=== PATIENT | female | born 1960 | race Caucasian/White ===

== ENCOUNTER 2017-12-27 18:55 | Emergency (ER) | payer OTHER ==
[~2017-12-27] VITALS: Ht 162.6 cm; Wt 56.2 kg
[2017-12-27] MEDS ORDERED: ALDACTONE25 MG PO (19:24)
[2017-12-27] MEDS ORDERED: MECLIZINE HCL25 MG PO (21:01)
--- NOTE | 2017-12-28 20:59 | EKG ---
[facility] [address] [facility] [place], [place] [address] Signed Normal sinus rhythm Voltage criteria for left ventricular hypertrophy Prolonged QT Abnormal ECG No previous ECGs available Confirmed by ELIANA JAVIER MD ([id number]) on 12/28/2017 8:59:25 PM Electronically Signed By: ELIANA JAVIER MD 12/28/179 PATIENT NAME: CHRIS DUMONT Electrocardiogram DATE OF : 60 PHYSICIAN: ELIANA JAVIER MD REPORT #: [id number] REPORT IS CONFIDENTIAL AND NOT TO BE RELEASED WITHOUT AUTHORIZATION
== END 2017-12-27 21:11 | disposition home or self-care (01) ==
LOC: ED 18:55
DX: R42 Dizziness and giddiness (principal); F17.200 Nicotine dependence, unspecified, uncomplicated; Z79.899 Other long term (current) drug therapy
CPT/HCPCS: 70450; 93005; 93010; 99284

== ENCOUNTER 2018-01-08 18:45 | Emergency (ER) | payer OTHER ==
[~2018-01-08] VITALS: Ht 162.6 cm; Wt 54.9 kg
[~2018-01-08 18:45] MED LIST: ALDACTONE25 MG PO; MECLIZINE HCL25 MG PO
[2018-01-08] MEDS ORDERED: XANAX0.5 MG PO (19:35)
[2018-01-08] MEDS ORDERED: FERRIC CITRATE210 MG PO (19:36)
[2018-01-08] MEDS ORDERED: CYMBALTA20 MG PO (19:36)
[2018-01-08] MEDS ORDERED: ROXICODONE15 MG PO (19:37)
[2018-01-08] MEDS ORDERED: LASIX40 MG PO (19:37)
[2018-01-08] MEDS ORDERED: POTASSIUM CHLO20 ME1 PO (20:23)
--- NOTE | 2018-01-09 16:01 | EKG ---
[facility] [address] [facility] [place] [address] Signed Normal sinus rhythm Left axis deviation Left ventricular hypertrophy with repolarization abnormality Prolonged QT Abnormal ECG When compared with ECG of 27-DEC-2017 19:29, T wave inversion no longer evident in Inferior leads Confirmed by ROSHAN NGUYEN MD ([id number]) on 01/09/2018 4:01:39 PM Electronically Signed By: ROSHAN NGUYEN MD 01/09/18 1601 PATIENT NAME: CHRIS DUMONT Electrocardiogram DATE OF : 60 PHYSICIAN: ROSHAN NGUYEN MD REPORT #: [id number] REPORT IS CONFIDENTIAL AND NOT TO BE RELEASED WITHOUT AUTHORIZATION
== END 2018-01-08 20:37 | disposition home or self-care (01) ==
LOC: ED 18:45
DX: E87.6 Hypokalemia (principal); F17.200 Nicotine dependence, unspecified, uncomplicated; Z79.899 Other long term (current) drug therapy
CPT/HCPCS: 93005; 93010; 99284

== ENCOUNTER 2018-01-10 18:16 | Emergency (ER) | payer OTHER ==
[~2018-01-10] VITALS: Ht 162.6 cm; Wt 54.9 kg
[~2018-01-10 18:16] MED LIST changes: +CYMBALTA20 MG PO; +FERRIC CITRATE210 MG PO; +LASIX40 MG PO; +POTASSIUM CHLO20 ME1 PO; +ROXICODONE15 MG PO; +XANAX0.5 MG PO
[2018-01-10] MEDS ORDERED: VITAMIN K100 MCG PO (18:36)
== END 2018-01-10 19:56 | disposition home or self-care (01) ==
LOC: ED 18:16
DX: E87.6 Hypokalemia (principal); K76.9 Liver disease, unspecified; F17.200 Nicotine dependence, unspecified, uncomplicated; Z79.899 Other long term (current) drug therapy
CPT/HCPCS: 80053; 82140; 85025; 85610; 85730; 99283

== ENCOUNTER 2018-01-24 04:09 | Emergency (ER) | payer OTHER ==
[~2018-01-24] VITALS: Ht 162.6 cm; Wt 54.9 kg
[~2018-01-24 04:09] MED LIST changes: +VITAMIN K100 MCG PO
[2018-01-24] MEDS ORDERED: OXYCODONE HCL5 MG PO (04:36)
[2018-01-24] MEDS ORDERED: ALPRAZOLAM0.5 MG PO (04:36)
[2018-01-24] MEDS ORDERED: FUROSEMIDE40 MG PO (04:36)
== END 2018-01-24 04:50 | disposition home or self-care (01) ==
LOC: ED 04:09
DX: C22.8 Malignant neoplasm of liver, primary, unspecified as to type (principal); K74.60 Unspecified cirrhosis of liver; F17.200 Nicotine dependence, unspecified, uncomplicated; Z79.899 Other long term (current) drug therapy
CPT/HCPCS: 99283

== ENCOUNTER 2019-01-17 11:11 | Emergency (ER) | payer OTHER ==
[~2019-01-17] VITALS: Ht 162.6 cm; Wt 54.4 kg
--- OUTSIDE RECORDS SUMMARY | ~2019-01-17 | XMS | Clinical Summary ---
Demographics + + + | Address | [address] | | | [place] [address] | + + + | Home Phone | | + + + | Preferred Language | Unknown | + + + | Marital Status | Legally | + + + | Cheondoism Affiliation | Unknown | + + + | Race | Unknown | + + + | Ethnic Group | Unknown | + + + Author + + + | Author | [facility] | | | and [place] | + + + | Organization | [facility] | | | and [place] | + + + | Address | Unknown | + + + | Phone | Unavailable | + + + Support + + +---------+ + | Name | Relationship | Address | Phone | + + +---------+ + | Yusuf Faust | EDMUND | Unknown | | + + +---------+ + | Liliana Faust | ECON | Unknown | | + + +---------+ + Care Team Providers + +------+ + | Care Lap Regulator Name | Role | Phone | + +------+ + | Donal Chaidez MD | PP | Unavailable | + +------+ + Allergies No Known Allergies Medications + + + +---------+------+------+-------+ | Medication | Sig | Dispensed | Refills | Star | End | Statu | | | | | | t | Date | s | | | | | | Date | | | + + + +---------+------+------+-------+ | ferric citrate | Take 1 tablet by | 120 | 1 | 05/2 | | Activ | | (AURYXIA) 1 (210 MG | mouth 2 times daily. | tablet | | 5/20 | | e | | Fe) G tablet | | | | 18 | | | + + + +---------+------+------+-------+ | alendronate | Take 1 tablet by | | 0 | 12/0 | | Activ | | (FOSAMAX) 70 mg | mouth Once a week. | | | 4/20 | | e | | tablet | | | | 18 | | | + + + +---------+------+------+-------+ | Blood Glucose | Use to test blood | 1 each | 0 | 12/1 | | Activ | | Monitoring Suppl | sugar once daily. | | | 20 | | e | | (FREESTYLE FREEDOM | DX E11.9 | | | 18 | | | | LITE) w/Device KIT | | | | | | | + + + +---------+------+------+-------+ | FREESTYLE LANCETS | Use to test blood | 100 | 2 | 12/1 | | Activ | | MISC | sugar once daily. | each | | 4/20 | | e | | | DX E11.9 | | | 18 | | | + + + +---------+------+------+-------+ | glucose blood | Use to test blood | 100 | 2 | 08/02 | | Activ | | test strips | sugar 1 time daily | each | | 12/20 | | e | | (FREESTYLE LITE) | Dx E11.9 | | | 18 | | | | strip | | | | | | | + + + +---------+------+------+-------+ | Insulin Pen Needle | Inject Lantus | 100 | 2 | 08/03 | | Activ | | (DROPLET PEN | insulin nightly | each | | 04/21 | | e | | NEEDLES) 32G X 4 MM | | | | 18 | | | | MISC | | | | | | | + + + +---------+------+------+-------+ | spironolactone | Take 1 tablet by | 30 | 5 | 01/0 | | Activ | | (ALDACTONE) 100 MG | mouth Daily. | tablet | | 05/22 | | e | | tablet | | | | 19 | | | + + + +---------+------+------+-------+ | insulin glargine | Inject 30 Units | 15 mL | 5 | 01/0 | | Activ | | (LANTUS SOLOSTAR) | under the skin | | | 9/20 | | e | | 100 units/mL | nightly. | | | 19 | | | | injection (pen) | | | | | | | + + + +---------+------+------+-------+ | DULoxetine | Take 2 capsules by | 60 | 5 | 01/0 | | Activ | | (CYMBALTA) [address] | mouth Daily. | capsule | | 9/20 | | e | | capsule | | | | 19 | | | + + + +---------+------+------+-------+ | furosemide (LASIX) | 1 tablet by mouth | 90 | 1 | 01/0 | | Activ | | 40 mg tablet | daily | tablet | | 9/20 | | e | | | | | | 19 | | | + + + +---------+------+------+-------+ | lactulose 10 g/15 | Take 45 mLs by mouth | 1892 mL | 3 | 01/0 | | Activ | | mL liquid | 3 times daily. | | | 9/20 | | e | | | | | | 19 | | | + + + +---------+------+------+-------+ | erythromycin | Place into both | 3.5 g | 0 | 01/0 | | Activ | | ophthalmic ointment | eyes 3 times daily. | | | 9/20 | | e | | | | | | 19 | | | + + + +---------+------+------+-------+ | oxyCODONE | Take 0.5 tablets by | 60 | 0 | 05/1 | | Activ | | (ROXICODONE) 5 mg | mouth every 6 hours | tablet | | 6/20 | | e | | tablet | as needed for Pain. | | | 19 | | | + + + +---------+------+------+-------+ | oxyCODONE | Take 0.5 tablets by | 60 | 0 | 03/1 | 05/1 | Disco | | (ROXICODONE) 5 mg | mouth every 6 hours | tablet | | 10/22 | 02/19 | ntinu | | tablet | as needed for Pain. | | | 19 | 19 | ed | + + + +---------+------+------+-------+ Active Problems + + + | Problem | Noted Date | + + + | Type 2 diabetes mellitus without complication, without long-term | 06/19/2018 | | current use of insulin | | + + + | Pain in both lower extremities | 06/19/2018 | + + + | Colonic adenoma | 02/18/2017 | + + + + + | Overview: 07/05/16 done at [facility] | | There is no evidence of high-grade dyplasia | + + + + + | Cardiac murmur | 02/18/2017 | + + + | Portal hypertensive gastropathy | 01/15/2017 | + + + | Gastroparesis | 01/15/2017 | + + + | Alcoholic cirrhosis of liver with ascites | 12/24/2016 | + + + | Anasarca | 12/24/2016 | + + + | Renal insufficiency | 12/24/2016 | + + + | Hypoalbuminemia | 12/24/2016 | + + + | Cirrhosis of liver | 11/27/2016 | + + + | Stage 3 chronic kidney disease | 11/27/2016 | + + + Resolved Problems + + + + | Problem | Noted | Resolved | | | Date | Date | + + + + | Hematemesis, presence of nausea not specified | 12/25/19 | | | | 17 | 9 | + + + + | Hepatic encephalopathy | 12/25/19 | | | | 17 | 9 | + + + + Encounters +--------+ + + + + | Date | Type | Specialty | Care Team | Description | +--------+ + + + + | 01/15/ | Refill | | Donal Chaidez, | Medication Refill | | 2018 | | | MD | | +--------+ + + + + | 01/05/ | Refill | | Gisell Dorantes FNP | Medication Refill | | 2018 | | | | | +--------+ + + + + | 12/23/ | Telephone | | Yasmin Buck | Nephrology | | 2019 | | | M, DO | Appointment | +--------+ + + + + | 12/05/ | Telephone | | Donal Chaidez, | Vaccines; Stye | | 2018 | | | MD | | +--------+ + + + + | 11/11/ | Office | | Donal Chaidez, | Upper respiratory | | 2018 | Visit | | MD | tract infection, | | | | | | unspecified type | | | | | | (Primary Dx); Pain | | | | | | in both lower | | | | | | extremities | +--------+ + + + + | 11/03/ | Orders Only | | Yasmin Buck | Stage 3 chronic | | 2019 | | | M, DO | kidney disease (HCC) | | | | | | (Primary Dx) | +--------+ + + + + from Last 3 Months Family History + + +-------+ + | Medical History | Relation | Name | Comments | + + +-------+ + | Substance abuse | Brother | | | + + +-------+ + | Substance abuse | Brother | | | + + +-------+ + | Substance abuse | Father | | | + + +-------+ + | Vision loss | Father | | | + + +-------+ + | Diabetes | Maternal | | | | | Aunt | | | + + +-------+ + | Arthritis | Maternal | | | | | Grandfath | | | | | er | | | + + +-------+ + | Breast cancer | Maternal | | | | | Grandmoth | | | | | er | | | + + +-------+ + | High blood pressure | Maternal | | | | | Grandmoth | | | | | er | | | + + +-------+ + | Hearing loss | Mother | Lissa | | + + +-------+ + | High blood pressure | Mother | Lissa | | + + +-------+ + | Vision loss | Mother | Lissa | | + + +-------+ + | Arthritis | Paternal | | | | | Grandmoth | | | | | er | | | + + +-------+ + | Stroke | Paternal | | | | | Grandmoth | | | | | er | | | + + +-------+ + | Substance abuse | Sister | | | + + +-------+ + + +-------+ + + | Relation | Name | Status | Comments | + +-------+ + + | Brother | | Alive | | + +-------+ + + | Brother | | | | + +-------+ + + | Father | | | | + +-------+ + + | Maternal Aunt | | | | + +-------+ + + | Maternal Grandfather | | | | + +-------+ + + | Maternal Grandmother | | | | + +-------+ + + | Mother | Lissa | Alive | | + +-------+ + + | Paternal Grandfather | | | | + +-------+ + + | Paternal Grandmother | | | | + +-------+ + + | Sister | | Alive | | + +-------+ + + | Sister | | Alive | | + +-------+ + + Social History + + + +--------+ + | Tobacco Use | Types | Packs/Day | Years | Date | | | | | Used | | + + + +--------+ + | Current Every Day | Cigarettes | 0.5 | 42 | Started: 1975 | | Smoker | | | | | + + + +--------+ + + +---+---+---+ | Smokeless Tobacco: | | | | | Never Used | | | | + +---+---+---+ + + | Tobacco Cessation: Ready to Quit: Yes | + + + + +---------+ + | Alcohol Use | Drinks/We | oz/Week | Comments | | | ek | | | + + +---------+ + | No | 0 | 0.0 | 2015 was pts last drink | | | Standard | | | | | drinks or | | | | | | | | | | equivalen | | | | | t | | | + + +---------+ + + + + | Sex Assigned at | Date Recorded | | | | + + + | Not on file | | + + + + + + + | Job Start Date | Occupation | Industry | + + + + | Not on file | Not on file | Not on file | + + + + + + + + | Travel History | Travel Start | Travel End | + + + + + + | No recent travel history available. | + + Last Filed Vital Signs + + + + | Vital Sign | Reading | Time Taken | + + + + | Blood Pressure | 122/80 | 11/11/20181105 PDT | + + + + | Pulse | 77 | 11/11/20181105 PDT | + + + + | Temperature | 36.3 C (97.4 F) | 11/11/20181105 PDT | + + + + | Respiratory Rate | 16 | 11/11/20181105 PDT | + + + + | Oxygen Saturation | 98% | 11/11/20181105 PDT | + + + + | Inhaled Oxygen | - | - | | Concentration | | | + + + + | Weight | 56 kg (123 lb 7.3 | 11/11/20181105 PDT | | | oz) | | + + + + | Height | 162.6 cm (5' 4.02") | 11/11/20181105 PDT | + + + + | Body Mass Index | 21.18 | 11/11/2018 1106 PDT | + + + + Plan of Treatment + + + + + | Health Maintenance | Due Date | Last Done | Comments | + + + + + | Urine Drug Screening | | | | | | 6 | | | + + + + + | Vaccine: | | | | | Dtap/Tdap/Td (1 - | 9 | | | | Tdap) | | | | + + + + + | Vaccine: | | | | | Pneumococcal 19-64 | 9 | | | | (PPSV23 only) Medium | | | | | Risk (1 of 1 - | | | | | PPSV23) | | | | + + + + + | Hemoglobin A1c | | 08/07/2018, 06/03/2018 | | | Screening | 9 | | | + + + + + | Breast Cancer | | 07/30/2018 | | | Screening | 9 | | | + + + + + | Diabetic Foot Exam | | 08/20/2018 | | | | 9 | | | + + + + + | Microalbumin | | 09/10/2018 | | | Screening | 0 | | | + + + + + | Vaccine: Influenza | | | Postponed from | | (Season Ended) | 0 | | 05/03/2019 (Plan in | | | | | Place) | + + + + + | Vaccine: Zoster (1 | | | Postponed from | | of 2) | 0 | | 2010 (Plan in | | | | | Place) | + + + + + | Diabetic Eye Exam | | 09/22/2018 | | | | 1 | | | + + + + + | Colorectal Cancer | | 07/03/2016 | | | Screening | 6 | | | | (Colonoscopy) | | | | + + + + + | Hepatitis C | Completed | 11/27/2016 | | | Screening | | | | + + + + + Results Not on filefrom Last 3 Months Insurance + +--------+ +--------+ +---------+--------+ | Payer | Benefi | Subscriber | Effect | Phone | Address | Type | | | t Plan | ID | jeff | | | | | | / | | Dates | | | | | | Group | | | | | | + +--------+ +--------+ +---------+--------+ | [employer] | [employer] | [id number] | | [phone] | | Medica | | MEDICAID HMO | HEALTH | | [phone]-Pr | 1 | | id | | | MDCD | | esent | | | | | | HMO [place] | | | | | | + +--------+ +--------+ +---------+--------+ + +--------+ +--------+ + + | Guarantor Name | Accoun | Relation to | Date | Phone | Billing Address | | | t Type | Patient | of | | | | | | | | | | + +--------+ +--------+ + + | Jarrell Donaldson | Person | Self [birth year] | | | al/Fam | | 1960 | [phone] | [place] [address] | | | ashley | | | [address] (Home) | | + +--------+ +--------+ + + Advance Directives Patient has advance care planning documents on file. For more information, please contact:Yes[facility] [place] [address]
--- OUTSIDE RECORDS SUMMARY | ~2019-01-17 | XMS | Encounter Summary ---
Demographics + + + | Address | [address] | | | [place] [address] | + + + | Home Phone | | + + + | Preferred Language | Unknown | + + + | Marital Status | Legally | + + + | Lutheran Affiliation | Unknown | + + + | Race | Unknown | + + + | Ethnic Group | Unknown | + + + Author + + + | Author | [facility] | | | and Tip[place] | + + + | Organization | [facility] | | | and [place] | [...] Team Providers + +------+ + | Care Exterminator Termite Name | Role | Phone | + [...] Description | +--------+--------+ + + + | 01/05/ | Refill | [facility] | JaynaGisell FNP | Medication Refill | | 2019 | | [facility] [place] | [address] | | | | | [address] | [place] | | | | | [place] | [address] | | | | | [address] | | | | | | [phone] | | | +--------+--------+ + + + [...] this encounter Plan of Treatment Not on filedocumented as of this encounter Visit Diagnoses Not on filedocumented in this encounter"
--- OUTSIDE RECORDS SUMMARY | ~2019-01-17 | XMS | Encounter Summary ---
Demographics + + + | Address | [address] | | | [place] [address] | + + + | Home Phone | | + + + | Preferred Language | Unknown | + + + | Marital Status | Legally | + + + | Jehovah'S Witness Affiliation | Unknown | + + + | Race | Unknown | + + + | Ethnic Group | Unknown | + + + Author + + + | Author | [facility] | | | and [place] | + + + | Organization | [facility] | | | and [place] | [...] Team Providers + +------+ + | Care Brick Pointer Name | Role | Phone | + [...] Refill | | 2019 | | [facility] [place] | [address] | | | | | [address] | [place] | | | | | [place] | [address] | | | | | [address] | | | | | | [phone] | | | +--------+--------+ + + + [...]
--- OUTSIDE RECORDS SUMMARY | ~2019-01-17 | XMS | Encounter Summary ---
Demographics + + + | Address | [address] | | | [place] [address] | + + + | Home Phone | | + + + | Preferred Language | Unknown | + + + | Marital Status | Legally | + + + | Holiness Affiliation | Unknown | + + + | Race | Unknown | + + + | Ethnic Group | Unknown | + + + Author + + + | Author | [facility] | | | and [place] | + + + | Organization | [facility] | | | and Tip[place] [...] Team Providers + +------+ + | Care Cash Checker Name | Role | Phone | + [...] Refill | | 2019 | | [facility] [place] | [address] | | | | | [address] | [place] | | | | | [place] | [address] | | | | | [address] | | | | | | [phone] | | | +--------+--------+ + + + [...]
--- OUTSIDE RECORDS SUMMARY | ~2019-01-17 | XMS | Encounter Summary ---
Demographics + + + | Address | [address] | | | [place] [address] | + + + | Home Phone | | + + + | Preferred Language | Unknown | + + + | Marital Status | Legally | + + + | Pentecostal Affiliation | Unknown | + + + | Race | Unknown | + + + | Ethnic Group | Unknown | + + + Author + + + | Author | [facility] | | | and [place] | + + + | Organization | [facility] | | | and [place] | [...] Team Providers + +------+ + | Care Sales Branch Manager Name | Role | Phone | + +------+ + | Donal Chaidez MD | PCP | Unavailable | + +------+ + Reason for Visit + + + | Reason | Comments | + + + | Follow-up | 2 month regarding multiple concerns | + + + | Cough | productive yellow cough,low grade fever 100.4, sore throat, | | | fatigue x 1 week | + + + Encounter Details +--------+---------+ + + + | Date | Type | Department | Care Team | Description | +--------+---------+ + + + | 11/11/ | Office | [facility] | Donal Chaidez, | Upper respiratory | | 2019 | Visit | [facility] | [address] | tract infection, | | | | [address] | [place] | unspecified type | | | | [place], [place] | [address] | (Primary Dx); Pain | | | | [address] | | in both lower | | | | [phone] | | extremities | +--------+---------+ + + + Social History [...] | Body Mass Index | 21.18 | 11/11/20181105 PDT | + + + + documented in this encounter Progress Notes Donal Chaidez MD - 11/11/2018 1100 PDT Subjective: Patient ID: Jarrell Donaldson is a 58 y.o. female. Chief Complaint Patient presents with Follow-up 2 month regarding multiple concerns Cough productive yellow cough,low grade fever 100.4, sore throat, fatigue x 1 week Cough This is a new problem. The current episode started 1 to 4 weeks ago. The problem has been u nchanged. The cough is productive of purulent sputum. Associated symptoms include nasal krista estion. Pertinent negatives include no shortness of breath. Risk factors for lung disease in clude smoking/tobacco exposure. She has tried OTC cough suppressant for the symptoms. The tr eatment provided no relief. Leg pain: controlled with prn oxycodone. Patient Active Problem List Diagnosis Cirrhosis of liver Stage 3 chronic kidney disease Alcoholic cirrhosis of liver with ascites Hematemesis, presence of nausea not specified Anasarca Renal insufficiency Hepatic encephalopathy Hypoalbuminemia Portal hypertensive gastropathy Gastroparesis Colonic adenoma [...] abuse Brother Diabetes Maternal Aunt Social History Social History Marital status: Legally Spouse name: N/A Number of children: N/A Years of education: N/A Social History Main Topics Smoking status: Current Every Day Smoker Packs/day: 0.50 Years: 42.00 Types: Cigarettes Start date: 1974 Smokeless tobacco: Never Used Alcohol use No Comment: 2015 was pts last drink Drug use: No Sexual activity: No Other Topics Concern None Social History Narrative None Review of Systems Constitutional: Negative. HENT: Negative. Eyes: Negative. Respiratory: Positive for cough. Negative for shortness of breath. Cardiovascular: Negative. Gastrointestinal: Negative. Genitourinary: Negative. Musculoskeletal: Negative. Skin: Negative. Neurological: Negative. Endo/Heme/Allergies: Negative. Psychiatric/Behavioral: Negative. . Objective: BP 122/80 | Pulse 77 | Temp 36.3 C (97.4 F) (Temporal) | Resp 16 | Ht 1.626 m (5' 4 .02") | Wt 56 kg (123 lb 7.3 oz) | SpO2 98% | BMI 21.18 kg/m Physical Exam Constitutional: She is well-developed, well-nourished, and in no distress. HENT: Head: Normocephalic and atraumatic. Eyes: Right eye exhibits no discharge. Left eye exhibits no discharge. Neck: No tracheal deviation present. Cardiovascular: Regular rhythm. Pulmonary/Chest: Effort normal. No respiratory distress. She has no wheezes. She has rhonch i in the right lower field. Abdominal: She exhibits no distension. Musculoskeletal: She exhibits no edema. Neurological: She is alert. Skin: Skin is dry. She is not diaphoretic. Psychiatric: Affect normal. Assessment/Plan: 1. Upper respiratory tract infection, unspecified type 2. Pain in both lower extremities Requested Prescriptions Signed Prescriptions Disp Refills levoFLOXacin (LEVAQUIN) 500 mg tablet 10 tablet 0 Sig: Take 1 tablet by mouth Daily for 10 days. oxyCODONE (ROXICODONE) 5 mg tablet 60 tablet 0 Sig: Take 0.5 tablets by mouth every 6 hours as needed for Pain. New Prescriptions LEVOFLOXACIN (LEVAQUIN) 500 MG TABLET Take 1 tablet by mouth Daily for 10 days. documented in this enc ounter Plan of Treatment Not on filedocumented as of this encounter Visit Diagnoses + + | Diagnosis | + + | Upper respiratory tract infection, unspecified type - Primary | + + | Pain in both lower extremities | + + documented in this encounter
--- OUTSIDE RECORDS SUMMARY | ~2019-01-17 | XMS | Encounter Summary ---
Demographics + + + | Address | [address] | | | [place] [address] | + + + | Home Phone | | + + + | Preferred Language | Unknown | + + + | Marital Status | Legally | + + + | Lutheran Affiliation | Unknown | + + + | Race | Unknown | + + + | Ethnic Group | Unknown | + + + Author + + + | Author | [facility] | | | and [place] | + + + | Organization | [facility] | | | and Tipana [...] Team Providers + +------+ + | Care Architectural Inspector Name | Role | Phone | + [...] + + | 11/11/ | Office | [facility] | Donal Chaidez, | Upper respiratory | | 2019 | Visit | [facility] | [address] | tract infection, | | | | [address] | [place] | unspecified type | | | | [place] | [address] | (Primary Dx); Pain | | | | [address] | | in both lower | | | | [phone] | | extremities | +--------+---------+ + + [...]
--- OUTSIDE RECORDS SUMMARY | ~2019-01-17 | XMS | Encounter Summary ---
Demographics + + + | Address | [address] | | | [place] [address] | + + + | Home Phone | | + + + | Preferred Language | Unknown | + + + | Marital Status | Legally | + + + | Zoroastrianism Affiliation | Unknown | + + + | Race | Unknown | + + + | Ethnic Group | Unknown | + + + Author + + + | Author | [facility] | | | and [place] | + + + | Organization | [facility] | | | and [place] [...] Team Providers + +------+ + | Care Prep Person Name | Role | Phone | + [...] | | [address] | [place] | (Primary Dx) | | | | [place], [place] | [place], [place] | | | | | [address] | [address] | | | | | [phone] | | | +--------+ + + + [...] PSTLabs for upcoming nephrology appointment sent to: Suraj documented in this encounter Plan of Treatment + +--------+ + + | Name | Priori | Associated Diagnoses | Order Schedule | | | ty | | | + +--------+ + + | CBC with Differential | Routin | Stage 3 chronic | Expected: | | | e | kidney disease (HCC) | 12/01/2018, Expires: | | | | | 11/04/2019 | + +--------+ + + | Comprehensive Metabolic Panel | Routin | Stage 3 chronic | Expected: | | | e | kidney disease (HCC) | 12/01/2018, Expires: | | | | | 11/04/2019 | + +--------+ + + | Phosphorus | Routin | Stage 3 chronic | Expected: | | | e | kidney disease (HCC) | 12/01/2018, Expires: | | | | | 11/04/2019 | + +--------+ + + | Parathyroid Hormone, Intact | Routin | Stage 3 chronic | Expected: | | | e | kidney disease (HCC) | 12/01/2018, Expires: | | | | | 11/04/2019 | + +--------+ + + | Lipid Panel | Routin | Stage 3 chronic | Expected: | | | e | kidney disease (HCC) | 12/01/2018, Expires: | | | | | 11/04/2019 | + +--------+ + + | Creatinine [...]
--- OUTSIDE RECORDS SUMMARY | ~2019-01-17 | XMS | Encounter Summary ---
Demographics + + + | Address | [address] | | | [place] [address] | + + + | Home Phone | | + + + | Preferred Language | Unknown | + + + | Marital Status | Legally | + + + | Latter-Day Affiliation | Unknown | + + + | Race | Unknown | + + + | Ethnic Group | Unknown | + + + Author + + + | Author | [facility] | | | and Tipana | + + + | Organization | [facility] | | | and Tipana [...] Team Providers + +------+ + | Care Furniture Mechanic Name | Role | Phone | + +------+ + | Donal Chaidez MD | PCP | Unavailable | + +------+ + Reason for Visit + + + | Reason | Comments | + + + | Vaccines | | + + + | Stye | | + + + Encounter Details +--------+ + + + + | Date | Type | Department | Care Team | Description | +--------+ + + + + | 12/05/ | Telephone | [facility] | Donal Chaidez, | Vaccines; Stye | | 2019 | | [facility] | [address] | | | | | [address] | [place] | | | | | [place], [place] | [address] | | | | | [address] | | | | | | [phone] | | | +--------+ + + + [...]
--- OUTSIDE RECORDS SUMMARY | ~2019-01-17 | XMS | Encounter Summary ---
Demographics + + + | Address | [address] | | | [place] [address] | + + + | Home Phone | | + + + | Preferred Language | Unknown | + + + | Marital Status | Legally | + + + | Sikh Affiliation | Unknown | + + + | Race | Unknown | + + + | Ethnic Group | Unknown | + + + Author + + + | Author | [facility] | | | and Tipana | + + + | Organization | [facility] | | | and Tipana [...] Team Providers + +------+ + | Care School Lunch Monitor Name | Role | Phone | + [...] Stye | | 2019 | | MEDICINE [facility] | [address] | | | | | [address] | [place] | | | | | [place], [place] | [address] | | | | | [address] | | | | | | [phone] | | | +--------+ + + + [...]
--- OUTSIDE RECORDS SUMMARY | ~2019-01-17 | XMS | Encounter Summary ---
Demographics + + + | Address | [address] | | | [place] [address] | + + + | Home Phone | | + + + | Preferred Language | Unknown | + + + | Marital Status | Legally | + + + | Lutheran Affiliation | Unknown | + + + | Race | Unknown | + + + | Ethnic Group | Unknown | + + + Author + + + | Author | [facility] | | | and Tipana | + + + | Organization | [facility] | [...] Team Providers + +------+ + | Care Bottom Crane Operator Name | Role | Phone | [...] Refill | | 2019 | | MEDICINE [facility] | [address] | | | | | [address] | [place] | | | | | [place] | [address] | | | | | [address] | | | | | | [phone] | | | +--------+--------+ + + + [...]
--- OUTSIDE RECORDS SUMMARY | ~2019-01-17 | XMS | Encounter Summary ---
Demographics + + + | Address | [address] | | | [place] [address] | + + + | Home Phone | | + + + | Preferred Language | Unknown | + + + | Marital Status | Legally | + + + | Mandaen Affiliation | Unknown | + + + | Race | Unknown | + + + | Ethnic Group | Unknown | + + + Author + + + | Author | [facility] | | | and Tipana | + + + | Organization | [facility] | | | and [...] Team Providers + +------+ + | Care Break Off Worker Name | Role | Phone | [...] | | [address] | [place] | | | | | [place], [place] | [place], [place] | | | | | [address] | [address] | | | | | [phone] | | | +--------+ + + + [...]
--- OUTSIDE RECORDS SUMMARY | ~2019-01-17 | XMS | Encounter Summary ---
Demographics + + + | Address | [address] | | | [place] [address] | + + + | Home Phone | | + + + | Preferred Language | Unknown | + + + | Marital Status | Legally | + + + | Yarsani Affiliation | Unknown | + + + | Race | Unknown | + + + | Ethnic Group | Unknown | + + + Author + + + | Author | [facility] | | | and Tipana | + + + | Organization | [facility] | | | and Tipana [...] Team Providers + +------+ + | Care Management Trainee Name | Role | Phone | + [...] | | [address] | [place] | | | | | [place], [place] | [place], [place] | | | | | [address] | [address] | | | | | [phone] | | | +--------+ + + + [...]
--- OUTSIDE RECORDS SUMMARY | ~2019-01-17 | XMS | Clinical Summary ---
Demographics + + + | Address | [address] | | | [place] [address] | + + + | Home Phone | | + + + | Preferred Language | Unknown | + + + | Marital Status | Legally | + + + | Islam Affiliation | Unknown | + + + | Race | Unknown | + + + | Ethnic Group | Unknown | + + + Author + + + | Author | [facility] | | | and Tipana | + + + | Organization | [facility] | | | and [...] Team Providers + +------+ + | Care Automatic Cigar Wrapper Tender Name | Role | Phone | + [...] + + | Overview: 07/05/16 done at [facility] | | There is no evidence [...] | [employer] | [facility] | [id number] | | [phone] | | [employer] | [...] | | al/Fam | | 1960 | [phone] | [place] [address] | | | ashley | | | 8 (Home) | | + +--------+ +--------+ + + Advance Directives Patient has advance care planning documents on file. For more information, please contact:[facility] [place] [address]
--- OUTSIDE RECORDS SUMMARY | ~2019-01-17 | XMS | Encounter Summary ---
Demographics + + + | Address | [address] | | | [place] [address] | + + + | Home Phone | | + + + | Preferred Language | Unknown | + + + | Marital Status | Legally | + + + | Gnosticism Affiliation | Unknown | + + + | Race | Unknown | + + + | Ethnic Group | Unknown | + + + Author + + + | Author | [facility] | | | and Tipana | + + + | Organization | [facility] | | | and [...] Team Providers + +------+ + | Care Dental Aide Name | Role | Phone | + [...] | | [address] | [place] | (Primary Dx) | | | | [place], [place] | [place], [place] | | | | | [address] | [address] | | | | | [phone] | | | +--------+ + + + [...]
[~2019-01-17 11:11] MED LIST changes: +ALPRAZOLAM0.5 MG PO; +FUROSEMIDE40 MG PO; +OXYCODONE HCL5 MG PO
--- OUTSIDE RECORDS SUMMARY | 2019-01-17 11:14 | XMS ---
PreManage Notification: CHRIS DUMONT Security Easter Bunny Events No recent Security Events currently on file CRITERIA MET - PDMP CARE PROVIDERS DESIREE PATRICIO [facility] Current PHONE: Unknown Dalia has no Care Guidelines for this patient. EIrena VISIT COUNT (12 MO.) 2 NADJA Oscar TOTAL 2 NOTE: Visits indicate total known visits. ED/UCC VISIT TRACKING (12 MO.) 01/17/2019 11:11 NADJA [facility] [place] TYPE: Emergency COMPLAINT: - VOMITING BLOOD 01/24/2018 04:09 NADJA [facility] [place] TYPE: Emergency COMPLAINT: - ABD PAIN/BACK PAIN DIAGNOSES: - Unspecified abdominal pain - Other ornamenter (current) drug therapy - Unspecified cirrhosis of liver - Nicotine dependence, unspecified, uncomplicated - Malignant neoplasm of liver, primary, unspecified as to type INPATIENT VISIT TRACKING (12 MO.) No inpatient visits to display in this time frame [id number]
[2019-01-17] MEDS ORDERED: LANTUS100 UNITS/ SUB-Q (12:29)
[2019-01-17] MEDS ORDERED: ALENDRONATE SOD70 MG PO (12:29)
== END 2019-01-17 13:17 | disposition short-term general hospital (02) ==
LOC: ED 11:11
DX: K92.2 Gastrointestinal hemorrhage, unspecified (principal); D64.9 Anemia, unspecified; K76.9 Liver disease, unspecified; F17.200 Nicotine dependence, unspecified, uncomplicated; Z90.49 Acquired absence of other specified parts of digestive tract; Z90.710 Acquired absence of both cervix and uterus; Z79.899 Other long term (current) drug therapy
CPT/HCPCS: 80053; 85025; 85610; 85730; 86850; 86900; 86901; 96365; 96375; 99285-25; C9113; J0696; J2354; J2405; J7030; J7060

== ENCOUNTER 2019-01-24 19:20 | Emergency (ER) | payer OTHER ==
[~2019-01-24] VITALS: Ht 162.6 cm; Wt 54.4 kg
--- OUTSIDE RECORDS SUMMARY | ~2019-01-24 | XMS | Encounter Summary ---
Demographics + + + | Address | [address] | | | [place] [address] | + + + | Home Phone | | + + + | Preferred Language | Unknown | + + + | Marital Status | Legally | + + + | Anglican Affiliation | Unknown | + + + | Race | Unknown | + + + | Ethnic Group | Unknown | + + + Author + + + | Author | [facility] | + + + | Organization | [facility] [employer] [facility] | + + + | Address | Unknown | + + + | Phone | Unavailable | + + + Support + + +---------+ + | Name | Relationship | Address | Phone | + + +---------+ + | Kofi Donaldson | ECON | Unknown | | + + +---------+ + | Yusuf aFust | ECON | Unknown | | + + +---------+ + | Lissa Faust | ECON | Unknown | | + + +---------+ + Care Team Providers + +------+ + | Care Director Biostatistics Name | Role | Phone | + +------+ + | Donal Chaidez MD | PCP | | + +------+ + Encounter Details +--------+ + + + + | Date | Type | Department | Care Team | Description | +--------+ + + + + | 01/17/ | Procedure | [facility] | | | | 2019 | [facility] | | | | | | Endoscopy [address] | | | | | | [place] | | | | | | [address] | | | +--------+ + + + + Social History + +-------+ +--------+------+ | Tobacco Use | Types | Packs/Day | Years | Date | | | | | Used | | + +-------+ +--------+------+ | Current Every Day | | 0.25 | | | | Smoker | | | | | + +-------+ +--------+------+ + +---+---+---+ | Smokeless Tobacco: | | | | | Never Used | | | | + +---+---+---+ + + +---------+ + | Alcohol Use | Drinks/We | oz/Week | Comments | | | ek | | | + + +---------+ + | No | | | | + + +---------+ + + + + | Sex Assigned at | Date Recorded | | | | + + + | Not on file | | + + + as of this encounter Plan of Treatment Not on fileas of this encounter Visit Diagnoses Not on filein this encounter"
--- OUTSIDE RECORDS SUMMARY | ~2019-01-24 | XMS | Encounter Summary ---
Demographics + + + | Address | [address] | | | [place] [address] | + + + | Home Phone | | + + + | Preferred Language | Unknown | + + + | Marital Status | Legally | + + + | Mormonism Affiliation | Unknown | + + + | Race | Unknown | + + + | Ethnic Group | Unknown | + + + Author + + + | Author | [facility] [employer] | + + + | Organization | [facility] [employer] [facility] | + + + | Address | Unknown | + + + | Phone | Unavailable | + + + Support + + +---------+ + | Name | Relationship | Address | Phone | + + +---------+ + | Kofi Donaldson | ECON | Unknown | | + + +---------+ + | Yusuf Faust | ECON | Unknown | | + + +---------+ + | Lissa Faust | ECON | Unknown | | + + +---------+ + Care Team Providers + +------+ + | Care Power Ballast Machine Operator Name | Role | Phone | + +------+ + | Donal Chaidez MD | PCP | | + +------+ + Encounter Details +--------+ + + + + | Date | Type | Department | Care Team | Description | +--------+ + + + + | 01/19/ | Procedure | [facility] | | | | 2019 | [facility] | | | | | | Endoscopy [address] | | | | | | [place] | | | | | | [address] | | | +--------+ + + + + Social History + +-------+ +--------+------+ | Tobacco Use | Types | Packs/Day | Years | Date | | | | | Used | | + +-------+ +--------+------+ | Current Every Day | | 0.5 | | | | Smoker | | [...]
--- OUTSIDE RECORDS SUMMARY | ~2019-01-24 | XMS | Encounter Summary ---
Demographics + + + | Address | [address] | | | [place] [address] | + + + | Home Phone | | + + + | Preferred Language | Unknown | + + + | Marital Status | Legally | + + + | Taoism Affiliation | Unknown | + + + | Race | Unknown | + + + | Ethnic Group | Unknown | + + + Author + + + | Author | [facility] [employer] | + + + | Organization | [facility] [employer] [facility] | + + + | Address [...] Team Providers + +------+ + | Care Tie Man Name | Role | Phone | + +------+ + | Donal Chaidez MD | PCP | | + +------+ + Reason for Visit Auth/Cert +--------+--------+ + + + + | Status | Reason | Specialty | Diagnoses / | Referred By | Referred To | | | | | Procedures | Contact | Contact | +--------+--------+ + + + + | | | Internal | Diagnoses | | [facility] | | | | Medicine | | | [place] | | | | | Hyperkalemia | | [address] | | | | | Acute | | [address] | | | | | post-hemorrh | | [place] | | | | | agic anemia | | [address] Phone: | | | | | Upper GI | | [phone] | | | | | bleeding | | | | | | | History of | | | | | | | cirrhosis of | | | | | | | liver | | | | | | | Alcoholic | | | | | | | cirrhosis of | | | | | | | liver with | | | | | | | ascites | | | | | | | (HCC) Acute | | | | | | | renal | | | | | | | injury (HCC) | | | | | | | | | | | | | | Gastrointest | | | | | | | inal | | | | | | | hemorrhage | | | | | | | with | | | | | | | hematemesis | | | | | | | Hematemesis | | | | | | | with nausea | | | | | | | Anemia, | | | | | | | unspecified | | | | | | | type | | | | | | | Leukocytosis | | | | | | | , | | | | | | | unspecified | | | | | | | type | | | | | | | | | | +--------+--------+ + + + + Encounter Details +--------+ + + + + | Date | Type | Department | Care Team | Description | +--------+ + + + + | 01/19/ | Anesthesia | [facility] | Kurt Santos MD | | | 2019 | [facility] | [facility] | | | | | Endoscopy [address] | | [address] [place], [place] | [facility] | | | | | [address] | [place] [address] | | | | | | [phone] | | +--------+ + + + + Anesthesia Record + + + + + | Procedure Name | Responsible | Anesthesia Start | Anesthesia Stop Time | | | Anesthesiologist | Time | | + + + + + | ESOPHAGOGASTRODUODEN | Kurt Santos MD | 01/19/19 1439 | 01/19/19 1454 | | OSCOPY (N/A Upper | | | | | GI) | | | | + + + + + +----+---+ + + | Da | T | Event | Comment | | te | i | | | | | m | | | | | e | | | +----+---+ + + | 05 | 1 | An Start | Pre-anesthetic vital signs reassessed. | | /2 | 4 | | | | 0/ | 3 | | | | 20 | 9 | | | | 19 | | | | +----+---+ + + | | 1 | an stop | | | | 4 | data | | | | 5 | | | | | 2 | | | +----+---+ + + | | 1 | An Stop | | | | 4 | | | | | 5 | | | | | 4 | | | +----+---+ + + +------+ | Meds | +------+ + + + | Name | Total | + + + | lidocaine 2% | 50 mg | + + + | propofol bolus | 90 mg | + + + | propofol infusion | 49.95 mg | + + + | sodium chloride 0.9 % infusion | 0 mL | + + + + + | Name | + + | Aux O2 (L/min) | + + | N2O | + + + + | No blood administrations on file. | + + +--------+ + + + | Type | Details | Placement | Removal | +--------+ + + + | Periph | Placement Date: 01/17/19; | 01/17/19 1413 by | 01/21/19 0800 by | | eral | Placement Time: 141; Removal | Avel Kaiser, | Randa Loza, | | IV | Date: 01/21/19; Removal Time: | RN | SN | | | 0800; Size (Gauge): 22 G; | | | | | Orientation: Left; Location: | | | | | Antecubital | | | +--------+ + + + | Periph | Placement Date: 01/17/19; | 01/17/19 1414 by | 01/21/19 1021 by | | eral | Placement Time: 1414; Removal | Avel Kaiser, | Randa Loza, | | IV | Date: 01/21/19; Removal Time: | RN | SN | | | 1021; Size (Gauge): 20 G; | | | | | Orientation: Left; Location: | | | | | Forearm | | | +--------+ + + + in this encounter Social History + +-------+ +--------+------+ | Tobacco [...] encounter Visit Diagnoses Not on filein this encounter Administered Medications + +--------+ +-------+------+------+ | Medication Order | MAR | Action | Dose | Rate | Site | | | Action | Date | | | | + +--------+ +-------+------+------+ | lidocaine 2 % (MDV) 2 % | Given | | 50 mg | | | | injection Intravenous, PRN, | | 9 14:41 | | | | | Starting 01/19/19 at 1441, | | PDT | | | | | Anesthesia Intra-op | | | | | | + +--------+ +-------+------+------+ +---+---+ | | | +---+---+ + +-------+ +-------+---+---+ | propofol (DIPRIVAN) injection | Given | | 50 mg | | | | Intravenous, PRN, Starting Mon | | 9 14:42 | | | | | 01/19/19 at 1442, Anesthesia | | PDT | | | | | Intra-op | | | | | | + +-------+ +-------+---+---+ +-------+ +-------+---+---+ | Given | | 20 mg | | | | | 9 14:43 | | | | | | PDT | | | | +-------+ +-------+---+---+ | Given | | 20 mg | | | | | 9 14:44 | | | | | | PDT | | | | +-------+ +-------+---+---+ +---+---+ | | | +---+---+ + +---------+ + +-------+---+ | propofol infusion Intravenous, | New Bag | | 100 | 33.3 | | | Continuous PRN, Starting Mon | | 9 14:42 | mcg/kg/m | mL/hr | | | 01/19/19 at 1442, Anesthesia | | PDT | in | | | | Intra-op | | | | | | + +---------+ + +-------+---+ +---+---+ | | | +---+---+ + + + +---+ +---+ | sodium chloride 0.9 % infusion | Rate/Dos | | | 75 mL/hr | | | at 75 mL/hr, Intravenous, | e Change | 9 14:39 | | | | | Continuous, Starting 01/17/19 | | PDT | | | | | at 1830 | | | | | | + + + +---+ +---+ + + +---+ +---+ | Rate/Dose Change | | | 100 | | | | 9 14:42 | | mL/hr | | | | PDT | | | | + + +---+ +---+ | New Bag | | | 75 mL/hr | | | | 9 01:55 | | | | | | PDT | | | | + + +---+ +---+ +---+---+ | | | +---+---+ in this encounter"
--- OUTSIDE RECORDS SUMMARY | ~2019-01-24 | XMS | Encounter Summary ---
Demographics + + + | Address | [address] | | | [place] [address] | + + + | Home Phone | | + + + | Preferred Language | Unknown | + + + | Marital Status | Legally | + + + | Judaism Affiliation | Unknown | + + + | Race | Unknown | + + + | Ethnic Group | Unknown | + + + Author + + + | Author | [facility] | | | and [facility] | + + + | Organization | [facility] | | | and [facility] | [...] Team Providers + +------+ + | Care Safety Teacher Name | Role | Phone | + +------+ + | Donal Chaidez MD | PCP | Unavailable | + +------+ + Reason for Visit + + + | Reason | Comments | + + + | Medication Refill | | + + + Encounter Details +--------+--------+ + + + | Date | Type | Department | Care Team | Description | +--------+--------+ + + + | 01/15/ | Refill | [facility] | Donal Chaidez, | Medication Refill | | 2019 | | MEDICINE [place] | [address] | | | | | [address] | [place] | | | | | [place] | [address] | | | | | [address] | | | | | | [phone] | | | +--------+--------+ + + + Social History + + + [...] recent travel history available. | + + documented as of this encounter Plan of Treatment +--------+---------+ + + + | Date | Type | Specialty | Care Team | Description | +--------+---------+ + + + | 02/13/ | Office | Family Medicine | Donal Chaidez, | | | 2019 | Visit | | [address] | | | | | | [place] | | | | | | [address] | | | | | | | | +--------+---------+ + + + documented as of this encounter Visit Diagnoses Not on filedocumented in this encounter"
--- OUTSIDE RECORDS SUMMARY | ~2019-01-24 | XMS | Encounter Summary ---
Demographics + + + | Address | [address] | | | [place] [address] | + + + | Home Phone | | + + + | Preferred Language | Unknown | + + + | Marital Status | Legally | + + + | Mosque Affiliation | Unknown | + + + | Race | Unknown | + + + | Ethnic Group | Unknown | + + + Author + + + | Author | [facility] [employer] | + + + | Organization | [facility] | + + + | Address [...] Team Providers + +------+ + | Care Electrician Constructor Supervisor Name | Role | Phone | + [...] | | Internal | Diagnoses | | [facility] | | | | Medicine | | | [place] | | | | | Hyperkalemia | | [address] | | | | | Acute | | [address] | | | | | post-hemorrh | | [place] | | | | | agic anemia | | [phone] Phone: | | | | | Upper GI | | [phone] | | | | | bleeding | [...] + + + + | 01/17/ | Anesthesia | [facility] | Kristian Larsen, | | | 2019 | Event | [facility] | [address] | | | | | Endoscopy [address] | [place] [address] | | | | | Blvd [place], [place] | | | | | | [address] | | | +--------+ + + + + Anesthesia Record + + + + + | Procedure Name | Responsible | Anesthesia Start | Anesthesia Stop Time | | | Anesthesiologist | Time | | + + + + + | ESOPHAGOGASTRODUODEN | Yolanda Winters MD | 01/17/191845 | 01/17/191935 | | OSCOPY (N/A Upper | | [...] | Pre-anesthetic vital signs reassessed. | | /1 | 8 | | | | 8/ | 4 | | | | 20 | 6 | | | | 19 | | | | +----+---+ + + | | 1 | An | | | | 8 | Induction | | | | 5 | | | | | 1 | | | +----+---+ + + | | 1 | An | | | | 8 | Intubation | | | | 5 | | | | | 2 | | | +----+---+ + + | | 1 | An | | | | 9 | Emergence | | | | 1 | | | | | 4 | | | +----+---+ + + | | 1 | Extubation | | | | 9 | | | | | 1 | | | | | 8 | | | +----+---+ + + | | 1 | an stop | | | | 9 | data | | | | 2 | | | | | 7 | | | +----+---+ + + | | 1 | An Stop | | | | 9 | | | | | 3 | | | | | 6 | | | +----+---+ + + +------+ | Meds | +------+ + + + | Name | Total | + + + | lidocaine 2% | 60 mg | + + + | propofol bolus | 200 mg | + + + | octreotide (sandoSTATIN) 1,000 | 41.67 mcg | | mcg in sodium chloride (IV) 0.9 % | | | 250 mL infusion | | + + + | pantoprazole (PROTONIX) 80 mg/250 | 6.67 mg | | mL infusion | | + + + | succinylcholine 10 mg/mL | 100 mg | + + + | NS | 300 mL | + + + + + | Name | + + | O2 | + + | Sevoflurane-EX | + + | N2O | + + + + | No blood administrations on file. | + + +--------+ + + + | Type | Details | Placement | Removal | +--------+ + + + | Periph | Placement Date: 01/17/19; | 01/17/19 1413 by | 01/21/19 0800 by | | eral | Placement Time: 1413; Removal | Avel Kaiser, | Randa Loza, [...] | | +--------+ + + + | ETT | Placement Date: 01/17/19; | 01/17/191851 by | 01/17/191917 by | | | Placement Time: 1851; Removal | Kristian Larsen MD | Yolanda Winters MD | | | Date: 01/17/19; Removal Time: | | | | | 1917; Mask Airway: Easy; Blade | | | | | Type: MAC; Blade Size: 3; ETT | | | | | Type: Standard ETT; ETT Size | | | | | (Fr): 7.0; Technique: Direct | | | | | Laryngoscope; Grade: I; Insertion | | | | | attempts: 1; Confirmation: | | | | | EtCO2, Direct visualization; | | | | | Intubation Details: Easy, | | | | | Atraumatic; Taped at (cm): 20; | | | | | Secured at: Gums | | | +--------+ + + + [...] (MDV) 2 % | Given | | 60 mg | | | | injection PRN, Starting Sat | | 9 18:51 | | | | | 01/17/19 at 1851, Anesthesia | | PDT | | | | | Intra-op | | | | | | + +--------+ +-------+------+------+ +---+---+ | | | +---+---+ + + + +--------+-------+---+ | octreotide (sandoSTATIN) 1,000 | Rate/Dos | | 50 | 12.5 | | | mcg in sodium chloride (IV) 0.9 % | e Verify | 9 14:54 | mcg/hr | mL/hr | | | 250 mL infusion 50 mcg/hr (12.5 | | PDT | | | | | mL/hr), Intravenous, at 12.5 | | | | | | | mL/hr, Continuous, Starting Sat | | | | | | | 01/17/19 at 1430 | | | | | | + + + +--------+-------+---+ +---------+ +--------+-------+---+ | New Bag | | 50 | 12.5 | | | | 9 03:56 | mcg/hr | mL/hr | | | | PDT | | | | +---------+ +--------+-------+---+ | New Bag | | 50 | 12.5 | | | | 9 01:56 | mcg/hr | mL/hr | | | | PDT | | | | +---------+ +--------+-------+---+ +---+---+ | | | +---+---+ + +---------+ +---------+ +---+ | pantoprazole (PROTONIX) 80 | New Bag | | 8 mg/hr | 25 mL/hr | | | mg/250 mL infusion 8 mg/hr (25 | | 9 22:46 | | | | | mL/hr), Intravenous, at 25 mL/hr, | | PDT | | | | | Continuous, Starting 01/17/19 | | | | | | | at 1430 | | | | | | + +---------+ +---------+ +---+ +---------+ +---------+ +---+ | New Bag | | 8 mg/hr | 25 mL/hr | | | | 9 09:17 | | | | | | PDT | | | | +---------+ +---------+ +---+ | New Bag | | 8 mg/hr | 25 mL/hr | | | | 9 20:22 | | | | | | PDT | | | | +---------+ +---------+ +---+ +---+---+ | | | +---+---+ + +-------+ +--------+---+---+ | propofol (DIPRIVAN) injection | Given | | 150 mg | | | | Intravenous, PRN, Starting Sat | | 9 18:51 | | | | | 01/17/19 at 1851, Anesthesia | | PDT | | | | | Intra-op | | | | | | + +-------+ +--------+---+---+ +-------+ +-------+---+---+ | Given | | 50 mg | | | | | 9 19:03 | | | | | | PDT | | | | +-------+ +-------+---+---+ +---+---+ | | | +---+---+ + +---------+ +---+---+---+ | sodium chloride 0.9 % infusion | New Bag | | | | | | Continuous PRN, Starting Sat | | 9 18:46 | | | | | 01/17/19 at 1846, Anesthesia | | PDT | | | | | Intra-op | | | | | | + +---------+ +---+---+---+ +---+---+ | | | +---+---+ + +-------+ +--------+---+---+ | succinylcholine injection PRN, | Given | | 100 mg | | | | Starting 01/17/19 at 1851, | | 9 18:51 | | | | | Anesthesia Intra-op | | PDT | | | | + +-------+ +--------+---+---+ +---+---+ | | | +---+---+ in this encounter"
--- OUTSIDE RECORDS SUMMARY | ~2019-01-24 | XMS | Clinical Summary ---
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 | Disp. | Refills | Star | End | Statu | | | | | | t | Date | s | | | | | | Date | | | + + +--------+---------+------+------+-------+ | spironolactone | Take 100 mg by mouth | | | | | Activ | | (ALDACTONE) 100 MG | daily. | | | | | e | | tablet | | | | | | | + + +--------+---------+------+------+-------+ | ALPRAZolam (XANAX) | Take 0.5 mg by mouth | | | | | Activ | | 0.5 MG tablet | 2 (two) times daily | | | | | e | | | as needed for | | | | | | | | Sleep. | | | | | | + + +--------+---------+------+------+-------+ | DULoxetine | Take 40 mg by mouth | | | | | Activ | | (CYMBALTA) [address] | daily. | | | | | e | | capsule | | | | | | | + + +--------+---------+------+------+-------+ | oxyCODONE | Take 5 mg by mouth | | | | | Activ | | (ROXICODONE) 5 MG | every 4 (four) hours | | | | | e | | immediate release | as needed for Pain. | | | | | | | tablet | | | | | | | + + +--------+---------+------+------+-------+ | insulin glargine | Inject 30 Units into | | | | | Activ | | (LANTUS) 100 UNIT/ML | the skin nightly. | | | | | e | | injection | | | | | | | + + +--------+---------+------+------+-------+ | alendronate | Take 70 mg by mouth | | | | | Activ | | (FOSAMAX) 70 MG | every 7 days. Take | | | | | e | | tablet | in the morning with | | | | | | | | a full glass of | | | | | | | | water, on an empty | | | | | | | | stomach, and do not | | | | | | | | take anything else | | | | | | | | by mouth or lie down | | | | | | | | for the next 30 | | | | | | | | min. | | | | | | + + +--------+---------+------+------+-------+ | nadolol (CORGARD) | Take 1 tablet by | 30 | 11 | 05/2 | 05/2 | Activ | | 20 MG tablet | mouth daily. | tablet | | 10/22 | 09/21 | e | | | | | | 19 | 20 | | + + +--------+---------+------+------+-------+ | pantoprazole | Take 1 tablet by | 30 | 1 | 05/2 | 07/2 | Activ | | (PROTONIX) 40 MG | mouth 2 (two) times | tablet | | 2/20 | 1/20 | e | | tablet | daily before meals | | | 19 | 19 | | | | for 60 days. | | | | | | + + +--------+---------+------+------+-------+ | ferrous sulfate, | Take 1 tablet by | 60 | 1 | 05/2 | 05/2 | Activ | | 65 FE, 324 (65 Fe) | mouth 2 (two) times | tablet | | 2/20 | 1/20 | e | | MG EC tablet | daily with meals. | | | 19 | 20 | | + + +--------+---------+------+------+-------+ | ciprofloxacin | Take 1 tablet by | 6 | 0 | 05/2 | 05/2 | Activ | | (CIPRO) 250 MG | mouth 2 (two) times | tablet | | 2/20 | 5/20 | e | | tablet | daily for 3 days. | | | 19 | 19 | | + + +--------+---------+------+------+-------+ | furosemide (LASIX) | Take 1 tablet by | 30 | 11 | 05/2 | 05/2 | Activ | | 20 MG tablet | mouth daily. | tablet | | 2/20 | 1/20 | e | | | | | | 19 | 20 | | + + +--------+---------+------+------+-------+ | Ferric Citrate 1 | Take 1 tablet by | | | | 05/1 | Disco | | GM 210 MG(Fe) TABS | mouth 2 (two) times | | | | 8/20 | ntinu | | | daily. | | | | 19 | ed | + + +--------+---------+------+------+-------+ | furosemide (LASIX) | Take 40 mg by mouth | | | | 05/2 | Disco | | 40 MG tablet | daily. | | | | 2/20 | ntinu | | | | | | | 19 | ed | + + +--------+---------+------+------+-------+ | Phytonadione 100 | Take 100 mcg by | | | | 05/1 | Disco | | MCG TABS | mouth daily. | | | | 04/21 | ntinu | | | | | | | 19 | ed | + + +--------+---------+------+------+-------+ | furosemide (LASIX) | Take 0.5 tablets by | 15 | 11 | 01/01 | 01/01 | Disco | | 40 MG tablet | mouth daily. | tablet | | 10/22 | 10/22 | ntinu | | | | | | 19 | 19 | ed | + + +--------+---------+------+------+-------+ Active Problems + + + | Problem | Noted Date | + + + | Stage 2 chronic kidney disease | 01/21/2019 | + + + | Hematemesis | 01/17/2019 | + + + | Alcoholic cirrhosis of liver with ascites (HCC) | 01/17/2019 | + + + | Type 2 diabetes mellitus (HCC) | 01/17/2019 | + + + | Bandemia | 01/17/2019 | + + + | Fever, unspecified | 01/17/2019 | + + + | Acute renal injury (HCC) | 01/17/2019 | + + + | Anemia | 01/17/2019 | + + + | Smoker | 01/17/2019 | + + + Encounters +--------+ + + + + | Date | Type | Specialty | Care Team | Description | +--------+ + + + + | 01/19/ | Anesthesia | | Kurt Santos MD | | | 2018 | Event | | | | +--------+ + + + + | 01/19/ | Procedure | | | | | 2019 | Pass | | | | +--------+ + + + + | 01/19/ | Surgery | | Joo Wallace IV, | ESOPHAGOGASTRODUODEN | | 2018 | | | MD | OSCOPY | +--------+ + + + + | 01/17/ | Hospital | | Karthik Wilder | Upper GI bleeding | | 2018 - | Encounter | | DO Donn Astorga, | (Primary Dx); | | | | | Maritza Humphrey MD | History of cirrhosis | | | | | Ej Mcnulty MD | of liver; | | 2018 | | | Diogenes Dean, | Leukocytosis, | | | | | MD | unspecified type; | | | | | | Acute renal injury | | | | | | (HCC); Anemia, | | | | | | unspecified type; | | | | | | Hyperkalemia; | | | | | | Gastrointestinal | | | | | | hemorrhage with | | | | | | hematemesis; | | | | | | Hematemesis with | | | | | | nausea; Acute | | | | | | post-hemorrhagic | | | | | | anemia; Alcoholic | | | | | | cirrhosis of liver | | | | | | with ascites (HCC); | | | | | | Alcoholic cirrhosis | | | | | | of liver without | | | | | | ascites (HCC); | | | | | | Portal hypertension | | | | | | (HCC) | +--------+ + + + + +---+ + | | Discharge | | | Summaries | | | - Dianne, | | | Diogenes, | | | MD - | | | 01/21/2019 | | | 8:06 AM | | | PDT | | | Formatting | | | of this | | | note may be | | | different | | | from the | | | original.[facility] | | | Service: | | | Hospitalist | | | Discharge | | | SummaryDate | | | of | | | Admission: | | | | | | 01/17/2019Da | | | te of | | | Discharge: | | | 01/21/19 | | | Discharge | | | Provider: | | | Diogenes | | | Dianne, | | | MDAttending | | | Provider: | | | Diogenes | | | Dianne, | | | MDTreatment | | | Team: | | | Consulting | | | Physician: | | | Joo Astorga | | | Wallace IV, | | | MDAdmitting | | | Provider: | | | Maritza J | | | Hephinger, | | | MDDischarge | | | Diagnoses: | | | Principal | | | Problem: | | | Hematemesis | | | Active | | | Problems: | | | Alcoholic | | | cirrhosis | | | of liver | | | with | | | ascites | | | (HCC) Type | | | 2 diabetes | | | mellitus | | | (HCC) | | | Bandemia | | | Fever, | | | unspecified | | | Acute | | | renal | | | injury | | | (HCC) | | | Anemia | | | Smoker | | | Stage 2 | | | chronic | | | kidney | | | diseaseReso | | | lved | | | Problems: | | | * No | | | resolved | | | hospital | | | problems. | | | *Final | | | Diagnoses: | | | Hepatic | | | cirrhosis | | | Procedures: | | | | | | Procedure(s | | | ):ESOPHAGOG | | | ASTRODUODEN | | | OSCOPYSigni | | | ficant | | | Diagnostic | | | Studies: | | | Us Abdomen | | | LimitedResu | | | lt Date: | | | 01/18/2019Ci | | | rrhotic | | | configurati | | | on of the | | | liver. | | | Debris and | | | small | | | gallstones | | | noted | | | within the | | | gallbladder | | | . Signed | | | by: Dwaine, | | | D.O., Meek | | | Sign | | | Date/Time: | | | 01/18/2019 | | | 4:35 PMUs | | | Kidneys And | | | | | | BladderResu | | | lt Date: | | | 01/19/20191. | | | No | | | evidence of | | | renal | | | stone, | | | mass, | | | hydronephro | | | sis. 2. | | | Postvoid | | | bladder | | | volume = 24 | | | cc Signed | | | by: | | | Jeremy, | | | M.D., Jb | | | Sign | | | Date/Time: | | | 01/19/2019 | | | 6:01 | | | PMBRIEF | | | HISTORY OF | | | PRESENTATIO | | | N: | | | Tanamae | | | Donaldson is a | | | 58 y.o. | | | female who | | | HOSPITAL | | | COURSE: | | | A | | | 58-year-old | | | female, | | | history of | | | alcoholic | | | liver | | | cirrhosis, | | | stopped | | | drinking in | | | 2015; type | | | 2 | | | diabetes; | | | [facility] | | | on | | | 01/17/2019. | | | She reports | | | prior | | | history of | | | ascites, | | | has had | | | paracentesi | | | s in the | | | remote | | | past. She | | | presented | | | initially | | | to | | | [place] | | | with | | | epigastric | | | discomfort | | | and | | | hematemesis | | | . She was | | | started on | | | octreotide | | | drip, IV | | | PPI, | | | transferred | | | to our | | | facility. | | | On | | | presentatio | | | n, | | | hemoglobin | | | was 9.7, | | | creatinine | | | was 1.24, | | | CO2 of | | | 19.GI | | | consultatio | | | n was | | | obtained. | | | She | | | underwent | | | upper EGD | | | on | | | 01/19/2019. | | | She was | | | found to | | | have portal | | | | | | hypertensiv | | | e | | | gastropathy | | | , gastric | | | cardiac | | | area had a | | | healing and | | | erosive | | | ulcer. No | | | definite | | | varices on | | | exam. | | | Concerned | | | for | | | possible | | | prior | | | stigmata of | | | varices | | | bleed. As | | | a result, | | | she was | | | continued | | | on | | | octreotide | | | drip, | | | nadolol was | | | added to | | | her | | | regimen, | | | which was | | | well | | | tolerated.S | | | he was | | | monitored. | | | Hemoglobin | | | was stable | | | at 7.7. | | | She | | | received IV | | | iron and | | | being | | | discharged | | | on oral | | | iron.She | | | did well | | | throughout | | | the rest of | | | her | | | hospitaliza | | | tion. No | | | recurrence | | | of | | | bleeding. | | | On the day | | | of | | | discharge, | | | she was | | | awake, | | | alert, | | | feeling | | | well, eager | | | to be | | | discharged. | | | Lasix was | | | decreased | | | to 20 mg. | | | She is to | | | continue | | | spironolact | | | one at 100 | | | mg for | | | ascites. | | | She | | | completed a | | | 5-day | | | course of | | | IV | | | antibiotics | | | for SBP | | | prophylaxis | | | and will | | | be | | | discharged | | | on | | | additional | | | 3 days oral | | | | | | ciprofloxac | | | in.She is | | | instructed | | | to follow | | | up with Dr. | | | Mahr in | | | approximate | | | ly 3-4 | | | weeks for | | | repeat | | | EGD.She | | | does have | | | underlying | | | chronic | | | kidney | | | disease | | | stage 2 | | | with some | | | mild | | | metabolic | | | acidosis. | | | She reports | | | a followup | | | | | | appointment | | | with | | | [place]rologis | | | [place] | | | the | | | upcoming | | | week. | | | Lasix was | | | decreased | | | to 20 mg | | | and she is | | | to continue | | | on | | | spironolact | | | one at 100 | | | mg.She does | | | have | | | chronic | | | leukocytosi | | | s noted. | | | No clear | | | source of | | | infection | | | was noted. | | | This can | | | be follow | | | up on an | | | outpatient | | | basis.DISCH | | | ARGE | | | DIAGNOSES:1 | | | . Acute | | | blood loss | | | anemia | | | secondary | | | to | | | hematemesis | | | .2. | | | Alcoholic | | | cirrhosis | | | (prior | | | history of | | | grade 1 | | | esophageal | | | varices), | | | gastric | | | ulcer.3. | | | Chronic | | | kidney | | | disease | | | stage 3.4. | | | | | | Leukocytosi | | | s/chronic.5 | | | . Type 2 | | | diabetes.Pa | | | [facility] | | | History | | | Diagnosis | | | Date | | | Ectopic | | | | | | | | | Fracture | | | of pelvis | | | (HCC) | | | | | | Hemorrhage | | | of | | | gastrointes | | | tinal tract | | | | | | Liver | | | cirrhosis | | | (HCC) | | | Type 2 | | | diabetes | | | mellitus | | | (HCC) Past | | | Surgical | | | History | | | Procedure | | | Laterality | | | Date | | | | | | APPENDECTOM | | | Y | | | | | | COLONOSCOPY | | | | | | | | | ESOPHAGOGAS | | | TRODUODENOS | | | COPY N/A | | | 01/17/2019 | | | Procedure: | | | ESOPHAGOGAS | | | TRODUODENOS | | | COPY; | | | Surgeon: | | | Joo Astorga | | | Wallace IV, | | | MD; | | | Location: | | | [facility] | | | ENDOSCOPY; | | | Service: | | | Gastroenter | | | ology; | | | Laterality: | | | N/A; | | | | | | ESOPHAGOGAS | | | TRODUODENOS | | | COPY N/A | | | 01/19/2019 | | | Procedure: | | | ESOPHAGOGAS | | | TRODUODENOS | | | COPY; | | | Surgeon: | | | Joo Astorga | | | Wallace IV, | | | MD; | | | Location: | | | [facility] | | | ENDOSCOPY; | | | Service: | | | Gastroenter | | | ology; | | | Laterality: | | | N/A; | | | | | | HYSTERECTOM | | | Y | | | PELVIC | | | FRACTURE | | | SURGERY | | | | | | | | | SPLENECTOMY | | | , PARTIAL | | | No Known | | | AllergiesPr | | | escriptions | | | Prior to | | | Admission | | | Medication | | | Sig | | | Dispense | | | Refill Last | | | Dose | | | | | | alendronate | | | (FOSAMAX) | | | 70 MG | | | tablet Take | | | 70 mg by | | | mouth every | | | 7 days. | | | Take in the | | | morning | | | with a full | | | glass of | | | water, on | | | an empty | | | stomach, | | | and do not | | | take | | | anything | | | else by | | | mouth or | | | lie down | | | for the | | | next 30 | | | min. | | | 01/16/2019 | | | | | | | | | ALPRAZolam | | | (XANAX) 0.5 | | | MG tablet | | | Take 0.5 mg | | | by mouth 2 | | | (two) | | | times daily | | | as needed | | | for Sleep. | | | 01/16/2019 | | | | | | | | | DULoxetine | | | (CYMBALTA) | | | [address] | | | capsule | | | Take 40 mg | | | by mouth | | | daily. | | | 01/16/2019 | | | | | | insulin | | | glargine | | | (LANTUS) | | | 100 UNIT/ML | | | injection | | | Inject 30 | | | Units into | | | the skin | | | nightly. | | | 01/15/2019 | | | | | | oxyCODONE | | | | | | (ROXICODONE | | | ) 5 MG | | | immediate | | | release | | | tablet Take | | | 5 mg by | | | mouth every | | | 4 (four) | | | hours as | | | needed for | | | Pain. | | | 01/16/2019 | | | | | | | | | spironolact | | | one | | | (ALDACTONE) | | | 100 MG | | | tablet Take | | | 100 mg by | | | mouth | | | daily. | | | 01/16/2019 | | | DISCHARGE | | | EXAMVital | | | Signs:BP | | | 122/68 (BP | | | Location: | | | Right upper | | | arm) | | | | Pulse 74 | | | | Temp 97.7 | | | F (36.5 | | | C) (Oral) | | | | Resp 18 | | | | Ht | | | 1.626 m (5' | | | 4") | Wt | | | 58.5 kg | | | (128 lb | | | 14.4 oz) | | | | SpO2 98% | | | | BMI 22.13 | | | kg/m | | | Temp: | | | [97.7 F | | | (36.5 | | | C)-100 | | | F (37.8 | | | C)] 97.7 | | | F (36.5 | | | C) (01/21 | | | 318)BP: | | | (97-141)/(5 | | | 5-68) | | | 122/68 | | | (01/21 | | | 031)Heart | | | Rate: | | | [69-79] 74 | | | (01/21 | | | 318)Resp: | | | [18-22] 18 | | | (01/21 | | | 318)SpO2: | | | [96 %-100 | | | %] 98 % | | | (01/21 | | | 318)Weight | | | : [58.5 kg | | | (128 lb | | | 14.4 oz)] | | | 58.5 kg | | | (128 lb | | | 14.4 oz) | | | (01/20 | | | 2051)Physic | | | al | | | ExamDATACBC | | | : Lab | | | Results | | | Component | | | Value Date | | | WBC 14.95 | | | (H) | | | 01/21/2019 | | | RBC 2.16 | | | (L) | | | 01/21/2019 | | | HGB 7.3 | | | (L) | | | 01/21/2019 | | | HCT 22.5 | | | (L) | | | 01/21/2019 | | | MCV 103.9 | | | (H) | | | 01/21/2019 | | | MCH 33.9 | | | 01/21/2019 | | | MCHC 32.6 | | | 01/21/2019 | | | RDW 51.6 | | | 01/21/2019 | | | PLT 190 | | | 01/21/2019 | | | MPV 10.3 | | | 01/21/2019 | | | DIFFTYPE | | | AUTOMATED | | | 01/19/2019 | | | BMP: Lab | | | Results | | | Component | | | Value Date | | | NA 148 (H) | | | 01/21/2019 | | | K 3.6 | | | 01/21/2019 | | | CL 118 (H) | | | 01/21/2019 | | | CO2 18 | | | (L) | | | 01/21/2019 | | | ANIONGAP | | | 16 | | | 01/21/2019 | | | GLUF 160 | | | (H) | | | 01/21/2019 | | | BUN 13 | | | 01/21/2019 | | | CREATININE | | | 1.2 (H) | | | 01/21/2019 | | | BCR 11 | | | 01/21/2019 | | | CA 8.0 (L) | | | 01/21/2019 | | | EGFR 46 | | | (L) | | | 01/21/2019 | | | Hepatic | | | Function | | | Panel: Lab | | | Results | | | Component | | | Value Date | | | PROT 5.4 | | | (L) | | | 01/21/2019 | | | ALB 2.6 | | | (L) | | | 01/21/2019 | | | BILITOT | | | 0.4 | | | 01/21/2019 | | | ALP 53 | | | 01/21/2019 | | | AST 22 | | | 01/21/2019 | | | ALT 22 | | | 01/21/2019 | | | Disposition | | | : | | | HomeConditi | | | on: | | | StableCode | | | Status: | | | Full | | | CodeDischar | | | ge | | | Instruction | | | sCBC w/auto | | | diff | | | (reflex to | | | manual) | | | Standing | | | Status: | | | Future | | | Standing | | | Exp. Date: | | | 01/22/20 | | | Comprehensi | | | ve | | | metabolic | | | panel | | | Standing | | | Status: | | | Future | | | Standing | | | Exp. Date: | | | 01/22/20 | | | Follow | | | up:Peter D | | | Wallace IV, | | | [id number] | | | [address] | | | [place] | | | [address] | | | [place] | | | [phone] | | | [phone] | | | weeksDougla | | | s D Dm, | | | [id number] | | [address] | | | [place] | | | [place] | | | [phone] | | | [phone] | | | weeks | | | Medication | | | List START | | | taking | | | these | | | medications | | | | | | ciprofloxac | | | in 250 MG | | | tabletQTY: | | | 6 | | | tabletRefil | | | ls: | | | 0Commonly | | | known as: | | | CIPROTake 1 | | | tablet by | | | mouth 2 | | | (two) times | | | daily for | | | 3 days. | | | ferrous | | | sulfate (65 | | | FE) 324 | | | (65 Fe) MG | | | EC | | | tabletQTY: | | | 60 | | | tabletRefil | | | ls: 1Take | | | 1 tablet by | | | mouth 2 | | | (two) times | | | daily with | | | meals. | | | nadolol 20 | | | MG | | | tabletQTY: | | | 30 | | | tabletRefil | | | ls: | | | 11Commonly | | | known as: | | | CORGARDTake | | | 1 tablet | | | by mouth | | | daily. | | | pantoprazol | | | e 40 MG | | | tabletQTY: | | | 30 | | | tabletRefil | | | ls: | | | 1Commonly | | | known as: | | | PROTONIXTak | | | e 1 tablet | | | by mouth 2 | | | (two) times | | | daily | | | before | | | meals for | | | 60 days. | | | CHANGE how | | | you take | | | these | | | medications | | | | | | furosemide | | | 20 MG | | | tabletQTY: | | | 30 | | | tabletRefil | | | ls: | | | 11Commonly | | | known as: | | | LASIXTake 1 | | | tablet by | | | mouth | | | daily.What | | | changed: | | | medication | | | strength | | | how much to | | | take | | | CONTINUE | | | taking | | | these | | | medications | | | | | | alendronate | | | 70 MG | | | tabletRefil | | | ls: | | | 0Commonly | | | known as: | | | FOSAMAX | | | ALPRAZolam | | | 0.5 MG | | | tabletRefil | | | ls: | | | 0Commonly | | | known as: | | | XANAX | | | DULoxetine | | | [address] | | | capsuleRefi | | | lls: | | | 0Commonly | | | known as: | | | CYMBALTA | | | insulin | | | glargine | | | 100 UNIT/ML | | | | | | injectionRe | | | fills: | | | 0Commonly | | | known as: | | | LANTUS | | | oxyCODONE 5 | | | MG | | | immediate | | | release | | | tabletRefil | | | ls: | | | 0Commonly | | | known as: | | | ROXICODONE | | | spironolact | | | one 100 MG | | | tabletRefil | | | ls: | | | 0Commonly | | | known as: | | | ALDACTONE | | | You might | | | also be | | | taking | | | other | | | medications | | | not listed | | | above. If | | | you have | | | questions | | | about any | | | of your | | | other | | | medications | | | , talk to | | | the person | | | who | | | prescribed | | | them or | | | your | | | Primary | | | Care | | | Provider. | | | Where to | | | Get Your | | | Medications | | | You can | | | get these | | | medications | | | from any | | | pharmacy | | | Bring a | | | paper | | | prescriptio | | | n for each | | | of these | | | medications | | | | | | ciprofloxac | | | in 250 MG | | | tablet | | | ferrous | | | sulfate (65 | | | FE) 324 | | | (65 Fe) MG | | | EC tablet | | | furosemide | | | 20 MG | | | tablet | | | nadolol 20 | | | MG tablet | | | | | | pantoprazol | | | e 40 MG | | | tablet | | | Discharge | | | took 35 | | | minutes, to | | | include | | | final | | | examination | | | , | | | discussion | | | of | | | admission, | | | and | | | preparation | | | of | | | prescriptio | | | ns, | | | instruction | | | s for | | | on-going | | | care, | | | follow-up | | | and | | | documentati | | | on of | | | discharge | | | summary.Fra | | | ncesco | | | Dianne, | | | MD01/21/2019 | +---+ + +--------+ +---+ + + | 01/17/ | Anesthesia | | Kristian Larsen, | | | 2018 | Event | | MD | | +--------+ +---+ + + | 01/17/ | Procedure | | | | | 2019 | Pass | | | | +--------+ +---+ + + | 01/17/ | Surgery | | Joo Wallace IV, | ESOPHAGOGASTRODUODEN | | 2018 | | | MD | OSCOPY | +--------+ +---+ + + from Last 3 Months Social History + +-------+ +--------+------+ | Tobacco [...] + +---+---+---+ + + | Tobacco Cessation: Counseling Given: Yes | + + + + +---------+ [...] on file | | + + + Last Filed Vital Signs + + + + | Vital Sign | Reading | Time Taken | + + + + | Blood Pressure | 122/68 | 01/21/2019 3:19 AM PDT | + + + + | Pulse | 74 | 01/21/2019 3:19 AM PDT | + + + + | Temperature | 36.5 C (97.7 F) | 01/21/2019 3:19 AM PDT | + + + + | Respiratory Rate | 18 | 01/21/2019 3:19 AM PDT | + + + + | Oxygen Saturation | 98% | 01/21/2019 3:19 AM PDT | + + + + | Inhaled Oxygen | - | - | | Concentration | | | + + + + | Weight | 58.5 kg (128 lb 14.4 | 01/20/2019 8:52 PM PDT | | | oz) | | + + + + | Height | 162.6 cm (5' 4") | 01/17/2019 5:55 PM PDT | + + + + | Body Mass Index | 22.13 | 01/20/2019 8:52 PM PDT | + + + + Plan of Treatment Not on file Procedures + +--------+ + + + | Procedure Name | Priori | Date/Time | Associated Diagnosis | Comments | | | ty | | | | + +--------+ + + + | POCT GLUCOSE | Routin | 01/21/2019 | | Results for this | | | e | 5:44 AM | | procedure are in the | | | | PDT | | results section. | + +--------+ + + + | COMPREHENSIVE | Routin | 01/21/2019 | | Results for this | | METABOLIC PANEL | e - AM | 4:47 AM | | procedure are in the | | | | PDT | | results section. | + +--------+ + + + | CBC W/NO DIFF | ALLEY | 01/21/2019 | | Results for this | | | | 4:47 AM | | procedure are in the | | | | PDT | | results section. | + +--------+ + + + | POCT GLUCOSE | Routin | 01/20/2019 | | Results for this | | | e | 9:38 PM | | procedure are in the | | | | PDT | | results section. | + +--------+ + + + | POCT GLUCOSE | Routin | 01/20/2019 | | Results for this | | | e | 4:22 PM | | procedure are in the | | | | PDT | | results section. | + +--------+ + + + | POCT GLUCOSE | Routin | 01/20/2019 | | Results for this | | | e | 11:23 AM | | procedure are in the | | | | PDT | | results section. | + +--------+ + + + | POCT GLUCOSE | Routin | 01/20/2019 | | Results for this | | | e | 5:59 AM | | procedure are in the | | | | PDT | | results section. | + +--------+ + + + | COMPREHENSIVE | Routin | 01/20/2019 | | Results for this | | METABOLIC PANEL | e | 4:23 AM | | procedure are in the | | | | PDT | | results section. | + +--------+ + + + | HGB AND HCT | ALLEY | 01/20/2019 | | Results for this | | | | 4:23 AM | | procedure are in the | | | | PDT | | results section. | + +--------+ + + + | POCT GLUCOSE | Routin | 01/19/2019 | | Results for this | | | e | 9:54 PM | | procedure are in the | | | | PDT | | results section. | + +--------+ + + + | HGB AND HCT | ALLEY | 01/19/2019 | | Results for this | | | | 9:34 PM | | procedure are in the | | | | PDT | | results section. | + +--------+ + + + | US KIDNEYS AND | Routin | 01/19/2019 | | Results for this | | BLADDER | e | 6:01 PM | | procedure are in the | | | | PDT | | results section. | + +--------+ + + + | UR UREA NITRO,RANDOM | Routin | 01/19/2019 | | Results for this | | | e | 4:30 PM | | procedure are in the | | | | PDT | | results section. | + +--------+ + + + | OSMOLALITY, URINE | Timed | 01/19/2019 | | Results for this | | | | 4:30 PM | | procedure are in the | | | | PDT | | results section. | + +--------+ + + + | CREATININE, URINE, | Timed | 01/19/2019 | | Results for this | | RANDOM | | 4:30 PM | | procedure are in the | | | | PDT | | results section. | + +--------+ + + + | URINE EOSINOPHILS | Timed | 01/19/2019 | | Results for this | | | | 4:30 PM | | procedure are in the | | | | PDT | | results section. | + +--------+ + + + | HGB AND HCT | ALLEY | 01/19/2019 | | Results for this | | | | 3:59 PM | | procedure are in the | | | | PDT | | results section. | + +--------+ + + + | PROCALCITONIN | Add-On | 01/19/2019 | | Results for this | | | | 3:59 PM | | procedure are in the | | | | PDT | | results section. | + +--------+ + + + | POCT GLUCOSE | Routin | 01/19/2019 | | Results for this | | | e | 3:36 PM | | procedure are in the | | | | PDT | | results section. | + +--------+ + + + | ESOPHAGOGASTRODUODEN | | 01/19/2019 | GI bleed, Portal | | | OSCOPY | | 2:55 PM | Hypertension | | | | | PDT | | | + +--------+ + + + | EGD | Routin | 01/19/2019 | | Results for this | | | e | 2:41 PM | | procedure are in the | | | | PDT | | results section. | + +--------+ + + + | POCT GLUCOSE | Routin | 01/19/2019 | | Results for this | | | e | 11:17 AM | | procedure are in the | | | | PDT | | results section. | + +--------+ + + + | HGB AND HCT | STAT | 01/19/2019 | | Results for this | | | | 10:34 AM | | procedure are in the | | | | PDT | | results section. | + +--------+ + + + | BLOOD CULTURE, SET 2 | Timed | 01/19/2019 | | | | | | 10:33 AM | | | | | | PDT | | | + +--------+ + + + | BLOOD CULTURE, SET 1 | Timed | 01/19/2019 | | | | | | 10:33 AM | | | | | | PDT | | | + +--------+ + + + | PATHOLOGY CONSULT | Routin | 01/19/2019 | | Results for this | | | e | 6:28 AM | | procedure are in the | | | | PDT | | results section. | + +--------+ + + + | CBC W/AUTO DIFF | ALLEY | 01/19/2019 | | Results for this | | (REFLEX TO MANUAL) | | 6:28 AM | | procedure are in the | | | | PDT | | results section. | + +--------+ + + + | POCT GLUCOSE | Routin | 01/19/2019 | | Results for this | | | e | 5:32 AM | | procedure are in the | | | | PDT | | results section. | + +--------+ + + + | COMPREHENSIVE | Routin | 01/19/2019 | | Results for this | | METABOLIC PANEL | e | 4:50 AM | | procedure are in the | | | | PDT | | results section. | + +--------+ + + + | HGB AND HCT | ALLEY | 01/18/2019 | | Results for this | | | | 10:22 PM | | procedure are in the | | | | PDT | | results section. | + +--------+ + + + | POCT GLUCOSE | Routin | 01/18/2019 | | Results for this | | | e | 9:31 PM | | procedure are in the | | | | PDT | | results section. | + +--------+ + + + | HGB AND HCT | ALLEY | 01/18/2019 | | Results for this | | | | 4:17 PM | | procedure are in the | | | | PDT | | results section. | + +--------+ + + + | POCT GLUCOSE | Routin | 01/18/2019 | | Results for this | | | e | 4:13 PM | | procedure are in the | | | | PDT | | results section. | + +--------+ + + + | US ABDOMEN LIMITED | Routin | 01/18/2019 | | Results for this | | | e | 4:04 PM | | procedure are in the | | | | PDT | | results section. | + +--------+ + + + | CASE REQUEST | Routin | 01/18/2019 | | | | OPERATING ROOM | e | 3:00 PM | | | | | | PDT | | | + +--------+ + + + | POCT GLUCOSE | Routin | 01/18/2019 | | Results for this | | | e | 11:05 AM | | procedure are in the | | | | PDT | | results section. | + +--------+ + + + | HGB AND HCT | ALLEY | 01/18/2019 | | Results for this | | | | 10:46 AM | | procedure are in the | | | | PDT | | results section. | + +--------+ + + + | FERRITIN | Add-On | 01/18/2019 | | Results for this | | | | 10:46 AM | | procedure are in the | | | | PDT | | results section. | + +--------+ + + + | IRON AND TIBC | Add-On | 01/18/2019 | | Results for this | | | | 10:46 AM | | procedure are in the | | | | PDT | | results section. | + +--------+ + + + | RETICULOCYTES | Add-On | 01/18/2019 | | Results for this | | | | 10:46 AM | | procedure are in the | | | | PDT | | results section. | + +--------+ + + + | HGB AND HCT | Timed | 01/18/2019 | | Results for this | | | | 8:12 AM | | procedure are in the | | | | PDT | | results section. | + +--------+ + + + | POCT GLUCOSE | Routin | 01/18/2019 | | Results for this | | | e | 5:41 AM | | procedure are in the | | | | PDT | | results section. | + +--------+ + + + | HEMOGLOBIN A1C | Routin | 01/18/2019 | | Results for this | | | e - AM | 5:06 AM | | procedure are in the | | | | PDT | | results section. | + +--------+ + + + | PHOSPHOROUS | Routin | 01/18/2019 | | Results for this | | | e - AM | 5:06 AM | | procedure are in the | | | | PDT | | results section. | + +--------+ + + + | MAGNESIUM | Routin | 01/18/2019 | | Results for this | | | e - AM | 5:06 AM | | procedure are in the | | | | PDT | | results section. | + +--------+ + + + | COMPREHENSIVE | Routin | 01/18/2019 | | Results for this | | METABOLIC PANEL | e | 5:06 AM | | procedure are in the | | | | PDT | | results section. | + +--------+ + + + | CBC W/AUTO DIFF | ALLEY | 01/18/2019 | | Results for this | | (REFLEX TO MANUAL) | | 5:06 AM | | procedure are in the | | | | PDT | | results section. | + +--------+ + + + | PROTIME-INR | Routin | 01/18/2019 | | Results for this | | | e - AM | 5:06 AM | | procedure are in the | | | | PDT | | results section. | + +--------+ + + + | APTT | Routin | 01/18/2019 | | Results for this | | | e - AM | 5:06 AM | | procedure are in the | | | | PDT | | results section. | + +--------+ + + + | HGB AND HCT | Timed | 01/17/2019 | | Results for this | | | | 11:52 PM | | procedure are in the | | | | PDT | | results section. | + +--------+ + + + | POCT GLUCOSE | Routin | 01/17/2019 | | Results for this | | | e | 10:15 PM | | procedure are in the | | | | PDT | | results section. | + +--------+ + + + | POCT GLUCOSE | Routin | 01/17/2019 | | Results for this | | | e | 7:47 PM | | procedure are in the | | | | PDT | | results section. | + +--------+ + + + | EGD | Routin | 01/17/2019 | | Results for this | | | e | 6:29 PM | | procedure are in the | | | | PDT | | results section. | + +--------+ + + + | HGB AND HCT | Timed | 01/17/2019 | | Results for this | | | | 6:08 PM | | procedure are in the | | | | PDT | | results section. | + +--------+ + + + | ESOPHAGOGASTRODUODEN | | 01/17/2019 | GI bleed, | | | OSCOPY | | 6:05 PM | hematemesis, | | | | | PDT | hematochezia | | + +--------+ + + + | POTASSIUM | STAT | 01/17/2019 | | Results for this | | | | 5:33 PM | | procedure are in the | | | | PDT | | results section. | + +--------+ + + + | EKG 12 LEAD UNIT | Routin | 01/17/2019 | | Results for this | | PERFORMED | e | 5:18 PM | | procedure are in the | | | | PDT | | results section. | + +--------+ + + + | POCT GLUCOSE | Routin | 01/17/2019 | | Results for this | | | e | 5:11 PM | | procedure are in the | | | | PDT | | results section. | + +--------+ + + + | CASE REQUEST | Routin | 01/17/2019 | | | | OPERATING ROOM | e | 5:06 PM | | | | | | PDT | | | + +--------+ + + + | ED INFORMATION | Routin | 01/17/2019 | | Results for this | | EXCHANGE | e | 3:32 PM | | procedure are in the | | | | PDT | | results section. | + +--------+ + + + | TYPE AND SCREEN | STAT | 01/17/2019 | | Results for this | | | | 2:05 PM | | procedure are in the | | | | PDT | | results section. | + +--------+ + + + | [facility] CARD PANEL W/O | STAT | 01/17/2019 | | Results for this | | TRP (ED ONLY) | | 2:05 PM | | procedure are in the | | | | PDT | | results section. | + +--------+ + + + from Last 3 Months Results POCT glucose (01/21/2019 5:44 AM)Only the most recent of 16 results within the time period is included. + + + + + | Component | Value | Ref Range | Performed At | + + + + + | GLUCOSE,POC SCREEN | 171 (H)Comment: Testing | 65 - 99 mg/dL | [facility] | | | performed at [facility];[address] | | | | [address];[place], [place] | | | | | [address] | | | + + + + + + + + + + | Performing | Address | City/State/Zipcode | Phone Number | | Organization | | | | + + + + + | [facility] | [address] | [place] [address] | | + + + + + CBC w/no Diff (01/21/2019 4:47 AM) + + + + + | Component | Value | Ref Range | Performed At | + + + + + | WBC | 14.95 (H) | 3.80 - 11.00 K/uL | [facility] | + + + + + | RBC | 2.16 (L) | 3.70 - 5.10 M/uL | [facility] | + + + + + | HGB | 7.3 (L) | 11.3 - 15.5 g/dL | [facility] | + + + + + | HCT | 22.5 (L) | 34.0 - 46.0 % | [facility] | + + + + + | MCV | 103.9 (H) | 80.0 - 100.0 fl | [facility] | + + + + + | MCH | 33.9 | 27.0 - 34.0 pg | [facility] | + + + + + | MCHC | 32.6 | 32.0 - 35.5 g/dL | [facility] | + + + + + | RDW SD | 51.6 | 37 - 53 fl | [facility] | + + + + + | PLT | 190 | 150 - 400 K/uL | [facility] | + + + + + | MPV | 10.3Comment: Testing | fl | [facility] | | | performed at [facility];[address] | | | | | [address];[place] | | | | | [address] | | | + + + + + + + + + + | Performing | Address | City/State/Zipcode | Phone Number | | Organization | | | | + + + + + | [facility] | [address] | [place] [address] | | + + + + + Comprehensive metabolic panel (01/21/2019 4:47 AM)Only the most recent of 4 results within the time period is included. + + + + + | Component | Value | Ref Range | Performed At | + + + + + | SODIUM | 148 (H) | 135 - 145 mmol/L | [facility] | | | | | LABOR[facility] | + + + + + | POTASSIUM | 3.6 | 3.5 - 4.9 mmol/L | [facility] | | | | | LAB[facility] | + + + + + | CHLORIDE | 118 (H) | 99 - 109 mmol/L | [facility] | | | | | LAB[facility] | + + + + + | CO2 | 18 (L) | 23 - 32 mmol/L | [facility] | | | | | LAB[facility] | + + + + + | ANION GAP AGAP | 16 | 5 - 20 mmol/L | [facility] | | | | | LAB[facility] | + + + + + | GLUCOSE | 160 (H) | 65 - 99 mg/dL | [facility] | | | | | [facility] | + + + + + | BUN | 13 | 8 - 25 mg/dL | [facility] | | | | | LAB[facility] | + + + + + | CREATININE | 1.2 (H) | 0.50 - 1.00 mg/dL | [facility] | | | | | LAB[facility] | + + + + + | BUN/CREAT | 11 | | [facility] | | | | | LAB[facility] | + + + + + | CALCIUM | 8.0 (L) | 8.5 - 10.5 mg/dL | [facility] | | | | | [facility] | + + + + + | TOTAL PROTEIN | 5.4 (L) | 6.3 - 8.2 g/dL | [facility] | | | | | LAB[facility] | + + + + + | Albumin | 2.6 (L) | 3.6 - 5.0 g/dL | [facility] | | | | | [facility] | + + + + + | GLOBULIN | 2.8 | 1.3 - 4.9 g/dL | [facility] | | | | | LAB[facility] | + + + + + | A/G | 0.9 (L) | 1.0 - 2.4 | [facility] | | | | | LAB[facility] | + + + + + | TBIL | 0.4 | 0.1 - 1.5 mg/dL | [facility] | | | | | LAB[facility] | + + + + + | ALK PHOS | 53 | 35 - 115 U/L | [facility] | | | | | [facility] | + + + + + | AST | 22 | 10 - 45 U/L | [facility] | | | | | [facility] | + + + + + | ALT | 22 | 10 - 65 U/L | [facility] | | | | | [facility] | + + + + + | EGFR | 46 (L)Comment: GFR <60: | >60 mL/min/1.73m2 | [facility] | | | CHRONIC KIDNEY DISEASE, | | LABORATORY | | | IF FOUND OVER A 3 MONTH | | | | | PERIOD.GFR <15: KIDNEY | | | | | FAILURE.FOR | | | | | AMERICANS, MULTIPLY THE | | | | | CALCULATED GFR BY | | | | | 1.210.This eGFR is | | | | | calculated using the | | | | | MDRD IDMS traceable | | | | | equation.Testing | | | | | performed at [facility], [address] | | | | [facility], | | | | | [place] [address] | | | + + + + + + + | Specimen | + + | Blood | + + + + + + + | Performing | Address | City/State/Zipcode | Phone Number | | Organization | | | | + + + + + | [facility] | [address] | [place] [address] | [phone] | | LABORATORY | [address] | | | + + + + + HGB and HCT (01/20/2019 4:23 AM)Only the most recent of 10 results within the time period is included. + + + + + | Component | Value | Ref Range | Performed At | + + + + + | HGB | 7.3 (L) | 11.3 - 15.5 g/dL | [facility] | + + + + + | HCT | 22.2 (L)Comment: Testing | 34.0 - 46.0 % | [facility] | | | performed at [facility];[address];[place] | | | | | [address] | | | + + + + + + + + + + | Performing | Address | City/State/Zipcode | Phone Number | | Organization | | | | + + + + + | [facility] | [address] | [place] [address] | | + + + + + US kidneys and bladder (01/19/2019 6:01 PM) + + + | Impressions | Performed At | + + + | 1. No evidence of renal stone, mass, hydronephrosis. 2. Postvoid | [facility] | | bladder volume = 24 cc Signed by: Mart Luna, Jb Sign | RADIOLOGY | | Date/Time: 01/19/2019 6:01 PM | | + + + + + + | Narrative | Performed At | + + + | ULTRASOUND KIDNEYS AND BLADDER CLINICAL INFORMATION: Acute renal | [facility] | | failure versus chronic renal failure. No prior labs to compare. | RADIOLOGY | | COMPARISON: None PROCEDURE: Evaluation of the kidneys and urinary | | | bladder. FINDINGS: Right kidney: 10.6 x 4.6 x 4.7 cm. No solid | | | renal mass, hydronephrosis or definitive calculi. Left kidney: 11.3 | | | x 4.3 x 4.0 cm.. No solid renal mass, hydronephrosis or definitive | | | calculi. Bladder: No evidence of renal stone, mass, | | | diverticuli. Postvoid bladder volume = 24 cc. | | + + + + + | Procedure Note | + + | Kei Irizarry Results In 01/19/2019 6:04 PM PDT ULTRASOUND KIDNEYS AND BLADDER | | CLINICAL INFORMATION: | | Acute renal failure versus chronic renal failure. No prior labs to | | compare. | | COMPARISON: | | None | | PROCEDURE: | | Evaluation of the kidneys and urinary bladder. | | FINDINGS: | | Right kidney: 10.6 x 4.6 x 4.7 cm. No solid renal mass, hydronephrosis | | or definitive calculi. | | Left kidney: 11.3 x 4.3 x 4.0 cm.. No solid renal mass, hydronephrosis | | or definitive calculi. | | Bladder: No evidence of renal stone, mass, diverticuli. Postvoid | | bladder volume = 24 cc. | | IMPRESSION: | | 1. No evidence of renal stone, mass, hydronephrosis. | | 2. Postvoid bladder volume = 24 cc | | Signed by: Mart Luna, Jb | | Sign Date/Time: 01/19/2019 6:01 PM | + + + + + + + | Performing | Address | City/State/Zipcode | Phone Number | | Organization | | | | + + + + + | [facility] | [address] | [place] [address] | | + + + + + UR urea nitro, random (01/19/2019 4:30 PM) + + + + + | Component | Value | Ref Range | Performed At | + + + + + | UR UREA NITRO,RANDOM | 369.0Comment: NO NORMAL | mg/dL | [facility] | | | [facility] ESTABLISHEDTesting | | LABORATORY | | | performed at [facility], [address], | | | | | [place] [address] | | | + + + + + + + + + + | Performing | Address | City/State/Zipcode | Phone Number | | Organization | | | | + + + + + | [facility] | [address] [place] [address] | [place] [address] | [phone] | | LABORATORY | [address] | | | + + + + + Urine eosinophils (01/19/2019 4:30 PM) + + + + + | Component | Value | Ref Range | Performed At | + + + + + | URINE EOSINOPHILS | NO EOSINOPHILS | <1 % | [facility] | | | SEENComment: Testing | | LABORATORY | | | performed at [facility], [address] [facility], | | | | | [place] [address] | | | + + + + + + + | Specimen | + + | Urine, Clean Catch | + + + + + + + | Performing | Address | City/State/Zipcode | Phone Number | | Organization | | | | + + + + + | [facility] | [address] | [place] [address] | [phone] | | LABORATORY | [address] | | | + + + + + Osmolality, urine (01/19/2019 4:30 PM) + + + + + | Component | Value | Ref Range | Performed At | + + + + + | OSMOLALITY,URINE | 452Comment: Testing | 50 - 1,200 mOsm/kg | [facility] | | RANDOM | performed at [facility], [address] | | LABORATORY | | | [address], | | | | | [place] [address] | | | + + + + + + + | Specimen | + + | Urine - Urine, Clean | | Catch | + + + + + + + | Performing | Address | City/State/Zipcode | Phone Number | | Organization | | | | + + + + + | [facility] | [address] | [place] [address] | [phone] | | LABORATORY | [address] | | | + + + + + Creatinine, urine, random (01/19/2019 4:30 PM) + + + + + | Component | Value | Ref Range | Performed At | + + + + + | UR CREAT,RANDOM | 43.0Comment: NO NORMAL | mg/dL | [facility] | | | RANGE ESTABLISHEDTesting | | LABORATORY | | | performed at [facility], [address], | | | | | [place] [address] | | | + + + + + + + | Specimen | + + | Urine - Urine, Clean | | Catch | + + + + + + + | Performing | Address | City/State/Zipcode | Phone Number | | Organization | | | | + + + + + | [facility] | [address] | [place] [address] | [phone] | | LABORATORY | [address] | | | + + + + + PROCALCITONIN (01/19/2019 3:59 PM) + + + + + | Component | Value | Ref Range | Performed At | + + + + + | PROCALCITONIN | 0.08Comment: | <0.5 ng/mL | [facility] | | | INTERPRETIVE | | | | | INFORMATION: PROCALCI | | | | | TONIN PCT <= 0.5 | | | | | ng/mL: Low risk | | | | | for progression to | | | | | severe | | | | | systemic bacteria | | | | | l infection (severe | | | | | sepsis/septic | | | | | shock). Does not | | | | | exclude an infection, | | | | | because | | | | | localized infecti | | | | | ons may be associated | | | | | with such low | | | | | levels. If PCT is | | | | | measured very early | | | | | after | | | | | bacterial challen | | | | | ge (usually <6 hours), | | | | | results may still | | | | | be low and should | | | | | re-assess PCT 6-24 | | | | | hours later. PCT >0.5 | | | | | and <= 2 | | | | | ng/mL: Moderate | | | | | risk for progression to | | | | | severe | | | | | systemic infectio | | | | | n (severe sepsis/septic | | | | | shock). Other | | | | | conditions are known to | | | | | elevate PCT, patient | | | | | should be | | | | | closely monitored both | | | | | clinically and | | | | | by re-assessing | | | | | PCT within 6-24 hours. | | | | | PCT > 2 | | | | | ng/mL: High | | | | | likelihood for | | | | | progression to severe | | | | | systemic bacteria | | | | | l infection (severe | | | | | sepsis/septic shock). | | | | | PCT >= 10 | | | | | ng/mL: High | | | | | likelihood of severe | | | | | sepsis or septic | | | | | shock.Testing performed | | | | | at [facility];[address] [place] [address] | | | | | Blvd;[place] [address] | | | + + + + + + + + + + | Performing | Address | City/State/Zipcode | Phone Number | | Organization | | | | + + + + + | [facility] | [address] | [place] [address] | | + + + + + JOSSED (01/19/2019 2:41 PM) + + + | Narrative | Performed At | + + + | [facility] | [facility] | | | [facility] | | Patient Name: Donaldson Travissouleymane Procedure | | | Date: 01/19/2019 2:41 PM MRN: | | | [id number] Account | | | Number: [id number] Date of : | | | 1960 Note Status: Finalized Attending | | | MD: Joo Wallace IV , Instrument Name: [id number] Gastroscope | | | | | | Procedure Type: Upper GI endoscopy | | | Indications: Recent gastrointestinal bleeding, | | | Patient with known | | | cirrhosis admitted with | | | severe hemorrhage with | | | hematemesis and | | | hematochezia but non-defined precise | | | etiology for the bleed. | | | Portal hypertensive gastropathy | | | and concern of possible | | | junctional varix versus | | | Saira-Bowens tear. | | | Reevaluation warranted. No further | | | active bleeding. | | | Medicines: Monitored Anesthesia Care, See the | | | Anesthesia note for | | | documentation of the | | | administered medications Complications: No immediate | | | complications. | | | | | | Procedure: Pre-Anesthesia Assessment: - | | | Prior to the procedure, a History and Physical was performed, and | | | patient medications and allergies were reviewed. The | | | patient's tolerance of previous anesthesia was also | | | reviewed. The risks and benefits of the procedure and the | | | sedation options and risks were discussed with the patient. | | | All questions were answered, and informed consent was obtained. | | | Prior Anticoagulants: The patient has taken no previous | | | anticoagulant or antiplatelet agents. ASA Grade Assessment: | | | III - A patient with severe systemic disease. After | | | reviewing the risks and benefits, the patient was deemed in | | | satisfactory condition to undergo the procedure. After | | | obtaining informed consent, the endoscope was passed under direct | | | vision. Throughout the procedure, the patient's blood | | | pressure, pulse, and oxygen saturations were monitored | | | continuously. The Endoscope was introduced through the | | | mouth, and advanced to the second part of duodenum. The | | | upper GI endoscopy was accomplished without difficulty. The | | | patient tolerated the procedure well. | | | | | | | | | Estimated Blood Loss: Estimated blood loss: none. | | | Findings: The Z-line was regular and was found 35 cm from | | | the incisors. The examined esophagus was normal. | | | At this time the did not appear to be significant size esophageal | | | varices present. No erosive esophagitis or other abnormality | | | see. The small erosion at the squamocolumnar transition | | | less impressive. Mild portal hypertensive gastropathy was | | | found in the stomach. Gastric cardia slight prominence in | | | the area of what looked like a healing erosion. Still was | | | not definitive for gastric varices on exam. No other | | | lesions in the stomach and clearly no evidence of recent | | | bleeding. The exam of the stomach was otherwise normal. | | | The examined duodenum was normal. No blood in the | | | upper GI tract to suggest recent recurrent bleeding. | | | Unfortunately still unclear precise etiology of her earlier major | | | bleed. A medium diverticulum was found in the third portion | | | of the duodenum. | | | | | | | | | Impression: - Z-line regular, 35 cm from | | | the incisors. - Normal esophagus. - Portal | | | hypertensive gastropathy. - Gastric cardia slight prominence | | | in the area of what looked like a healing erosion. Still | | | was not definitive for gastric varices on exam. No other | | | lesions in the stomach and clearly no evidence of recent | | | bleeding. - Normal examined duodenum. - No blood | | | in the upper GI tract to suggest recent recurrent bleeding. | | | Unfortunately still unclear precise etiology of her earlier major | | | bleed. - Duodenal diverticulum. - No specimens | | | collected. | | | | | | | | | Recommendation: - Return patient to | | | hospital [facility] for [facility]. - Resume previous diet. | | | - Continue present medications. - Would continue on | | | octreotide another 24 hours. - Would consider starting on | | | nadolol or propranolol as nonselective beta silva. Will | | | need closer monitoring due to history of diabetes. - I will | | | advance her diet at this point since no evidence of recurrent | | | bleeding. - If no further bleeding and tolerating | | | nadolol she would likely be able to be discharged the next | | | day or 2. - She should undergo follow-up EGD as outpatient | | | ideally in the next 3-4 weeks. If unclear and the concern | | | for gastric varices remains endoscopic ultrasound might be | | | another consideration. | | | | | | | | | Joo Wallace IV, | | | 01/19/2019 3:18:00 PM This report has been signed electronically. | | | Note Initiated On: 01/19/2019 2:41 PM Number of Addenda: 0 | | | [facility] | | + + + + +---------+ + + | Performing | Address | City/State/Zipcode | Phone Number | | Organization | | | | + +---------+ + + | [facility] | | | | + +---------+ + + Pathologist consult (01/19/2019 6:28 AM) + + + + + | Component | Value | Ref Range | Performed At | + + + + + | Pathologist Consult | Comment: Review of CBC | | [facility] | | | collected 01/19/2019. I | | | | | agree with the cell | | | | | counts. There are no | | | | | schistocytes or other | | | | | evidence of peripheral | | | | | destruction. The | | | | | leukocytes display no | | | | | significant morphologic | | | | | changes. The history of | | | | | alcoholic cirrhosis and | | | | | GI bleed is noted. | | | | | Please correlate | | | | | clinically. Dr. Kwok | | | | | Walter 01/19/2019 | | | | | BES/emb Testing | | | | | performed at [facility];[address] | | | | | [address] [facility];[place], [place] | | | | | [address] | | | + + + + + + + + + + | Performing | Address | City/State/Zipcode | Phone Number | | Organization | | | | + + + + + | [facility] | [address] | [place] [address] | | + + + + + CBC w/auto diff (reflex to manual) (01/19/2019 6:28 AM)Only the most recent of 2 results w ithin the time period is included. + + + + + | Component | Value | Ref Range | Performed At | + + + + + | WBC | 15.44 (H) | 3.80 - 11.00 K/uL | [facility] | + + + + + | RBC | 2.22 (L) | 3.70 - 5.10 M/uL | [facility] | + + + + + | HGB | 7.6 (L) | 11.3 - 15.5 g/dL | [facility] | + + + + + | HCT | 23.0 (L) | 34.0 - 46.0 % | [facility] | + + + + + | MCV | 103.3 (H) | 80.0 - 100.0 fl | [facility] | + + + + + | MCH | 34.0 | 27.0 - 34.0 pg | [facility] | + + + + + | MCHC | 33.0 | 32.0 - 35.5 g/dL | [facility] | + + + + + | RDW SD | 50.8 | 37 - 53 fl | [facility] | + + + + + | PLT | 187 | 150 - 400 K/uL | [facility] | + + + + + | MPV | 9.3 | fl | [facility] | + + + + + | DIFF TYPE | AUTOMATED | | [facility] | + + + + + | NEUTROPHILS | 48.42 | % | [facility] | + + + + + | LYMPHOCYTES | 32.17 | % | [facility] | + + + + + | MONOCYTES | 16.58 | % | [facility] | + + + + + | EOSINOPHILS | 1.66 | % | [facility] | + + + + + | BASOPHILS | 1.17 | % | [facility] | + + + + + | NEUTROPHILS ABS | 7.48 (H) | 1.90 - 7.40 K/uL | [facility] | + + + + + | LYMPHOCYTES ABS | 4.97 (H) | 1.00 - 3.90 K/uL | [facility] | + + + + + | MONOCYTES ABS | 2.56 (H) | 0.00 - 0.80 K/uL | [facility] | + + + + + | EOSINOPHILS ABS | 0.26 | 0.00 - 0.50 K/uL | [facility] | + + + + + | BASOPHILS ABS | 0.18 (H)Comment: Testing | 0.00 - 0.10 K/uL | [facility] | | | performed at [facility] | | | | | [address];[place] | | | | | [address] | | | + + + + + + + | Specimen | + + | Blood | + + + + + + + | Performing | Address | City/State/Zipcode | Phone Number | | Organization | | | | + + + + + | [facility] | [address] | [place] [address] | | + + + + + US abdomen limited (01/18/2019 4:04 PM) + + + | Impressions | Performed At | + + + | Cirrhotic configuration of the liver. Debris and small gallstones | [facility] | | noted within the gallbladder. Signed by: Ezekiel Isidro Chet Sign | RADIOLOGY | | Date/Time: 01/18/2019 4:35 PM | | + + + + + + | Narrative | Performed At | + + + | ULTRASOUND ABDOMEN, LIMITED CLINICAL INFORMATION: Cirrhosis, | [facility] | | portal hypertension, gastrointestinal bleed. Assess for liver | RADIOLOGY | | lesions. COMPARISON: US ABDOMEN LIMITED (02/05/2017); US GUIDED | | | PARACENTESIS (11/20/2016); PROCEDURE: Evaluation of the gallbladder, | | | if present, common bile duct, liver, and right kidney. FINDINGS: | | | Liver: Cirrhotic configuration of the liver. Normal directional | | | flow the patent portal vein. No focal mass or cyst visualized. | | | Gallbladder/Bile Duct: Layering debris in gallstones noted within the | | | gallbladder. No gallbladder wall thickening. Gallbladder wall | | | measures 2.7 mm. Common bile duct 9.2 mm. Right kidney: No | | | solid renal mass, hydronephrosis or definitive calculi. IVC normal. | | | No ascites. | | + + + + + | Procedure Note | + + | Juan C, Rad Results In - 01/18/2019 4:38 PM PDT ULTRASOUND ABDOMEN, LIMITED | | CLINICAL INFORMATION: | | Cirrhosis, portal hypertension, gastrointestinal bleed. Assess for | | liver lesions. | | COMPARISON: | | US ABDOMEN LIMITED (02/05/2017); US GUIDED PARACENTESIS (11/20/2016); | | PROCEDURE: | | Evaluation of the gallbladder, if present, common bile duct, liver, and | | right kidney. | | FINDINGS: | | Liver: Cirrhotic configuration of the liver. Normal directional flow | | the patent portal vein. No focal mass or cyst visualized. | | Gallbladder/Bile Duct: Layering debris in gallstones noted within the | | gallbladder. No gallbladder wall thickening. Gallbladder wall | | measures 2.7 mm. Common bile duct 9.2 mm. | | Right kidney: No solid renal mass, hydronephrosis or definitive | | calculi. | | IVC normal. No ascites. | | IMPRESSION: | | Cirrhotic configuration of the liver. | | Debris and small gallstones noted within the gallbladder. | | Signed by: Ezekiel Isidro Chet | | Sign Date/Time: 01/18/2019 4:35 PM | + + + + + + + | Performing | Address | City/State/Zipcode | Phone Number | | Organization | | | | + + + + + | [facility] | [address] | [place] [address] | | + + + + + Iron panel (01/18/2019 10:46 AM) + + + + + | Component | Value | Ref Range | Performed At | + + + + + | IRON | 200 (H) | 30 - 180 ug/dL | [facility] | | | | | LABORATORY | + + + + + | TIBC | 202 (L) | 260 - 490 ug/dL | [facility] | | | | | LABORATORY | + + + + + | IRON % SAT | 99 (H)Comment: Testing | 15 - 50 % | [facility] | | | performed at [facility], [address] | | LABORATORY | | | [address], | | | | | [place] [address] | | | + + + + + + + | Specimen | + + | Blood | + + + + + + + | Performing | Address | City/State/Zipcode | Phone Number | | Organization | | | | + + + + + | [facility] | [address] | [place] [address] | [phone] | | LABORATORY | [place]. | | | + + + + + Reticulocyte count (01/18/2019 10:46 AM) + + + + + | Component | Value | Ref Range | Performed At | + + + + + | RETICULOCYTES | 2.9 (H)Comment: Testing | 0.4 - 2.7 % | [facility] | | | performed at [facility];[address] | | | | | [address];[place] | | | | | [address] | | | + + + + + + + | Specimen | + + | Blood | + + + + + + + | Performing | Address | City/State/Zipcode | Phone Number | | Organization | | | | + + + + + | [facility] | [address] | [place] [address] | | + + + + + Ferritin (01/18/2019 10:46 AM) + + + + + | Component | Value | Ref Range | Performed At | + + + + + | FERRITIN | 87Comment: Testing | 6 - 170 ng/mL | [facility] | | | performed at [facility], [address] | | LABORATORY | | | [address], | | | | | [place] [address] | | | + + + + + + + | Specimen | + + | Blood | + + + + + + + | Performing | Address | City/State/Zipcode | Phone Number | | Organization | | | | + + + + + | [facility] | [address] | [place] [address] | [phone] | | LABORATORY | [address] | | | + + + + + aPTT (01/18/2019 5:06 AM) + + + + + | Component | Value | Ref Range | Performed At | + + + + + | APTT | 25Comment: Testing | 23 - 32 seconds | [facility] | | | performed at [facility];[address] | | | | | [address];[place] | | | | | [address] | | | + + + + + + + | Specimen | + + | Blood | + + + + + + + | Performing | Address | City/State/Zipcode | Phone Number | | Organization | | | | + + + + + | [facility] | [address] | [place] [address] | | + + + + + Protime-INR (01/18/2019 5:06 AM) + + + + + | Component | Value | Ref Range | Performed At | + + + + + | INR | 1.1Comment: REFERENCE | | [facility] | | | RANGE:0.9 - | | | | | 1.2 NON-ANTICOAGULATE | | | | | D2.0 - 3.0 ALL OTHER | | | | | THERAPEUTIC | | | | | INDICATIONS2.5 - 3.5 | | | | | MECHANICAL HEART VALVES, | | | | | RECURRENT OR SYSTEMIC | | | | | EMBOLISMTesting | | | | | performed at [facility] | | | | | [address] [facility];[place], [place] | | | | | [address] | | | + + + + + + + | Specimen | + + | Blood | + + + + + + + | Performing | Address | City/State/Zipcode | Phone Number | | Organization | | | | + + + + + | [facility] | [address] | [place] [address] | | + + + + + Phosphorus (01/18/2019 5:06 AM) + + + + + | Component | Value | Ref Range | Performed At | + + + + + | PHOSPHORUS | 3.8Comment: Testing | 2.3 - 4.8 mg/dL | [facility] | | | performed at [facility], [address] | | LABORATORY | | | [address], | | | | | [place] [address] | | | + + + + + + + | Specimen | + + | Blood | + + + + + + + | Performing | Address | City/State/Zipcode | Phone Number | | Organization | | | | + + + + + | [facility] | [address] | [place] [address] | [phone] | | LABORATORY | [address] | | | + + + + + Magnesium (01/18/2019 5:06 AM) + + + + + | Component | Value | Ref Range | Performed At | + + + + + | MAGNESIUM | 1.9Comment: Testing | 1.7 - 2.4 mg/dL | [facility] | | | performed at [facility], [address] | | LABORATORY | | | [facility] [address], | | | | | [place] [address] | | | + + + + + + + | Specimen | + + | Blood | + + + + + + + | Performing | Address | City/State/Zipcode | Phone Number | | Organization | | | | + + + + + | [facility] | [address] | [place] [address] | [phone] | | LABORATORY | [address] | | | + + + + + Hemoglobin A1c (01/18/2019 5:06 AM) + + + + + | Component | Value | Ref Range | Performed At | + + + + + | HEMOGLOBIN A1C | 6.0Comment: HbA1c method | 4.0 - 6.0 % | [facility] | | | is certified by [facility] | | LABORATORY | | | and traceable to the | | | | | DCCT reference | | | | | method.ADA guidelines | | | | | indicate: | | | | | Prediabetes: 5.7 - | | | | | 6.4 Diabetes: | | | | | >6.4 Glycemic | | | | | control for adults with | | | | | diabetes: <7.0Effective | | | | | 09/17/2018: Note New | | | | | Method | | | + + + + + | ESTIMATED AVG | 126Comment: Estimated | <154 mg/dL | [facility] | | GLUCOSE | Average Glucose | | LABORATORY | | | calculated from | | | | | hemoglobin A1c by use of | | | | | the ADA recommended | | | | | formula.Testing | | | | | performed at [facility], [address] | | | | | [facility], | | | | | [place] [address] | | | + + + + + + + | Specimen | + + | Blood | + + + + + + + | Performing | Address | City/State/Zipcode | Phone Number | | Organization | | | | + + + + + | [facility] | [address] | [place] [address] | [phone] | | LABORATORY | [address]. | | | + + + + + IMELDA (01/17/2019 6:29 PM) + + + | Narrative | Performed At | + + + | [facility] | [facility] | | | [facility] | | Patient Name: Chris Donaldson Procedure | | | Date: 01/17/2019 6:29 PM MRN: | | | [id number] Account | | | Number: [id number] Date of : | | | 1960 Note Status: Finalized Attending | | | MD: Joo Wallace IV , Instrument Name: [id number] Gastroscope | | | | | | Procedure Type: Upper GI endoscopy | | | Indications: Hematemesis, Hematochezia, Recent | | | gastrointestinal | | | bleeding, Known history of | | | cirrhosis but no previous | | | EGD exams | | | Medicines: Monitored Anesthesia Care | | | Complications: No immediate complications. | | | | | | Procedure: Pre-Anesthesia Assessment: - | | | Prior to the procedure, a History and Physical was performed, and | | | patient medications and allergies were reviewed. The | | | patient's tolerance of previous anesthesia was also | | | reviewed. The risks and benefits of the procedure and the | | | sedation options and risks were discussed with the patient. | | | All questions were answered, and informed consent was obtained. | | | Prior Anticoagulants: The patient has taken no previous | | | anticoagulant or antiplatelet agents. ASA Grade Assessment: | | | III - A patient with severe systemic disease. After | | | reviewing the risks and benefits, the patient was deemed in | | | satisfactory condition to undergo the procedure. After | | | obtaining informed consent, the endoscope was passed under direct | | | vision. Throughout the procedure, the patient's blood | | | pressure, pulse, and oxygen saturations were monitored | | | continuously. The Endoscope was introduced through the | | | mouth, and advanced to the third part of duodenum. The | | | upper GI endoscopy was accomplished without difficulty. The | | | patient tolerated the procedure well. | | | | | | | | | Estimated Blood Loss: Estimated blood loss: none. | | | Findings: The Z-line was regular and was found 40 cm from | | | the incisors. One superficial esophageal ulcer with no | | | bleeding and no stigmata of recent bleeding was found 40 cm | | | from the incisors. The lesion was 2 mm in largest | | | dimension. Grade I varices were found in the distal | | | esophagus. At the immediate squamocolumnar transition there | | | was a very small discrete superficial ulceration that I | | | just could not define whether this was a Saira-Bowens tear | | | or may been a small junctional varix. There was no clot or | | | other definite stigmata present. In line with this and | | | proximal to this was an esophageal varix which was not pronounced | | | but did have a single vizcarra-red area on and it almost looks | | | like a small AVM. With vigorous irrigation and even gentle | | | rubbing could not induce any bleeding. Hesitant to band | | | ligate this region since it did not have distinct stigmata | | | of bleed and it would clearly increase pressure on the | | | junctional lesion which could be problematic if it was a | | | varix. Careful retroflex view in the stomach did not show definite | | | gastric varices which conceivably could have been | | | decompressed from the bleed. Mild portal | | | hypertensive gastropathy was found in the gastric fundus and | | | in the gastric body. The exam of the stomach was | | | otherwise normal. A medium non-bleeding diverticulum was | | | found in the third portion of the duodenum. The | | | exam of the duodenum was otherwise normal. In spite of | | | presenting with major hemorrhage earlier there was no blood | | | in the stomach or duodenum. Clear yellow bile seen in the duodenum. | | | Left concern of precise etiology of bleeding. | | | | | | | | | Impression: - Z-line regular, 40 cm from | | | the incisors. - Non-bleeding esophageal ulcer. - | | | Grade I esophageal varices. - At the immediate | | | squamocolumnar transition there was a very small discrete | | | superficial ulceration that I just could not define whether | | | this was a Saira-Bowens tear or may been a small junctional varix. | | | There was no clot or other definite stigmata present. In | | | line with this and proximal to this was an esophageal varix | | | which was not pronounced but did have a single vizcarra-red | | | area on and it almost looks like a small AVM. With vigorous | | | irrigation and even gentle rubbing could not induce any | | | bleeding. Hesitant to band ligate this region since it did | | | not have distinct stigmata of bleed and it would clearly increase | | | pressure on the junctional lesion which could be problematic | | | if it was a varix. Careful retroflex view in the stomach | | | did not show definite gastric varices which conceivably | | | could have been decompressed from the bleed. - | | | Portal hypertensive gastropathy. - Non-bleeding duodenal | | | diverticulum. - In spite of presenting with major hemorrhage | | | earlier there was no blood in the stomach or duodenum. | | | Clear yellow bile seen in the duodenum. Left concern of | | | precise etiology of bleeding. - No specimens collected. | | | | | | | | | Recommendation: - Return patient to | | | [facility] for [facility]. - Continue present | | | medications. - Will keep npo tonight and reevaluate in a.m. | | | whether any suggestion of recurrent bleeding. - | | | Since a definite treatable lesion was not clearly able to be treated | | | and had very major hemorrhage will anticipate repeat EGD in | | | the next day or 2 prior to discharge. - NPO | | | today. - Continue octreotide infusion and if suspicion of | | | rebleed would bolus another 50 | | | g and continue the infusion. | | | | | | | | | Joo Wallace IV, | | | 01/17/2019 7:43:31 PM This report has been signed electronically. | | | Note Initiated On: 01/17/2019 6:29 PM Number of Addenda: 0 | | | [facility] | | + + + + +---------+ + + | Performing | Address | City/State/Zipcode | Phone Number | | Organization | | | | + +---------+ + + | [facility] | | | | + +---------+ + + Potassium (01/17/2019 5:33 PM) + + + + + | Component | Value | Ref Range | Performed At | + + + + + | POTASSIUM | 4.3Comment: Testing | 3.5 - 4.9 mmol/L | [facility] | | | performed at [facility];[address] | | | | | [address] [facility];[place], [place] | | | | | [address] | | | + + + + + + + | Specimen | + + | Blood | + + + + + + + | Performing | Address | City/State/Zipcode | Phone Number | | Organization | | | | + + + + + | [facility] | [address] | [place] [address] | | + + + + + EKG 12 LEAD UNIT PERFORMED (01/17/2019 5:18 PM) + + + + + | Component | Value | Ref Range | Performed At | + + + + + | Ventricular Rate | 88 | BPM | [facility] | + + + + + | Atrial Rate | 88 | BPM | [facility] | + + + + + | P-R Interval | 138 | ms | [facility] | + + + + + | QRS Duration | 88 | ms | [facility] | + + + + + | Q-T Interval | 438 | ms | [facility] | + + + + + | QTC Calculation | 529 | ms | [facility] | | (Bezet) | | | | + + + + + | Calculated P [place] | 56 | degrees | [facility] | + + + + + | Calculated R [place] | -35 | degrees | [facility] | + + + + + | Calculated T [place] | 46 | degrees | [facility] | + + + + + | Diagnosis | Normal sinus rhythmLeft | | [facility] | | | axis deviationCannot | | | | | rule out Anterior | | | | | infarct , age | | | | | undeterminedProlonged | | | | | QTAbnormal ECGNo | | | | | previous ECGs | | | | | availableThis ECG | | | | | contains Unconfirmed | | | | | Interpretation | | | | | Statements. See ED | | | | | Record for Physician | | | | | Interpretation. | | | | | Confirmed by MUSE READ | | | | | ONLY, -COMPUTER ([id number]), | | | | | video editor Guillermo Eldridge | | | | | ([id number]) on 01/18/2019 | | | | | 4:28:07 PM | | | + + + + + + + + + + | Performing | Address | City/State/Zipcode | Phone Number | | Organization | | | | + + + + + | [facility] | [address] | [place] [address] | | + + + + + ED INFORMATION EXCHANGE (01/17/2019 3:32 PM) + + + | Narrative | Performed At | + + + | [id number] Criteria Met 2 in 2 | ED | | Security and Safety No recent Security Events currently on file | INFORMATION | | ED Care Guidelines There are currently no ED Care Guidelines for this | EXCHANGE | | patient. Please check your facility's medical records system. | | | Prescription Drug Report (12 Mo.) PDMP query found no report. | | | E.D. Visit Count (12 mo.) Facility Visits Low Acuity [facility] | | | [facility] 1 0 [facility] 2 0 Total 3 0 | | | Note: Visits indicate total known visits. Medicaid Low Acuity Dx | | | are the number of primary diagnoses on the Medicaid's Low Acuity dx | | | list. Recent Emergency Department Visit Summary Date Facility | | | [facility] State Type Diagnoses or Chief Complaint January 17, 2019 [facility] | | | [facility] Emergency GI Bleeding Referral | | | Gastrointestinal hemorrhage, unspecified Personal | | | history of other diseases of the digestive system January 17, 2019 | | | [facility] [place] Emergency Chief Complaint: VOMITING | | | BLOOD January 24, 2018 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 Care Providers | | | Provider PRC Type Phone Fax Service Dates DESIREE PATRICIO MD | | | Family Medicine Current Collective Portal This patient | | | has registered at the [facility] Emergency | | | Department For more information visit: | | | [email or web address] | | | [phone] PLEASE NOTE: 1. Any care recommendations and other | | | clinical information are provided as guidelines or for historical | | | purposes only, and providers should exercise their own clinical | | | judgment when providing care. 2. You may only use this | | | information for purposes of treatment, payment or health care | | | operations activities, and subject to the limitations of applicable | | | Collective Policies. 3. You should consult directly with the | | | organization that provided a care guideline or other clinical history | | | with any questions about additional information or accuracy or | | | completeness of information provided. 2019 [place] | | | [employer] | | + + + + + | Procedure Note | + + | Shira, Lab - 01/17/2019 3:34 PM PDT Formatting of this note may be different | | from the original.[id number] Met 2 in 2Security and | | SafetyNo recent Security Events currently on fileED Care GuidelinesThere are currently | | no ED Care Guidelines for this patient. Please check your facility's medical records | | system.Prescription Drug Report (12 Mo.)PDMP query found no report.E.D. Visit Count (12 | | mo.)Facility Visits Low Acuity [facility] 1 0 [facility] | | Hospital 2 0 Total 3 0 Note: Visits indicate total known visits. Medicaid Low Acuity Dx | | are the number of primary diagnoses on the Medicaid's Low Acuity dx list. Recent | | Emergency Department Visit SummaryDate Facility [facility] State Type Diagnoses or Chief | | Complaint January 17, 2019 [facility] [place] Emergency GI Bleeding | | Referral Gastrointestinal hemorrhage, unspecified Personal history of other | | diseases of the digestive system January [facility], [facility] [place] [place] [facility] | | Chief Complaint: VOMITING BLOOD January 24, 2018 [facility] 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 Care ProvidersProvider [facility] Type Phone Fax Service Dates | | DESIREE PATRICIO MD Family Medicine Current Collective PortalThis patient has | | registered at the [facility] Emergency Department For more | | information visit: | | [email or web address] PLEASE | | NOTE: 1. Any care recommendations and other clinical information are provided as | | guidelines or for historical purposes only, and providers should exercise their own | | clinical judgment when providing care. 2. You may only use this information for | | purposes of treatment, payment or health care operations activities, and subject to the | | limitations of applicable Collective Policies. 3. You should consult directly with | | the organization that provided a care guideline or other clinical history with any | | questions about additional information or accuracy or completeness of information | | provided.2019 [employer] - [email or web address] | | Referral | | Gastrointestinal hemorrhage, unspecified | | Personal history of other diseases of the digestive system | | | |January 17, 2019 [facility] [place] Emergency Chief Complaint: VOMITING BLOOD | |January 24, 2018 [facility] [place] 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 | | | |Care Providers | |Provider PRC Type Phone Fax Service Dates | |DESIREE PATRICIO MD Family Medicine Current | | | |[employer] Portal | |This patient has registered at the [facility] Emergency Department | |For more information visit: [id number] | |PLEASE NOTE: | | 1. Any care recommendations and other clinical information are provided as guidelines or for historical purposes only, and providers should exercise their own clinical judgment whe n providing care. | | 2. You may only use this information for purposes of treatment, payment or health care o perations activities, and subject to the limitations of applicable Collective Policies. | | 3. You should consult directly with the organization that provided a care guideline or o ther clinical history with any questions about additional information or accuracy or complet eness of information provided. | | | |2019 [employer] - [email or web address] | + + + +---------+ + + | Performing | Address | City/State/Zipcode | Phone Number | | Organization | | | | + +---------+ + + | ED INFORMATION | | | | | EXCHANGE | | | | + +---------+ + + Cardiac Panel (01/17/2019 2:05 PM) + + + + + | Component | Value | Ref Range | Performed At | + + + + + | WBC | 18.40 (H) | 3.80 - 11.00 K/uL | [facility] | + + + + + | RBC | 2.89 (L) | 3.70 - 5.10 M/uL | [facility] | + + + + + | HGB | 9.7 (L) | 11.3 - 15.5 g/dL | [facility] | + + + + + | HCT | 29.0 (L) | 34.0 - 46.0 % | [facility] | + + + + + | MCV | 100.5 (H) | 80.0 - 100.0 fl | [facility] | + + + + + | MCH | 33.7 | 27.0 - 34.0 pg | [facility] | + + + + + | MCHC | 33.5 | 32.0 - 35.5 g/dL | [facility] | + + + + + | RDW SD | 47.7 | 37 - 53 fl | [facility] | + + + + + | PLT | 219 | 150 - 400 K/uL | [facility] | + + + + + | MPV | 9.3 | fl | [facility] | + + + + + | DIFF TYPE | AUTOMATED | | [facility] | + + + + + | NEUTROPHILS | 77.78 | % | [facility] | + + + + + | LYMPHOCYTES | 14.10 | % | [facility] | + + + + + | MONOCYTES | 7.83 | % | [facility] | + + + + + | EOSINOPHILS | 0.13 | % | [facility] | + + + + + | BASOPHILS | 0.16 | % | [facility] | + + + + + | NEUTROPHILS ABS | 14.31 (H) | 1.90 - 7.40 K/uL | [facility] | + + + + + | LYMPHOCYTES ABS | 2.59 | 1.00 - 3.90 K/uL | [facility] | + + + + + | MONOCYTES ABS | 1.44 (H) | 0.00 - 0.80 K/uL | [facility] | + + + + + | EOSINOPHILS ABS | 0.02 | 0.00 - 0.50 K/uL | [facility] | + + + + + | BASOPHILS ABS | 0.03 | 0.00 - 0.10 K/uL | [facility] | + + + + + | SODIUM | 139 | 135 - 145 mmol/L | [facility] | + + + + + | POTASSIUM | 6.1 (H) | 3.5 - 4.9 mmol/L | [facility] | + + + + + | CHLORIDE | 108 | 99 - 109 mmol/L | [facility] | + + + + + | CO2 | 22 (L) | 23 - 32 mmol/L | [facility] | + + + + + | ANION GAP AGAP | 15 | 5 - 20 mmol/L | [facility] | + + + + + | GLUCOSE | 191 (H) | 65 - 99 mg/dL | [facility] | + + + + + | BUN | 41 (H) | 8 - 25 mg/dL | [facility] | + + + + + | CREATININE | 1.24 (H) | 0.50 - 1.00 mg/dL | [facility] | + + + + + | BUN/CREAT | 33 | | [facility] | + + + + + | CALCIUM | 7.7 (L) | 8.5 - 10.5 mg/dL | [facility] | + + + + + | TOTAL PROTEIN | 5.8 (L) | 6.3 - 8.2 g/dL | [facility] | + + + + + | Albumin | 3.6 | 3.6 - 5.0 g/dL | [facility] | + + + + + | GLOBULIN | 2.2 | 1.3 - 4.9 g/dL | [facility] | + + + + + | A/G | 1.6 | 1.0 - 2.4 | [facility] | + + + + + | TBIL | 1.0 | 0.1 - 1.5 mg/dL | [facility] | + + + + + | ALK PHOS | 63 | 35 - 115 U/L | [facility] | + + + + + | AST | 41 | 10 - 45 U/L | [facility] | + + + + + | ALT | 28 | 10 - 65 U/L | [facility] | + + + + + | EGFR | 44 (L)Comment: GFR <60: | >60 mL/min/1.73m2 | [facility] | | | CHRONIC KIDNEY DISEASE, | | | | | IF FOUND OVER A 3 MONTH | | | | | PERIOD.GFR <15: KIDNEY | | | | | FAILURE.FOR | | | | | AMERICANS, MULTIPLY THE | | | | | CALCULATED GFR BY | | | | | 1.210.This eGFR is | | | | | calculated using the | | | | | [facility] traceable | | | | | equation. | | | + + + + + | CPK | 76 | 30 - 240 U/L | [facility] | + + + + + | INR | 1.1Comment: REFERENCE | | [facility] | | | RANGE:0.9 - | | | | | 1.2 NON-ANTICOAGULATE | | | | | D2.0 - 3.0 ALL OTHER | | | | | THERAPEUTIC | | | | | INDICATIONS2.5 - 3.5 | | | | | MECHANICAL HEART VALVES, | | | | | RECURRENT OR SYSTEMIC | | | | | EMBOLISM | | | + + + + + | APTT | 24 | 23 - 32 seconds | [facility] | + + + + + | MMB | 2.2 | 0.5 - 3.6 ng/mL | [facility] | + + + + + | CK-MB Index | 2.9Comment: CK INDEX | | [facility] | | | INTERPRETATION: | | | | | MMB | | | | | ng/mL & Relative | | | | | IndexNon-AMI | | | | | < or = | | | | | 5.0 N | | | | | AGray Zone | | | | | >5.0 < | | | | | or = | | | | | 4.0AMI | | | | | | | | | | >5.0 | | | | | >4.0Testing | | | | | performed at [facility];[address] | | | | | [address];[place] | | | | | [address] | | | + + + + + + + + + + | Performing | Address | City/State/Zipcode | Phone Number | | Organization | | | | + + + + + | [facility] | [address] | [place] [address] | | + + + + + Type and Screen (01/17/2019 2:05 PM) + + + + + | Component | Value | Ref Range | Performed At | + + + + + | ABO/RH(D) | O POSITIVE | | [facility] | + + + + + | ANTIBODY SCREEN | NEGATIVE | | [facility] | + + + + + | ARM BAND NUMBER | [id number] | | [facility] | + + + + + | UNIT NUMBER | [id number] | | [facility] | + + + + + | BLOOD COMPONENT TYPE | LEUKODEPLETED PC | | [facility] | + + + + + | UNIT DIVISION | 00 | | [facility] | + + + + + | STATUS OF UNIT | REL FROM ALLOC | | [facility] | + + + + + | TRANSFUSION STATUS | OK TO TRANSFUSE | | [facility] | + + + + + | CROSSMATCH RESULT | COMPATIBLE | | [facility] | + + + + + | UNIT NUMBER | [id number] | | [facility] | + + + + + | BLOOD COMPONENT TYPE | LEUKODEPLETED PC | | [facility] | + + + + + | UNIT DIVISION | 00 | | [facility] | + + + + + | STATUS OF UNIT | REL FROM ALLOC | | [facility] | + + + + + | TRANSFUSION STATUS | OK TO TRANSFUSE | | [facility] | + + + + + | CROSSMATCH RESULT | COMPATIBLE | | [facility] | + + + + + | UNIT NUMBER | [id number] | | [facility] | + + + + + | BLOOD COMPONENT TYPE | LEUKODEPLETED PC | | [facility] | + + + + + | UNIT DIVISION | 00 | | [facility] | + + + + + | STATUS OF UNIT | REL FROM ALLOC | | [facility] | + + + + + | TRANSFUSION STATUS | OK TO TRANSFUSE | | [facility] | + + + + + | CROSSMATCH RESULT | COMPATIBLETesting | | [facility] | | | performed at [facility];[address] | | | | | [address];[place], [place] | | | | | [address] | | | + + + + + | UNIT NUMBER | [id number] | | [facility] | + + + + + | BLOOD COMPONENT TYPE | LEUKODEPLETED PC | | [facility] | + + + + + | UNIT DIVISION | 00 | | [facility] | + + + + + | STATUS OF UNIT | REL FROM ALLOC | | [facility] | + + + + + | TRANSFUSION STATUS | OK TO TRANSFUSE | | [facility] | + + + + + | CROSSMATCH RESULT | COMPATIBLE | | [facility] | + + + + + | UNIT NUMBER | [id number] | | [facility] | + + + + + | BLOOD COMPONENT TYPE | LEUKODEPLETED PC,B | | [facility] | + + + + + | UNIT DIVISION | 00 | | [facility] | + + + + + | STATUS OF UNIT | REL FROM ALLOC | | [facility] | + + + + + | TRANSFUSION STATUS | OK TO TRANSFUSE | | [facility] | + + + + + | CROSSMATCH RESULT | COMPATIBLE | | [facility] | + + + + + + + | Specimen | + + | Blood | + + + + + + + | Performing | Address | City/State/Zipcode | Phone Number | | Organization | | | | + + + + + | [facility] | [address] | [place] [address] | | + + + + + from Last 3 Months Insurance + +--------+ +------+-------+ + | Payer | Benefi | Subscriber | Type | Phone | Address | | | t Plan | ID | | | | | | / | | | | | | | Group | | | | | + +--------+ +------+-------+ + | MEDICARE | MEDICA | [id number] | | | [address] | | | RE | | | | [place] [address] | | | IP-OP | | | | | + +--------+ +------+-------+ + | MEDICAID | [facility] | [id number] | | | [address] | | | N | | | | [place], [place] | | | [place] | | | | [address] | | | [facility] | | | | | + +--------+ +------+-------+ + + +--------+ +--------+ + + | Guarantor Name | Accoun | Relation to | Date | Phone | Billing Address | | | t Type | Patient | of | | | | | | | | | | + +--------+ +--------+ + + | CHRIS DONALDSON | Person | Self | [birth year] Home: | 2 | | | al/Fam | | 1960 | [phone] [place] [address] | | | ashley | | | [phone] | | + +--------+ +--------+ + +
--- OUTSIDE RECORDS SUMMARY | ~2019-01-24 | XMS | Encounter Summary ---
Demographics + + + | Address | [address] | | | [place] [address] | + + + | Home Phone | | + + + | Preferred Language | Unknown | + + + | Marital Status | Legally | + + + | Buddhism Affiliation | Unknown | + + + | Race | Unknown | + + + | Ethnic Group | Unknown | + + + Author + + + | Author | [facility] | | | and Tipana | + + + | Organization | [facility] | | | and Tipana | [...] Team Providers + +------+ + | Care Button Riveter Name | Role | Phone | + +------+ + | Donal Chaidez MD | PCP | Unavailable | + +------+ + Encounter Details +--------+ + + + + | Date | Type | Department | Care Team | Description | +--------+ + + + + | 11/03/ | Orders Only | [facility] | Yasmin Buck | Stage 3 chronic | | 2019 | | NEPHROLOGY [address] | M, DO [address] | kidney disease (HCC) | | | | [address] | [place] | (Primary Dx) | | | | [place], [place] | [place], [place] | | | | | [address] | [address] | | | | | [phone] | | | +--------+ + + + + Social History + + [...] + + documented as of this encounter Progress Christy Cobb RN - 11/03/2018 1345 PSTLabs for upcoming nephrology [facility] documented in this encounter Plan of Treatment +--------+---------+ + + + | Date | Type | Specialty | Care Team | Description | +--------+---------+ + + + | 02/13/ | Office | Family Medicine | Donal Chaidez, | | | 2019 | Visit | | MD [address] | | | | | | [place] | | | | | | [address] | | | | | | | | +--------+---------+ + + + + +--------+ + + | Name | Priori | Associated Diagnoses | Order Schedule | | | ty | | | + +--------+ + + | Creatinine Clearance, Result | Routin | Stage 3 chronic | Expected: | | | e | kidney disease (HCC) | 12/01/2018, Expires: | | | | | 11/04/2019 | + +--------+ + + | Protein, Urine, 24Hr | Routin | Stage 3 chronic | Expected: | | | e | kidney disease (HCC) | 12/01/2018, Expires: | | | | | 11/04/2019 | + +--------+ + + documented as of this encounter Results Lipid Panel (01/23/2019 10:40 PDT) + + + + + + | Component | Value | Ref Range | Performed | Pathologist | | | | | At | Signature | + + + + + + | Triglycerid | 96 | 30 - 150 mg/dL | [facility] | | | es | | | [facility] | | | | [facility] | | | | | [facility] | | | | | | [facility] | | + + + + + + | Cholesterol | 148 (L)Comment: | 150 - 200 mg/dL | [facility] | | | | CHOLESTEROL may be | | [facility] | | | | adversely affected by 1+ | | [facility]ICAL | | | | bilirubin. | | [facility] | | | | | | [facility] | | + + + + + + | HDL | 30 (L) | 40 - 60 mg/dL | [facility] | | | | | | [facility] | | | | | [facility] | | | | | | [facility] | | | | | | [facility] | | + + + + + + | Chol/HDL | 4.9 | | [facility] | | | Ratio | | | [facility] | | | | | | [facility] | | | | | | [facility] | | | | | | [facility] | | + + + + + + | LDL, | 99 | <130 mg/dL | [facility] | | | Calculated | | | [facility] | | | | | | [facility] | | | | | | [facility] | | | | | | [facility] | | + + + + + + + + | Specimen | + + | Blood | + + + + + + + | Performing | Address | City/State/Zipcode | Phone Number | | Organization | | | | + + + + + | [facility] | [address] | [place] | [phone] | | [facility] | | [address] | | | [facility] | | | | + + + + + Parathyroid Hormone, Intact (01/23/2019 10:40 PDT) + +---------+ + + + | Component | Value | Ref Range | Performed | Pathologist | | | | | At | Signature | + +---------+ + + + | PTH Intact | 178 (H) | 19 - 88 pg/mL | [facility] | | | | | | [facility] | | | | | | MEDICAL | | | | | | CENTER - | | | | | | LABORATORY | | + +---------+ + + + + + | Specimen | + + | Blood | + + + + + + + | Performing | Address | City/State/Zipcode | Phone Number | | Organization | | | | + + + + + | [facility] | [address] | [place] | [phone] | | [facility] | | [address] | | | - LABORATORY | | | | + + + + + Phosphorus (01/23/2019 10:40 PDT) + +-------+ + + + | Component | Value | Ref Range | Performed | Pathologist | | | | | At | Signature | + +-------+ + + + | Phosphorus | 3.0 | 2.6 - 4.7 mg/dL | [facility] | | | | | | [facility] | | | | | [facility] | | | | | [facility] | | | | | | [facility] | | + +-------+ + + + + + | Specimen | + + | Blood | + + + + + + + | Performing | Address | City/State/Zipcode | Phone Number | | Organization | | | | + + + + + | [facility] | [address] | [place] | [phone] | | [facility] | | [address] | | | [facility] | | | | + + + + + Comprehensive Metabolic Panel (01/23/2019 10:40 PDT) + + + + + + | Component | Value | Ref Range | Performed | Pathologist | | | | | At | Signature | + + + + + + | Na | 143 | 136 - 145 | [facility] | | | | | mmol/L | [facility] | | | | | [facility] | | | | | | [facility] | | | | | | [facility] | | + + + + + + | K | 3.1 (L) | 3.5 - 5.1 | [facility] | | | | | mmol/L | [facility] | | | | | | [facility] | | | | | | [facility] | | | | | | [facility] | | + + + + + + | Cl | 110 (H) | 98 - 107 mmol/L | [facility] | | | | | | [facility] | | | | | | [facility] | | | | | | [facility] | | | | | | [facility] | | + + + + + + | CO2 | 20 (L) | 21 - 32 mmol/L | [facility] | | | | | | [facility] | | | | | [facility] | | | | | | [facility] | | | | | | [facility] | | + + + + + + | Anion Gap | 13 | 2 - 16 mmol/L | [facility] | | | | | | [facility] | | | | | [facility] | | | | | | [facility] | | | | | | [facility] | | + + + + + + | Glucose | 97 | 74 - 106 mg/dL | [facility] | | | | | | [facility] | | | | | | [facility] | | | | | | [facility] | | | | | | [facility] | | + + + + + + | BUN | 16 | 7 - 18 mg/dL | [facility] | | | | | | [facility] | | | | | | [facility] | | | | | | [facility] | | | | | | [facility] | | + + + + + + | Creatinine | 1.10 (H) | 0.55 - 1.02 | [facility] | | | | | mg/dL | [facility] | | | | | [facility] | | | | | | [facility] | | | | | | [facility] | | + + + + + + | eGFR if not | 51 (L)Comment: | >=60 | [facility] | | | | GLOMERULAR FILTRATION | mL/min/1.73m2 | [facility] | | | INDONESIAN | RATE,ESTIMATED mL/min | | MEDICAL | | | | /1.38d7Ezri than 60 | | PARK | | | | Chronic kidney | | LABORATORY | | | | disease,if found over a | | | | | | 3-month period.Less than | | | | | | 15 Kidney | | | | | | failureFor | | | | | | Americans,multiply the | | | | | | calculated GFR by 1.21. | | | | | | | | | | + + + + + + | Ca | 8.4 (L) | 8.5 - 10.1 | [facility] | | | | | mg/dL | [facility] | | | | | [facility] | | | | | | [facility] | | | | | | [facility] | | + + + + + + | Albumin | 3.3 (L) | 3.4 - 5.0 g/dL | [facility] | | | | | | [facility] | | | | | | [facility] | | | | | | [facility] | | | | | | [facility] | | + + + + + + | Bilirubin | 0.4 | 0.2 - 1.0 mg/dL | [facility] | | | Total | | | [facility] | | | | | | [facility] | | | | | | [facility] | | | | | | [facility] | | + + + + + + | Total | 6.8 | 6.4 - 8.2 g/dL | [facility] | | | Protein | | | [facility] | | | | | | [facility] | | | | | | [facility] | | | | | | [facility] | | + + + + + + | AST | 30 | 15 - 37 U/L | [facility] | | | | | | [facility] | | | | | [facility] | | | | | | [facility] | | | | | | [facility] | | + + + + + + | ALT | 22 | 14 - 59 U/L | [facility] | | | | | | [facility] | | | | | [facility] | | | | | | [facility] | | | | | | [facility] | | + + + + + + | Alkaline | 75 | 46 - 116 U/L | [facility] | | | Phosphatase | | | [facility] | | | | | | [facility] | | | | | | [facility] | | | | | | [facility] | | + + + + + + | Globulin | 3.5 | 2.1 - 3.8 g/dL | [facility] | | | | | | [facility] | | | | | | [facility] | | | | | | [facility] | | | | | | [facility] | | + + + + + + | Albumin/Maryan | 0.9 | 0.8 - 2.0 | [facility] | | | bulin Ratio | | | [facility] | | | | | | [facility] | | | | | | [facility] | | | | | | [facility] | | + + + + + + | BUN/Creatin | 14.5 | | [facility] | | | ine Ratio | | | [facility] | | | | | | [facility] | | | | | | [facility] | | | | | | [facility] | | + + + + + + + + | Specimen | + + | Blood | + + + + + + + | Performing | Address | City/State/Zipcode | Phone Number | | Organization | | | | + + + + + | [facility] | [address] | [place], [place] | [phone] | | [facility] | | [address] | | | [facility] | | | | + + + + + CBC with Differential (01/23/2019 10:39 PDT) + + + + + + | Component | Value | Ref Range | Performed | Pathologist | | | | | At | Signature | + + + + + + | WBC | 19.5 (H) | 4.0 - 11.0 K/uL | [facility] | | | | | | [facility] | | | | | [facility] | | | | | [facility] | | | | | | [facility] | | + + + + + + | RBC | 2.43 (L) | 3.70 - 5.20 | [facility] | | | | | M/uL | [facility] | | | | | | [facility] | | | | | | [facility] | | | | | | [facility] | | + + + + + + | Hemoglobin | 8.4 (L) | 11.5 - 16.0 | [facility] | | | | | g/dL | [facility] | | | | | | [facility] | | | | | | [facility] | | | | | | [facility] | | + + + + + + | Hematocrit | 25.1 (L) | 34.0 - 47.0 % | [facility] | | | | | | [facility] | | | | | | [facility] | | | | | | [facility] | | | | | | [facility] | | + + + + + + | MCV | 103.3 (H) | 83.0 - 101.0 fL | [facility] | | | | | | [facility] | | | | | | [facility] | | | | | | [facility] | | | | | | [facility] | | + + + + + + | MCH | 34.6 | 28.0 - 35.0 pg | [facility] | | | | | | [facility] | | | | | | [facility] | | | | | | [facility] | | | | | | [facility] | | + + + + + + | MCHC | 33.5 | 32.0 - 36.0 | [facility] | | | | | g/dL | [facility] | | | | | | [facility] | | | | | | [facility] | | | | | | [facility] | | + + + + + + | RDW-CV | 16.3 (H) | <15.0 % | [facility] | | | | | | [facility] | | | | | | [facility] | | | | | | [facility] | | | | | | [facility] | | + + + + + + | RDW-SD | 54.7 (H) | 35.1 - 46.3 fL | [facility] | | | | | | [facility] | | | | | | [facility] | | | | | | [facility] | | | | | | [facility] | | + + + + + + | Platelet | 321 | 140 - 440 K/uL | [facility] | | | Count | | | [facility] | | | | | | [facility] | | | | | | [facility] | | | | | | [facility] | | + + + + + + | MPV | 12.1 | 6.5 - 12.4 fL | [facility] | | | | | | [facility] | | | | | | [facility] | | | | | | [facility] | | | | | | [facility] | | + + + + + + | % | 49.0 | 45.0 - 82.0 % | [facility] | | | Neutrophils | | | [facility] | | | | | | [facility] | | | | | | [facility] | | | | | | [facility] | | + + + + + + | % | 32.5 | 20.0 - 45.0 % | [facility] | | | Lymphocytes | | | [facility] | | | | | | [facility] | | | | | | [facility] | | | | | | [facility] | | + + + + + + | % Monocytes | 15.0 (H) | 4.0 - 12.0 % | [facility] | | | | | | [facility] | | | | | [facility] | | | | | | [facility] | | | | | | [facility] | | + + + + + + | % | 2.4 | 0.0 - 5.0 % | [facility] | | | Eosinophils | | | [facility] | | | | | | [facility] | | | | | | [facility] | | | | | | [facility] | | + + + + + + | % Basophils | 0.5 | 0.0 - 1.0 % | [facility] | | | | | | [facility] | | | | | | [facility] | | | | | | [facility] | | | | | | [facility] | | + + + + + + | % Immature | 0.6 (H)Comment: | 0.0 - 0.4 % | [facility] | | | Granulocyte | Preliminary studies have | | [facility] | | | s | indicated the IG% | | [facility] | | | | and/or IG# show promise | | [facility] | | | | as an early indicator | | LAB[facility] | | | | for infection. | | | | + + + + + + | Absolute | 9.55 (H) | 1.80 - 8.50 | [facility] | | | Neutrophils | | K/uL | [facility] | | | | | | [facility] | | | | | | [facility] | | | | | | [facility] | | + + + + + + | Absolute | 6.34 (H) | 0.60 - 3.20 | [facility] | | | Lymphocytes | | K/uL | [facility] | | | | | | [facility] | | | | | | [facility] | | | | | | [facility] | | + + + + + + | Absolute | 2.93 (H) | 0.00 - 1.00 | [facility] | | | Monocytes | | K/uL | [facility] | | | [facility] | [facility] | | | | | | [facility] | | | | | | [facility]ORY | | + + + + + + | Absolute | 0.46 (H) | 0.00 - 0.40 | [facility] | | | Eosinophils | | K/uL | [facility] | | | | | [facility] | | | | | | [facility] | | | | | | [facility] | | + + + + + + | Absolute | 0.09 | 0.00 - 0.10 | [facility] | | | Basophils | | K/uL | [facility] | | | | | [facility] | | | | | | [facility] | | | | | | [facility] | | + + + + + + | Absolute | 0.11 (H) | 0.00 - 0.03 | [facility] | | | Immature | | [facility]Burt | [facility] | | | Granulocyte | | | [facility] | | | s | | | PARK | | | | | | LABORATORY | | + + + + + + + + | Specimen | + + | Blood | + + + + + + + | Performing | Address | City/State/Zipcode | Phone Number | | Organization | | | | + + + + + | [facility] | [address] [place] | [place] | [phone] | | [facility] | | [id number] | | | [facility] | | | | + + + + + documented in this encounter Visit Diagnoses + + | Diagnosis | + + | Stage 3 chronic kidney disease (HCC) - Primary | + + documented in this encounter"
--- OUTSIDE RECORDS SUMMARY | ~2019-01-24 | XMS | Clinical Summary ---
Demographics + + + | Address | [address] | | | [place] [address] | + + + | Home Phone | | + + + | Preferred Language | Unknown | + + + | Marital Status | Legally | + + + | Quaker Affiliation | Unknown | + + + | Race | Unknown | + + + | Ethnic Group | Unknown | + + + Author + + + | Author | [facility] | + + + | Organization | [facility] [employer] | + + + | Address [...] Team Providers + +------+ + | Care Crab Butcher Name | Role | Phone | + [...] | | | to | | | [place] | | | with | | | [...] | | | [place] | | | [phone] | | | [phone] | | | weeksDougla | | | s D Dm, | | | [id number] | [address] | | | [address] | | | [place] | | | [phone] | | | [phone] | | [...] | + +--------+ + + + | [facility] CARD PANEL W/O | STAT | 01/17/2019 [...] Testing | 65 - 99 mg/dL | [facility] | | | performed at [facility];[address] | | | | | [address];[place], [place] | | | | | [address] | | | + + + + + + + + + + | Performing | Address | City/State/Zipcode | Phone Number | | Organization | | | | + + + + + | [facility] | [address] | [place] [address] | | + + + + + CBC w/no Diff (01/21/2019 4:47 AM) + + + + + | Component | Value | Ref Range | Performed At | + + + + + | WBC | 14.95 (H) | 3.80 - 11.00 K/uL | [facility] | + + + + + | RBC | 2.16 (L) | 3.70 - 5.10 M/uL | [facility] | + + + + + [...] 51.6 | 37 - 53 fl | [facility] | + + + + + | PLT | 190 | 150 - 400 K/uL | [facility] | + + + + + | MPV | 10.3Comment: Testing | fl | [facility] | | | performed at [facility];[address] | | | | | [address];[place] | | | | | [address] | | | + + + + + + + + + + | Performing | Address | City/State/Zipcode | Phone Number | | Organization | | | | + + + + + | [facility] | [address] | [place] [address] | | + + + + + [...] | | | | | performed at [facility], [address] | | | | | [facility], | | | | | [place] [address] | | | + + + + + + + | Specimen | + + | Blood | + + + + + + + | Performing | Address | City/State/Zipcode | Phone Number | | Organization | | | | + + + + + | [facility] | [address] | [place] [address] | [phone] | | LABORATORY | Blvd. | | [...] Testing | 34.0 - 46.0 % | [facility] | | | performed at [facility];[address] | | | | [address];[place] | | | | | [address] | | | + + + + + + + + + + | Performing | Address | City/State/Zipcode | Phone Number | | Organization | | | | + + + + + | [facility] | [address] | [place] [address] | | + + + + + [...] | + + + + + | [facility] | [address] | [place] [address] | | + + + + + UR urea nitro, random (01/19/2019 4:30 PM) + + + + + | Component | Value | Ref Range | Performed At | + + + + + | UR UREA NITRO,RANDOM | 369.0Comment: NO NORMAL | mg/dL | [facility] | | | RANGE ESTABLISHEDTesting | | LABORATORY | | | performed at [facility], [address] | | | | [address], | | | | | [place] [address] | | | + + + + + + + + + + | Performing | Address | City/State/Zipcode | Phone Number | | Organization | | | | + + + + + | [facility] | [address] [place] [address] | [place] [address] | [phone] | | LABORATORY | Blvd. | | | + + + + + Urine eosinophils (01/19/2019 4:30 PM) + + + + + | Component | Value | Ref Range | Performed At | + + + + + | URINE EOSINOPHILS | NO EOSINOPHILS | <1 % | [facility] | | | SEENComment: Testing | | LABORATORY | | | performed at [facility], [address] | | | | | [facility], | | | | | [place] [address] | | | + + + + + + + | Specimen | + + | Urine, Clean Catch | + + + + + + + | Performing | Address | City/State/Zipcode | Phone Number | | Organization | | | | + + + + + | [facility] | [address] | [place] [address] | [phone] | | LABORATORY | Blvd. | | | + + + + + Osmolality, urine (01/19/2019 4:30 PM) + + + + + | Component | Value | Ref Range | Performed At | + + + + + | OSMOLALITY,URINE | 452Comment: Testing | 50 - 1,200 mOsm/kg | [facility] | | RANDOM | performed at [facility], [address] | | LABORATORY | | | [address], | | | | | [place] [address] | | | + + + + + + + | Specimen | + + | Urine - Urine, Clean | | Catch | + + + + + + + | Performing | Address | City/State/Zipcode | Phone Number | | Organization | | | | + + + + + | [facility] | [address] | [place] [address] | [phone] | | LABORATORY | Blvd. | | [...] | LABORATORY | | | performed at [facility], [address] | | | | | [address] [facility], | | | | | [place] [address] | | | + + + + + + + | Specimen | + + | Urine - Urine, Clean | | Catch | + + + + + + + | Performing | Address | City/State/Zipcode | Phone Number | | Organization | | | | + + + + + | [facility] | [address] | [place] [address] | [phone] | | LABORATORY | Blvd. | | | + + + + + PROCALCITONIN (01/19/2019 3:59 PM) + + + + + | Component | Value | Ref Range | Performed At | + + + + + | PROCALCITONIN | 0.08Comment: | <0.5 ng/mL | [facility] | | | INTERPRETIVE | [...] performed | | | | | at [facility];[address] [place] [address] | | | | | Blvd;[place] [address] | | | + + + + + + + + + + | Performing | Address | City/State/Zipcode | Phone Number | | Organization | | | | + + + + + | [facility] | [address] | [place] [address] | | + + + + + JOSSED (01/19/2019 2:41 PM) + + + | Narrative | Performed At | + + + | [facility] | [facility] | | | PROVATION | | Patient Name: Donaldson Travissouleymane Procedure | | | Date: 01/19/2019 2:41 PM MRN: | | | [id number] Account | | | Number: [id number] Date of : | | | 1960 [...] Number of Addenda: 0 | | | [facility] | | + + [...] | Comment: Review of CBC | | [facility] | | | collected 01/19/2019. [...] | | | | | performed at [facility];[address] | | | | | [facility];[place], [place] | | | | | [address] | | | + + + + + + + + + + | Performing | Address | City/State/Zipcode | Phone Number | | Organization | | | | + + + + + | [facility] | [address] | [place] [address] | | + + + + + CBC w/auto diff (reflex to manual) (01/19/2019 6:28 AM)Only the most recent of 2 results w ithin the time period is included. + + + + + | Component | Value | Ref Range | Performed At | + + + + + | WBC | 15.44 (H) | 3.80 - 11.00 K/uL | [facility] | + + + + + | RBC | 2.22 (L) | 3.70 - 5.10 M/uL | [facility] | + + + + + | HGB | 7.6 (L) | 11.3 - 15.5 g/dL | [facility] | + + + + + | HCT | 23.0 (L) | 34.0 - 46.0 % | [facility] | + + + + + | MCV | 103.3 (H) | 80.0 - 100.0 fl | [facility] | + + + + + | MCH | 34.0 | 27.0 - 34.0 pg | [facility] | + + + + + | MCHC | 33.0 | 32.0 - 35.5 g/dL | [facility] | + + + + + | RDW SD | 50.8 | 37 - 53 fl | [facility] | + + + + + | PLT | 187 | 150 - 400 K/uL | [facility] | + + + + + | MPV | 9.3 | fl | [facility] | + + + + + [...] 0.26 | 0.00 - 0.50 K/uL | [facility] | + + + + + | BASOPHILS ABS | 0.18 (H)Comment: Testing | 0.00 - 0.10 K/uL | [facility] | | | performed at [facility] | | | | | [address];[place] | | | | | [address] | | | + + + + + + + | Specimen | + + | Blood | + + + + + + + | Performing | Address | City/State/Zipcode | Phone Number | | Organization | | | | + + + + + | [facility] | [address] | [place] [address] | | + + + + + [...] [facility] | [address] | [place] [address] | | + + + + + [...] | [facility] | | | performed at [facility], [address] | | LABORATORY | | | [address], | | | | | [place] [address] | | | + + + + + + + | Specimen | + + | Blood | + + + + + + + | Performing | Address | City/State/Zipcode | Phone Number | | Organization | | | | + + + + + | [facility] | [address] | [place] [address] | [phone] | | LABORATORY | [address]. | | | + + + + + Reticulocyte count (01/18/2019 10:46 AM) + + + + + | Component | Value | Ref Range | Performed At | + + + + + | RETICULOCYTES | 2.9 (H)Comment: Testing | 0.4 - 2.7 % | [facility] | | | performed at [facility];[address] | | | | | [address];[place] | | | | | [address] | | | + + + + + + + | Specimen | + + | Blood | + + + + + + + | Performing | Address | City/State/Zipcode | Phone Number | | Organization | | | | + + + + + | [facility] | [address] | [place] [address] | | + + + + + Ferritin (01/18/2019 10:46 AM) + + + + + | Component | Value | Ref Range | Performed At | + + + + + | FERRITIN | 87Comment: Testing | 6 - 170 ng/mL | [facility] | | | performed at [facility], [address] | | LABORATORY | | | [address], | | | | | [place] [address] | | | + + + + + + + | Specimen | + + | Blood | + + + + + + + | Performing | Address | City/State/Zipcode | Phone Number | | Organization | | | | + + + + + | [facility] | [address] | [place] [address] | [phone] | | LABORATORY | [address]vd. | | | + + + + + aPTT (01/18/2019 5:06 AM) + + + + + | Component | Value | Ref Range | Performed At | + + + + + | APTT | 25Comment: Testing | 23 - 32 seconds | [facility] | | | performed at [facility];[address] | | | | | [address];[place] | | | | | [address] | | | + + + + + + + | Specimen | + + | Blood | + + + + + + + | Performing | Address | City/State/Zipcode | Phone Number | | Organization | | | | + + + + + | [facility] | [address] | [place] [address] | | + + + + + Protime-INR (01/18/2019 5:06 AM) + + + + + | Component | Value | Ref Range | Performed At | + + + + + | INR | 1.1Comment: REFERENCE | | [facility] | | | RANGE:0.9 - [...] | | | | | performed at [facility] | | | | | [address] [facility];[place], [place] | | | | | [address] | | | + + + + + + + | Specimen | + + | Blood | + + + + + + + | Performing | Address | City/State/Zipcode | Phone Number | | Organization | | | | + + + + + | [facility] | [address] | [place] [address] | | + + + + + Phosphorus (01/18/2019 5:06 AM) + + + + + | Component | Value | Ref Range | Performed At | + + + + + | PHOSPHORUS | 3.8Comment: Testing | 2.3 - 4.8 mg/dL | [facility] | | | performed at [facility], [address] | | LABORATORY | | | [address], | | | | | [place] [address] | | | + + + + + + + | Specimen | + + | Blood | + + + + + + + | Performing | Address | City/State/Zipcode | Phone Number | | Organization | | | | + + + + + | [facility] | [address] | [place] [address] | [phone] | | LABORATORY | [address]vd[address] | | | + + + + + Magnesium (01/18/2019 5:06 AM) + + + + + | Component | Value | Ref Range | Performed At | + + + + + | MAGNESIUM | 1.9Comment: Testing | 1.7 - 2.4 mg/dL | [facility] | | | performed at [facility], [address] | | LABORATORY | | | [facility] [address], | | | | | [place] [address] | | | + + + + + + + | Specimen | + + | Blood | + + + + + + + | Performing | Address | City/State/Zipcode | Phone Number | | Organization | | | | + + + + + | [facility] | [address] | [place] [address] | [phone] | | LABORATORY | [address]vd. | | | + + + + + Hemoglobin A1c (01/18/2019 5:06 AM) + + + + + | Component | Value | Ref Range | Performed At | + + + + + | HEMOGLOBIN A1C | 6.0Comment: HbA1c method | 4.0 - 6.0 % | [facility] | | | is certified by [facility] | | LABORATORY | | | and [...] | | | | | performed at [facility], [address] | | | | | [facility], | | | | | [place] [address] | | | + + + + + + + | Specimen | + + | Blood | + + + + + + + | Performing | Address | City/State/Zipcode | Phone Number | | Organization | | | | + + + + + | [facility] | [address] | [place] [address] | [phone] | | LABORATORY | [address] | | | + + + + + IMELDA (01/17/2019 6:29 PM) + + + | Narrative | Performed At | + + + | [facility] | [facility] | | | PROVATION | | Patient Name: Chris Donaldson Procedure | | | Date: 01/17/2019 6:29 PM MRN: | | | [id number] Account | | | Number: [id number] Date of : | | | 1960 [...] Number of Addenda: 0 | | | [facility] | | + + + + +---------+ + + | Performing | Address | City/State/Zipcode | Phone Number | | Organization | | | | + +---------+ + + | [facility] | | | | + +---------+ + + Potassium (01/17/2019 5:33 PM) + + + + + | Component | Value | Ref Range | Performed At | + + + + + | POTASSIUM | 4.3Comment: Testing | 3.5 - 4.9 mmol/L | [facility] | | | performed at [facility];[address] | | | | | [address] [facility];[place], [place] | | | | | [address] | | | + + + + + + + | Specimen | + + | Blood | + + + + + + + | Performing | Address | City/State/Zipcode | Phone Number | | Organization | | | | + + + + + | [facility] | [address] | [place] [address] | | + + + + + [...] + + + + | Calculated P Humphrey | 56 | degrees | [facility] | + + + + + | Calculated R Humphrey | -35 | degrees | [facility] | + + + + + | Calculated T Humphrey | 46 | degrees | [facility] | + + + + + | Diagnosis | Normal sinus rhythmLeft | | [facility] | | | axis deviationCannot [...] | | | | | ONLY, -COMPUTER (418), | | | | | editorial specialist Guillermo Eldridge | | | | | (132) on 01/18/2019 | | | | | 4:28:07 PM | | | + + + + + + + + + + | Performing | Address | City/State/Zipcode | Phone Number | | Organization | | | | + + + + + | [facility] | [address] | [place] [address] | | + + + + + ED INFORMATION EXCHANGE (01/17/2019 3:32 PM) + + + | Narrative | Performed At | + + + | [id number] Criteria Met 2 in 2 | ED [...] Count (12 mo.) Facility Visits Low Acuity [facility] | | | [facility] 1 0 [facility] 2 0 Total 3 0 | | | Note: Visits indicate total known visits. Medicaid Low Acuity Dx | | | are the number of primary diagnoses on the Medicaid's Low Acuity dx | | | list. Recent Emergency Department Visit Summary Date Facility | | | [facility] State Type Diagnoses or Chief Complaint January 17, 2019 [facility] | | | [facility] Emergency GI Bleeding Referral | | | Gastrointestinal hemorrhage, unspecified Personal | | | history of other diseases of the digestive system January 17, 2019 | | | [facility] [place] Emergency Chief Complaint: VOMITING | | | BLOOD January 24, 2018 [facility] [place] 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 Any care recommendations and [...] | | completeness of information provided. 2019 [employer] | | | [employer]. - [employer] | | + + + + + | Procedure Note | + + | Shira, Lab - 01/17/2019 3:34 PM PDT Formatting of this note may be different | | from the original.[id number] Met 2 in 2Security and | | SafetyNo recent Security Events currently on fileED Care GuidelinesThere are currently | | no ED Care Guidelines for this patient. Please check your facility's medical records | | system.Prescription Drug Report (12 Mo.)PDMP query found no report.E.D. Visit Count (12 | | mo.)Facility Visits Low Acuity [facility] 1 0 [facility] | | Hospital 2 0 Total 3 0 Note: Visits indicate total known visits. Medicaid Low Acuity Dx | | are the number of primary diagnoses on the Medicaid's Low Acuity dx list. Recent | | Emergency Department Visit SummaryDate Facility [facility] State Type Diagnoses or Chief | | Complaint January 17, 2019 [facility] [place] Emergency GI Bleeding | | Referral Gastrointestinal hemorrhage, unspecified Personal history of other | | diseases of the digestive system [facility] [place] [facility] | | Chief Complaint: VOMITING BLOOD [facility] 24, [facility] [place] [place] [facility] | | Unspecified abdominal pain Other assisted (current) drug therapy Unspecified | | cirrhosis of liver Nicotine dependence, unspecified, uncomplicated Malignant | | neoplasm of liver, primary, unspecified as to type Recent Inpatient Visit SummaryNo | | recorded inpatient visits. Care ProvidersProvider [facility] Type Phone Fax Service Dates | | DESIREE PATRICIO MD Family Medicine Current Collective PortalThis patient has | | registered at the [facility] Emergency Department For more | | information visit: | | [email or web address] PLEASE | | NOTE: 1. Any care [...] or completeness of information | | provided.2019 [employer] - [email or web address] | | Referral | | Gastrointestinal hemorrhage, unspecified | | Personal history of other diseases of the digestive system | | | |January 17, 2019 [facility] [place] Emergency Chief Complaint: VOMITING BLOOD | |January 24, 2018 [facility] 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 Any [...] of information provided. | | | |2019 [employer] - [email or web address] | + + + +---------+ + + [...] 219 | 150 - 400 K/uL | [facility] | + + + + + | MPV | 9.3 | fl | [facility] | + + + + + [...] (H) | 3.5 - 4.9 mmol/L | [facility] | + + + + [...] 1.0 | 0.1 - 1.5 mg/dL | [facility] | + + + + + | ALK PHOS | 63 | 35 - 115 U/L | [facility] | + + + + + | AST | 41 | 10 - 45 U/L | [facility] | + + + + + | ALT | 28 | 10 - 65 U/L | [facility] | + + + + + | EGFR | 44 (L)Comment: GFR <60: | >60 mL/min/1.73m2 | [facility] | | | CHRONIC KIDNEY [...] the | | | | | MDRD [facility] traceable | | | | | equation. | | | + + + + + | CPK | 76 | 30 - 240 U/L | [facility] | + + + + + | INR | 1.1Comment: REFERENCE | | [facility] | | | RANGE:0.9 - [...] 24 | 23 - 32 seconds | [facility] | + + + + + | MMB | 2.2 | 0.5 - 3.6 ng/mL | [facility] | + + + + + | CK-MB Index | 2.9Comment: CK INDEX | | [facility] | | | INTERPRETATION: | [...] | | | | | performed at [facility];[address] | | | | | [address];[place] | | | | | [address] | | | + + + + + + + + + + | Performing | Address | City/State/Zipcode | Phone Number | | Organization | | | | + + + + + | [facility] | [address] | [place] [address] | | + + + + + Type and Screen (01/17/2019 2:05 PM) + + + + + | Component | Value | Ref Range | Performed At | + + + + + | ABO/RH(D) | O POSITIVE | | [facility] | + + + + + | ANTIBODY SCREEN | NEGATIVE | | [facility] | + + + + + | ARM BAND NUMBER | [id number] | | [facility] | + + + + + | UNIT NUMBER | [id number] | | [facility] | + + + + + | BLOOD COMPONENT TYPE | LEUKODEPLETED PC | | [facility] | + + + + + | UNIT DIVISION | 00 | | [facility] | + + + + + | STATUS OF UNIT | REL FROM ALLOC | | [facility] | + + + + + | TRANSFUSION STATUS | OK TO TRANSFUSE | | [facility] | + + + + + | CROSSMATCH RESULT | COMPATIBLE | | [facility] | + + + + + | UNIT NUMBER | [id number] | | [facility] | + + + + + | BLOOD COMPONENT TYPE | LEUKODEPLETED PC | | [facility] | + + + + + | UNIT DIVISION | 00 | | [facility] | + + + + + | STATUS OF UNIT | REL FROM ALLOC | | [facility] | + + + + + | TRANSFUSION STATUS | OK TO TRANSFUSE | | [facility] | + + + + + | CROSSMATCH RESULT | COMPATIBLE | | [facility] | + + + + + | UNIT NUMBER | [id number] | | [facility] | + + + + + | BLOOD COMPONENT TYPE | LEUKODEPLETED PC | | [facility] | + + + + + | UNIT DIVISION | 00 | | [facility] | + + + + + | STATUS OF UNIT | REL FROM ALLOC | | [facility] | + + + + + | TRANSFUSION STATUS | OK TO TRANSFUSE | | [facility] | + + + + + | CROSSMATCH RESULT | COMPATIBLETesting | | [facility] | | | performed at [facility];[address] | | | | | [address];[place], [place] | | | | | [address] | | | + + + + + | UNIT NUMBER | [id number] | | [facility] | + + + + + | BLOOD COMPONENT TYPE | LEUKODEPLETED PC | | [facility] | + + + + + | UNIT DIVISION | 00 | | [facility] | + + + + + | STATUS OF UNIT | REL FROM ALLOC | | [facility] | + + + + + | TRANSFUSION STATUS | OK TO TRANSFUSE | | [facility] | + + + + + | CROSSMATCH RESULT | COMPATIBLE | | [facility] | + + + + + | UNIT NUMBER | [id number] | | [facility] | + + + + + | BLOOD COMPONENT TYPE | LEUKODEPLETED PC,B | | [facility] | + + + + + | UNIT DIVISION | 00 | | [facility] | + + + + + | STATUS OF UNIT | REL FROM ALLOC | | [facility] | + + + + + | TRANSFUSION STATUS | OK TO TRANSFUSE | | [facility] | + + + + + | CROSSMATCH RESULT | COMPATIBLE | | [facility] | + + + + + + + | Specimen | + + | Blood | + + + + + + + | Performing | Address | City/State/Zipcode | Phone Number | | Organization | | | | + + + + + | [facility] | [address] | [place] [address] | | + + + + + [...] +------+-------+ + | MEDICARE | MEDICA | [id number] | | | [address] | | | RE | | | | [place] [address] | | | IP-OP | | | | | + +--------+ +------+-------+ + | MEDICAID | [facility] | [id number] | | | [address] | | | N | | | | [place], [place] | | | [place] | | | | [address] | | | PERIPATOLOGIST | | | | | + +--------+ [...] | 1960 | [phone] [place] [address] | | | [place]ley | | | [phone] | | + +--------+ +--------+ + +
--- OUTSIDE RECORDS SUMMARY | ~2019-01-24 | XMS | Encounter Summary ---
Demographics + + + | Address | [address] | | | [place] [address] | + + + | Home Phone | | + + + | Preferred Language | Unknown | + + + | Marital Status | Legally | + + + | Church Affiliation | Unknown | + + + | Race | Unknown | + + + | Ethnic Group | Unknown | + + + Author + + + | Author | [facility] [employer] | + + + | Organization | [facility] | + + + | Address [...] Team Providers + +------+ + | Care Nutrition Intern Name | Role | Phone | + +------+ + | Desiree Patricio MD | PCP | | + +------+ + Reason for Visit + + + | Reason | Comments | + + + | GI Bleeding | | + + + | Referral | tx from [facility] | + + + Auth/Cert +--------+--------+ + + + + | Status | Reason | Specialty | Diagnoses / | Referred By | Referred To | | | | | Procedures | Contact | Contact | +--------+--------+ + + + + | | | Internal | Diagnoses | | [facility] | | | | Medicine | | | [place] | | | | | Hyperkalemia | | [address] | | | | | Acute | | [address] | | | | | post-hemorrh | | [place] | | | | | agic anemia | | [phone] Phone: | | | | | Upper GI | | [phone] | | | | | bleeding | [...] +--------+--------+ + + + + Encounter Details +--------+---------+ + + + | Date | Type | Department | Care Team | Description | +--------+---------+ + + + | 01/19/ | Surgery | [facility] | Joo Wallace IV, | ESOPHAGOGASTRODUODEN | | 2019 | | [facility] | [address] | [place] | | | | Endoscopy [address] | [address] [place], | | | | | [place], [place] | [place] [address] | | | | | [id number] | [phone] | | | | | | | | +--------+---------+ + + + Social History + +-------+ [...] + + + as of this encounter Last Filed Vital Signs + + + [...] PM PDT | + + + + in this encounter Discharge Summaries Diogenes Dean MD - 01/21/2019 8:06 AM PDTFormatting of this note may be different from the original. [facility] Service: Hospitalist Discharge Summary Date of Admission: 01/17/2019 Date of Discharge: 01/21/19 Discharge Provider: Diogenes Dean MD Attending Provider: Diogenes Dean MD Treatment Team: Consulting Physician: Joo Wallace IV, MD Admitting Provider: Maritza Pop MD Discharge Diagnoses: Principal Problem: Hematemesis Active Problems: Alcoholic cirrhosis of liver with ascites (HCC) Type 2 diabetes mellitus (HCC) Bandemia Fever, unspecified Acute renal injury (HCC) Anemia Smoker Stage 2 chronic kidney disease Resolved Problems: * No resolved hospital problems. * Final Diagnoses: Hepatic cirrhosis Procedures: Procedure(s): ESOPHAGOGASTRODUODENOSCOPY Significant Diagnostic Studies: Us Abdomen Limited Result Date: 01/18/2019 Cirrhotic configuration of the liver. Debris and small gallstones noted within the gallblad shania. Signed by: Ezekiel Isidro Chet Sign Date/Time: 01/18/2019 4:35 PM Us Kidneys And Bladder Result Date: 01/19/2019 1. No evidence of renal stone, mass, hydronephrosis. 2. Postvoid bladder volume = 24 cc Sig maria d by: Mart Luna Dwane Sign Date/Time: 01/19/2019 6:01 PM BRIEF HISTORY OF PRESENTATION: Chris Donaldson is a 58 y.o. female who HOSPITAL COURSE: A 58-year-old female, history of alcoholic liver cirrhosis, stopped drinking in 2014; type 2 diabetes; transferred from [facility] on 01/17/2019. She reports prior history of ascites, has had paracentesis in the remote past. She present ed initially to [place] with epigastric discomfort and hematemesis. She was started on oc treotide drip, IV PPI, transferred to our facility. On presentation, hemoglobin was 9.7, cr eatinine was 1.24, CO2 of 19. GI consultation was obtained. She underwent upper EGD on 01/19/2019. She was found to hav e portal hypertensive gastropathy, gastric cardiac area had a healing and erosive ulcer. No definite varices on exam. Concerned for possible prior stigmata of varices bleed. As a re sult, she was continued on octreotide drip, nadolol was added to her regimen, which was well tolerated. She was monitored. Hemoglobin was stable at 7.7. She received IV iron and being discharge d on oral iron. She did well throughout the rest of her hospitalization. No recurrence of bleeding. On day of discharge, she was awake, alert, feeling well, eager to be discharged. Lasix was decreased to 20 mg. She is to continue spironolactone at 100 mg for ascites. Sh marine completed a 5-day course of IV antibiotics for SBP prophylaxis and will be discharged on a dditional 3 days oral ciprofloxacin. She is instructed to follow up with Dr. He in approximately 3-4 weeks for repeat EGD. She does have underlying chronic kidney disease stage 2 with some mild metabolic acidosis. She reports a followup appointment with sales commissions analyst in [place] in the upcoming week. Lasix was decreased to 20 mg and she is to continue on spironolactone at 100 mg. She does have chronic leukocytosis noted. No clear source of infection was noted. This ca n be follow up on an outpatient basis. DISCHARGE DIAGNOSES: 1. Acute blood loss anemia secondary to hematemesis. 2. Alcoholic cirrhosis (prior history of grade 1 esophageal varices), gastric ulcer. 3. Chronic kidney disease stage 3. 4. Leukocytosis/chronic. 5. Type 2 diabetes. Past Medical History Diagnosis Date Ectopic Fracture of pelvis (HCC) Hemorrhage of gastrointestinal tract Liver cirrhosis (HCC) Type 2 diabetes mellitus (HCC) Past Surgical History Procedure Laterality Date APPENDECTOMY COLONOSCOPY ESOPHAGOGASTRODUODENOSCOPY N/A 01/17/2019 Procedure: ESOPHAGOGASTRODUODENOSCOPY; Surgeon: Joo Wallace IV, MD; Location: [facility]; Service: Gastroenterology; Laterality: N/A; ESOPHAGOGASTRODUODENOSCOPY N/A 01/19/2019 Procedure: ESOPHAGOGASTRODUODENOSCOPY; Surgeon: Joo Wallace IV, MD; Location: [facility]; Service: Gastroenterology; Laterality: N/A; HYSTERECTOMY PELVIC FRACTURE SURGERY SPLENECTOMY, PARTIAL No Known Allergies Prescriptions Prior to Admission Medication Sig Dispense Refill Last Dose alendronate (FOSAMAX) 70 MG tablet Take 70 mg by mouth every 7 days. Take in the mornin g with a full glass of water, on an empty stomach, and do not take anything else by mouth or lie down for the next 30 min. 01/16/2019 ALPRAZolam (XANAX) 0.5 MG tablet Take 0.5 mg by mouth 2 (two) times daily as needed for Sleep. 01/16/2019 DULoxetine (CYMBALTA) [address] capsule Take 40 mg by mouth daily. 01/16/2019 insulin glargine (LANTUS) 100 UNIT/ML injection Inject 30 Units into the skin nightly. 01/15/2019 oxyCODONE (ROXICODONE) 5 MG immediate release tablet Take 5 mg by mouth every 4 (four) hours as needed for Pain. 01/16/2019 spironolactone (ALDACTONE) 100 MG tablet Take 100 mg by mouth daily. 01/16/2019 DISCHARGE EXAM Vital Signs: BP 122/68 (BP Location: Right upper arm) | Pulse 74 | Temp 97.7 F (36.5 C) (Oral) | Resp 18 | Ht 1.626 m (5' 4") | Wt 58.5 kg (128 lb 14.4 oz) | SpO2 98% | BMI 22.13 kg/m Temp: [97.7 F (36.5 C)-100 F (37.8 C)] 97.7 F (36.5 C) (01/21 319) BP: (97-141)/(55-68) 122/68 (01/21 319) Heart Rate: [69-79] 74 (01/21 319) Resp: [18-22] 18 (01/21 319) SpO2: [96 %-100 %] 98 % (01/21 319) Weight: [58.5 kg (128 lb 14.4 oz)] 58.5 kg (128 lb 14.4 oz) (01/21 2052) Physical Exam DATA CBC: Lab Results Component Value Date WBC 14.95 (H) 01/21/2019 RBC 2.16 (L) 01/21/2019 HGB 7.3 (L) 01/21/2019 HCT 22.5 (L) 01/21/2019 MCV 103.9 (H) 01/21/2019 MCH 33.9 01/21/2019 MCHC 32.6 01/21/2019 RDW 51.6 01/21/2019 PLT 190 01/21/2019 MPV 10.3 01/21/2019 DIFFTYPE AUTOMATED 01/19/2019 BMP: Lab Results Component Value Date NA 148 (H) 01/21/2019 K 3.6 01/21/2019 CL 118 (H) 01/21/2019 CO2 18 (L) 01/21/2019 ANIONGAP 16 01/21/2019 GLUF 160 (H) 01/21/2019 BUN 13 01/21/2019 CREATININE 1.2 (H) 01/21/2019 BCR 11 01/21/2019 CA 8.0 (L) 01/21/2019 EGFR 46 (L) 01/21/2019 Hepatic Function Panel: Lab Results Component Value Date PROT 5.4 (L) 01/21/2019 ALB 2.6 (L) 01/21/2019 BILITOT 0.4 01/21/2019 ALP 53 01/21/2019 AST 22 01/21/2019 ALT 22 01/21/2019 Disposition: Home Condition: Stable Code Status: Full Code Discharge Instructions CBC w/auto diff (reflex to manual) Standing Status: Future Standing Exp. Date: 01/22/20 Comprehensive metabolic panel Standing Status: Future Standing Exp. Date: 01/22/20 Follow up: Joo Wallace IV, MD [address] [facility] [address] In 3 weeks Desiree Patricio MD [address] [facility] [address] In 2 weeks Medication List START taking these medications ciprofloxacin 250 MG tablet QTY: 6 tablet Refills: 0 Commonly known as: CIPRO Take 1 tablet by mouth 2 (two) times daily for 3 days. ferrous sulfate (65 FE) 324 (65 Fe) MG EC tablet QTY: 60 tablet Refills: 1 Take 1 tablet by mouth 2 (two) times daily with meals. nadolol 20 MG tablet QTY: 30 tablet Refills: 11 Commonly known as: CORGARD Take 1 tablet by mouth daily. pantoprazole 40 MG tablet QTY: 30 tablet Refills: 1 Commonly known as: PROTONIX Take 1 tablet by mouth 2 (two) times daily before meals for 60 days. CHANGE how you take these medications furosemide 20 MG tablet QTY: 30 tablet Refills: 11 Commonly known as: LASIX Take 1 tablet by mouth daily. What changed: medication strength how much to take CONTINUE taking these medications alendronate 70 MG tablet Refills: 0 Commonly known as: FOSAMAX ALPRAZolam 0.5 MG tablet Refills: 0 Commonly known as: XANAX DULoxetine [address] capsule Refills: 0 Commonly known as: CYMBALTA insulin glargine 100 UNIT/ML injection Refills: 0 Commonly known as: LANTUS oxyCODONE 5 MG immediate release tablet Refills: 0 Commonly known as: ROXICODONE spironolactone 100 MG tablet Refills: 0 Commonly known as: ALDACTONE You might also be taking other medications not listed above. If you have questions about an y of your other medications, talk to the person who prescribed them or your Primary Care Pro vider. Where to Get Your Medications You can get these medications from any pharmacy Bring a paper prescription for each of these medications ciprofloxacin 250 MG tablet ferrous sulfate (65 FE) 324 (65 Fe) MG EC tablet furosemide 20 MG tablet nadolol 20 MG tablet pantoprazole 40 MG tablet Discharge took 35 minutes, to include final examination, discussion of admission, and pre paration of prescriptions, instructions for on-going care, follow-up and documentation of di leni summary. Diogenes Dean MD 01/21/2019in this encounter Discharge Instructions Jered Jasmine, RN - 01/21/2019 Smoking and Diabetes When you have diabetes, quitting smoking is one of the most important things you can do to help your health. Both diabetes and smoking cause health problems on their own. But together they are more likely to cause serious damage to your blood vessels, eyes, and kidneys. You are at higher risk for early from problems such as stroke, kidney failure, and heart a ttack. Knowing your health risks Smoking when you have diabetes raises your risk for serious health problems. These include: Cardiovascular disease (CVD). This means disease of the blood vessels and heart. Blood v essels in the body can be blocked with a sticky substance called plaque. It can lead to hear t attack or stroke. You may have heart rhythm problems, heart valve problems, or heart failu re. Coronary heart disease (CHD). This is a type of CVD. It s also known as coronary arter y disease (CAD). This is when the coronary arteries become blocked with plaque over time. Th morgan arteries send blood to the heart muscle. CHD can cause heart attack. Diabetic kidney disease. This is also known as diabetic nephropathy. Damage to blood ves sels in the kidneys causes the kidneys to not work well. The kidneys may then stop working f ully. Kidney failure then needs to be treated with dialysis or kidney transplant. Diabetic retinopathy. This is an eye disease that causes vision problems because of bloo d vessel damage in the eyes. It can lead to blindness. Peripheral neuropathy. This is damage to nerves around the body. It can cause sharp pain , burning feeling, numbness, weakness, and trouble moving. Peripheral artery disease (PAD). This causes poor blood flow in the legs and feet. It ca n lead to infections and sores that don t heal well. And it can lead to the need to remove (amputate) toes and feet. Blood sugar problems. Smoking can cause problems with the way your body uses insulin. It can make it harder for you to control your blood sugar levels. You may need larger doses of insulin to manage your blood sugar. Making a quitting plan Quitting smoking can be hard. Make a plan that will help you stay on track. Talk with your friends and family. Talk with your healthcare provider. Discuss the ways to quit, and which way may be best for you. Set a quit date for yourself, during a time when your stress will b e lower. Tools to help you quit Ask your healthcare provider about methods to help you stop smoking, such as: Nicotine aids. It may help you to use a patch, gum, lozenge, nasal spray, or inhaler frederick t has nicotine. While using nicotine from any source, you may still have trouble controlling your blood sugar. Prescription medicine. Talk with your healthcare provider about medicines that can help you stop smoking. Alternative therapies. Hypnosis and acupuncture may help you quit smoking. Other support. You can sign up for texting services, create a quit plan, and use more to ols on Smokefree.gov or by calling 998-DUEC-IFF (286-012-1342). Date Last Reviewed: 06/02/201719996689-1867 [employer]. [address] [place] [address], [place] [address]. All righ ts reserved. This information is not intended as a substitute for professional medical care. Always follow your healthcare professional's instructions. 1. Please make a follow-up appointment with Dr. Wallace in approximately 3 weeks, you will r equire a repeat EGD 2. Please have blood work drawn at [facility] (CBC, CMP) in approximately 2 weeks prior to follo wing up with your primary care physician and Dr. Wallace 3. If you develop weakness, swelling, blood loss, return back to the emergency department 4. Follow-up with your sales commissions analyst at [place] Cirrhosis The liver is found on the right side of your belly (abdomen). It isjust below the rib cag e. The liver has many important jobs. It removes toxins from the blood. It also helps your b lood clot to stop bleeding.Cirrhosis happens when the liver is scarred or injured. This da mage is permanent. It can cause your liver to stop working(liver failure). The most common causes of cirrhosis are long-term heavy alcohol use and having hepatitis B or C. Other causes include nonalcoholic steatohepatitis (MEEHAN or fatty liver disease), hemoc hromatosis, toxins, certain medicines, and certain viruses. Common symptoms of cirrhosis include: Tiredness or weakness Loss of appetite Nausea and vomiting Easy bleeding and bruising Swelling of the belly (abdomen) Weight loss Yellowing of the eyes or skin (jaundice) Itching Confusion Treatment helps ease symptoms and prevent more liver damage. You may also get treatment to fightthe hepatitis virus. Quitting alcohol will help slow down the disease getting worse. It may also prevent more complications. If cirrhosis gets worse and becomes life threatening ,you may need aliver transplant. Home care Don't take medicines that can makeliver damage worse.Your healthcare provider will t ell youif any of the medicines you now take need to be changed. Talk with your provider or pharmacist before taking any medicine not prescribed. These include dietary supplementsan d herbs. Some of these may makeliver damage worse. Talk with your healthcare provider aboutmedicines that haveacetaminophen or NSAIDs s uch as ibuprofen and naproxen.These can also harm your liver. Stop drinking alcohol.If youfind it hard to stop drinking, seek professional help. C onsider joining Alcoholics Anonymousor another type of treatment programfor support. If you use IV drugs, you are at high risk for hepatitis B and C. Seek help to stop. Be sure to ask your healthcare provider about recommended vaccines. These include vaccin es for viruses that can cause liver disease. Follow-up care Follow up with your healthcare provider, or as advised. For more information and to learn about support groups for people with liver disease, braulio ct: [employer],www.liverfoundation.org,914.567.7391 [employer],www.hepfi.org,395.864.4923 When to seek medical advice Call your healthcare provider right away if you haveany of the following: Rapid weight gain with increased size of your belly (abdomen) or leg swelling Yellow color of your skin or eyes (jaundice) gets worse Excess bleeding from cuts or injuries Date Last Reviewed: 01/31/201719991279-8172 [employer]. [address] [place] [address]. All righ ts reserved. This information is not intended as a substitute for professional medical care. Always follow your healthcare professional's instructions. The following attachments cannot be sent through Care Everywhere.Smoking,Tips for Quittin g (Cardiovascular) (Uruguayan)Ciprofloxacin tablets ([place]ruguayan)Iron tablets, capsules, extended- release tablets ([place])Furosemide tablets ([place])Nadolol tablets ([place])Pantoprazole t ablets ([place]ayan)in this encounter Medications at Time of Discharge + + +--------+---------+ + + | Medication | Sig. | Disp. | Refills | Start | End Date | | | | | | Date | | + + +--------+---------+ + + | alendronate | Take 70 mg by mouth | | | | | | (FOSAMAX) 70 MG | every 7 days. Take | | | | | | tablet | in the morning [...] | min. | | | | | + + +--------+---------+ + + | ALPRAZolam (XANAX) | Take 0.5 mg by mouth | | | | | | 0.5 MG tablet | 2 (two) times daily | | | | | | | as needed for | | | | | | | Sleep. | | | | | + + +--------+---------+ + + | DULoxetine | Take 40 mg by mouth | | | | | | (CYMBALTA) [address] | daily. | | | | | | capsule | | | | | | + + +--------+---------+ + + | insulin glargine | Inject 30 Units into | | | | | | (LANTUS) 100 UNIT/ML | the skin nightly. | | | | | | injection | | | | | | + + +--------+---------+ + + | oxyCODONE | Take 5 mg by mouth | | | | | | (ROXICODONE) 5 MG | every 4 (four) hours | | | | | | immediate release | as needed for Pain. | | | | | | tablet | | | | | | + + +--------+---------+ + + | spironolactone | Take 100 mg by mouth | | | | | | (ALDACTONE) 100 MG | daily. | | | | | | tablet | | | | | | + + +--------+---------+ + + | ciprofloxacin | Take 1 tablet by | 6 | 0 | 01/22/20 | | | (CIPRO) 250 MG | mouth 2 (two) times | tablet | | 19 | 9 | | tablet | daily for 3 days. | | | | | + + +--------+---------+ + + | ferrous sulfate, | Take 1 tablet by | 60 | 1 | 01/22/20 | | | 65 FE, 324 (65 Fe) | mouth 2 (two) times | tablet | | 19 | 0 | | MG EC tablet | daily with meals. | | | | | + + +--------+---------+ + + | furosemide (LASIX) | Take 1 tablet by | 30 | 11 | 01/22/20 | | | 20 MG tablet | mouth daily. | tablet | | 19 | 0 | + + +--------+---------+ + + | nadolol (CORGARD) | Take 1 tablet by | 30 | 11 | 01/22/20 | | | 20 MG tablet | mouth daily. | tablet | | 19 | 0 | + + +--------+---------+ + + | pantoprazole | Take 1 tablet by | 30 | 1 | 01/22/20 | | | (PROTONIX) 40 MG | mouth 2 (two) times | tablet | | 19 | 9 | | tablet | daily before meals | | | | | | | for 60 days. | | | | | + + +--------+---------+ + + as of this encounter Progress Notes Mayda Smart PA - 01/21/2019 9:58 AM PDTFormatting of this note may be different fr om the original. [facility] Service: Gastroenterology Consult Progress Note Hospital Day: LOS: 4 days SUBJECTIVE Patient Summary: Chris Barbour a 58 y.o.female Patient with known history of alcohol associated cirrhosis apparently diagnosed in 2014 but without known varices developed onset of overt red hematemesis yesterday at about 10 PM wit h multiple recurrent episodes including overt hematochezia. He felt significantly lightheade d but was not sure if this might have been related to something she ate and decided to wait through the night.This morning with a recurrent episode of red hematemesis and again red to purple stool output and presented for evaluation. [facility] started on pantoprazole and octreotide infusions as well as given ce ftriaxone and a dose of TXa.Fortunately has not had any further episodes of hematemesis si nce transfer here. In retrospect did have epigastric pain for the day prior to onset of the hematemesis. Denies any chronic history of heartburn, reflux symptoms, dysphagia or prior hi story of ulcer disease. Patient received a diagnosis of alcohol associated cirrhosis in 2014 in [place]. She was hosp italized there but does not recall undergoing EGD. She has been followed by her PCP who is dave Humphreys. Claims that she has not followed with GI regularly at all. Though I do not arroyo ve her medication list she does admit to being on diuretics for history of ascites which req uired paracentesis at least twice with the last episode a number years ago. Also single dose of lactulose daily and did have confusion at least in the past. Insists that she has never had a GI bleed. Again insists that she has never had an EGD to her recollection and has not been undergoing any regular imaging studies of her liver. She had an elective colonoscopy so metime years ago and may have had polyps. In the emergency department currently hemodynamics have stabilized. Potassium level elevate d Nava provider notified about this. Events Overnight: Doing well today. H/H stable. Planning on discharge today. Scheduled Medications cefTRIAXone 1 g Intravenous Q24H furosemide 40 mg Oral Daily insulin lispro (human) 0-3 Units Subcutaneous Nightly insulin lispro (human) 0-6 Units Subcutaneous TID AC nadolol 20 mg Oral Daily nicotine 1 patch Transdermal Daily pantoprazole 40 mg Oral BID AC spironolactone 100 mg Oral Daily Continuous Infusions dextrose PRN Medications acetaminophen OR acetaminophen, dextrose, dextrose, dextrose, glucagon, glucagon, nicot ine polacrilex, ondansetron OR ondansetron, polyethylene glycol, zolpidem OBJECTIVE Vital Signs: BP 122/68 (BP Location: Right upper arm) | Pulse 74 | Temp 97.7 F (36.5 C) (Oral) | Resp 18 | Ht 1.626 m (5' 4") | Wt 58.5 kg (128 lb 14.4 oz) | SpO2 98% | BMI 22.13 kg/m GENERAL: Well developed, well nourished, in no distress. Appears approximately stated age. HEENT: Normocephalic, atraumatic. EYES: PERRL, sclerae anicteric, no xanthelsasmas LUNGS: Clear bilaterally, with no rales, rhonchi or wheezing noted, respirations unlabored HEART: Nondisplaced PMI, regular rate and rhythm, S1, S2 normal. No murmurs, rubs or gallop s noted. ABDOMEN: Soft, nontender, nondistended. No organomegaly, masses or bruits. Bowel sounds are normal in all 4 quadrants. The abdominal aortic pulsation is not palpable. EXTREMITIES: no clubbing, cyanosis or edema. Pulses palpable and equal distally. SKIN: Warm and dry, capillary refill is normal, no lesions. No jaundice. NEUROLOGIC: Awake, alert and oriented x 3. No focal motor deficits. PSYCHIATRIC: Appropriate, affect appears normal DATA Lab Results Component Value Date WBC 14.95 (H) 01/21/2019 HGB 7.3 (L) 01/21/2019 HCT 22.5 (L) 01/21/2019 MCV 103.9 (H) 01/21/2019 PLT 190 01/21/2019 Lab Results Component Value Date AST 22 01/21/2019 ALT 22 01/21/2019 BILITOT 0.4 01/21/2019 CREATININE 1.2 (H) 01/21/2019 ALB 2.6 (L) 01/21/2019 Lab Results Component Value Date INR 1.1 01/18/2019 INR 1.1 01/17/2019 PROBLEM LIST Principal Problem: Hematemesis Active Problems: Alcoholic cirrhosis of liver with ascites (HCC) Type 2 diabetes mellitus (HCC) Bandemia Fever, unspecified Acute renal injury (HCC) Anemia Smoker Stage 2 chronic kidney disease ASSESSMENT & PLAN 1. GI bleed- appeared to be major bleed initially with hematochezia and hematemesis but sit e was never fully identified. S/p EGD x 2 with recent EGD showing portal hypertensive gastro serene and Possible gastric erosion vs possible varix 2. Alcoholic cirrhosis- without drinking since 2014. MELDna 10. With ascites and history of encephalopathy by report. -on diuretics -on lactulose -SBP prophylaxis -needs outpatient f/u with HCC screening PLAN 1. Diet as tolerated. 2. Continue nonselective Beta silva with caution due to diabetes 3. Outpatient EGD in 3-4 weeks. If still concern for possible gastric varix, may benefit fr om endoscopic US. She is planning on following in [place]. 4. Complete 7 days of antibiotics for SBP prophylaxis. 5. Continue diuretics and lactulose. 6. Ok for discharge from GI standpoint. Mayda Smart PA-C [facility] Gastroenterology 01/21/2019 Associated attestation - Joo Wallace IV, MD - 01/21/2019 11:08 PM [facility] GASTROENTEROLOGY ATTENDING ATTESTATION The advanced practice provider made rounds on this patient. I did not formally evaluate pat ient in person today. We discussed the case and I agree with the assessment and plan as lilly mishra. Mayda Smart PA - 01/20/2019 8:56 AM PDTFormatting of this note may be different fr om the original. [facility] Service: Gastroenterology Consult Progress Note Hospital Day: LOS: 3 days SUBJECTIVE Patient Summary: Chris Donaldson is a 58 y.o. female Patient with known history of alcohol associated cirrhosis apparently diagnosed in 2014 but without known varices developed onset of overt red hematemesis yesterday at about 10 PM wit h multiple recurrent episodes including overt hematochezia. He felt significantly lightheade d but was not sure if this might have been related to something she ate and decided to wait through the night.This morning with a recurrent episode of red hematemesis and again red to purple stool output and presented for evaluation. She presented to [facility] emergency d epartment where she was started on pantoprazole and octreotide infusions as well as given ce ftriaxone and a dose of TXa. Fortunately has not had any further episodes of hematemesis sin ce transfer here. In retrospect did have epigastric pain for the day prior to onset of the h ematemesis. Denies any chronic history of heartburn, reflux symptoms, dysphagia or prior his tory of ulcer disease. Patient received a diagnosis of alcohol associated cirrhosis in 2014 in [place]. She was hosp italized there but does not recall undergoing EGD. She has been followed by her PCP who is dave Humphreys. Claims that she has not followed with GI regularly at all. Though I do not arroyo ve her medication list she does admit to being on diuretics for history of ascites which req uired paracentesis at least twice with the last episode a number years ago. Also single dose of lactulose daily and did have confusion at least in the past. Insists that she has never had a GI bleed. Again insists that she has never had an EGD to her recollection and has not been undergoing any regular imaging studies of her liver. She had an elective colonoscopy so metime years ago and may have had polyps. In the emergency department currently hemodynamics have stabilized. Potassium level elevate d and ER provider notified about this. Events Overnight: Had EGD showed, portal hypertensive gastropathy, possible healing g astric erosion vs gastric varix, no obvious varices. Feels well with stable H/H and no recur rence of bleeding. Has some gas and heartburn feeling. Tolerating diet. Has some questions i n regards to medications. Plans to follow up in [place]. Scheduled Medications cefTRIAXone 1 g Intravenous Q24H furosemide 40 mg Oral Daily insulin lispro (human) 0-3 Units Subcutaneous Nightly insulin lispro (human) 0-6 Units Subcutaneous TID AC nadolol 20 mg Oral Daily nicotine 1 patch Transdermal Daily pantoprazole 40 mg Oral BID AC spironolactone 100 mg Oral Daily Continuous Infusions dextrose octreotide (sandoSTATIN) infusion 50 mcg/hr (01/20/19 0156) PRN Medications acetaminophen OR acetaminophen, dextrose, dextrose, dextrose, glucagon, glucagon, nicot ine polacrilex, ondansetron OR ondansetron, polyethylene glycol, zolpidem OBJECTIVE Vital Signs: BP 118/59 (BP Location: Right upper arm) | Pulse 78 | Temp 97.8 F (36.6 C) (Axillary) | Resp 20 | Ht 1.626 m (5' 4") | Wt 58.7 kg (129 lb 4.8 oz) | SpO2 100% | BMI 22.19 kg /m GENERAL: Well developed, well nourished, in no distress. Appears approximately stated age. HEENT: Normocephalic, atraumatic. EYES: PERRL, sclerae anicteric, no xanthelsasmas MOUTH: Oral mucosae moist, dentition adequate, no lesions noted. NECK: No JVD, lymphadenopathy, thyromegaly, bruits. Carotid pulses are 2+ bilaterally LUNGS: Clear bilaterally, with no rales, rhonchi or wheezing noted, respirations unlabored HEART: Nondisplaced PMI, regular rate and rhythm, S1, S2 normal. No murmurs, rubs or gallop s noted. ABDOMEN: Soft, nontender, nondistended. No organomegaly, masses or bruits. Bowel sounds are normal in all 4 quadrants. The abdominal aortic pulsation is not palpable. EXTREMITIES: no clubbing, cyanosis or edema. Pulses palpable and equal distally. SKIN: Warm and dry, capillary refill is normal, no lesions. No jaundice. NEUROLOGIC: Awake, alert and oriented x 3. No focal motor deficits. PSYCHIATRIC: Appropriate, affect appears normal DATA Lab Results Component Value Date WBC 15.44 (H) 01/19/2019 HGB 7.3 (L) 01/20/2019 HCT 22.2 (L) 01/20/2019 MCV 103.3 (H) 01/19/2019 PLT 187 01/19/2019 Lab Results Component Value Date AST 28 01/20/2019 ALT 19 01/20/2019 BILITOT 0.4 01/20/2019 CREATININE 1.2 (H) 01/20/2019 ALB 2.5 (L) 01/20/2019 Lab Results Component Value Date INR 1.1 01/18/2019 INR 1.1 01/17/2019 [facility] GI Patient Name: Chris Donaldson Procedure Date: 01/19/2019 2:41 PM Date of : 1960 Note Status: Finalized Attending MD: Joo Wallace IV , Instrument Name: [id number] Gastroscope Procedure Type: Upper GI endoscopy Indications: Recent gastrointestinal bleeding, Patient with known cirrhosis admitted with severe hemorrhage with hematemesis and hematochezia but non-defined precise etiology for the bleed. Portal hypertensive gastropathy and concern of possible junctional varix versus Saira-Bowens tear. Reevaluation warranted. No further active bleeding. Medicines: Monitored Anesthesia Care, See the Anesthesia note for documentation of the administered medications Complications: No immediate complications. Procedure: Pre-Anesthesia Assessment: - Prior to the procedure, a History and Physical was performed, and patient medications and allergies were reviewed. The patient's tolerance of previous anesthesia was also reviewed. The risks and benefits of the procedure and the sedation options and risks were discussed with the patient. All questions were answered, and informed consent was obtained. Prior Anticoagulants: The patient has taken no previous anticoagulant or antiplatelet agents. ASA Grade Assessment: III - A patient with severe systemic disease. After reviewing the risks and benefits, the patient was deemed in satisfactory condition to undergo the procedure. After obtaining informed consent, the endoscope was passed under direct vision. Throughout the procedure, the patient's blood pressure, pulse, and oxygen saturations were monitored continuously. The Endoscope was introduced through the mouth, and advanced to the second part of duodenum. The upper GI endoscopy was accomplished without difficulty. The patient tolerated the procedure well. Estimated Blood Loss: Estimated blood loss: none. Findings: The Z-line was regular and was found 35 cm from the incisors. The examined esophagus was normal. At this time the did not appear to be significant size esophageal varices present. No erosive esophagitis or other abnormality see. The small erosion at the squamocolumnar transition less impressive. Mild portal hypertensive gastropathy was found in the stomach. Gastric cardia slight prominence in the area of what looked like a healing erosion. Still was not definitive for gastric varices on exam. No other lesions in the stomach and clearly no evidence of recent bleeding. The exam of the stomach was otherwise normal. The examined duodenum was normal. No blood in the upper GI tract to suggest recent recurrent bleeding. Unfortunately still unclear precise etiology of her earlier major bleed. A medium diverticulum was found in the third portion of the duodenum. Impression: - Z-line regular, 35 cm from the incisors. - Normal esophagus. - Portal hypertensive gastropathy. - Gastric cardia slight prominence in the area of what looked like a healing erosion. Still was not definitive for gastric varices on exam. No other lesions in the stomach and clearly no evidence of recent bleeding. - Normal examined duodenum. - No blood in the upper GI tract to suggest recent recurrent bleeding. Unfortunately still unclear precise etiology of her earlier major bleed. - Duodenal diverticulum. - No specimens collected. Recommendation: - [facility]. - Resume previous diet. - Continue present medications. - Would continue on octreotide another 24 hours. - Would consider starting on nadolol or propranolol as nonselective beta silva. Will need closer monitoring due to history of diabetes. - I will advance her diet at this point since no evidence of recurrent bleeding. - If no further bleeding and tolerating nadolol she would likely be able to be discharged the next day or 2. - She should undergo follow-up EGD as outpatient ideally in the next 3-4 weeks. If unclear and the concern for gastric varices remains endoscopic ultrasound might be another consideration. Joo Wallace IV, 01/19/2019 3:18:00 PM This report has been signed electronically. Note Initiated On: 01/19/2019 2:41 PM Number of Addenda: 0 [facility] - Endoscopy Services PROBLEM LIST Principal Problem: Hematemesis Active Problems: Alcoholic cirrhosis of liver with ascites (HCC) Type 2 diabetes mellitus (HCC) Bandemia Fever, unspecified Acute renal injury (HCC) Anemia Smoker ASSESSMENT 1. GI bleed- appeared to be major bleed initially with hematochezia and hematemesis but sit e was never fully identified. S/p EGD x 2 with recent EGD showing portal hypertensive gastro serene and Possible gastric erosion vs possible varix 2. Alcoholic cirrhosis- without drinking since 2014. MELDna 10. With ascites and history of encephalopathy by report. -on diuretics -on lactulose -SBP prophylaxis -needs outpatient f/u with HCC screening PLAN 1. Diet as tolerated. 2. Octreotide x 24 hours. 3. Start nonselective Beta silva with caution due to diabetes- either nadolol or proprano lol 4. Outpatient EGD in 3-4 weeks. If still concern for possible gastric varix, may benefit fr om endoscopic US. 5. Complete 7 days of antibiotics for SBP prophylaxis. 6. Continue diuretics and lactulose. 7. If doing well, may be able to be discharged from GI standpoint tomorrow. Mayda Smart PA-C [facility] Gastroenterology 01/20/2019 Associated attestation - Joo Wallace IV, MD - 01/20/2019 9:40 PM [facility] GASTROENTEROLOGY ATTENDING ATTESTATION The advanced practice provider made rounds on this patient. I did not formally evaluate pat ient in person today. We discussed the case and I agree with the assessment and plan as lilly mishra. Diogenes Dean MD - 01/20/2019 8:12 AM [facility] Service: Hospitalist Progress Note Hospital Day: LOS: 3 days Post-Op Day: 1 Day Post-Op Procedure: Procedure(s) (LRB): ESOPHAGOGASTRODUODENOSCOPY (N/A) Briefly, 58-year-old female with an extensive past medical history of compensated alcoholic cirrhosis (diagnosed 2014), type 2 diabetes mellitus and other chronic comorbidities who presented to [facility] ER on 01/17 for hematemesis and melanotic stools admitted for acute blood loss anemia. SUBJECTIVE Underwent a EGD 01/19/2019; portal hypertensive gastropathy, gastric cardia area of healing erosion, no definite gastric varices on exam, GI recommending finish octreotide for 24 hours , nadolol, monitor bleeding for an additional 24 to 48 hours, repeat EGD in 3 to 4 weeks. No acute events overnight, patient indicates feeling well, tolerating diet, indicate some m ild heartburn. Feels bloated, increased abdominal girth. No chest pain no shortness of breath Denies any melanotic stools today REVIEW OF SYSTEMS: ROS As above Anxious Other systems reviewed and are otherwise negative OBJECTIVE Vital Signs: BP 118/59 (BP Location: Right upper arm) | Pulse 78 | Temp 97.8 F (36.6 C) (Axillary) | Resp 20 | Ht 1.626 m (5' 4") | Wt 58.7 kg (129 lb 4.8 oz) | SpO2 100% | BMI 22.19 kg /m Physical Exam Constitutional: She is oriented to person, place, and time. No distress. Neck: Normal range of motion. Neck supple. Cardiovascular: Normal rate, regular rhythm and normal heart sounds. Pulmonary/Chest: Effort normal. No respiratory distress. She has no wheezes. Abdomina/Gl: Soft. Bowel sounds are normal. Abdomen seems slightly distended Musculoskeletal: She exhibits no edema or tenderness. Neurological: Cranial nerves II through XII intact. Skin: Skin is warm and dry. Psychiatric: Poor insight into medical condition. Nursing notes and vitals reviewed. DATA Labs, medications, allergies and other treatment team notes reviewed. Imaging reviewed. Principal Problem: Hematemesis Active Problems: Alcoholic cirrhosis of liver with ascites (HCC) Type 2 diabetes mellitus (HCC) Bandemia Fever, unspecified Acute renal injury (HCC) Anemia Smoker ASSESSMENT & PLAN 1. Acute blood loss anemia -Most likely secondary to hematemesis: -Presently hemodynamically stable, 2 episodes of tachycardia noted without any accompanying hypotension. -Present hemoglobin 8.3. MCV 100.3. -Prior history of grade 1 esophageal varices -Underwent upper EGD 01/19/2019; no obvious varices present, mild portal hypertensive gastro serene noted, healing gastric ulcer -Recommending octreotide for an additional 24 hours, transition to nadolol -Hemoglobin stable 7.3, continue to monitor additional 24 hours -Transition to p.o. PPI #2. Alcoholic cirrhosis -Resume furosemide, spironolactone, patient noticing recurrence of ascites 3. Elevated creatinine: No baseline creatinine for comparison. -Could be acute kidney injury secondary point #1 versus chronic kidney disease versus hepat orenal syndrome -Management as per point #1 -Renal function stable 1.2 3. Leukocytosis: -Hemodynamically stable afebrile. -Could be reactive in the setting of point #1. -Patient denies any symptoms of respiratory, GI, or skin/soft tissue stigmata of infecti on. No obvious signs of infection. -We will order blood culture x2. Will order procalcitonin. -Patient nontoxic-appearing. -We will continue to monitor off antibiotics. Insulin-dependent type 2 diabetes mellitus: -Patient blood sugar target 141-210 mg/dL. -Home regimen Lantus 30 units nightly -Patient started on insulin sliding scale fasting blood sugar 127 -We will continue present regimen at this time Active tobacco use: -Patient started on nicotine patch and gum as needed. -The patient has been counseled in detail regarding cessation of smoking. Risks, benefits alternatives were discussed in detail. The patient was able to reiterate goals discussed ve rbally demonstrated understanding. DVT prophylaxis: Chemical prophylaxis to be held, continue with mechanical prophylaxis. Disposition: Monitor additional 24 hours, tentative discharge home tomorrow Code Status: Full Code Diogenes Dean MD 01/20/2019 Ej Mcnulty MD - 01/19/2019 7:30 AM [facility] Service: Hospitalist Progress Note Hospital Day: LOS: 2 days Post-Op Day: 1 Day Post-Op Procedure: Procedure(s) (LRB): ESOPHAGOGASTRODUODENOSCOPY (N/A) Briefly, 58-year-old female with an extensive past medical history of compensated alcoholic cirrhosis (diagnosed 2014), type 2 diabetes mellitus and other chronic comorbidities who presented to [facility] ER on 01/17 for hematemesis and melanotic stools admitted for acute blood loss anemia. SUBJECTIVE No acute overnight events. Patient is alert and oriented x3. No family at bedside. Patie nt denies any further hematemesis or melanotic stools since admission. Associated with fati cari, malaise and weakness. No exacerbating factors identified. Progression stable with i mprovement noted. REVIEW OF SYSTEMS: ROS As above Anxious Other systems reviewed and are otherwise negative OBJECTIVE Vital Signs: BP 131/72 | Pulse 75 | Temp 99 F (37.2 C) (Oral) | Resp 16 | Ht 1.626 m (5' 4") | Wt 55.5 kg (122 lb 4.8 oz) | SpO2 100% | BMI 20.99 kg/m Physical Exam Constitutional: She is oriented to person, place, and time. No distress. Neck: Normal range of motion. Neck supple. Cardiovascular: Normal rate, regular rhythm and normal heart sounds. Pulmonary/Chest: Effort normal. No respiratory distress. She has no wheezes. Abdomina/Gl: Soft. Bowel sounds are normal. There is no tenderness. There is no guarding. Musculoskeletal: She exhibits no edema or tenderness. Neurological: Cranial nerves II through XII intact. Skin: Skin is warm and dry. Psychiatric: Poor insight into medical condition. Nursing notes and vitals reviewed. DATA Labs, medications, allergies and other treatment team notes reviewed. Imaging reviewed. Principal Problem: Hematemesis Active Problems: Alcoholic cirrhosis of liver with ascites (HCC) Type 2 diabetes mellitus (HCC) Bandemia Fever, unspecified Acute renal injury (HCC) Anemia Smoker ASSESSMENT & PLAN 1. Acute blood loss anemia -Most likely secondary to hematemesis: -Presently hemodynamically stable, 2 episodes of tachycardia noted without any accompanying hypotension. -Present hemoglobin 8.3. MCV 100.3. -We will order reticulocyte count, ferritin, and iron panel. Follow-up with H&H every 6 ho urs -Will order orthostatics every shift. -2 large-bore IVs. -Appreciate GI input regarding further inpatient care management patient status post EGD on 01/17 briefly demonstrates grade 1 esophageal varices, nonbleeding esophageal ulcer, bennie l hypertensive gastropathy and other findings see official report for further details. Co ntinue octreotide and PPI drip x 72hrs with adjustments per GI team. -The patient is tentatively scheduled for EGD later today. N.p.o., as per GI recommendatio ns. -Supportive care. 2. Elevated creatinine: No baseline creatinine for comparison. -Could be acute kidney injury secondary point #1 versus chronic kidney disease versus hepat orenal syndrome -Management as per point #1 -F/U urine eosinophils, urine sodium, urine osmolality, urine urea and urine creatinine. -Avoid nephrotoxic agents-hold Aldactone and Lasix discontinued. -Renally dose medications 3. Leukocytosis: -Hemodynamically stable afebrile. -Could be reactive in the setting of point #1. -Patient denies any symptoms of respiratory, GI, or skin/soft tissue stigmata of infecti on. No obvious signs of infection. -We will order blood culture x2. Will order procalcitonin. -Patient nontoxic-appearing. -We will continue to monitor off antibiotics. Insulin-dependent type 2 diabetes mellitus: -Patient blood sugar target 140 to 180 mg/dL. -Home regimen Lantus 30 units nightly -Patient started on insulin sliding scale fasting blood sugar 127 -We will continue present regimen at this time -If patient's blood sugars begin to elevate would consider starting Lantus 10 units nightly and titrating as appropriate. Active tobacco use: -Patient started on nicotine patch and gum as needed. -The patient has been counseled in detail regarding cessation of smoking. Risks, benefits alternatives were discussed in detail. The patient was able to reiterate goals discussed ve rbally demonstrated understanding. DVT prophylaxis: Chemical prophylaxis to be held, continue with mechanical prophylaxis. Disposition: Inpatient Code Status: Prior Ej Mcnulty MD 01/19/2019 Jennifer Mckeon RN - 01/19/2019 12:32 AM PDTDr. Bridges was notified that pt had an episo de of dark black stool, h&h ordered. At bedside with SN for all assessment, medication admin istration and charting. Report given to oncoming RN for transition of care. Joo Lowe IV, MD - 01/18/2019 3:13 PM PDTFormatting of this note may be different f rom the original. [facility] Gastroenterology Service Inpatient Consult Follow Up Note Hospital Day: LOS: 1 day SUBJECTIVE Patient Summary: Patient with known history of alcohol associated cirrhosis apparentl y diagnosed in 2014 but without known varices developed onset of overt red hematemesis yeste rday at about 10 PM with multiple recurrent episodes including overt hematochezia. He felt s ignificantly lightheaded but was not sure if this might have been related to something she a te and decided to wait through the night.This morning with a recurrent episode of red hemate mesis and again red to purple stool output and presented for evaluation. She presented to [facility] emergency department where she was started on pantoprazole and octreotide infusi ons as well as given ceftriaxone and a dose of TXa. Fortunately has not had any further epis odes of hematemesis since transfer here. In retrospect did have epigastric pain for the day prior to onset of the hematemesis. Denies any chronic history of heartburn, reflux symptoms, dysphagia or prior history of ulcer disease. Patient received a diagnosis of alcohol associated cirrhosis in 2014 in [place]. She was hosp italized there but does not recall undergoing EGD. She has been followed by her PCP who is dave Humphreys. Claims that she has not followed with GI regularly at all. Though I do not arroyo ve her medication list she does admit to being on diuretics for history of ascites which req uired paracentesis at least twice with the last episode a number years ago. Also single dose of lactulose daily and did have confusion at least in the past. Insists that she has never had a GI bleed. Again insists that she has never had an EGD to her recollection and has not been undergoing any regular imaging studies of her liver. She had an elective colonoscopy so metime years ago and may have had polyps. Events: I performed EGD urgently last evening due to her clinical presentation. She h ad not had clinical bleeding through the day and at time of EGD there was no blood in the up per GI tract. Unfortunately precise etiology of bleed was a little bit less clear. Small ulc eration at the squamocolumnar transition left concern of whether this could be a junctional varix versus Saira-Bowens tear. There did appear to be a prominence and probably a varix pr oximal to this on the esophageal side with maybe superficial vascular change but did not ban d ligate to avoid increasing vascular pressure at the GE junction and precipitating a varice al bleed there. Patient fortunately remains without further evidence of active bleeding. Passed some melena which would be expected but hemoglobin stable. Denies any abdominal pain or confusion. Scheduled Medications cefTRIAXone 1 g Intravenous Q24H insulin lispro (human) 0-3 Units Subcutaneous Nightly insulin lispro (human) 0-6 Units Subcutaneous TID AC Continuous Infusions dextrose octreotide (sandoSTATIN) infusion 50 mcg/hr (01/18/19 1454) pantoprazole 8 mg/hr (01/18/19 1454) sodium chloride (IV) 75 mL/hr at 01/18/19 1140 PRN Medications acetaminophen OR acetaminophen, dextrose, dextrose, dextrose, glucagon, glucagon, ondan setron OR ondansetron, polyethylene glycol, zolpidem OBJECTIVE Vital Signs: BP 122/71 (BP Location: Right upper arm) | Pulse 88 | Temp 98.6 F (37 C) (Oral) | Re sp 16 | Ht 1.626 m (5' 4") | Wt 54.6 kg (120 lb 6.4 oz) | SpO2 100% | BMI 20.67 kg/m Vital signs reviewed. General appearance: Appears well-developed and not in acute distress. Psychiatric: Appropriate affect, behavior and judgment appear normal. Neurological: Patient is alert and oriented. Cardiovascular: Regular rate and rhythm, no murmur heard. Pulmonary/Chest: Clear bilaterally without wheezes. Abdominal: Normal active bowel sounds. Soft, no mass or hepatosplenomegaly. No tendern ess with palpation. No involuntary guarding or rebound. Musculoskeletal: No pedal edema. DATA Lab data: CBC: Lab Results Component Value Date WBC 16.46 (H) 01/18/2019 RBC 2.39 (L) 01/18/2019 HGB 8.2 (L) 01/18/2019 HCT 25.1 (L) 01/18/2019 MCV 100.3 (H) 01/18/2019 MCH 33.1 01/18/2019 MCHC 33.0 01/18/2019 RDW 49.4 01/18/2019 PLT 180 01/18/2019 MPV 8.9 01/18/2019 DIFFTYPE AUTOMATED 01/18/2019 CMP: Lab Results Component Value Date NA 144 01/18/2019 K 4.2 01/18/2019 CL 114 (H) 01/18/2019 CO2 20 (L) 01/18/2019 ANIONGAP 14 01/18/2019 GLUF 127 (H) 01/18/2019 BUN 37 (H) 01/18/2019 CREATININE 1.3 (H) 01/18/2019 BCR 28 01/18/2019 CA 8.1 (L) 01/18/2019 PROT 5.5 (L) 01/18/2019 ALB 2.6 (L) 01/18/2019 GLOB 2.9 01/18/2019 BILITOT 1.1 01/18/2019 ALP 55 01/18/2019 AST 30 01/18/2019 ALT 30 01/18/2019 EGFR 42 (L) 01/18/2019 PT/INR: Lab Results Component Value Date INR 1.1 01/18/2019 PTT: Lab Results Component Value Date APTT 25 01/18/2019 [APTT} Lipase: No results found for: LIPASE Results for CHRIS DONALDSON ( ) as of 01/18/2019 17:19 01/17/2019 23:52 01/18/2019 05:06 01/18/2019 08:12 01/18/2019 10:46 01/18/2019 16:17 HGB 8.2 (L) 7.9 (L) 8.3 (L) 8.4 (L) 8.2 (L) HCT 25.0 (L) 24.0 (L) 25.3 (L) 25.4 (L) 25.1 (L) Diagnostic imaging: US abdomen limited Status: Final result ULTRASOUND ABDOMEN, LIMITED CLINICAL INFORMATION: Cirrhosis, portal hypertension, gastrointestinal bleed. Assess for liver lesions. COMPARISON: US ABDOMEN LIMITED (02/05/2017); US GUIDED PARACENTESIS (11/20/2016); PROCEDURE: Evaluation of the gallbladder, if present, common bile duct, liver, and right kidney. FINDINGS: Liver: Cirrhotic configuration of the liver. Normal directional flow the patent portal vein. No focal mass or cyst visualized. Gallbladder/Bile Duct: Layering debris in gallstones noted within the gallbladder. No gallbladder wall thickening. Gallbladder wall measures 2.7 mm. Common bile duct 9.2 mm. Right kidney: No solid renal mass, hydronephrosis or definitive calculi. IVC normal. No ascites. IMPRESSION: Cirrhotic configuration of the liver. Debris and small gallstones noted within the gallbladder. Signed by: Ezekiel Isidro, Meek Sign Date/Time: 01/18/2019 4:35 PM PROBLEM LIST Principal Problem: Hematemesis Active Problems: Alcoholic cirrhosis of liver with ascites (HCC) Type 2 diabetes mellitus (HCC) Bandemia Fever, unspecified Acute renal injury (HCC) Anemia Smoker ASSESSMENT & PLAN GI bleed Hematemesis Hematochezia Her Rather precipitous presentation with dramatic overt red hematemesis and hematochezia cl inically would suggest higher risk for rebleed. Precise etiology still unclear on EGD. Mallo ry-Bowens tear with portal hypertension can bleed substantially but need to still be a little bit concerned about varix. As such would keep her on octreotide for another day and I will repeat EGD electively tomorrow afternoon. Hopefully that will let me better define her likel y etiology. Cirrhosis alcohol associated Abstinent since June 2015 MELD score 10, MELDNa score 10 Discussed with patient that she needs to be followed by GI which can be in [place] once current acute episode settles. Needs hepatoma screening and other issues discussed. Ultrasound here in the hospital fortunately shows no mass lesions in the liver. Ascites Apparently on diuretics but does not have her list currently. Needs SBP (spontaneous bacterial peritonitis) prophylaxis due to the acute bleed and alread y given dose of ceftriaxone when in [facility]. No evidence of ascites on current ultrasound. Possible history of hepatic encephalopathy Claims she takes lactulose once daily. No clinical suggestion of hepatic encephalopathy at this time. Recommendations 1. Clear liquids. Npo tomorrow afternoon in anticipation of repeat EGD. 2. Octreotide 50 g per hour infusion as currently doing. 3. Pantoprazole 8 mg per hour infusion as currently doing. 4. Ceftriaxone 1 g IV daily. 5. Serial H and H with transfusion for hemoglobin less than 7 unless hemodynamically indica robby. 6. EGD tomorrow afternoon- The procedure was discussed in detail to include indications, li mitations, alternatives available and potential complications to include but not limited to bleeding, infection, tear or perforation, missed lesions and potential reaction to medicatio ns. Patient and/or responsible adult voiced full understanding of these, opportunity for que stions provided and informed consent was obtained. After review of patient's overall medical condition appears stable to proceed with invasive medical procedure under sedation/anesthesia. Pily Wallace IV, M.D. [facility] 01/18/2019 This note was dictated using [employer] voice recognition software. Document was reviewed at ti me of dictation but [id number] errors may be present. Please call with any questions or c larifications. Ej Mcnulty MD - 01/18/2019 10:05 AM [facility] Service: Hospitalist Progress Note Hospital Day: LOS: 1 day Post-Op Day: 1 Day Post-Op Procedure: Procedure(s) (LRB): ESOPHAGOGASTRODUODENOSCOPY (N/A) Briefly, 58-year-old female with an extensive past medical history of compensated alcoholic cirrhosis (diagnosed 2014), type 2 diabetes mellitus and other chronic comorbidities who presented to [facility] ER on 01/17 for hematemesis and melanotic stools admitted for acute blood loss anemia. SUBJECTIVE No acute overnight events. Patient is alert and oriented x3. No family at bedside. Patie nt denies any further hematemesis or melanotic stools since admission. Associated with fati cari, malaise and weakness. No exacerbating factors identified. Progression stable with i mprovement noted. REVIEW OF SYSTEMS: ROS As above Anxious Other systems reviewed and are otherwise negative OBJECTIVE Vital Signs: BP 113/61 (BP Location: Right upper arm) | Pulse 91 | Temp 99 F (37.2 C) (Oral) | Re sp 16 | Ht 1.626 m (5' 4") | Wt 54.6 kg (120 lb 6.4 oz) | SpO2 96% | BMI 20.67 kg/m Physical Exam Constitutional: She is oriented to person, place, and time. No distress. cachectic Neck: Normal range of motion. Neck supple. Cardiovascular: Normal rate, regular rhythm and normal heart sounds. No murmur heard. Pulmonary/Chest: Effort normal. No respiratory distress. She has no wheezes. Abdomina/Gl: Soft. Bowel sounds are normal. There is no tenderness. There is no guarding. Musculoskeletal: She exhibits no edema or tenderness. Neurological: She is alert and oriented to person, place, and time. Cranial nerves II thro ugh XII intact. Skin: Skin is warm and dry. Psychiatric: Anxious. Nursing notes and vitals reviewed. DATA Labs, medications, allergies and other treatment team notes reviewed. Imaging reviewed. Principal Problem: Hematemesis Active Problems: Alcoholic cirrhosis of liver with ascites (HCC) Type 2 diabetes mellitus (HCC) Bandemia Fever, unspecified Acute renal injury (HCC) Anemia Smoker ASSESSMENT & PLAN 1. Acute blood loss anemia -Most likely secondary to hematemesis: -Presently hemodynamically stable, 2 episodes of tachycardia noted without any accompanying hypotension. -Present hemoglobin 8.3. MCV 100.3. -We will order reticulocyte count, ferritin, and iron panel. Follow-up with H&H every 6 ho urs -Will order orthostatics every shift. -2 large-bore IVs. -Appreciate GI input regarding further inpatient care management patient status post EGD on 01/17 briefly demonstrates grade 1 esophageal varices, nonbleeding esophageal ulcer, bennie l hypertensive gastropathy and other findings see official report for further details. Re commendations include maintaining n.p.o. status with reassessment of when to initiate diet. Continue octreotide and PPI drip. Patient will likely require repeat EGD prior to discharg e. -Continue with 2 large-bore IVs. -Supportive care. 2. Elevated creatinine: No baseline creatinine for comparison. -Could be acute kidney injury secondary point #1 versus chronic kidney disease versus hepat orenal syndrome -Management as per point #1 -We will order urine eosinophils, urine sodium, urine osmolality, urine urea and urine crea tinine. -Avoid nephrotoxic agents-hold Aldactone and Lasix discontinued. -Renally dose medications 3. Insulin-dependent type 2 diabetes mellitus: -Patient blood sugar target 140 to 180 mg/dL. -Home regimen Lantus 30 units nightly -Patient started on insulin sliding scale fasting blood sugar 127 -We will continue present regimen at this time -If patient's blood sugars begin to elevate would consider starting Lantus 10 units nightly and titrating as appropriate. Disposition: Inpatient Code Status: Prior Ej Mcnulty MD 01/18/2019 Brenton Morales, [facility] - 01/17/2019 8:44 PM PDTRenal Dosing Monitoring: S: Renal dose monitoring per protocol. O: Estimated Creatinine Clearance: 42.7 mL/min (A) (by C-G formula based on SCr of 1.24 mg/ dL (H)). I/O (mL): -/- Dialysis?: no A: No adjustments needed at this time. P: Pharmacy will continue monitoring patient for appropriate dosing based on renal functio n. Pharmacist: Brenton Morales PharmD in this encounter Plan of Treatment + +--------+ + + | Name | Priori | Associated Diagnoses | Date/Time | | | ty | | | + +--------+ + + | Blood Culture Set 1 | Timed | | 01/19/2019 10:33 AM | | | | | PDT | + +--------+ + + | Blood Culture Set 2 | Timed | | 01/19/2019 10:33 AM | | | | | PDT | + +--------+ + + + +--------+ + + | Name | Priori | Associated Diagnoses | Order Schedule | | | ty | | | + +--------+ + + | CBC w/auto diff (reflex to | Routin | Upper GI bleeding | Expected: | | manual) | e | History of | 02/04/2019, Expires: | | | | cirrhosis of liver | 01/22/2020 | | | | Gastrointestinal | | | | | hemorrhage with | | | | | hematemesis | | | | | Alcoholic cirrhosis | | | | | of liver with | | | | | ascites (HCC) | | | | | Portal hypertension | | | | | (HCC) | | + +--------+ + + | Comprehensive metabolic panel | Routin | Upper GI bleeding | Expected: | | | e | History of | 02/04/2019, Expires: | | | | cirrhosis of liver | 01/22/2020 | | | | Gastrointestinal | | | | | hemorrhage with | | | | | hematemesis | | | | | Alcoholic cirrhosis | | | | | of liver with | | | | | ascites (HCC) | | | | | Portal hypertension | | | | | (HCC) | | + +--------+ + + as of this encounter Procedures + +--------+ + + + | [...] | + +--------+ + + + | [facility] CARD PANEL W/O | STAT | 01/17/2019 [...] section. | + +--------+ + + + in this encounter Results POCT glucose (01/21/2019 5:44 AM) + + + + + | Component | Value | Ref Range | Performed At | + + + + + | GLUCOSE,POC SCREEN | 171 (H)Comment: Testing | 65 - 99 mg/dL | [facility] | | | performed at [facility];[address] | | | | [address];[place], [place] | | | | | [address] | | | + + + + + + + + + + | Performing | Address | City/State/Zipcode | Phone Number | | Organization | | | | + + + + + | [facility] | [address] | [place] [address] | | + + + + + Comprehensive metabolic panel (01/21/2019 4:47 AM) + + + + [...] | | | | | performed at [facility], [address] | | | | [facility], | | | | | [place] [address] | | | + + + + + + + | Specimen | + + | Blood | + + + + + + + | Performing | Address | City/State/Zipcode | Phone Number | | Organization | | | | + + + + + | [facility] | [address] | [place] [address] | [phone] | | LABORATORY | [address] | | [...] (L) | 34.0 - 46.0 % | [facility] | + + [...] 51.6 | 37 - 53 fl | [facility] | + + + + + | PLT | 190 | 150 - 400 K/uL | [facility] | + + + + + | MPV | 10.3Comment: Testing | fl | [facility] | | | performed at [facility] | | | | | [address];[place] | | | | | [address] | | | + + + + + + + + + + | Performing | Address | City/State/Zipcode | Phone Number | | Organization | | | | + + + + + | [facility] | [address] | [place] [address] | | + + + + + POCT glucose (01/20/2019 9:38 PM) + + + + + | Component | Value | Ref Range | Performed At | + + + + + | GLUCOSE,POC SCREEN | 162 (H)Comment: Testing | 65 - 99 mg/dL | [facility] | | | performed at [facility];[address] | | | | | [address];[place] | | | | | [address] | | | + + + + + + + + + + | Performing | Address | City/State/Zipcode | Phone Number | | Organization | | | | + + + + + | [facility] | [address] | [place] [address] | | + + + + + POCT glucose (01/20/2019 4:22 PM) + + + + + | Component | Value | Ref Range | Performed At | + + + + + | GLUCOSE,POC SCREEN | 188 (H)Comment: Testing | 65 - 99 mg/dL | [facility] | | | performed at [facility];[address] | | | | | [address];[place] | | | | | [address] | | | + + + + + + + + + + | Performing | Address | City/State/Zipcode | Phone Number | | Organization | | | | + + + + + | [facility] | [address] | [place] [address] | | + + + + + POCT glucose (01/20/2019 11:23 AM) + + + + + | Component | Value | Ref Range | Performed At | + + + + + | GLUCOSE,POC SCREEN | 131 (H)Comment: Testing | 65 - 99 mg/dL | [facility] | | | performed at [facility];[address] | | | | | [address];[place], [place] | | | | | [address] | | | + + + + + + + + + + | Performing | Address | City/State/Zipcode | Phone Number | | Organization | | | | + + + + + | [facility] | [address] | [place] [address] | | + + + + + POCT glucose (01/20/2019 5:59 AM) + + + + + | Component | Value | Ref Range | Performed At | + + + + + | GLUCOSE,POC SCREEN | 210 (H)Comment: Testing | 65 - 99 mg/dL | [facility] | | | performed at [facility];[address] | | | | | [address];[place] | | | | | [address] | | | + + + + + + + + + + | Performing | Address | City/State/Zipcode | Phone Number | | Organization | | | | + + + + + | [facility] | [address] | [place] [address] | | + + + + + Comprehensive metabolic panel (01/20/2019 4:23 AM) + + + + + | Component | Value | Ref Range | Performed At | + + + + + | SODIUM | 148 (H) | 135 - 145 mmol/L | [facility] | | | | | LABORATORY | + + + + + | POTASSIUM | 3.9 | 3.5 - 4.9 mmol/L | [facility] | | | | | LABORATORY | + + + + + | CHLORIDE | 125 (H) | 99 - 109 mmol/L | [facility] | | | | | LABORATORY | + + + + + | CO2 | 20 (L) | 23 - 32 mmol/L | [facility] | | | | | LABORATORY | + + + + + | ANION GAP AGAP | 7 | 5 - 20 mmol/L | [facility] | | | | | LABORATORY | + + + + + | GLUCOSE | 141 (H) | 65 - 99 mg/dL | [facility] | | | | | LABORATORY | + + + + + | BUN | 16 | 8 - 25 mg/dL | [facility] | | | | | LABORATORY | + + + + + | CREATININE | 1.2 (H) | 0.50 - 1.00 mg/dL | [facility] | | | | | LABORATORY | + + + + + | BUN/CREAT | 13 | | [facility] | | | | | LABORATORY | + + + + + | CALCIUM | 7.3 (L) | 8.5 - 10.5 mg/dL | [facility] | | | | | LABORATORY | + + + + + | TOTAL PROTEIN | 5.3 (L) | 6.3 - 8.2 g/dL | [facility] | | | | | LABORATORY | + + + + + | Albumin | 2.5 (L) | 3.6 - 5.0 g/dL | [...] + + + | ALK PHOS | 51 | 35 - 115 U/L | [facility] | | | | | LABORATORY | + + + + + | AST | 28 | 10 - 45 U/L | [facility] | | | | | LABORATORY | + + + + + | ALT | 19 | 10 - 65 U/L | [facility] [...] | | | | | performed at [facility], [address] | | | | [facility], | | | | | [place] [address] | | | + + + + + + + + + + | Performing | Address | City/State/Zipcode | Phone Number | | Organization | | | | + + + + + | [facility] | [address] [place] [address] | [place] [address] | [phone] | | LABORATORY | [place]. | | | + + + + + HGB and HCT (01/20/2019 4:23 AM) + + + + + | Component | Value | Ref Range | Performed At | + + + + + | HGB | 7.3 (L) | 11.3 - 15.5 g/dL | [facility] | + + + + + | HCT | 22.2 (L)Comment: Testing | 34.0 - 46.0 % | [facility] | | | performed at [facility];[address] | | | | | [address];[place] | | | | | [address] | | | + + + + + + + + + + | Performing | Address | City/State/Zipcode | Phone Number | | Organization | | | | + + + + + | [facility] | [address] | [place] [address] | | + + + + + POCT glucose (01/19/2019 9:54 PM) + + + + + | Component | Value | Ref Range | Performed At | + + + + + | GLUCOSE,POC SCREEN | 193 (H)Comment: Testing | 65 - 99 mg/dL | [facility] | | | performed at [facility];[address] | | [address];[place] | | | | | [address] | | | + + + + + + + + + + | Performing | Address | City/State/Zipcode | Phone Number | | Organization | | | | + + + + + | [facility] | [address] | [place] [address] | | + + + + + HGB and HCT (01/19/2019 9:34 PM) + + + + + | Component | Value | Ref Range | Performed At | + + + + + | HGB | 7.0 (L) | 11.3 - 15.5 g/dL | [facility] | + + + + + | HCT | 21.7 (L)Comment: Testing | 34.0 - 46.0 % | [facility] | | | performed at [facility];[address] | | | | | [address];[place] | | | | | [address] | | | + + + + + + + + + + | Performing | Address | City/State/Zipcode | Phone Number | | Organization | | | | + + + + + | [facility] | [address] | [place] [address] | | + + + + + [...] | Juan C, Rad Results In - 01/19/2019 6:04 PM PDT ULTRASOUND KIDNEYS AND [...] 24 cc | | Signed by: Mart Luna Dwane | | Sign Date/Time: 01/19/2019 6:01 PM | + + + + + + + | Performing | Address | City/State/Zipcode | Phone Number | | Organization | | | | + + + + + | [facility] | [address] | [place] [address] | | + + + + + UR urea nitro, random (01/19/2019 4:30 PM) + + + + + | Component | Value | Ref Range | Performed At | + + + + + | UR UREA NITRO,RANDOM | 369.0Comment: NO NORMAL | mg/dL | [facility] | | | RANGE ESTABLISHEDTesting | | LABORATORY | | | performed at [facility], [facility] | | | | | [address], | | | | | [place] [address] | | | + + + + + + + + + + | Performing | Address | City/State/Zipcode | Phone Number | | Organization | | | | + + + + + | [facility] | [address] | [place] [address] | [phone] | | LABORATORY | [address] | | | + + + + + Osmolality, urine (01/19/2019 4:30 PM) + + + + + | Component | Value | Ref Range | Performed At | + + + + + | OSMOLALITY,URINE | 452Comment: Testing | 50 - 1,200 mOsm/kg | [facility] | | RANDOM | performed at [facility], [address] | | LABORATORY | | | [address], | | | | | [place] [address] | | | + + + + + + + | Specimen | + + | Urine - Urine, Clean | | Catch | + + + + + + + | Performing | Address | City/State/Zipcode | Phone Number | | Organization | | | | + + + + + | [facility] | [address] | [place] [address] | [phone] | | LABORATORY | [address] | | [...] | LABORATORY | | | performed at [facility], [address] | | | | [address], | | | | | [place] [address] | | | + + + + + + + | Specimen | + + | Urine - Urine, Clean | | Catch | + + + + + + + | Performing | Address | City/State/Zipcode | Phone Number | | Organization | | | | + + + + + | [facility] | [address] | [place] [address] | [phone] | | LABORATORY | [address]. | | | + + + + + Urine eosinophils (01/19/2019 4:30 PM) + + + + + | Component | Value | Ref Range | Performed At | + + + + + | URINE EOSINOPHILS | NO EOSINOPHILS | <1 % | [facility] | | | SEENComment: Testing | | LABORATORY | | | performed at [facility], [address] | | | | | [facility], | | | | | [place] [address] | | | + + + + + + + | Specimen | + + | Urine, Clean Catch | + + + + + + + | Performing | Address | City/State/Zipcode | Phone Number | | Organization | | | | + + + + + | [facility] | [address] | [place] [address] | [phone] | | LABORATORY | [address] | | | + + + + + HGB and HCT (01/19/2019 3:59 PM) + + + + + | Component | Value | Ref Range | Performed At | + + + + + | HGB | 7.9 (L) | 11.3 - 15.5 g/dL | [facility] | + + + + + | HCT | 24.4 (L)Comment: Testing | 34.0 - 46.0 % | [facility] | | | performed at [facility];[address] | | | | [address];[place] | | | | | [address] | | | + + + + + + + + + + | Performing | Address | City/State/Zipcode | Phone Number | | Organization | | | | + + + + + | [facility] | [address] | [place] [place] [address] | | + + + + + PROCALCITONIN (01/19/2019 3:59 PM) + + + + + | Component | Value | Ref Range | Performed At | + + + + + | PROCALCITONIN | 0.08Comment: | <0.5 ng/mL | [facility] | | | INTERPRETIVE | [...] performed | | | | | at [facility];[address] | | | | | [place] [address] | | | + + + + + + + + + + | Performing | Address | City/State/Zipcode | Phone Number | | Organization | | | | + + + + + | [facility] | [address] | [place] [address] | | + + + + + POCT glucose (01/19/2019 3:36 PM) + + + + + | Component | Value | Ref Range | Performed At | + + + + + | GLUCOSE,POC SCREEN | 110 (H)Comment: Testing | 65 - 99 mg/dL | [facility] | | | performed at [facility];[address] | | | | | [address];[place] | | | | | [address] | | | + + + + + + + + + + | Performing | Address | City/State/Zipcode | Phone Number | | Organization | | | | + + + + + | [facility] | [address] | [place] [address] | | + + + + + EGD (01/19/2019 2:41 PM) + + + | Narrative | Performed At | + + + | [facility] | [facility] | | | [facility]OV[facility] | | Patient Name: Chris Donaldson Procedure | | | Date: 01/19/2019 2:41 PM MRN: | | | [id number] Account | | | Number: [id number] Date of : | | | 1960 [...] | | | | | | Joo Rizwan Rodrigo IV, | | | 01/19/2019 3:18:00 PM This report has been signed electronically. | | | Note Initiated On: 01/19/2019 2:41 PM Number of Addenda: 0 | | | [facility] | | + + + + +---------+ + + | Performing | Address | City/State/Zipcode | Phone Number | | Organization | | | | + +---------+ + + | [facility] | | | | + +---------+ + + POCT glucose (01/19/2019 11:17 AM) + + + + + | Component | Value | Ref Range | Performed At | + + + + + | GLUCOSE,POC SCREEN | 162 (H)Comment: Testing | 65 - 99 mg/dL | [facility] | | | performed at [facility];[address] | | | | | [address];[place] | | | | | [address] | | | + + + + + + + + + + | Performing | Address | City/State/Zipcode | Phone Number | | Organization | | | | + + + + + | [facility] | [address] | [place] [address] | | + + + + + HGB and HCT (01/19/2019 10:34 AM) + + + + + | Component | Value | Ref Range | Performed At | + + + + + | HGB | 7.3 (L) | 11.3 - 15.5 g/dL | [facility] | + + + + + | HCT | 22.6 (L)Comment: Testing | 34.0 - 46.0 % | [facility] | | | performed at [facility];[address] | | | | | [facility], [place] | | | | | [address] | | | + + + + + + + + + + | Performing | Address | City/State/Zipcode | Phone Number | | Organization | | | | + + + + + | [facility] | [address] | [place] [address] | | + + + + + Pathologist consult (01/19/2019 6:28 AM) + + + + + | Component | Value | Ref Range | Performed At | + + + + + | Pathologist Consult | Comment: Review of CBC | | [facility] | | | collected 01/19/2019. [...] | | | | | performed at [facility];[address] | | | | | [facility];[place] | | | | | [address] | | | + + + + + + + + + + | Performing | Address | City/State/Zipcode | Phone Number | | Organization | | | | + + + + + | [facility] | [address] | [place] [address] | | + + + + + CBC w/auto diff (reflex to manual) (01/19/2019 6:28 AM) + + + + + | Component | Value | Ref Range | Performed At | + + + + + | WBC | 15.44 (H) | 3.80 - 11.00 K/uL | [facility] | + + + + + | RBC | 2.22 (L) | 3.70 - 5.10 M/uL | [facility] | + + + + + | HGB | 7.6 (L) | 11.3 - 15.5 g/dL | [facility] | + + + + + | HCT | 23.0 (L) | 34.0 - 46.0 % | [facility] | + + + + + | MCV | 103.3 (H) | 80.0 - 100.0 fl | [facility] | + + + + + | MCH | 34.0 | 27.0 - 34.0 pg | [facility] | + + + + + | MCHC | 33.0 | 32.0 - 35.5 g/dL | [facility] | + + + + + | RDW SD | 50.8 | 37 - 53 fl | [facility] | + + + + + | PLT | 187 | 150 - 400 K/uL | [facility] | + + + + + | MPV | 9.3 | fl | [facility] | + + + + + | DIFF TYPE | AUTOMATED | | [facility] | + + + + + | NEUTROPHILS | 48.42 | % | [facility] | + + + + + | LYMPHOCYTES | 32.17 | % | [facility] | + [...] 0.26 | 0.00 - 0.50 K/uL | [facility] | + + + + + | BASOPHILS ABS | 0.18 (H)Comment: Testing | 0.00 - 0.10 K/uL | [facility] | | | performed at [facility] | | | | | [address];[place] | | | | | [address] | | | + + + + + + + | Specimen | + + | Blood | + + + + + + + | Performing | Address | City/State/Zipcode | Phone Number | | Organization | | | | + + + + + | [facility] | [address] | [place] [address] | | + + + + + POCT glucose (01/19/2019 5:32 AM) + + + + + | Component | Value | Ref Range | Performed At | + + + + + | GLUCOSE,POC SCREEN | 123 (H)Comment: Testing | 65 - 99 mg/dL | [facility] | | | performed at [facility];[address] | | | | | [address];[place] | | | | | [address] | | | + + + + + + + + + + | Performing | Address | City/State/Zipcode | Phone Number | | Organization | | | | + + + + + | [facility] | [address] | [facility] [address] | | + + + + + Comprehensive metabolic panel (01/19/2019 4:50 AM) + + + + + | Component | Value | Ref Range | Performed At | + + + + + | SODIUM | 149 (H) | 135 - 145 mmol/L | [facility] | | | | | LABORATORY | + + + + + | POTASSIUM | 3.7 | 3.5 - 4.9 mmol/L | [facility] | | | | | LABORATORY | + + + + + | CHLORIDE | 124 (H) | 99 - 109 mmol/L | [facility] | | | | | LABORATORY | + + + + + | CO2 | 18 (L) | 23 - 32 mmol/L | [facility] | | | | | LABORATORY | + + + + + | ANION GAP AGAP | 11 | 5 - 20 mmol/L | [facility] | | | | | LABORATORY | + + + + + | GLUCOSE | 117 (H) | 65 - 99 mg/dL | [facility] | | | | | LABORATORY | + + + + + | BUN | 21 | 8 - 25 mg/dL | [facility] | | | | | LABORATORY | + + + + + | CREATININE | 1.2 (H) | 0.50 - 1.00 mg/dL | [facility] | | | | | LABORATORY | + + + + + | BUN/CREAT | 18 | | [facility] | | | | | LABORATORY | + + + + + | CALCIUM | 7.9 (L) | 8.5 - 10.5 mg/dL | [facility] | | | | | LABORATORY | + + + + + | TOTAL PROTEIN | 5.3 (L) | 6.3 - 8.2 g/dL | [facility] | | | | | LABORATORY | + + + + + | Albumin | 2.7 (L) | 3.6 - 5.0 g/dL | [facility] | | | | | LABORATORY | + + + + + | GLOBULIN | 2.6 | 1.3 - 4.9 g/dL | [facility] | | | | | LABORATORY | + + + + + | A/G | 1.0 | 1.0 - 2.4 | [facility] | | | | | LABORATORY | + + + + + | TBIL | 0.6 | 0.1 - 1.5 mg/dL | [facility] | | | | | LABORATORY | + + + + + | ALK PHOS | 53 | 35 - 115 U/L | [facility] | | | | | LABORATORY | + + + + + | AST | 32 | 10 - 45 U/L | [facility] | | | | | LABORATORY | + + + + + | ALT | 25 | 10 - 65 U/L | [facility] | | | | | LABORATORY | + + + + + | EGFR | 46 (L)Comment: GFR <60: | >60 mL/min/1.73m2 | [facility] | | | CHRONIC KIDNEY DISEASE, | [...] | | | | | performed at [facility], [address] | | | | | [facility] [place], | | | | | [place] [address] | | | + + + + + + + | Specimen | + + | Blood | + + + + + + + | Performing | Address | City/State/Zipcode | Phone Number | | Organization | | | | + + + + + | [facility] | [address] | [place] [address] | [phone] | | LABORATORY | [place]. | | | + + + + + HGB and HCT (01/18/2019 10:22 PM) + + + + + | Component | Value | Ref Range | Performed At | + + + + + | HGB | 7.4 (L) | 11.3 - 15.5 g/dL | [facility] | + + + + + | HCT | 22.7 (L)Comment: Testing | 34.0 - 46.0 % | [facility] | | | performed at [facility];[address] | | | | | [address];[place], [place] | | | | | [address] | | | + + + + + + + + + + | Performing | Address | City/State/Zipcode | Phone Number | | Organization | | | | + + + + + | [facility] | [address] | [place] [address] | | + + + + + POCT glucose (01/18/2019 9:31 PM) + + + + + | Component | Value | Ref Range | Performed At | + + + + + | GLUCOSE,POC SCREEN | 288 (H)Comment: Testing | 65 - 99 mg/dL | [facility] | | | performed at [facility];[address] | | | | | [address];[place] | | | | | [address] | | | + + + + + + + + + + | Performing | Address | City/State/Zipcode | Phone Number | | Organization | | | | + + + + + | [facility] | [address] | [place] [address] | | + + + + + HGB and HCT (01/18/2019 4:17 PM) + + + + + | Component | Value | Ref Range | Performed At | + + + + + | HGB | 8.2 (L) | 11.3 - 15.5 g/dL | [facility] | + + + + + | HCT | 25.1 (L)Comment: Testing | 34.0 - 46.0 % | [facility] | | | performed at [facility];[address] | | | | | [address];[place] | | | | | [address] | | | + + + + + + + + + + | Performing | Address | City/State/Zipcode | Phone Number | | Organization | | | | + + + + + | [facility] | [address] | [place] [address] | | + + + + + POCT glucose (01/18/2019 4:13 PM) + + + + + | Component | Value | Ref Range | Performed At | + + + + + | GLUCOSE,POC SCREEN | 126 (H)Comment: Testing | 65 - 99 mg/dL | [facility] | | | performed at [facility];[address] | | | | | [address] [place] | | | | | [address] | | | + + + + + + + + + + | Performing | Address | City/State/Zipcode | Phone Number | | Organization | | | | + + + + + | [facility] | [address] | [place] [address] | | + + + + + [...] | + + + + + | [facility] | [address] | [place] [address] | | + + + + + POCT glucose (01/18/2019 11:05 AM) + + + + + | Component | Value | Ref Range | Performed At | + + + + + | GLUCOSE,POC SCREEN | 133 (H)Comment: Testing | 65 - 99 mg/dL | [facility] | | | performed at [facility];[address] | | | | [address];[place] | | | | | [address] | | | + + + + + + + + + + | Performing | Address | City/State/Zipcode | Phone Number | | Organization | | | | + + + + + | [facility] | [address] | [place] [address] | | + + + + + HGB and HCT (01/18/2019 10:46 AM) + + + + + | Component | Value | Ref Range | Performed At | + + + + + | HGB | 8.4 (L) | 11.3 - 15.5 g/dL | [facility] | + + + + + | HCT | 25.4 (L)Comment: Testing | 34.0 - 46.0 % | [facility] | | | performed at [facility];[address] | [address] | [address];[place] | | | | | [address] | | | + + + + + + + + + + | Performing | Address | City/State/Zipcode | Phone Number | | Organization | | | | + + + + + | [facility] | [address] | [place] [address] | | + + + + + Ferritin (01/18/2019 10:46 AM) + + + + + | Component | Value | Ref Range | Performed At | + + + + + | FERRITIN | 87Comment: Testing | 6 - 170 ng/mL | [facility] | | | performed at [facility], [address] | | LABORATORY | | | [address], | | | | | [place] [address] | | | + + + + + + + | Specimen | + + | Blood | + + + + + + + | Performing | Address | City/State/Zipcode | Phone Number | | Organization | | | | + + + + + | [facility] | [address] | [place] [address] | [phone] | | LABORATORY | [address] | | [...] | [facility] | | | performed at [facility], [address] | | LABORATORY | | | [facility], | | | | | [place] [address] | | | + + + + + + + | Specimen | + + | Blood | + + + + + + + | Performing | Address | City/State/Zipcode | Phone Number | | Organization | | | | + + + + + | [facility] | [address] | [place] [address] | [phone] | | LABORATORY | [facility]. | | | + + + + + Reticulocyte count (01/18/2019 10:46 AM) + + + + + | Component | Value | Ref Range | Performed At | + + + + + | RETICULOCYTES | 2.9 (H)Comment: Testing | 0.4 - 2.7 % | [facility] | | | performed at [facility];[address] | | | | | [address] [place] | | | | | [address] | | | + + + + + + + | Specimen | + + | Blood | + + + + + + + | Performing | Address | City/State/Zipcode | Phone Number | | Organization | | | | + + + + + | [facility] | [address] | [place] [address] | | + + + + + Hemoglobin and hematocrit (01/18/2019 8:12 AM) + + + + + | Component | Value | Ref Range | Performed At | + + + + + | HGB | 8.3 (L) | 11.3 - 15.5 g/dL | [facility] | + + + + + | HCT | 25.3 (L)Comment: Testing | 34.0 - 46.0 % | [facility] | | | performed at [facility];[address] | | | | | [address];[place] | | | | | [address] | | | + + + + + + + + + + | Performing | Address | City/State/Zipcode | Phone Number | | Organization | | | | + + + + + | [facility] | [address] | [place] [address] | | + + + + + POCT glucose (01/18/2019 5:41 AM) + + + + + | Component | Value | Ref Range | Performed At | + + + + + | GLUCOSE,POC SCREEN | 140 (H)Comment: Testing | 65 - 99 mg/dL | [facility] | | | performed at [facility];[address] | | | | | [facility];[place] | | | | | [address] | | | + + + + + + + + + + | Performing | Address | City/State/Zipcode | Phone Number | | Organization | | | | + + + + + | [facility] | [address] | [place] [address] | | + + + + + Comprehensive metabolic panel (01/18/2019 5:06 AM) + + + + + | Component | Value | Ref Range | Performed At | + + + + + | SODIUM | 144 | 135 - 145 mmol/L | [facility] | | | | | LABORATORY | + + + + + | POTASSIUM | 4.2 | 3.5 - 4.9 mmol/L | [facility] | | | | | LABORATORY | + + + + + | CHLORIDE | 114 (H) | 99 - 109 mmol/L | [facility] | | | | | LABORATORY | + + + + + | CO2 | 20 (L) | 23 - 32 mmol/L | [facility] | | | | | LABORATORY | + + + + + | ANION GAP AGAP | 14 | 5 - 20 mmol/L | [facility] | | | | | LABORATORY | + + + + + | GLUCOSE | 127 (H) | 65 - 99 mg/dL | [facility] | | | | | LABORATORY | + + + + + | BUN | 37 (H) | 8 - 25 mg/dL | [facility] | | | | | LABORATORY | + + + + + | CREATININE | 1.3 (H) | 0.50 - 1.00 mg/dL | [facility] | | | | | LABORATORY | + + + + + | BUN/CREAT | 28 | | [facility] | | | | | LABORATORY | + + + + + | CALCIUM | 8.1 (L) | 8.5 - 10.5 mg/dL | [facility] | | | | | LABORATORY | + + + + + | TOTAL PROTEIN | 5.5 (L) | 6.3 - 8.2 g/dL | [facility] | | | | | LABORATORY | + + + + + | Albumin | 2.6 (L) | 3.6 - 5.0 g/dL | [facility] | | | | | LABORATORY | + + + + + | GLOBULIN | 2.9 | 1.3 - 4.9 g/dL | [facility] | | | | | LABORATORY | + + + + + | A/G | 0.9 (L) | 1.0 - 2.4 | [facility] | | | | | LABORATORY | + + + + + | TBIL | 1.1 | 0.1 - 1.5 mg/dL | [facility] | | | | | LABORATORY | + + + + + | ALK PHOS | 55 | 35 - 115 U/L | [facility] | | | | | LABORATORY | + + + + + | AST | 30 | 10 - 45 U/L | [facility] | | | | | LABORATORY | + + + + + | ALT | 30 | 10 - 65 U/L | [facility] | | | | | LABORATORY | + + + + + | EGFR | 42 (L)Comment: GFR <60: | >60 mL/min/1.73m2 | [...] | | | | | performed at [facility], [facility] [address] | | | | | [facility], | | | | | [place] [address] | | | + + + + + + + | Specimen | + + | Blood | + + + + + + + | Performing | Address | City/State/Zipcode | Phone Number | | Organization | | | | + + + + + | [facility] | [address] | [place] [address] | [phone] | | LABORATORY | [address] | | | + + + + + Hemoglobin A1c (01/18/2019 5:06 AM) + + + + + | Component | Value | Ref Range | Performed At | + + + + + | HEMOGLOBIN A1C | 6.0Comment: HbA1c method | 4.0 - 6.0 % | [facility] | | | is certified by [employer] | | LABORATORY | | | and [...] | | | | | performed at [facility], [address] | | | | | [facility], | | | | | [place] [address] | | | + + + + + + + | Specimen | + + | Blood | + + + + + + + | Performing | Address | City/State/Zipcode | Phone Number | | Organization | | | | + + + + + | [facility] | [address] | [place] [address] | [phone] | | LABORATORY | [place]. | | | + + + + + Protime-INR (01/18/2019 5:06 AM) + + + + + | Component | Value | Ref Range | Performed At | + + + + + | INR | 1.1Comment: REFERENCE | | [facility] | | | RANGE:0.9 - [...] | | | | | performed at [facility];[address] | | | | | [address];[place], [place] | | | | | [address] | | | + + + + + + + | Specimen | + + | Blood | + + + + + + + | Performing | Address | City/State/Zipcode | Phone Number | | Organization | | | | + + + + + | [facility] | [address] | [place] [address] | | + + + + + aPTT (01/18/2019 5:06 AM) + + + + + | Component | Value | Ref Range | Performed At | + + + + + | APTT | 25Comment: Testing | 23 - 32 seconds | [facility] | | | performed at [facility];[address] | | | | | [address];[place] | | | | | [address] | | | + + + + + + + | Specimen | + + | Blood | + + + + + + + | Performing | Address | City/State/Zipcode | Phone Number | | Organization | | | | + + + + + | [facility] | [address] | [place] [address] | | + + + + + Phosphorus (01/18/2019 5:06 AM) + + + + + | Component | Value | Ref Range | Performed At | + + + + + | PHOSPHORUS | 3.8Comment: Testing | 2.3 - 4.8 mg/dL | [facility] | | | performed at [facility], [address] | | LABORATORY | | | [address], | | | | | [place] [address] | | | + + + + + + + | Specimen | + + | Blood | + + + + + + + | Performing | Address | City/State/Zipcode | Phone Number | | Organization | | | | + + + + + | [facility] | [address] | [place] [address] | [phone] | | LABORATORY | [place] | | | + + + + + Magnesium (01/18/2019 5:06 AM) + + + + + | Component | Value | Ref Range | Performed At | + + + + + | MAGNESIUM | 1.9Comment: Testing | 1.7 - 2.4 mg/dL | [facility] | | | performed at [facility], [address] | | LABORATORY | | | [address], | | | | | [place] [address] | | | + + + + + + + | Specimen | + + | Blood | + + + + + + + | Performing | Address | City/State/Zipcode | Phone Number | | Organization | | | | + + + + + | [facility] | [address] | [place] [address] | [phone] | | LABORATORY | [address] | | | + + + + + CBC w/auto diff (reflex to manual) (01/18/2019 5:06 AM) + + + + + | Component | Value | Ref Range | Performed At | + + + + + | WBC | 16.46 (H) | 3.80 - 11.00 K/uL | [facility] | + + + + + | RBC | 2.39 (L) | 3.70 - 5.10 M/uL | [facility] | + + + + + | HGB | 7.9 (L) | 11.3 - 15.5 g/dL | [facility] | + + + + + | HCT | 24.0 (L) | 34.0 - 46.0 % | [facility] | + + + + + | MCV | 100.3 (H) | 80.0 - 100.0 fl | [facility] | + + + + + | MCH | 33.1 | 27.0 - 34.0 pg | [facility] | + + + + + | MCHC | 33.0 | 32.0 - 35.5 g/dL | [facility] | + + + + + | RDW SD | 49.4 | 37 - 53 fl | [facility] | + + + + + | PLT | 180 | 150 - 400 K/uL | [facility] | + + + + + | MPV | 8.9 | fl | [facility] | + + + + + | DIFF TYPE | AUTOMATED | | [facility] | + + + + + | NEUTROPHILS | 56.76 | % | [facility] | + + + + + | LYMPHOCYTES | 29.82 | % | [facility] | + + + + + | MONOCYTES | 11.26 | % | [facility] | + + + + + | EOSINOPHILS | 1.21 | % | [facility] | + + + + + | BASOPHILS | 0.95 | % | [facility] | + + + + + | NEUTROPHILS ABS | 9.35 (H) | 1.90 - 7.40 K/uL | [facility] | + + + + + | LYMPHOCYTES ABS | 4.91 (H) | 1.00 - 3.90 K/uL | [facility] | + + + + + | MONOCYTES ABS | 1.85 (H) | 0.00 - 0.80 K/uL | [facility] | + + + + + | EOSINOPHILS ABS | 0.20 | 0.00 - 0.50 K/uL | [facility] | + + + + + | BASOPHILS ABS | 0.16 (H)Comment: Testing | 0.00 - 0.10 K/uL | [facility] | | | performed at [facility];[address] | | | | | [address];[place] | | | | | [address] | | | + + + + + + + | Specimen | + + | Blood | + + + + + + + | Performing | Address | City/State/Zipcode | Phone Number | | Organization | | | | + + + + + | [facility] | [address] | [place] [address] | | + + + + + Hemoglobin and hematocrit (01/17/2019 11:52 PM) + + + + + | Component | Value | Ref Range | Performed At | + + + + + | HGB | 8.2 (L) | 11.3 - 15.5 g/dL | [facility] | + + + + + | HCT | 25.0 (L)Comment: Testing | 34.0 - 46.0 % | [facility] | | | performed at [facility];[address] | | | | | [address];[place] | | | | | [address] | | | + + + + + + + + + + | Performing | Address | City/State/Zipcode | Phone Number | | Organization | | | | + + + + + | [facility] | [address] | [place] [address] | | + + + + + POCT glucose (01/17/2019 10:15 PM) + + + + + | Component | Value | Ref Range | Performed At | + + + + + | GLUCOSE,POC SCREEN | 135 (H)Comment: Testing | 65 - 99 mg/dL | [facility] | | | performed at [facility];[address] | | | | | [address];[place] | | | | | [address] | | | + + + + + + + + + + | Performing | Address | City/State/Zipcode | Phone Number | | Organization | | | | + + + + + | [facility] | [address] | [place] [address] | | + + + + + POCT glucose (01/17/2019 7:47 PM) + + + + + | Component | Value | Ref Range | Performed At | + + + + + | GLUCOSE,POC SCREEN | 158 (H)Comment: Testing | 65 - 99 mg/dL | [facility] | | | performed at [facility];[address] | | | | | [address];[place] | | | | | [address] | | | + + + + + + + + + + | Performing | Address | City/State/Zipcode | Phone Number | | Organization | | | | + + + + + | [facility] | [address] | [place] [address] | | + + + + + JOSSED (01/17/2019 6:29 PM) + + + | Narrative | Performed At | + + + | [facility] | [facility] | | | [facility] | | Patient Name: Chris Donaldson Procedure | | | Date: 01/17/2019 6:29 PM MRN: | | | [id number] Account | | | Number: [id number] Date of : | | | 1960 [...] Number of Addenda: 0 | | | [facility] | | + + + + +---------+ + + | Performing | Address | City/State/Zipcode | Phone Number | | Organization | | | | + +---------+ + + | [facility] | | | | + +---------+ + + HGB and HCT (01/17/2019 6:08 PM) + + + + + | Component | Value | Ref Range | Performed At | + + + + + | HGB | 8.5 (L) | 11.3 - 15.5 g/dL | [facility] | + + + + + | HCT | 25.4 (L)Comment: Testing | 34.0 - 46.0 % | [facility] | | | performed at [facility];[address] | | | | | [address];[place] | | | | | [address] | | | + + + + + + + + + + | Performing | Address | City/State/Zipcode | Phone Number | | Organization | | | | + + + + + | [facility] | [address] | [place] [address] | | + + + + + Potassium (01/17/2019 5:33 PM) + + + + + | Component | Value | Ref Range | Performed At | + + + + + | POTASSIUM | 4.3Comment: Testing | 3.5 - 4.9 mmol/L | [facility] | | | performed at [facility];[address] | | | | | Joe Ramirez;[place], [place] | | | | | [address] | | | + + + + + + + | Specimen | + + | Blood | + + + + + + + | Performing | Address | City/State/Zipcode | Phone Number | | Organization | | | | + + + + + | [facility] | [address] | [place] [address] | | + + + + + [...] + + + + | Calculated P [place] | 56 | degrees | [facility] | + + + + + | Calculated R [place] | -35 | degrees | [facility] | + + + + + | Calculated T [place] | 46 | degrees | [facility] | + + + + + | Diagnosis | Normal sinus rhythmLeft | | [facility] | | | axis deviationCannot [...] | | | | | ONLY, -COMPUTER (412), | | | | | 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 | [place] [address] | | + + + + + POCT glucose (01/17/2019 5:11 PM) + + + + + | Component | Value | Ref Range | Performed At | + + + + + | GLUCOSE,POC SCREEN | 186 (H)Comment: Testing | 65 - 99 mg/dL | [facility] | | | performed at [facility];[address] | | | | | Joe Ramirez;[place] | | | | | [address] | | | + + + + + + + + + + | Performing | Address | City/State/Zipcode | Phone Number | | Organization | | | | + + + + + | [facility] | [address] | [facility] [address] | | + + + + + ED INFORMATION EXCHANGE (01/17/2019 3:32 PM) + + + | Narrative | Performed At | + + + | [id number] Criteria Met 2 in 2 | ED [...] Count (12 mo.) Facility Visits Low Acuity [facility] | | | [facility] 1 0 [facility] 2 0 Total 3 0 | | | Note: Visits indicate total known visits. Medicaid Low Acuity Dx | | | are the number of primary diagnoses on the Medicaid's Low Acuity dx | | | list. Recent Emergency Department Visit Summary Date Facility | | | [facility] State Type Diagnoses or Chief Complaint January 17, 2019 [facility]eding Referral | | | Gastrointestinal hemorrhage, unspecified Personal | | | history of other diseases of the digestive system January 17, 2019 | | | [facility] [place] Emergency Chief Complaint: VOMITING | | | BLOOD January 24, 2018 [facility] 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 Any care recommendations and [...] | | completeness of information provided. 2019 [employer] | | | [employer] - [email or web address] | | + + + + + | Procedure Note | + + | Interface, Lab - 01/17/2019 3:34 PM PDT Formatting of this note may be different | | from the original.[id number] Met 2 in 2Security and | | SafetyNo recent Security Events currently on fileED Care GuidelinesThere are currently | | no ED Care Guidelines for this patient. Please check your facility's medical records | | system.Prescription Drug Report (12 Mo.)PDMP query found no report.E.D. Visit Count (12 | | mo.)Facility Visits Low Acuity [facility] 1 0 [facility] | | Hospital 2 0 Total 3 0 Note: Visits indicate total known visits. Medicaid Low Acuity Dx | | are the number of primary diagnoses on the Medicaid's Low Acuity dx list. Recent | | Emergency Department Visit SummaryDate Facility City State Type Diagnoses or Chief | | Complaint January 17, 2019 [facility]. [place] Emergency GI Bleeding | | Referral Gastrointestinal hemorrhage, unspecified Personal history of other | | diseases of the digestive system [facility] [place] [facility] | | Chief Complaint: VOMITING BLOOD [facility] 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 Care ProvidersProvider [facility] Type Phone Fax Service Dates | | DESIREE PATRICIO MD Family Medicine Current Collective PortalThis patient has | | registered at the [facility] Emergency Department For more | | information visit: | | [id number] PLEASE | | NOTE: 1. Any care [...] or completeness of information | | provided.2019 [facility] | | Referral | | Gastrointestinal hemorrhage, unspecified | | Personal history of other diseases of the digestive system | | | |January 17, 2019 [facility] [place] Emergency Chief Complaint: VOMITING BLOOD | |January 24, 2018 [facility] 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 Any [...] eness of information provided. | | | |2018 [facility] | + + + +---------+ + + | Performing | Address | City/State/Zipcode | Phone Number | | Organization | | | | + +---------+ + + | ED INFORMATION | | | | | EXCHANGE | | | | + +---------+ + + Type and Screen (01/17/2019 2:05 PM) + + + + + | Component | Value | Ref Range | Performed At | + + + + + | ABO/RH(D) | O POSITIVE | | [facility] | + + + + + | ANTIBODY SCREEN | NEGATIVE | | [facility] | + + + + + | ARM BAND NUMBER | [id number] | | [facility] | + + + + + | UNIT NUMBER | [id number] | | [facility] | + + + + + | BLOOD COMPONENT TYPE | [facility] | | [facility] | + + + + + | UNIT DIVISION | 00 | | [facility] | + + + + + | STATUS OF UNIT | REL FROM ALLOC | | [facility] | + + + + + | TRANSFUSION STATUS | OK TO TRANSFUSE | | [facility] | + + + + + | CROSSMATCH RESULT | COMPATIBLE | | [facility] | + + + + + | UNIT NUMBER | [id number] | | [facility] | + + + + + | BLOOD COMPONENT TYPE | [facility] | | [facility] | + + + + + | UNIT DIVISION | 00 | | [facility] | + + + + + | STATUS OF UNIT | REL FROM ALLOC | | [facility] | + + + + + | TRANSFUSION STATUS | OK TO TRANSFUSE | | [facility] | + + + + + | CROSSMATCH RESULT | COMPATIBLE | | [facility] | + + + + + | UNIT NUMBER | [id number] | | [facility] | + + + + + | BLOOD COMPONENT TYPE | LEUKODEPLETED PC | | [facility] | + + + + + | UNIT DIVISION | 00 | | [facility] | + + + + + | STATUS OF UNIT | REL FROM ALLOC | | [facility] | + + + + + | TRANSFUSION STATUS | OK TO TRANSFUSE | | [facility] | + + + + + | CROSSMATCH RESULT | COMPATIBLETesting | | [facility] | | | performed at [facility];[address] | | | | | [address];[place], [place] | | | | | [address] | | | + + + + + | UNIT NUMBER | [id number] | | [facility] | + + + + + | BLOOD COMPONENT TYPE | LEUKODEPLETED PC | | [facility] | + + + + + | UNIT DIVISION | 00 | | [facility] | + + + + + | STATUS OF UNIT | REL FROM ALLOC | | [facility] | + + + + + | TRANSFUSION STATUS | OK TO TRANSFUSE | | [facility] | + + + + + | CROSSMATCH RESULT | COMPATIBLE | | [facility] | + + + + + | UNIT NUMBER | [id number] | | [facility] | + + + + + | BLOOD COMPONENT TYPE | LEUKODEPLETED PC,B | | [facility] | + + + + + | UNIT DIVISION | 00 | | [facility] | + + + + + | STATUS OF UNIT | REL FROM ALLOC | | [facility] | + + + + + | TRANSFUSION STATUS | OK TO TRANSFUSE | | [facility] | + + + + + | CROSSMATCH RESULT | COMPATIBLE | | [facility] | + + + + + + + | Specimen | + + | Blood | + + + + + + + | Performing | Address | City/State/Zipcode | Phone Number | | Organization | | | | + + + + + | [facility] | [address] | [place] [address] | | + + + + + Cardiac Panel (01/17/2019 2:05 PM) + + + + + | Component | Value | Ref Range | Performed At | + + + + + | WBC | 18.40 (H) | 3.80 - 11.00 K/uL | [facility] | + + + + + | RBC | 2.89 (L) | 3.70 - 5.10 M/uL | [facility] | + + + + + | HGB | 9.7 (L) | 11.3 - 15.5 g/dL | [facility] | + + + + + | HCT | 29.0 (L) | 34.0 - 46.0 % | [facility] | + + + + + | MCV | 100.5 (H) | 80.0 - 100.0 fl | [facility] | + + + + + | MCH | 33.7 | 27.0 - 34.0 pg | [facility] | + + + + + | MCHC | 33.5 | 32.0 - 35.5 g/dL | [facility] | + + + + + | RDW SD | 47.7 | 37 - 53 fl | [facility] | + + + + + | PLT | 219 | 150 - 400 K/uL | [facility] | + + + + + | MPV | 9.3 | fl | [facility] | + + + + + | DIFF TYPE | AUTOMATED | | [facility] | + + + + + | NEUTROPHILS | 77.78 | % | [facility] | + + + + + | LYMPHOCYTES | 14.10 | % | [facility] | + + + + + | MONOCYTES | 7.83 | % | [facility] | + + + + + | EOSINOPHILS | 0.13 | % | [facility] | + + + + + | BASOPHILS | 0.16 | % | [facility] | + + + + + | NEUTROPHILS ABS | 14.31 (H) | 1.90 - 7.40 K/uL | [facility] | + + + + + | LYMPHOCYTES ABS | 2.59 | 1.00 - 3.90 K/uL | [facility] | + + + + + | MONOCYTES ABS | 1.44 (H) | 0.00 - 0.80 K/uL | [facility] | + + + + + | EOSINOPHILS ABS | 0.02 | 0.00 - 0.50 K/uL | [facility] | + + + + + | BASOPHILS ABS | 0.03 | 0.00 - 0.10 K/uL | [facility] | + + + + + | SODIUM | 139 | 135 - 145 mmol/L | [facility] | + + + + + | POTASSIUM | 6.1 (H) | 3.5 - 4.9 mmol/L | [facility] | + + + + + | CHLORIDE | 108 | 99 - 109 mmol/L | [facility] | + + + + + | CO2 | 22 (L) | 23 - 32 mmol/L | [facility] | + + + + + | ANION GAP AGAP | 15 | 5 - 20 mmol/L | [facility] | + + + + + | GLUCOSE | 191 (H) | 65 - 99 mg/dL | [facility] | + + + + + | BUN | 41 (H) | 8 - 25 mg/dL | [facility] | + + + + + | CREATININE | 1.24 (H) | 0.50 - 1.00 mg/dL | [facility] | + + + + + | BUN/CREAT | 33 | | [facility] | + + [...] 2.2 | 1.3 - 4.9 g/dL | [facility] | + + + + + | A/G | 1.6 | 1.0 - 2.4 | [facility] | + + + + + | TBIL | 1.0 | 0.1 - 1.5 mg/dL | [facility] | + + + + + | ALK PHOS | 63 | 35 - 115 U/L | [facility] | + + + + + | AST | 41 | 10 - 45 U/L | [facility] | + + + + + | ALT | 28 | 10 - 65 U/L | [facility] | + + + + + | EGFR | 44 (L)Comment: GFR <60: | >60 mL/min/1.73m2 | [facility] | | | CHRONIC KIDNEY [...] IDMS traceable | | | | | equation. | | | + + + + + | CPK | 76 | 30 - 240 U/L | [facility] | + + + + + | INR | 1.1Comment: REFERENCE | | [facility] | | | RANGE:0.9 - [...] 24 | 23 - 32 seconds | [facility] | + + + + + | MMB | 2.2 | 0.5 - 3.6 ng/mL | [facility] | + + + + + | CK-MB Index | 2.9Comment: CK INDEX | | [facility] | | | INTERPRETATION: | [...] | | | | | performed at [facility];[address] | | | | | [address];[place] | | | | | [address] | | | + + + + + + + + + + | Performing | Address | City/State/Zipcode | Phone Number | | Organization | | | | + + + + + | [facility] | [address] | [place] [address] | | + + + + + in this encounter Visit Diagnoses Not on filein this encounter Admitting Diagnoses + + | Diagnosis | + + | Portal hypertension (HCC) | + + | Portal hypertension | + + | Hyperkalemia | + + | Hyperpotassemia | + + | Acute post-hemorrhagic anemia | + + | Acute posthemorrhagic anemia | + + | Upper GI bleeding | + + | Hemorrhage of gastrointestinal tract, unspecified | + + | History of cirrhosis of liver | + + | Personal history of other diseases of digestive system | + + | Alcoholic cirrhosis of liver with ascites (HCC) | + + | Alcoholic cirrhosis of liver | + + | Alcoholic cirrhosis of liver without ascites (HCC) | + + | Alcoholic cirrhosis of liver | + + | Acute renal injury (HCC) | + + | Acute kidney failure, unspecified | + + | Gastrointestinal hemorrhage with hematemesis | + + | Hematemesis with nausea | + + | Anemia, unspecified type | + + | Leukocytosis, unspecified type | + + Administered Medications + +--------+---------+------+------+------+ | Medication Order | MAR | Action | Dose | Rate | Site | | | Action | Date | | | | + +--------+---------+------+------+------+ + +---+ | acetaminophen (TYLENOL) | | | suppository 650 mg 650 mg, | | | Rectal, Every 6 Hours PRN, Mild | | | Pain (1-3), Fever, Starting Sat | | | 01/17/19 at 1754 | | + +---+ | | | + +---+ + +-------+ +--------+---+---+ | acetaminophen (TYLENOL) tablet | Given | | 650 mg | | | | 650 mg 650 mg, Oral, Every 6 | | 9 12:24 | | | | | Hours PRN, Mild Pain (1-3), | | PDT | | | | | Fever, Starting 01/17/19 at | | | | | | | 1754 | | | | | | + +-------+ +--------+---+---+ +---+---+ | | | +---+---+ + +-------+ +-----+-------+---+ | cefTRIAXone (ROCEPHIN) IVPB 1 g | Given | | 1 g | 100 | | | 1 g, Intravenous, Administer | | 9 12:29 | | mL/hr | | | over 30 Minutes, Every 24 Hours, | | PDT | | | | | First dose on 01/18/19 at 1130 | | | | | | + +-------+ +-----+-------+---+ +-------+ +-----+-------+---+ | Given | | 1 g | 100 | | | | 9 10:31 | | mL/hr | | | | PDT | | | | +-------+ +-----+-------+---+ | Given | | 1 g | 100 | | | | 9 11:02 | | mL/hr | | | | PDT | | | | +-------+ +-----+-------+---+ +---+---+ | | | +---+---+ + +-------+ +-------+---+---+ | furosemide (LASIX) tablet 40 mg | Given | | 40 mg | | | | 40 mg, Oral, Daily, First dose | | 9 10:00 | | | | | on 01/20/19 at 0900 | | PDT | | | | + +-------+ +-------+---+---+ +-------+ +-------+---+---+ | Given | | 40 mg | | | | | 9 10:10 | | | | | | PDT | | | | +-------+ +-------+---+---+ + +---+ | | | + +---+ | insulin lispro (human) | | | (HUMALOG) injection 0-3 Units | | | 0-3 Units, Subcutaneous, Nightly, | | | First dose on 01/17/19 at | | | 2330 | | + +---+ | | | + +---+ + +-------+ +---------+---+---+ | insulin lispro (human) | Given | | 2 Units | | | | (HUMALOG) injection 0-6 Units | | 9 06:52 | | | | | 0-6 Units, Subcutaneous, 3 Times | | PDT | | | | | Daily Before Meals, First dose on | | | | | | | 01/18/19 at 0630 | | | | | | + +-------+ +---------+---+---+ +-------+ +---------+---+---+ | Given | | 1 Units | | | | | 9 17:42 | | | | | | PDT | | | | +-------+ +---------+---+---+ | Given | | 1 Units | | | | | 9 05:53 | | | | | | PDT | | | | +-------+ +---------+---+---+ +---+---+ | | | +---+---+ + +-------+ +-------+---+---+ | nadolol (CORGARD) tablet 20 mg | Given | | 20 mg | | | | 20 mg, Oral, Daily, First dose | | 9 18:22 | | | | | on 01/19/19 at 1700 | | PDT | | | | + +-------+ +-------+---+---+ +-------+ +-------+---+---+ | Given | | 20 mg | | | | | 9 17:36 | | | | | | PDT | | | | +-------+ +-------+---+---+ +---+---+ | | | +---+---+ + +---------+ +---------+---+ + | nicotine (NICODERM CQ) 14 | Patch | | 1 patch | | Left Arm | | MG/24HR patch 1 patch 1 patch, | Applied | 9 10:29 | | | | | Transdermal, Daily, First dose on | | PDT | | | | | 01/19/19 at 1030 | | | | | | + +---------+ +---------+---+ + + + +---------+---+ + | Patch Applied | | 1 patch | | Left Arm | | | 9 08:25 | | | | | | PDT | | | | + + +---------+---+ + + +---+ | | | + +---+ | nicotine polacrilex (NICORETTE) | | | gum 2 mg 2 mg, Oral, Every 2 | | | Hours PRN, Smoking cessation, | | | Starting 01/19/19 at 1010 | | + +---+ | | | + +---+ | ondansetron (ZOFRAN) injection | | | 4 mg 4 mg, Intravenous, Every 6 | | | Hours PRN, Nausea, Vomiting, | | | Starting 01/17/19 at 1754 | | + +---+ | | | + +---+ | ondansetron (ZOFRAN-ODT) | | | disintegrating tablet 4 mg 4 mg, | | | Oral, Every 6 Hours PRN, Nausea, | | | Vomiting, Starting 01/17/19 | | | at 1754 | | + +---+ | | | + +---+ + +-------+ +-------+---+---+ | pantoprazole (PROTONIX) EC | Given | | 40 mg | | | | tablet 40 mg 40 mg, Oral, 2 | | 9 17:36 | | | | | Times Daily Before Meals, First | | PDT | | | | | dose on 01/20/19 at 1630 | | | | | | + +-------+ +-------+---+---+ +-------+ +-------+---+---+ | Given | | 40 mg | | | | | 9 05:37 | | | | | | PDT | | | | +-------+ +-------+---+---+ +---+---+ | | | +---+---+ + +-------+ +--------+---+---+ | spironolactone (ALDACTONE) | Given | | 100 mg | | | | tablet 100 mg 100 mg, Oral, | | 9 10:00 | | | | | Daily, First dose on Sat01/20/19 | | PDT | | | | | at 1000 | | | | | | + +-------+ +--------+---+---+ +-------+ +--------+---+---+ | Given | | 100 mg | | | | | 9 10:10 | | | | | | PDT | | | | +-------+ +--------+---+---+ +---+---+ | | | +---+---+ in this encounter
--- OUTSIDE RECORDS SUMMARY | ~2019-01-24 | XMS | Encounter Summary ---
Demographics + + + | Address | [address] | | | [place] [address] | + + + | Home Phone | | + + + | Preferred Language | Unknown | + + + | Marital Status | Legally | + + + | Yazidism Affiliation | Unknown | + + + | Race | Unknown | + + + | Ethnic Group | Unknown | + + + Author + + + | Author | [facility] | | | and Tipana | + + + | Organization | [facility] | | | and Tipana [...] Team Providers + +------+ + | Care Nut Sheller Machine Operator Name | Role | Phone | + +------+ + | Donal Chaidez MD | PCP | Unavailable | + +------+ + Reason for Visit + + + | Reason | Comments | + + + | Other | TCM | + + + | Coughing Up Blood | | + + + | Rectal Bleeding | | + + + | Lab Order | urine drug screen | + + + Encounter Details +--------+---------+ + + + | Date | Type | Department | Care Team | Description | +--------+---------+ + + + | 01/23/ | Office | [facility] | Donal Chaidez, | Type 2 diabetes | | 2019 | Visit | [facility] [place] | [address] | mellitus without | | | | [address] | BRAYAN SCHMIDT MD | complication, with | | | | [place], [place] | [address] | long-term current | | | | [address] | | use of insulin (HCC) | | | | [phone] | | (Primary Dx); | | | | | | Anemia, unspecified | | | | | | type; Pain; | | | | | | Hematemesis without | | | | | | nausea | +--------+---------+ + + + Social History + + [...] + + documented as of this encounter Last Filed Vital Signs + + + + | Vital Sign | Reading | Time Taken | + + + + | Blood Pressure | 124/74 | 01/23/2019919 PDT | + + + + | Pulse | 70 | 01/23/2019919 PDT | + + + + | Temperature | 36.9 C (98.5 F) | 01/23/2019919 PDT | + + + + | Respiratory Rate | 16 | 01/23/2019919 PDT | + + + + | Oxygen Saturation | 100% | 01/23/2019919 PDT | + + + + | Inhaled Oxygen | - | - | | Concentration | | | + + + + | Weight | 54.6 kg (120 lb 5.9 | 01/23/2019919 PDT | | | oz) | | + + + + | Height | - | - | + + + + | Body Mass Index | 20.65 | 11/11/20181105 PDT | + + + + documented in this encounter Progress Notes Donal Chaidez MD - 01/23/2019 0915 PDT Subjective: Patient ID: Jarrell Donaldson is a 58 y.o. female. Chief Complaint Patient presents with Other TCM Coughing Up Blood Rectal Bleeding Lab Order urine drug screen Diabetes She presents for her follow-up diabetic visit. She has type 2 diabetes mellitus. Her diseas e course has been fluctuating. 2. Patient had fresh blood , red, per emesis and rectum and admitted to [facility]. esoph varicies seen as wella s arecently healed gastic ulcer. Patient back to normal state at this point and feeling quite well. No bleeding , no melena . 3. Leg pain: Compensated with her opiate regimen. She has reduced her usage over time. Patient Active Problem List Diagnosis Cirrhosis of liver Stage 3 chronic kidney disease Alcoholic cirrhosis of liver with ascites Anasarca Renal insufficiency Hypoalbuminemia Portal hypertensive gastropathy Gastroparesis Colonic adenoma Cardiac murmur Type 2 diabetes mellitus without complication, without long-term current use of insulin Pain in both lower extremities Past Medical History: Diagnosis Date Acute respiratory failure with hypoxia (HCC) Alcoholic liver damage (HCC) Anasarca 12/24/2016 Anemia Anorexia Bright red blood per rectum Cirrhosis (HCC) Disorder of kidney and ureter Hepatitis Hypertension Liver cirrhosis (HCC) Murmur, cardiac Osteopenia Osteoporosis SOB (shortness of breath) Type 2 diabetes mellitus without complication, without long-term current use of insulin (HCC) 06/19/2018 Family History Problem Relation Age of Onset Hearing loss Mother Vision loss Mother High blood pressure Mother Substance abuse Father Vision loss Father Substance abuse Sister Substance abuse Brother Breast cancer Maternal Grandmother High blood pressure Maternal Grandmother Arthritis Maternal Grandfather Arthritis Paternal Grandmother Stroke Paternal Grandmother Substance abuse Brother Diabetes Maternal Aunt Social History Socioeconomic History Marital status: Legally Spouse name: Not on file Number of children: Not on file Years of education: Not on file Highest education level: Not on file Tobacco Use Smoking status: Current Every Day Smoker Packs/day: 0.50 Years: 42.00 Pack years: 21.00 Types: Cigarettes Start date: 1974 Smokeless tobacco: Never Used Substance and Sexual Activity Alcohol use: No Alcohol/week: 0.0 oz Comment: 2015 was pts last drink Drug use: No Sexual activity: Not Currently Review of Systems Constitutional: Negative. HENT: Negative. Eyes: Negative. Respiratory: Negative. Cardiovascular: Negative. Gastrointestinal: Negative. Genitourinary: Negative. Musculoskeletal: Positive for joint pain. Skin: Negative. Neurological: Negative. Endo/Heme/Allergies: Negative. Psychiatric/Behavioral: Negative. . Objective: BP 124/74 | Pulse 70 | Temp 36.9 C (98.5 F) (Temporal) | Resp 16 | Wt 54.6 kg (120 lb 5.9 oz) | SpO2 100% | ? No | BMI 20.65 kg/m Physical Exam Constitutional: She is well-developed, well-nourished, and in no distress. HENT: Head: Normocephalic and atraumatic. Eyes: Right eye exhibits no discharge. Left eye exhibits no discharge. Neck: No tracheal deviation present. Cardiovascular: Regular rhythm. Pulmonary/Chest: Effort normal. No respiratory distress. Abdominal: She exhibits no distension. Musculoskeletal: She exhibits no edema. Neurological: She is alert. Skin: Skin is dry. She is not diaphoretic. Psychiatric: Affect normal. Assessment/Plan: 1. Type 2 diabetes mellitus without complication, with long-term current use of insulin (HC C) Hemoglobin A1C 2. Anemia, unspecified type Hemoglobin Comprehensive Metabolic Panel 3. Pain Drugs of Abuse, Opiates, Confirm, Urine 4. Hematemesis without nausea Requested Prescriptions Signed Prescriptions Disp Refills oxyCODONE (ROXICODONE) 5 mg tablet 60 tablet 0 Sig: Take 0.5 tablets by mouth every 6 hours as needed for Pain. documented in this enc ounter Plan of Treatment +--------+---------+ + + + | Date | Type | Specialty | Care Team | Description | +--------+---------+ + + + | 02/13/ | Office | Family Medicine | Donal Chaidez Rizwan, | | | 2019 | Visit | | MD [address] | | | | | | [place] | | | | | | [address] | | | | | | | | +--------+---------+ + + + + +--------+ + + | Name | Priori | Associated Diagnoses | Order Schedule | | | ty | | | + +--------+ + + | Hemoglobin A1C | Routin | Type 2 diabetes | Every quarter for 4 | | | e | mellitus without | Occurrences starting | | | | complication, with | 01/23/2019 until | | | | long-term current | 01/23/2020 | | | | use of insulin (HCC) | | + +--------+ + + | Drugs of Abuse, Opiates, Confirm, | Routin | Pain | 1 Occurrences | | Urine | e | | starting 01/23/2019 | | | | | until 01/24/2020 | + +--------+ + + documented as of this encounter Visit Diagnoses + + | Diagnosis | + + | Type 2 diabetes mellitus without complication, with long-term current use of insulin | | (HCC) - Primary | + + | Anemia, unspecified type | + + | Pain Generalized pain | + + | Hematemesis without nausea | + + documented in this encounter"
--- OUTSIDE RECORDS SUMMARY | ~2019-01-24 | XMS | Encounter Summary ---
Demographics + + + | Address | [address] | | | [place] [address] | + + + | Home Phone | | + + + | Preferred Language | Unknown | + + + | Marital Status | Legally | + + + | Evangelical Affiliation | Unknown | + + + | Race | Unknown | + + + | Ethnic Group | Unknown | + + + Author + + + | Author | [facility] | | | and Tip[place] | + + + | Organization | [facility] | | | and Tipana [...] Team Providers + +------+ + | Care Moving Worker Name | Role | Phone | + [...] | | [address] | [address] | (Primary Dx) | | | | [place], [place] | [place], [place] | | | | | [address] | [address] | | | | | [phone] | | | +--------+ + + + [...] PSTLabs for upcoming nephrology appointment [facility]: [facility] documented in this encounter Plan [...] [place] | | | | | | [address] | | | | | | | [...] + + + | [facility] | [address] | [place] | [phone] | | [facility] | | [address] | | | [facility] | | [...] | | | | | | [facility] | | | | | | MEDICAL [...] [address] | [place] | [phone] | | [facility] | | [address] | | | - LABORATORY | | [...] [address] | [place] | [phone] | | [facility] | | [address] | | | [facility] | | [...] | mL/min/1.73m2 | GREGE | | | CHINESE | RATE,ESTIMATED mL/min | | MEDICAL | | | | /1.10m2Libl than 60 | | [facility] | | [...] + + | [facility] | [address] | [place], [place] | [phone] | | [facility] | | [address] | | | [facility] | | [...] + + + | [facility] | [address] [place] | [place] | [phone] | | [facility] | | [address] | | | [facility] | | | | + + + + + documented in this encounter Visit Diagnoses + + | Diagnosis | + + | Stage 3 chronic kidney disease (HCC) - Primary | + + documented in this encounter"
--- OUTSIDE RECORDS SUMMARY | ~2019-01-24 | XMS | Encounter Summary ---
Demographics + + + | Address | [address] | | | [place] [address] | + + + | Home Phone | | + + + | Preferred Language | Unknown | + + + | Marital Status | Legally | + + + | Nondenominational Affiliation | Unknown | + + + | Race | Unknown | + + + | Ethnic Group | Unknown | + + + Author + + + | Author | [facility] | | | and [facility] | + + + | Organization | [facility] | | | and [facility] | [...] Team Providers + +------+ + | Care Ssis Developer Name | Role | Phone | + [...] Refill | | 2019 | | [facility] | [address] | | | | | [address] | [place] | | | | | [place] | [address] | | | | | [address] | | | | | | [phone] | | | +--------+--------+ + + + [...]
--- OUTSIDE RECORDS SUMMARY | ~2019-01-24 | XMS | Encounter Summary ---
Demographics + + + | Address | [address] | | | [place] [address] | + + + | Home Phone | | + + + | Preferred Language | Unknown | + + + | Marital Status | Legally | + + + | Buddhism Affiliation | Unknown | + + + | Race | Unknown | + + + | Ethnic Group | Unknown | + + + Author + + + | Author | [facility] | + + + | Organization | [facility] [employer] | + + + | Address [...] Team Providers + +------+ + | Care Sql Manager Name | Role | Phone | [...] | | | post-hemorrh | | [place] | | | | | agic anemia | | [id number] Phone: | | | | | Upper GI | | [phone] | | | | | bleeding | [...] Description | +--------+---------+ + + + | 01/17/ | Surgery | [facility] | Joo Wallace IV, | ESOPHAGOGASTRODUODEN | | 2019 | | [facility] | [address] | [place] | | | | Endoscopy [address] | [address] [place], | | | | | [place], [place] | [place] [address] | | | | | [address] | [phone] | | | | | | | [...] note may be different from the original. [facility] Service: Hospitalist Discharge Summary Date of [...] in 2014; type 2 diabetes; transferred from [facility] on 01/17/2019. She reports prior history of ascites, has had paracentesis in the remote past. She present ed initially to [place] with epigastric discomfort and hematemesis. She was [...] acidosis. She reports a followup appointment with cutting machine offbearer in [place] in the upcoming week. Lasix was decreased [...] ESOPHAGOGASTRODUODENOSCOPY; Surgeon: Joo Wallace IV, MD; Location: [facility]; Service: Gastroenterology; Laterality: N/A; ESOPHAGOGASTRODUODENOSCOPY N/A 01/19/2019 Procedure: ESOPHAGOGASTRODUODENOSCOPY; Surgeon: Joo Wallace IV, MD; Location: [facility]; Service: Gastroenterology; Laterality: N/A; HYSTERECTOMY PELVIC [...] IV, MD [address] [facility] [address] In 3 weeks Desiree Patricio MD [address] [facility]ly [facility] [address] In 2 weeks Medication List [...] to ols on Smokefree.gov or by calling [phone] ([phone]). Date Last Reviewed: 06/02/201719993069-8057 [employer]. [address] [place] [address], [place] [address]. All righ ts reserved. This information is not intended as a substitute for professional medical care. Always follow your healthcare professional's instructions. 1. Please make a follow-up appointment with Dr. Wallace in approximately 3 weeks, you will r equire a repeat EGD 2. Please have blood work drawn at [facility] (CBC, CMP) in approximately 2 weeks prior to follo wing up with your primary care physician and Dr. Wallace 3. If you develop weakness, swelling, blood loss, return back to the emergency department 4. Follow-up with your cutting machine offbearer at [place] Cirrhosis The liver is found on the [...] for people with liver disease, braulio ct: [employer],www.liverfoundation.org,804.269.7364 [employer],www.hepfi.org,740.215.6847 When to seek medical advice Call your healthcare provider right away if you haveany of the following: Rapid weight gain with increased size of your belly (abdomen) or leg swelling Yellow color of your skin or eyes (jaundice) gets worse Excess bleeding from cuts or injuries Date Last Reviewed: 01/31/201719996693-1505 [employer]. [address] [place] [address]. All righ ts reserved. This information is not intended as a substitute for professional medical care. Always follow your healthcare professional's instructions. The following attachments cannot be sent through Care Everywhere.Smoking,Tips for Quittin g (Cardiovascular) (Namibian)Ciprofloxacin tablets (Namibian)Iron tablets, capsules, extended- release tablets (Namibian)Furosemide tablets (Namibian)Nadolol tablets (Namibian)Pantoprazole t ablets (Namibian)in this encounter Medications at Time of Discharge [...] may be different fr om the original. [facility] Service: Gastroenterology Consult Progress Note Hospital [...] and presented for evaluation. [facility] on pantoprazole [...] of alcohol associated cirrhosis in 2014 in [place]. She was hosp italized there but does [...] [place]. She is planning on following in [place]. 4. Complete 7 days of antibiotics for SBP prophylaxis. 5. Continue diuretics and lactulose. 6. Ok for discharge from GI standpoint. Mayda Smart PA-C [facility] Gastroenterology 01/21/2019 Associated attestation - Joo Wallace IV, MD - 01/21/2019 11:08 PM [facility] GASTR[facility] ATTENDING ATTESTATION The advanced practice provider made rounds on this patient. I did not formally evaluate pat ient in person today. We discussed the case and I agree with the assessment and plan as lilly mishra. Mayda Smart PA - 01/20/2019 8:56 AM PDTFormatting of this note may be different fr om the original. [facility] Service: Gastroenterology Consult Progress Note Hospital [...] and presented for evaluation. She presented to [facility] emergency d epartment where she was started [...] of alcohol associated cirrhosis in 2014 in [place]. She was hosp italized there but does [...] to medications. Plans to follow up in [place]. Scheduled Medications cefTRIAXone 1 g Intravenous Q24H [...] Date INR 1.1 01/18/2019 INR 1.1 01/17/2019 [facility] GI Patient Name: Chris Donaldson Procedure [...] 01/19/2019 2:41 PM Number of Addenda: 0 [facility] - Endoscopy Services PROBLEM LIST Principal [...] from GI standpoint tomorrow. Mayda Smart PA-C [facility] Gastroenterology 01/20/2019 Associated attestation - Joo Wallace IV, MD - 01/20/2019 9:40 PM [facility] ATTENDING ATTESTATION The advanced practice provider made rounds on this patient. I did not formally evaluate pat ient in person today. We discussed the case and I agree with the assessment and plan as lilly mishra. Diogenes Dean MD - 01/20/2019 8:12 AM [facility] Service: Hospitalist Progress Note Hospital Day: LOS: 3 days Post-Op Day: 1 Day Post-Op Procedure: Procedure(s) (LRB): ESOPHAGOGASTRODUODENOSCOPY (N/A) Briefly, 58-year-old female with an extensive past medical history of compensated alcoholic cirrhosis (diagnosed 2014), type 2 diabetes mellitus and other chronic comorbidities who presented to [facility] ER on 01/17 for hematemesis and melanotic [...] Status: Full Code Diogenes Dean MD 01/20/2019 jE Mcnulty MD - 01/19/2019 7:30 AM [facility] Service: Hospitalist Progress Note Hospital Day: LOS: 2 days Post-Op Day: 1 Day Post-Op Procedure: Procedure(s) (LRB): ESOPHAGOGASTRODUODENOSCOPY (N/A) Briefly, 58-year-old female with an extensive past medical history of compensated alcoholic cirrhosis (diagnosed 2014), type 2 diabetes mellitus and other chronic comorbidities who presented to [facility] ER on 01/17 for hematemesis and melanotic [...] may be different f rom the original. [facility] Gastroenterology Service Inpatient Consult Follow Up [...] and presented for evaluation. She presented to [facility] emergency department where she was started on [...] of alcohol associated cirrhosis in 2014 in [place]. She was hosp italized there but does [...] within the gallbladder. Signed by: Ezekiel Isidro, Emek Sign Date/Time: 01/18/2019 4:35 PM PROBLEM LIST [...] followed by GI which can be in [place] once current acute episode settles. Needs hepatoma screening and other issues discussed. Ultrasound here in the hospital fortunately shows no mass lesions in the liver. Ascites Apparently on diuretics but does not have her list currently. Needs SBP (spontaneous bacterial peritonitis) prophylaxis due to the acute bleed and alread y given dose of ceftriaxone when in [facility]. No evidence of ascites on [...] procedure under sedation/anesthesia. Pily Wallace IV, M.D. [facility] Gastroenterology 01/18/2019 This note was dictated using [employer]oderwall voice recognition software. Document was reviewed at ti me of dictation but [id number] errors may be present. Please call with any questions or c larifications. Ej Mcnulty MD - 01/18/2019 10:05 AM [facility] Service: Hospitalist Progress Note Hospital Day: LOS: 1 day Post-Op Day: 1 Day Post-Op Procedure: Procedure(s) (LRB): ESOPHAGOGASTRODUODENOSCOPY (N/A) Briefly, 58-year-old female with an extensive past medical history of compensated alcoholic cirrhosis (diagnosed 2014), type 2 diabetes mellitus and other chronic comorbidities who presented to [facility] ER on 01/17 for hematemesis and melanotic [...] Prior Ej Mcnulty MD 01/18/2019 Brenton Morales, [facility] - 01/17/2019 8:44 PM PDTRenal Dosing Monitoring: [...] | + +--------+ + + + | [facility] CARD PANEL W/O | STAT | 01/17/2019 [...] Testing | 65 - 99 mg/dL | [facility] | | | performed at [facility];[address] | | | | | [address] [facility];[place], [place] | | | | | [address] | | | + + + + + + + + + + | Performing | Address | City/State/Zipcode | Phone Number | | Organization | | | | + + + + + | [facility] | [address] | [place] [address] | | + + + + + [...] | | | | | performed at [facility], [address] | | | | | [facility], | | | | | [place] [address] | | | + + + + + + + | Specimen | + + | Blood | + + + + + + + | Performing | Address | City/State/Zipcode | Phone Number | | Organization | | | | + + + + + | [facility] | [address] [address] [facility] | [place] [address] | [phone] | | LABORATORY | [address] | | | + + + + + CBC w/no Diff (01/21/2019 4:47 AM) + + + + + | Component | Value | Ref Range | Performed At | + + + + + | WBC | 14.95 (H) | 3.80 - 11.00 K/uL | [facility] | + + + + + | RBC | 2.16 (L) | 3.70 - 5.10 M/uL | [facility] | + + + + + | HGB | 7.3 (L) | 11.3 - 15.5 g/dL | [facility] | + + + + + | HCT | 22.5 (L) | 34.0 - 46.0 % | [facility] | + + + + + | MCV | 103.9 (H) | 80.0 - 100.0 fl | [facility] | + + + + + | MCH | 33.9 | 27.0 - 34.0 pg | [facility] | + + + + + | MCHC | 32.6 | 32.0 - 35.5 g/dL | [facility] | + + + + + | RDW SD | 51.6 | 37 - 53 fl | [facility] | + + + + + | PLT | 190 | 150 - 400 K/uL | [facility] | + + + + + | MPV | 10.3Comment: Testing | fl | [facility] | | | performed at [facility];[address] | | | | | [address];[place] | | | | | [address] | | | + + + + + + + + + + | Performing | Address | City/State/Zipcode | Phone Number | | Organization | | | | + + + + + | [facility] | [address] | [place] [address] | | + + + + + POCT glucose (01/20/2019 9:38 PM) + + + + + | Component | Value | Ref Range | Performed At | + + + + + | GLUCOSE,POC SCREEN | 162 (H)Comment: Testing | 65 - 99 mg/dL | [facility] | | | performed at [facility];[address] | | | | | [address];[place] | | | | | [address] | | | + + + + + + + + + + | Performing | Address | City/State/Zipcode | Phone Number | | Organization | | | | + + + + + | [facility] | [address] | [place] [address] | | + + + + + POCT glucose (01/20/2019 4:22 PM) + + + + + | Component | Value | Ref Range | Performed At | + + + + + | GLUCOSE,POC SCREEN | 188 (H)Comment: Testing | 65 - 99 mg/dL | [facility] | | | performed at [facility];[address] | | | | | [address] [place] | | | | | [address] | | | + + + + + + + + + + | Performing | Address | City/State/Zipcode | Phone Number | | Organization | | | | + + + + + | [facility] | [address] | [place] [address] | | + + + + + POCT glucose (01/20/2019 11:23 AM) + + + + + | Component | Value | Ref Range | Performed At | + + + + + | GLUCOSE,POC SCREEN | 131 (H)Comment: Testing | 65 - 99 mg/dL | [facility] | | | performed at [facility];[address] | | | | | [address];[place] | | | | | [address] | | | + + + + + + + + + + | Performing | Address | City/State/Zipcode | Phone Number | | Organization | | | | + + + + + | [facility] | [address] | [place] [address] | | + + + + + POCT glucose (01/20/2019 5:59 AM) + + + + + | Component | Value | Ref Range | Performed At | + + + + + | GLUCOSE,POC SCREEN | 210 (H)Comment: Testing | 65 - 99 mg/dL | [facility] | | | performed at [facility];[address] | | | | | [address];[place] | | | | | [address] | | | + + + + + + + + + + | Performing | Address | City/State/Zipcode | Phone Number | | Organization | | | | + + + + + | [facility] | [address] | [place] [address] | | + + + + + [...] | | | | | performed at [facility], [address] | | | | | [address], | | | | | [place] [address] | | | + + + + + + + + + + | Performing | Address | City/State/Zipcode | Phone Number | | Organization | | | | + + + + + | [facility] | [address] [place] [address] | [place] [address] | [phone] | | LABORATORY | [place]. | | | + + + + + HGB and HCT (01/20/2019 4:23 AM) + + + + + | Component | Value | Ref Range | Performed At | + + + + + | HGB | 7.3 (L) | 11.3 - 15.5 g/dL | [facility] | + + + + + | HCT | 22.2 (L)Comment: Testing | 34.0 - 46.0 % | [facility] | | | performed at [facility];[address] | | | | | [address];[place] | | | | | [id number] | | | + + + + + + + + + + | Performing | Address | City/State/Zipcode | Phone Number | | Organization | | | | + + + + + | [facility] | [address] | [place] [address] | | + + + + + POCT glucose (01/19/2019 9:54 PM) + + + + + | Component | Value | Ref Range | Performed At | + + + + + | GLUCOSE,POC SCREEN | 193 (H)Comment: Testing | 65 - 99 mg/dL | [facility] | | | performed at [facility];[address] | | | | | [facility];[place] | | | | | [address] | | | + + + + + + + + + + | Performing | Address | City/State/Zipcode | Phone Number | | Organization | | | | + + + + + | [facility] | [address] | [place] [address] | | + + + + + HGB and HCT (01/19/2019 9:34 PM) + + + + + | Component | Value | Ref Range | Performed At | + + + + + | HGB | 7.0 (L) | 11.3 - 15.5 g/dL | [facility] | + + + + + | HCT | 21.7 (L)Comment: Testing | 34.0 - 46.0 % | [facility] | | | performed at [facility];[address] | | | | | [address];[place] | | | | | [address] | | | + + + + + + + + + + | Performing | Address | City/State/Zipcode | Phone Number | | Organization | | | | + + + + + | [facility] | [address] | [place] [address] | | + + + + + [...] + | Juan C, Rad Results In 01/19/2019 6:04 PM PDT ULTRASOUND [...] + + | Performing | Address | City/State/[facility] | Phone Number | | Organization | | | | + + + + + | [facility] | [address] | [place] [address] | | + + + + + UR urea nitro, random (01/19/2019 4:30 PM) + + + + + | Component | Value | Ref Range | Performed At | + + + + + | UR UREA NITRO,RANDOM | 369.0Comment: NO NORMAL | mg/dL | [facility] | | | RANGE ESTABLISHEDTesting | | LABORATORY | | | performed at [facility], [facility] | | | | | [address], | | | | | [place] [address] | | | + + + + + + + + + + | Performing | Address | City/State/Zipcode | Phone Number | | Organization | | | | + + + + + | [facility] | [address] | [place] [address] | [phone] | | LABORATORY | [address] | | [...] | | | | | [place] [address] | | | + + + + + + + | Specimen | + + | Urine - Urine, Clean | | Catch | + + + + + + + | Performing | Address | City/State/Zipcode | Phone Number | | Organization | | | | + + + + + | [facility] | [address] | [place] [address] | [phone] | | LABORATORY | [address] | | [...] | LABORATORY | | | performed at [facility], [address] | | | | | [address] [facility], | | | | | [place] [address] | | | + + + + + + + | Specimen | + + | Urine - Urine, Clean | | Catch | + + + + + + + | Performing | Address | City/State/Zipcode | Phone Number | | Organization | | | | + + + + + | [facility] | [address] | [place] [address] | [phone] | | LABORATORY | [address] | | | + + + + + Urine eosinophils (01/19/2019 4:30 PM) + + + + + | Component | Value | Ref Range | Performed At | + + + + + | URINE EOSINOPHILS | NO EOSINOPHILS | <1 % | [facility] | | | SEENComment: Testing | | LABORATORY | | | performed at [facility], [address] | | | | [facility], | | | | | [place] [address] | | | + + + + + + + | Specimen | + + | Urine, Clean Catch | + + + + + + + | Performing | Address | City/State/Zipcode | Phone Number | | Organization | | | | + + + + + | [facility] | [address] | [place] [address] | [phone] | | LABORATORY | [address] | | | + + + + + HGB and HCT (01/19/2019 3:59 PM) + + + + + | Component | Value | Ref Range | Performed At | + + + + + | HGB | 7.9 (L) | 11.3 - 15.5 g/dL | [facility] | + + + + + | HCT | 24.4 (L)Comment: Testing | 34.0 - 46.0 % | [facility] | | | performed at [facility];[address] | | | | | [address];[place] | | | | | [address] | | | + + + + + + + + + + | Performing | Address | City/State/Zipcode | Phone Number | | Organization | | | | + + + + + | [facility] | [address] | [place] [address] | | + + + + + PROCALCITONIN (01/19/2019 3:59 PM) + + + + + | Component | Value | Ref Range | Performed At | + + + + + | PROCALCITONIN | 0.08Comment: | <0.5 ng/mL | [facility] | | | INTERPRETIVE | | [...] performed | | | | | at [facility];[address] | | | | | [place] [address] | | | + + + + + + + + + + | Performing | Address | City/State/Zipcode | Phone Number | | Organization | | | | + + + + + | [facility] | [address] | [place] [address] | | + + + + + POCT glucose (01/19/2019 3:36 PM) + + + + + | Component | Value | Ref Range | Performed At | + + + + + | GLUCOSE,POC SCREEN | 110 (H)Comment: Testing | 65 - 99 mg/dL | [facility] | | | performed at [facility];[address] | | | | | [address];[place] | | | | | [address] | | | + + + + + + + + + + | Performing | Address | City/State/Zipcode | Phone Number | | Organization | | | | + + + + + | [facility] | [address] | [place] [address] | | + + + + + EGD (01/19/2019 2:41 PM) + + + | Narrative | Performed At | + + + | [facility] GI | [facility] | | | [facility]ATION | | Patient Name: Chris Donaldson Procedure | | | Date: 01/19/2019 2:41 PM MRN: | | | [id number] Account | | | Number: [id number] Date of : | | | 1960 [...] Number of Addenda: 0 | | | [facility] - Endoscopy Services | | + + + + +---------+ + + | Performing | Address | City/State/Zipcode | Phone Number | | Organization | | | | + +---------+ + + | [facility] | | | | + +---------+ + + POCT glucose (01/19/2019 11:17 AM) + + + + + | Component | Value | Ref Range | Performed At | + + + + + | GLUCOSE,POC SCREEN | 162 (H)Comment: Testing | 65 - 99 mg/dL | [facility] | | | performed at [facility];[address] | | | | | [address];[place] | | | | | [address] | | | + + + + + + + + + + | Performing | Address | City/State/Zipcode | Phone Number | | Organization | | | | + + + + + | [facility] | [address] | [place] [address] | | + + + + + HGB and HCT (01/19/2019 10:34 AM) + + + + + | Component | Value | Ref Range | Performed At | + + + + + | HGB | 7.3 (L) | 11.3 - 15.5 g/dL | [facility] | + + + + + | HCT | 22.6 (L)Comment: Testing | 34.0 - 46.0 % | [facility] | | | performed at [facility];[address] | | | | | [address];[place] | | | | | [address] | | | + + + + + + + + + + | Performing | Address | City/State/Zipcode | Phone Number | | Organization | | | | + + + + + | [facility] | [address] | [place] [address] | | + + + + + Pathologist consult (01/19/2019 6:28 AM) + + + + + | Component | Value | Ref Range | Performed At | + + + + + | Pathologist Consult | Comment: Review of CBC | | [facility] | | | collected 01/19/2019. I [...] | | | | | performed at [facility];[address] | | | | | [facility];[place] | | | | | [id number] | | | + + + + + + + + + + | Performing | Address | City/State/Zipcode | Phone Number | | Organization | | | | + + + + + | [facility] | [address] | [facility] [place] [id number] | | + + + + + CBC w/auto diff (reflex to manual) (01/19/2019 6:28 AM) + + + + + | Component | Value | Ref Range | Performed At | + + + + + | WBC | 15.44 (H) | 3.80 - 11.00 K/uL | [facility] | + + + + + | RBC | 2.22 (L) | 3.70 - 5.10 M/uL | [facility] | + + + + + | HGB | 7.6 (L) | 11.3 - 15.5 g/dL | [facility] | + + + + + | HCT | 23.0 (L) | 34.0 - 46.0 % | [facility] | + + + + + | MCV | 103.3 (H) | 80.0 - 100.0 fl | [facility] | + + + + + | MCH | 34.0 | 27.0 - 34.0 pg | [facility] | + + + + + | MCHC | 33.0 | 32.0 - 35.5 g/dL | [facility] | + + + + + | RDW SD | 50.8 | 37 - 53 fl | [facility] | + + + + + | PLT | 187 | 150 - 400 K/uL | [facility] | + + + + + | MPV | 9.3 | fl | [facility] | + + + + + | DIFF TYPE | AUTOMATED | | [facility] | + + + + + | NEUTROPHILS | 48.42 | % | [facility] | + + + + + | LYMPHOCYTES | 32.17 | % | [facility] | + + + + + | MONOCYTES | 16.58 | % | [facility] | + [...] (H) | 0.00 - 0.80 K/uL | [facility] | + + + + + | EOSINOPHILS ABS | 0.26 | 0.00 - 0.50 K/uL | [facility] | + + + + + | BASOPHILS ABS | 0.18 (H)Comment: Testing | 0.00 - 0.10 K/uL | [facility] | | | performed at [facility] | | | | | [address];[place], [place] | | | | | [address] | | | + + + + + + + | Specimen | + + | Blood | + + + + + + + | Performing | Address | City/State/Zipcode | Phone Number | | Organization | | | | + + + + + | [facility] | [address] | [place] [address] | | + + + + + POCT glucose (01/19/2019 5:32 AM) + + + + + | Component | Value | Ref Range | Performed At | + + + + + | GLUCOSE,POC SCREEN | 123 (H)Comment: Testing | 65 - 99 mg/dL | [facility] | | | performed at [facility];[address] | | | | | [address];[place] | | | | | [address] | | | + + + + + + + + + + | Performing | Address | City/State/Zipcode | Phone Number | | Organization | | | | + + + + + | [facility] | [address] | [place] [address] | | + + + + + [...] 0.6 | 0.1 - 1.5 mg/dL | [facility] | | | | | LABORATORY | + + + + + | ALK PHOS | 53 | 35 - 115 U/L | [facility] | | | | | LABORATORY | + + + + + | AST | 32 | 10 - 45 U/L | [facility] | | | | | LABORATORY | + + + + + | ALT | 25 | 10 - 65 U/L | [facility] | | | | | LABORATORY | + + + + + | EGFR | 46 (L)Comment: GFR <60: | >60 mL/min/1.73m2 | [facility] | | | CHRONIC KIDNEY DISEASE, | [...] | | | | | performed at [facility], [address] | | | | [facility] | | | | | [place] [address] | | | + + + + + + + | Specimen | + + | Blood | + + + + + + + | Performing | Address | City/State/Zipcode | Phone Number | | Organization | | | | + + + + + | [facility] | [address] | [place] [address] | [phone] | | LABORATORY | [place]. | | | + + + + + HGB and HCT (01/18/2019 10:22 PM) + + + + + | Component | Value | Ref Range | Performed At | + + + + + | HGB | 7.4 (L) | 11.3 - 15.5 g/dL | [facility] | + + + + + | HCT | 22.7 (L)Comment: Testing | 34.0 - 46.0 % | [facility] | | | performed at [facility];[address] | | | | | [address];[place], [place] | | | | | [address] | | | + + + + + + + + + + | Performing | Address | City/State/Zipcode | Phone Number | | Organization | | | | + + + + + | [facility] | [address] | [place] [address] | | + + + + + POCT glucose (01/18/2019 9:31 PM) + + + + + | Component | Value | Ref Range | Performed At | + + + + + | GLUCOSE,POC SCREEN | 288 (H)Comment: Testing | 65 - 99 mg/dL | [facility] | | | performed at [facility];[address] | | | | | [address];[place] | | | | | [address] | | | + + + + + + + + + + | Performing | Address | City/State/Zipcode | Phone Number | | Organization | | | | + + + + + | [facility] | [address] | [place] [address] | | + + + + + HGB and HCT (01/18/2019 4:17 PM) + + + + + | Component | Value | Ref Range | Performed At | + + + + + | HGB | 8.2 (L) | 11.3 - 15.5 g/dL | [facility] | + + + + + | HCT | 25.1 (L)Comment: Testing | 34.0 - 46.0 % | [facility] | | | performed at [facility];[address] | | | | | [address];[place] | | | | | [address] | | | + + + + + + + + + + | Performing | Address | City/State/Zipcode | Phone Number | | Organization | | | | + + + + + | [facility] | [address] | [place] [address] | | + + + + + POCT glucose (01/18/2019 4:13 PM) + + + + + | Component | Value | Ref Range | Performed At | + + + + + | GLUCOSE,POC SCREEN | 126 (H)Comment: Testing | 65 - 99 mg/dL | [facility] | | | performed at [facility];[address] | | | | | [address];[place] | | | | | [address] | | | + + + + + + + + + + | Performing | Address | City/State/Zipcode | Phone Number | | Organization | | | | + + + + + | [facility] | [address] | [place] [address] | | + + + + + US abdomen limited (01/18/2019 4:04 PM) + + + | Impressions | Performed At | + + + | Cirrhotic configuration of the liver. Debris and small gallstones | [facility] | | noted within the gallbladder. Signed by: Ezekiel Isidro, Meek Sign | RADIOLOGY | | Date/Time: 01/18/2019 [...] | + + + + + | [facility] | [address] | [place] [address] | | + + + + + POCT glucose (01/18/2019 11:05 AM) + + + + + | Component | Value | Ref Range | Performed At | + + + + + | GLUCOSE,POC SCREEN | 133 (H)Comment: Testing | 65 - 99 mg/dL | [facility] | | | performed at [facility];[address] | | | | | [address];[place] | | | | | [address] | | | + + + + + + + + + + | Performing | Address | City/State/Zipcode | Phone Number | | Organization | | | | + + + + + | [facility] | [address] | [place] [address] | | + + + + + HGB and HCT (01/18/2019 10:46 AM) + + + + + | Component | Value | Ref Range | Performed At | + + + + + | HGB | 8.4 (L) | 11.3 - 15.5 g/dL | [facility] | + + + + + | HCT | 25.4 (L)Comment: Testing | 34.0 - 46.0 % | [facility] | | | performed at [facility];[address] | | | | | [address];[place] | | | | | [address] | | | + + + + + + + + + + | Performing | Address | City/State/Zipcode | Phone Number | | Organization | | | | + + + + + | [facility] | [address] | [place] [address] | | + + + + + Ferritin (01/18/2019 10:46 AM) + + + + + | Component | Value | Ref Range | Performed At | + + + + + | FERRITIN | 87Comment: Testing | 6 - 170 ng/mL | [facility] | | | performed at [facility], [address] | | LABORATORY | | | [address], | | | | | [place] [address] | | | + + + + + + + | Specimen | + + | Blood | + + + + + + + | Performing | Address | City/State/Zipcode | Phone Number | | Organization | | | | + + + + + | [facility] | [address] | [place] [address] | [phone] | | LABORATORY | [address] | | [...] | [facility] | | | performed at [facility], [address] | | LABORATORY | | | [facility], | | | | | [place] [address] | | | + + + + + + + | Specimen | + + | Blood | + + + + + + + | Performing | Address | City/State/Zipcode | Phone Number | | Organization | | | | + + + + + | [facility] | [address] [place] [address] | [place] [address] | [phone] | | LABORATORY | [address] | | | + + + + + Reticulocyte count (01/18/2019 10:46 AM) + + + + + | Component | Value | Ref Range | Performed At | + + + + + | RETICULOCYTES | 2.9 (H)Comment: Testing | 0.4 - 2.7 % | [facility] | | | performed at [facility];[address] | | | | | [address];[place], [place] | | | | | [address] | | | + + + + + + + | Specimen | + + | Blood | + + + + + + + | Performing | Address | City/State/Zipcode | Phone Number | | Organization | | | | + + + + + | [facility] | [address] | [place] [address] | | + + + + + Hemoglobin and hematocrit (01/18/2019 8:12 AM) + + + + + | Component | Value | Ref Range | Performed At | + + + + + | HGB | 8.3 (L) | 11.3 - 15.5 g/dL | [facility] | + + + + + | HCT | 25.3 (L)Comment: Testing | 34.0 - 46.0 % | [facility] | | | performed at [facility];[address] | | | | | [address];[place] | | | | | [address] | | | + + + + + + + + + + | Performing | Address | City/State/Zipcode | Phone Number | | Organization | | | | + + + + + | [facility] | [address] | [place] [address] | | + + + + + POCT glucose (01/18/2019 5:41 AM) + + + + + | Component | Value | Ref Range | Performed At | + + + + + | GLUCOSE,POC SCREEN | 140 (H)Comment: Testing | 65 - 99 mg/dL | [facility] | | | performed at [facility];[address] | | | | | [address];[place] | | | | | [address] | | | + + + + + + + + + + | Performing | Address | City/State/Zipcode | Phone Number | | Organization | | | | + + + + + | [facility] | [address] | [place] [address] | | + + + + + [...] the | | | | | MDRD IDNV traceable | | | | | equation.Testing | | | | | performed at [facility], [facility] [address] | | | | | [facility], | | | | | [place] [address] | | | + + + + + + + | Specimen | + + | Blood | + + + + + + + | Performing | Address | City/State/Zipcode | Phone Number | | Organization | | | | + + + + + | [facility] | [address] | [place] [address] | [phone] | | LABORATORY | [address] | | | + + + + + Hemoglobin A1c (01/18/2019 5:06 AM) + + + + + | Component | Value | Ref Range | Performed At | + + + + + | HEMOGLOBIN A1C | 6.0Comment: HbA1c method | 4.0 - 6.0 % | [facility] | | | is certified by [employer] [...] | | | | | performed at [facility], [address] | | | | | [facility], | | | | | [place] [address] | | | + + + + + + + | Specimen | + + | Blood | + + + + + + + | Performing | Address | City/State/Zipcode | Phone Number | | Organization | | | | + + + + + | [facility] | [address] | [place] [address] | [phone] | | LABORATORY | [address] | | | + + + + + Protime-INR (01/18/2019 5:06 AM) + + + + + | Component | Value | Ref Range | Performed At | + + + + + | INR | 1.1Comment: REFERENCE | | [facility] | | | RANGE:0.9 - | [...] | | | | | performed at [facility];[address] | | | | | [address];[place], [place] | | | | | [address] | | | + + + + + + + | Specimen | + + | Blood | + + + + + + + | Performing | Address | City/State/Zipcode | Phone Number | | Organization | | | | + + + + + | [facility] | [address] | [place] [address] | | + + + + + aPTT (01/18/2019 5:06 AM) + + + + + | Component | Value | Ref Range | Performed At | + + + + + | APTT | 25Comment: Testing | 23 - 32 seconds | [facility] | | | performed at [facility];[address] | | | | | [address];[place] | | | | | [address] | | | + + + + + + + | Specimen | + + | Blood | + + + + + + + | Performing | Address | City/State/Zipcode | Phone Number | | Organization | | | | + + + + + | [facility] | [address] | [place] [address] | | + + + + + Phosphorus (01/18/2019 5:06 AM) + + + + + | Component | Value | Ref Range | Performed At | + + + + + | PHOSPHORUS | 3.8Comment: Testing | 2.3 - 4.8 mg/dL | [facility] | | | performed at [facility], [address] | | LABORATORY | | | [address], | | | | | [place] [address] | | | + + + + + + + | Specimen | + + | Blood | + + + + + + + | Performing | Address | City/State/Zipcode | Phone Number | | Organization | | | | + + + + + | [facility] | [address] | [place] [address] | [phone] | | LABORATORY | [place]. | | | + + + + + Magnesium (01/18/2019 5:06 AM) + + + + + | Component | Value | Ref Range | Performed At | + + + + + | MAGNESIUM | 1.9Comment: Testing | 1.7 - 2.4 mg/dL | [facility] | | | performed at [facility], [address] | | LABORATORY | | | [address], | | | | | [place] [address] | | | + + + + + + + | Specimen | + + | Blood | + + + + + + + | Performing | Address | City/State/Zipcode | Phone Number | | Organization | | | | + + + + + | [facility] | [address] | [place] [address] | [phone] | | LABORATORY | [address] | | | + + + + + CBC w/auto diff (reflex to manual) (01/18/2019 5:06 AM) + + + + + | Component | Value | Ref Range | Performed At | + + + + + | WBC | 16.46 (H) | 3.80 - 11.00 K/uL | [facility] | + + + + + | RBC | 2.39 (L) | 3.70 - 5.10 M/uL | [facility] | + + + + + [...] 49.4 | 37 - 53 fl | [facility] | + + + + + | PLT | 180 | 150 - 400 K/uL | [facility] | + + + + + | MPV | 8.9 | fl | [facility] | + + + + + | DIFF TYPE | AUTOMATED | | [facility] | + + + + + | NEUTROPHILS | 56.76 | % | [facility] | + + + + + [...] (H) | 1.00 - 3.90 K/uL | [facility] | + + + + + | MONOCYTES ABS | 1.85 (H) | 0.00 - 0.80 K/uL | [facility] | + + + + + | EOSINOPHILS ABS | 0.20 | 0.00 - 0.50 K/uL | [facility] | + + + + + | BASOPHILS ABS | 0.16 (H)Comment: Testing | 0.00 - 0.10 K/uL | [facility] | | | performed at [facility];[address] | | | | | [address];[place] | | | | | [address] | | | + + + + + + + | Specimen | + + | Blood | + + + + + + + | Performing | Address | City/State/Zipcode | Phone Number | | Organization | | | | + + + + + | [facility] | [address] | [facility] [place] [address] | | + + + + + Hemoglobin and hematocrit (01/17/2019 11:52 PM) + + + + + | Component | Value | Ref Range | Performed At | + + + + + | HGB | 8.2 (L) | 11.3 - 15.5 g/dL | [facility] | + + + + + | HCT | 25.0 (L)Comment: Testing | 34.0 - 46.0 % | [facility] | | | performed at [facility];[address] | | | | | [address];[place] | | | | | [address] | | | + + + + + + + + + + | Performing | Address | City/State/Zipcode | Phone Number | | Organization | | | | + + + + + | [facility] | [address] | [place] [address] | | + + + + + POCT glucose (01/17/2019 10:15 PM) + + + + + | Component | Value | Ref Range | Performed At | + + + + + | GLUCOSE,POC SCREEN | 135 (H)Comment: Testing | 65 - 99 mg/dL | [facility] | | | performed at [facility];[address] | | | | | [address];[place], [place] | | | | | [address] | | | + + + + + + + + + + | Performing | Address | City/State/Zipcode | Phone Number | | Organization | | | | + + + + + | [facility] | [address] | [place] [address] | | + + + + + POCT glucose (01/17/2019 7:47 PM) + + + + + | Component | Value | Ref Range | Performed At | + + + + + | GLUCOSE,POC SCREEN | 158 (H)Comment: Testing | 65 - 99 mg/dL | [facility] | | | performed at [facility];[address] | | | | | [facility] [facility];[place] | | | | | [address] | | | + + + + + + + + + + | Performing | Address | City/State/Zipcode | Phone Number | | Organization | | | | + + + + + | [facility] | [address] | [place] [address] | | + + + + + JOSSED (01/17/2019 6:29 PM) + + + | Narrative | Performed At | + + + | [facility] | [facility] | | | [facility] | | Patient Name: Chris Donaldson Procedure | | | Date: 01/17/2019 6:29 PM MRN: | | | [id number] Account | | | Number: [id number] Date of : | | | 1960 [...] Number of Addenda: 0 | | | [facility] | | + + + + +---------+ + + | Performing | Address | City/State/Zipcode | Phone Number | | Organization | | | | + +---------+ + + | [facility] | | | | + +---------+ + + HGB and HCT (01/17/2019 6:08 PM) + + + + + | Component | Value | Ref Range | Performed At | + + + + + | HGB | 8.5 (L) | 11.3 - 15.5 g/dL | [facility] | + + + + + | HCT | 25.4 (L)Comment: Testing | 34.0 - 46.0 % | [facility] | | | performed at [facility];[address] | | | | | [address];[place] | | | | | [address] | | | + + + + + + + + + + | Performing | Address | City/State/Zipcode | Phone Number | | Organization | | | | + + + + + | [facility] | [address] | [place] [address] | | + + + + + Potassium (01/17/2019 5:33 PM) + + + + + | Component | Value | Ref Range | Performed At | + + + + + | POTASSIUM | 4.3Comment: Testing | 3.5 - 4.9 mmol/L | [facility] | | | performed at [facility];[address] | | | | | [address];[place] | | | | | [address] | | | + + + + + + + | Specimen | + + | Blood | + + + + + + + | Performing | Address | City/State/Zipcode | Phone Number | | Organization | | | | + + + + + | [facility] | [address] | [place] [address] | | + + + + + [...] + + + + | Calculated P [place] | 56 | degrees | [facility] | + + + + + | Calculated R [place] | -35 | degrees | [facility] | + + + + + | Calculated T [place] | 46 | degrees | [facility] | + + + + + | Diagnosis | Normal sinus rhythmLeft | | [facility] | | | axis deviationCannot | [...] | | | | | ONLY, -COMPUTER (689), | | | | | 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 | [place] [address] | | + + + + + POCT glucose (01/17/2019 5:11 PM) + + + + + | Component | Value | Ref Range | Performed At | + + + + + | GLUCOSE,POC SCREEN | 186 (H)Comment: Testing | 65 - 99 mg/dL | [facility] | | | performed at [facility];[address] | | | | | [address];[place] | | | | | [address] | | | + + + + + + + + + + | Performing | Address | City/State/Zipcode | Phone Number | | Organization | | | | + + + + + | [facility] | [address] | [place] [address] | | + + + + + ED INFORMATION EXCHANGE (01/17/2019 3:32 PM) + + + | Narrative | Performed At | + + + | [id number] Criteria Met 2 in 2 | ED [...] Count (12 mo.) Facility Visits Low Acuity [facility] | | | [facility] 1 0 [facility] 2 0 Total 3 0 | | | Note: Visits indicate total known visits. Medicaid Low Acuity Dx | | | are the number of primary diagnoses on the Medicaid's Low Acuity dx | | | list. Recent Emergency Department Visit Summary Date Facility | | | [facility] State Type Diagnoses or Chief Complaint January 17, 2019 [facility] | | | [facility] GI Bleeding Referral | | | Gastrointestinal hemorrhage, unspecified Personal | | | history of other diseases of the digestive system January 17, 2019 | | | [facility] [place] Emergency Chief Complaint: VOMITING | | | BLOOD January 24, 2018 [facility] 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 Any care recommendations and [...] | | completeness of information provided. 2019 [employer] | | | [email or web address] - [email or web address] | | + + + + + | Procedure Note | + + | Interface, Lab - 01/17/2019 3:34 PM PDT Formatting of this note may be different | | from the original.[id number] Met 2 in 2Security and | | SafetyNo recent Security Events currently on fileED Care GuidelinesThere are currently | | no ED Care Guidelines for this patient. Please check your facility's medical records | | system.Prescription Drug Report (12 Mo.)PDMP query found no report.E.D. Visit Count (12 | | mo.)Facility Visits Low Acuity [facility] 1 0 [facility] [place] | | Hospital 2 0 Total 3 0 Note: Visits indicate total known visits. Medicaid Low Acuity Dx | | are the number of primary diagnoses on the Medicaid's Low Acuity dx list. Recent | | Emergency Department Visit SummaryDate Facility City State Type Diagnoses or Chief | | [facility] | | Referral Gastrointestinal hemorrhage, unspecified Personal history of other | | diseases of the digestive system January 17, 2019 [facility] [place] Emergency | | Chief Complaint: VOMITING BLOOD January 24, [address] [facility] 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 Care ProvidersProvider [facility] Type Phone Fax Service Dates | | DESIREE PATRICIO MD Family Medicine Current Collective PortalThis patient has | | registered at the [facility] Emergency Department For more | | information visit: | | [email or web address] PLEASE | | NOTE: 1. Any care [...] or completeness of information | | provided.2019 [employer] | | Referral | | Gastrointestinal hemorrhage, unspecified | | Personal history of other diseases of the digestive system | | | |January 17, 2019 [facility] [place] Emergency Chief Complaint: VOMITING BLOOD | |January 24, 2018 [facility] 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 Any [...] of information provided. | | | |2018 [employer] | + + + +---------+ + + [...] | ABO/RH(D) | O POSITIVE | | [facility] | + + + + + | ANTIBODY SCREEN | NEGATIVE | | [facility] | + + + + + | ARM BAND NUMBER | [id number] | | [facility] | + + + + + | UNIT NUMBER | [id number] | | [facility] | + + + + + | BLOOD COMPONENT TYPE | LEUKODEPLETED PC | | [facility] | + + + + + | UNIT DIVISION | 00 | | [facility] | + + + + + | STATUS OF UNIT | REL FROM ALLOC | | [facility] | + + + + + | TRANSFUSION STATUS | OK TO TRANSFUSE | | [facility] | + + + + + | CROSSMATCH RESULT | COMPATIBLE | | [facility] | + + + + + | UNIT NUMBER | [id number] | | [facility] | + + + + + | BLOOD COMPONENT TYPE | LEUKODEPLETED PC | | [facility] | + + + + + | UNIT DIVISION | 00 | | [facility] | + + + + + | STATUS OF UNIT | REL FROM ALLOC | | [facility] | + + + + + | TRANSFUSION STATUS | OK TO TRANSFUSE | | [facility] | + + + + + | CROSSMATCH RESULT | COMPATIBLE | | [facility] | + + + + + | UNIT NUMBER | [id number] | | [facility] | + + + + + | BLOOD COMPONENT TYPE | LEUKODEPLETED PC | | [facility] | + + + + + | UNIT DIVISION | 00 | | [facility] | + + + + + | STATUS OF UNIT | REL FROM ALLOC | | [facility] | + + + + + | TRANSFUSION STATUS | OK TO TRANSFUSE | | [facility] | + + + + + | CROSSMATCH RESULT | COMPATIBLETesting | | [facility] | | | performed at [facility] [place];[address] | | | | | [address];[place], [place] | | | | | [phone] | | | + + + + + | UNIT NUMBER | [id number] | | [facility] | + + + + + | BLOOD COMPONENT TYPE | LEUKODEPLETED PC | | [facility] | + + + + + | UNIT DIVISION | 00 | | [facility] | + + + + + | STATUS OF UNIT | REL FROM ALLOC | | [facility] | + + + + + | TRANSFUSION STATUS | OK TO TRANSFUSE | | [facility] | + + + + + | CROSSMATCH RESULT | COMPATIBLE | | [facility] | + + + + + | UNIT NUMBER | [id number] | | [facility] | + + + + + | BLOOD COMPONENT TYPE | LEUKODEPLETED PC,B | | [facility] | + + + + + | UNIT DIVISION | 00 | | [facility] | + + + + + | STATUS OF UNIT | REL FROM ALLOC | | [facility] | + + + + + | TRANSFUSION STATUS | OK TO TRANSFUSE | | [facility] | + + + + + | CROSSMATCH RESULT | COMPATIBLE | | [facility] | + + + + + + + | Specimen | + + | Blood | + + + + + + + | Performing | Address | City/State/Zipcode | Phone Number | | Organization | | | | + + + + + | [facility] | [address] | [place] [address] | | + + + + + Cardiac Panel (01/17/2019 2:05 PM) + + + + + | Component | Value | Ref Range | Performed At | + + + + + | WBC | 18.40 (H) | 3.80 - 11.00 K/uL | [facility] | + + + + + | RBC | 2.89 (L) | 3.70 - 5.10 M/uL | [facility] | + + + + + [...] 33.7 | 27.0 - 34.0 pg | [facility] | + + + + + | MCHC | 33.5 | 32.0 - 35.5 g/dL | [facility] | + + + + + | RDW SD | 47.7 | 37 - 53 fl | [facility] | + + + + + | PLT | 219 | 150 - 400 K/uL | [facility] | + + + + + | MPV | 9.3 | fl | [facility] | + + + + + | DIFF TYPE | AUTOMATED | | [facility] | + + + + + | NEUTROPHILS | 77.78 | % | [facility] | + + + + + [...] 2.59 | 1.00 - 3.90 K/uL | [facility] | + + + + + | MONOCYTES ABS | 1.44 (H) | 0.00 - 0.80 K/uL | [facility] | + + + + + | EOSINOPHILS ABS | 0.02 | 0.00 - 0.50 K/uL | [facility] | + + + + + | BASOPHILS ABS | 0.03 | 0.00 - 0.10 K/uL | [facility] | + + + + + [...] (L) | 23 - 32 mmol/L | [facility] | + + + + + | ANION GAP AGAP | 15 | 5 - 20 mmol/L | [facility] | + + + + + | GLUCOSE | 191 (H) | 65 - 99 mg/dL | [facility] | + + [...] 2.2 | 1.3 - 4.9 g/dL | [facility] | + + + + + | A/G | 1.6 | 1.0 - 2.4 | [facility] | + + + + + | TBIL | 1.0 | 0.1 - 1.5 mg/dL | [facility] | + + + + + | ALK PHOS | 63 | 35 - 115 U/L | [facility] | + + + + + | AST | 41 | 10 - 45 U/L | [facility] | + + + + + | ALT | 28 | 10 - 65 U/L | [facility] | + + + + + | EGFR | 44 (L)Comment: GFR <60: | >60 mL/min/1.73m2 | [facility] | | | CHRONIC KIDNEY DISEASE, [...] 76 | 30 - 240 U/L | [facility] | + + + + + | INR | 1.1Comment: REFERENCE | | [facility] | | | RANGE:0.9 - | [...] 24 | 23 - 32 seconds | [facility] | + + + + + | MMB | 2.2 | 0.5 - 3.6 ng/mL | [facility] | + + + + + | CK-MB Index | 2.9Comment: CK INDEX | | [facility] | | | INTERPRETATION: | | [...] | | | | | performed at [facility] [place];[address] | | | | | [address];[place] | | | | | [id number] | | | + + + + + + + + + + | Performing | Address | City/State/Zipcode | Phone Number | | Organization | | | | + + + + + | [facility] | [address] | [place] [address] | | + + + + + [...] 18:22 | | | | | on Sat01/19/19 at 1700 | | PDT | | [...] | | | | | dose on e 01/20/19 at 1630 | | | | [...]
--- OUTSIDE RECORDS SUMMARY | ~2019-01-24 | XMS | Encounter Summary ---
Demographics + + + | Address | [address] | | | [place] [address] | + + + | Home Phone | | + + + | Preferred Language | Unknown | + + + | Marital Status | Legally | + + + | Religion Affiliation | Unknown | + + + | Race | Unknown | + + + | Ethnic Group | Unknown | + + + Author + + + | Author | [facility] [employer] | + + + | Organization | [facility] [employer] | + + + | Address [...] Team Providers + +------+ + | Care Fuel Injection Servicer Name | Role | Phone | + [...] | | | post-hemorrh | | [place] | | | | | agic anemia | | [address] Phone: | | | | | Upper GI | | [phone] | | | | | bleeding | [...] + + | 01/17/ | Surgery | [facility] | Joo Wallace IV, | ESOPHAGOGASTRODUODEN | | 2019 | | [facility] | [address] | [place] | | | | Endoscopy [address] | [address], | | | | | [place], [place] | [place] [address] | | | | | [address] | [phone] | | | | | | | [...] in 2014; type 2 diabetes; transferred from [facility] on 01/17/2019. She reports prior history of ascites, has had paracentesis in the remote past. She present ed initially to [facility] with epigastric discomfort and hematemesis. She was [...] acidosis. She reports a followup appointment with vp revenue cycle in [place] in the upcoming week. Lasix was decreased [...] ESOPHAGOGASTRODUODENOSCOPY; Surgeon: Joo Wallace IV, MD; Location: [facility]; Service: Gastroenterology; Laterality: N/A; ESOPHAGOGASTRODUODENOSCOPY N/A 01/19/2019 Procedure: ESOPHAGOGASTRODUODENOSCOPY; Surgeon: Joo Wallace IV, MD; Location: [facility]; Service: Gastroenterology; Laterality: N/A; HYSTERECTOMY [...] IV, MD [address] [facility] [address] In 3 weeks Desiree Patricio MD [address] [facility] [address] In 2 weeks Medication List [...] to ols on Smokefree.gov or by calling [phone] ([phone]). Date Last Reviewed: 06/02/201719998510-0290 [employer]. [address] [place] [address], [place] [address]. All righ ts reserved. This information is not intended as a substitute for professional medical care. Always follow your healthcare professional's instructions. 1. Please make a follow-up appointment with Dr. Wallace in approximately 3 weeks, you will r equire a repeat EGD 2. Please have blood work drawn at [facility] (CBC, CMP) in approximately 2 weeks prior to follo wing up with your primary care physician and Dr. Wallace 3. If you develop weakness, swelling, blood loss, return back to the emergency department 4. Follow-up with your vp revenue cycle at [place] Cirrhosis The liver is found on the [...] for people with liver disease, braulio ct: [place] [employer] [place] [employer] Foundation,www.liverfoundation.org,716.875.6317 Hep[employer] International,www.hepfi.org,607.269.7488 When to seek medical advice Call your healthcare provider right away if you haveany of the following: Rapid weight gain with increased size of your belly (abdomen) or leg swelling Yellow color of your skin or eyes (jaundice) gets worse Excess bleeding from cuts or injuries Date Last Reviewed: 01/31/201719991020-7422 [employer]. [address] [place] [address]. All righ ts reserved. This information is not intended as a substitute for professional medical care. Always follow your healthcare professional's instructions. The following attachments cannot be sent through Care Everywhere.Smoking,Tips for Quittin g (Cardiovascular) (American)Ciprofloxacin tablets (American)Iron tablets, capsules, extended- release tablets (American)Furosemide tablets (American)Nadolol tablets (American)Pantoprazole t ablets (American)in this encounter Medications at Time of Discharge [...] and presented for evaluation. [facility] she was started on pantoprazole [...] of alcohol associated cirrhosis in 2014 in [place]. She was hosp italized there but does [...] [place]. She is planning on following in [place]. 4. Complete 7 days of antibiotics for SBP prophylaxis. 5. Continue diuretics and lactulose. 6. Ok for discharge from GI standpoint. Mayda Smart PA-C [facility] 01/21/2019 Associated attestation - Joo Wallace IV, MD - 01/21/2019 11:08 PM [facility] GASTRO[facility]OLOG[facility] ATTENDING ATTESTATION The advanced practice provider [...] and presented for evaluation. She presented to [facility] emergency d epartment where she was [...] of alcohol associated cirrhosis in 2014 in [place]. She was hosp italized there but does [...] to medications. Plans to follow up in [place]. Scheduled Medications cefTRIAXone 1 g Intravenous Q24H [...] from GI standpoint tomorrow. Mayda Smart PA-C [facility]enter[facility] 01/20/2019 Associated attestation - Joo Wallace IV, MD - 01/20/2019 9:40 PM [facility] ATTENDING ATTESTATION The advanced practice provider made rounds on this patient. I did not formally evaluate pat ient in person today. We discussed the case and I agree with the assessment and plan as lilly mishra. Diogenes Dean MD - 01/20/2019 8:12 AM [facility] Service: Hospitalist Progress Note Hospital Day: LOS: 3 days Post-Op Day: 1 Day Post-Op Procedure: Procedure(s) (LRB): ESOPHAGOGASTRODUODENOSCOPY (N/A) Briefly, 58-year-old female with an extensive past medical history of compensated alcoholic cirrhosis (diagnosed 2014), type 2 diabetes mellitus and other chronic comorbidities who presented to [facility] ER on 01/17 for hematemesis and melanotic [...] Ej Mcnulty MD - 01/19/2019 7:30 AM [facility] Service: Hospitalist Progress Note Hospital Day: LOS: 2 days Post-Op Day: 1 Day Post-Op Procedure: Procedure(s) (LRB): ESOPHAGOGASTRODUODENOSCOPY (N/A) Briefly, 58-year-old female with an extensive past medical history of compensated alcoholic cirrhosis (diagnosed 2014), type 2 diabetes mellitus and other chronic comorbidities who presented to [facility] ER on 01/17 for hematemesis and melanotic [...] and presented for evaluation. She presented to [facility] emergency department where she was started [...] of alcohol associated cirrhosis in 2014 in [place]. She was hosp italized there but does [...] followed by GI which can be in [place] once current acute episode settles. Needs hepatoma screening and other issues discussed. Ultrasound here in the hospital fortunately shows no mass lesions in the liver. Ascites Apparently on diuretics but does not have her list currently. Needs SBP (spontaneous bacterial peritonitis) prophylaxis due to the acute bleed and alread y given dose of ceftriaxone when in [facility]. No evidence of ascites on current ultrasound. [...] procedure under sedation/anesthesia. Pily Wallace IV, M.D. [facility]enter[facility] 01/18/2019 This note was dictated using [employer] voice recognition software. Document was reviewed at ti me of dictation but [id number] errors may be present. Please call with any questions or c larifications. Ej Mcnulty MD - 01/18/2019 10:05 AM [facility] Service: Hospitalist Progress Note Hospital Day: LOS: 1 day Post-Op Day: 1 Day Post-Op Procedure: Procedure(s) (LRB): ESOPHAGOGASTRODUODENOSCOPY (N/A) Briefly, 58-year-old female with an extensive past medical history of compensated alcoholic cirrhosis (diagnosed 2014), type 2 diabetes mellitus and other chronic comorbidities who presented to [facility] ER on 01/17 for hematemesis and melanotic [...] Prior Ej Mcnulty MD 01/18/2019 Brenton Morales, [facility] - 01/17/2019 8:44 PM PDTRenal Dosing Monitoring: [...] | + +--------+ + + + | [facility] CARD PANEL W/O | STAT | 01/17/2019 [...] Testing | 65 - 99 mg/dL | [facility] | | | performed at [facility];[address] | | | | | [address] [facility];[place], [place] | | | | | [address] | | | + + + + + + + + + + | Performing | Address | City/State/Zipcode | Phone Number | | Organization | | | | + + + + + | [facility] | [address] | [place] [address] | | + + + + + [...] [address] | | | | | [facility], | | | | | [place] [address] | | | + + + + + + + | Specimen | + + | Blood | + + + + + + + | Performing | Address | City/State/Zipcode | Phone Number | | Organization | | | | + + + + + | [facility] | [address] [facility] | [place] [address] | [phone] | | LABORATORY | [address] | | | + + + + + CBC w/no Diff (01/21/2019 4:47 AM) + + + + + | Component | Value | Ref Range | Performed At | + + + + + | WBC | 14.95 (H) | 3.80 - 11.00 K/uL | [facility] | + + + + + | RBC | 2.16 (L) | 3.70 - 5.10 M/uL | [facility] | + + + + + | HGB | 7.3 (L) | 11.3 - 15.5 g/dL | [facility] | + + + + + | HCT | 22.5 (L) | 34.0 - 46.0 % | [facility] | + + + + + | MCV | 103.9 (H) | 80.0 - 100.0 fl | [facility] | + + + + + | MCH | 33.9 | 27.0 - 34.0 pg | [facility] | + + + + + | MCHC | 32.6 | 32.0 - 35.5 g/dL | [facility] | + + + + + | RDW SD | 51.6 | 37 - 53 fl | [facility] | + + + + + | PLT | 190 | 150 - 400 K/uL | [facility] | + + + + + | MPV | 10.3Comment: Testing | fl | [facility] | | | performed at [facility];[address] | | | | | [address];[place] | | | | | [address] | | | + + + + + + + + + + | Performing | Address | City/State/Zipcode | Phone Number | | Organization | | | | + + + + + | [facility] | [address] [facility] [facility] | [place] [address] | | + + + + + POCT glucose (01/20/2019 9:38 PM) + + + + + | Component | Value | Ref Range | Performed At | + + + + + | GLUCOSE,POC SCREEN | 162 (H)Comment: Testing | 65 - 99 mg/dL | [facility] | | | performed at [facility];[address] | | | | | [address];[place] | | | | | [address] | | | + + + + + + + + + + | Performing | Address | City/State/Zipcode | Phone Number | | Organization | | | | + + + + + | [facility] | [address] | [place] [address] | | + + + + + POCT glucose (01/20/2019 4:22 PM) + + + + + | Component | Value | Ref Range | Performed At | + + + + + | GLUCOSE,POC SCREEN | 188 (H)Comment: Testing | 65 - 99 mg/dL | [facility] | | | performed at [facility];[address] | | | | | [address] [place] | | | | | [address] | | | + + + + + + + + + + | Performing | Address | City/State/Zipcode | Phone Number | | Organization | | | | + + + + + | [facility] | [address] | [place] [address] | | + + + + + POCT glucose (01/20/2019 11:23 AM) + + + + + | Component | Value | Ref Range | Performed At | + + + + + | GLUCOSE,POC SCREEN | 131 (H)Comment: Testing | 65 - 99 mg/dL | [facility] | | | performed at [facility];[address] | | | | | [address];[place] | | | | | [address] | | | + + + + + + + + + + | Performing | Address | City/State/Zipcode | Phone Number | | Organization | | | | + + + + + | [facility] | [address] | [place] [address] | | + + + + + POCT glucose (01/20/2019 5:59 AM) + + + + + | Component | Value | Ref Range | Performed At | + + + + + | GLUCOSE,POC SCREEN | 210 (H)Comment: Testing | 65 - 99 mg/dL | [facility] | | | performed at [facility];[address] | | | | | [address];[place] | | | | | [address] | | | + + + + + + + + + + | Performing | Address | City/State/Zipcode | Phone Number | | Organization | | | | + + + + + | [facility] | [address] | [place] [address] | | + + + + + [...] | | | | | performed at [facility], [address] | | | | | [address], | | | | | [place] [address] | | | + + + + + + + + + + | Performing | Address | City/State/Zipcode | Phone Number | | Organization | | | | + + + + + | [facility] | [address] [place] [address] | [place] [address] | [phone] | | LABORATORY | [place]. | | | + + + + + HGB and HCT (01/20/2019 4:23 AM) + + + + + | Component | Value | Ref Range | Performed At | + + + + + | HGB | 7.3 (L) | 11.3 - 15.5 g/dL | [facility] | + + + + + | HCT | 22.2 (L)Comment: Testing | 34.0 - 46.0 % | [facility] | | | performed at [facility];[address] | | | | | [address];[place] | | | | | [address] | | | + + + + + + + + + + | Performing | Address | City/State/Zipcode | Phone Number | | Organization | | | | + + + + + | [facility] | [address] | [place] [address] | | + + + + + POCT glucose (01/19/2019 9:54 PM) + + + + + | Component | Value | Ref Range | Performed At | + + + + + | GLUCOSE,POC SCREEN | 193 (H)Comment: Testing | 65 - 99 mg/dL | [facility] | | | performed at [facility];[address] | | | | | [facility];[place] | | | | | [address] | | | + + + + + + + + + + | Performing | Address | City/State/Zipcode | Phone Number | | Organization | | | | + + + + + | [facility] | [address] | [place] [address] | | + + + + + HGB and HCT (01/19/2019 9:34 PM) + + + + + | Component | Value | Ref Range | Performed At | + + + + + | HGB | 7.0 (L) | 11.3 - 15.5 g/dL | [facility] | + + + + + | HCT | 21.7 (L)Comment: Testing | 34.0 - 46.0 % | [facility] | | | performed at [facility];[address] | | | | | [address];[place] | | | | | [address] | | | + + + + + + + + + + | Performing | Address | City/State/Zipcode | Phone Number | | Organization | | | | + + + + + | [facility] | [address] | [place] [address] | | + + + + + [...] + + | Performing | Address | City/State/[facility] | Phone Number | | Organization | | | | + + + + + | [facility] | [address] | [place] [address] | | + + + + + UR urea nitro, random (01/19/2019 4:30 PM) + + + + + | Component | Value | Ref Range | Performed At | + + + + + | UR UREA NITRO,RANDOM | 369.0Comment: NO NORMAL | mg/dL | [facility] | | | RANGE ESTABLISHEDTesting | | LABORATORY | | | performed at [facility], [facility] | | | | | [address], | | | | | [place] [address] | | | + + + + + + + + + + | Performing | Address | City/State/Zipcode | Phone Number | | Organization | | | | + + + + + | [facility] | [address] | [place] [address] | [phone] | | LABORATORY | [address] | | [...] | | | | | [place] [address] | | | + + + + + + + | Specimen | + + | Urine - Urine, Clean | | Catch | + + + + + + + | Performing | Address | City/State/Zipcode | Phone Number | | Organization | | | | + + + + + | [facility] | [address] [facility] | [place] [address] | [phone] | | LABORATORY | [address] | | [...] | LABORATORY | | | performed at [facility], [address] | | | | | [address] [facility], | | | | | [place] [address] | | | + + + + + + + | Specimen | + + | Urine - Urine, Clean | | Catch | + + + + + + + | Performing | Address | City/State/Zipcode | Phone Number | | Organization | | | | + + + + + | [facility] | [address] [facility] | [place] [address] | [phone] | | LABORATORY | [address] | | | + + + + + Urine eosinophils (01/19/2019 4:30 PM) + + + + + | Component | Value | Ref Range | Performed At | + + + + + | URINE EOSINOPHILS | NO EOSINOPHILS | <1 % | [facility] | | | SEENComment: Testing | | LABORATORY | | | performed at [facility], [address] | | | | | [facility], | | | | | [place] [address] | | | + + + + + + + | Specimen | + + | Urine, Clean Catch | + + + + + + + | Performing | Address | City/State/Zipcode | Phone Number | | Organization | | | | + + + + + | [facility] | [address] | [place] [address] | [phone] | | LABORATORY | [address] | | | + + + + + HGB and HCT (01/19/2019 3:59 PM) + + + + + | Component | Value | Ref Range | Performed At | + + + + + | HGB | 7.9 (L) | 11.3 - 15.5 g/dL | [facility] | + + + + + | HCT | 24.4 (L)Comment: Testing | 34.0 - 46.0 % | [facility] | | | performed at [facility];[address] | | | | | [address];[place] | | | | | [address] | | | + + + + + + + + + + | Performing | Address | City/State/Zipcode | Phone Number | | Organization | | | | + + + + + | [facility] | [address] | [place] [address] | | + + + + + PROCALCITONIN (01/19/2019 3:59 PM) + + + + + | Component | Value | Ref Range | Performed At | + + + + + | PROCALCITONIN | 0.08Comment: | <0.5 ng/mL | [facility] | | | INTERPRETIVE | | [...] performed | | | | | at [facility];[address] | | | | | [place] [address] | | | + + + + + + + + + + | Performing | Address | City/State/Zipcode | Phone Number | | Organization | | | | + + + + + | [facility] | [address] | [place] [address] | | + + + + + POCT glucose (01/19/2019 3:36 PM) + + + + + | Component | Value | Ref Range | Performed At | + + + + + | GLUCOSE,POC SCREEN | 110 (H)Comment: Testing | 65 - 99 mg/dL | [facility] | | | performed at [facility];[address] | | | | | [address];[place] | | | | | [address] | | | + + + + + + + + + + | Performing | Address | City/State/Zipcode | Phone Number | | Organization | | | | + + + + + | [facility] | [address] | [place] [address] | | + + + + + EGD (01/19/2019 2:41 PM) + + + | Narrative | Performed At | + + + | [facility] | [facility] | | | PROVATION | | Patient Name: Chris Donaldson Procedure | | | Date: 01/19/2019 2:41 PM MRN: | | | [id number] Account | | | Number: [id number] Date of : | | | 1960 [...] | | + +---------+ + + | [facility] | | | | + +---------+ + + POCT glucose (01/19/2019 11:17 AM) + + + + + | Component | Value | Ref Range | Performed At | + + + + + | GLUCOSE,POC SCREEN | 162 (H)Comment: Testing | 65 - 99 mg/dL | [facility] | | | performed at [facility];[address] | | | | | [address];[place] | | | | | [address] | | | + + + + + + + + + + | Performing | Address | City/State/Zipcode | Phone Number | | Organization | | | | + + + + + | [facility] | [address] | [place] [address] | | + + + + + HGB and HCT (01/19/2019 10:34 AM) + + + + + | Component | Value | Ref Range | Performed At | + + + + + | HGB | 7.3 (L) | 11.3 - 15.5 g/dL | [facility] | + + + + + | HCT | 22.6 (L)Comment: Testing | 34.0 - 46.0 % | [facility] | | | performed at [facility];[address] | | | | | [address];[place] | | | | | [address] | | | + + + + + + + + + + | Performing | Address | City/State/Zipcode | Phone Number | | Organization | | | | + + + + + | [facility] | [address] | [place] [address] | | + + + + + Pathologist consult (01/19/2019 6:28 AM) + + + + + | Component | Value | Ref Range | Performed At | + + + + + | Pathologist Consult | Comment: Review of CBC | | [facility] | | | collected 01/19/2019. I [...] | | | | | performed at [facility];[address] | | | | | [facility];[place] | | | | | [address] | | | + + + + + + + + + + | Performing | Address | City/State/Zipcode | Phone Number | | Organization | | | | + + + + + | [facility] | [address] | [facility] [place] [address] | | + + + + + CBC w/auto diff (reflex to manual) (01/19/2019 6:28 AM) + + + + + | Component | Value | Ref Range | Performed At | + + + + + | WBC | 15.44 (H) | 3.80 - 11.00 K/uL | [facility] | + + + + + | RBC | 2.22 (L) | 3.70 - 5.10 M/uL | [facility] | + + + + + | HGB | 7.6 (L) | 11.3 - 15.5 g/dL | [facility] | + + + + + | HCT | 23.0 (L) | 34.0 - 46.0 % | [facility] | + + + + + | MCV | 103.3 (H) | 80.0 - 100.0 fl | [facility] | + + + + + | MCH | 34.0 | 27.0 - 34.0 pg | [facility] | + + + + + [...] (H) | 0.00 - 0.80 K/uL | [facility] | + + + + + | EOSINOPHILS ABS | 0.26 | 0.00 - 0.50 K/uL | [facility] | + + + + + | BASOPHILS ABS | 0.18 (H)Comment: Testing | 0.00 - 0.10 K/uL | [facility] | | | performed at [facility] | | | | | [address];[place], [place] | | | | | [address] | | | + + + + + + + | Specimen | + + | Blood | + + + + + + + | Performing | Address | City/State/Zipcode | Phone Number | | Organization | | | | + + + + + | [facility] | [address] | [place] [address] | | + + + + + POCT glucose (01/19/2019 5:32 AM) + + + + + | Component | Value | Ref Range | Performed At | + + + + + | GLUCOSE,POC SCREEN | 123 (H)Comment: Testing | 65 - 99 mg/dL | [facility] | | | performed at [facility];[address] | | | | | [address];[place] | | | | | [address] | | | + + + + + + + + + + | Performing | Address | City/State/Zipcode | Phone Number | | Organization | | | | + + + + + | [facility] | [address] | [place] [address] | | + + + + + [...] 0.6 | 0.1 - 1.5 mg/dL | [facility] | | | | | LABORATORY | + + + + + | ALK PHOS | 53 | 35 - 115 U/L | [facility] | | | | | LABORATORY | + + + + + | AST | 32 | 10 - 45 U/L | [facility] | | | | | LABORATORY | + + + + + | ALT | 25 | 10 - 65 U/L | [facility] | | | | | LABORATORY | + + + + + | EGFR | 46 (L)Comment: GFR <60: | >60 mL/min/1.73m2 | [facility] | | | CHRONIC KIDNEY DISEASE, | [...] | | | | | performed at [facility], [address] | | | | | [facility], | | | | | [place] [address] | | | + + + + + + + | Specimen | + + | Blood | + + + + + + + | Performing | Address | City/State/Zipcode | Phone Number | | Organization | | | | + + + + + | [facility] | [address] | [place] [address] | [phone] | | LABORATORY | [place]. | | | + + + + + HGB and HCT (01/18/2019 10:22 PM) + + + + + | Component | Value | Ref Range | Performed At | + + + + + | HGB | 7.4 (L) | 11.3 - 15.5 g/dL | [facility] | + + + + + | HCT | 22.7 (L)Comment: Testing | 34.0 - 46.0 % | [facility] | | | performed at [facility];[address] | | | | | [address];[place], [place] | | | | | [address] | | | + + + + + + + + + + | Performing | Address | City/State/Zipcode | Phone Number | | Organization | | | | + + + + + | [facility] | [address] | [place] [address] | | + + + + + POCT glucose (01/18/2019 9:31 PM) + + + + + | Component | Value | Ref Range | Performed At | + + + + + | GLUCOSE,POC SCREEN | 288 (H)Comment: Testing | 65 - 99 mg/dL | [facility] | | | performed at [facility];[address] | | | | | [address];[place] | | | | | [address] | | | + + + + + + + + + + | Performing | Address | City/State/Zipcode | Phone Number | | Organization | | | | + + + + + | [facility] | [address] | [place] [address] | | + + + + + HGB and HCT (01/18/2019 4:17 PM) + + + + + | Component | Value | Ref Range | Performed At | + + + + + | HGB | 8.2 (L) | 11.3 - 15.5 g/dL | [facility] | + + + + + | HCT | 25.1 (L)Comment: Testing | 34.0 - 46.0 % | [facility] | | | performed at [facility] | | | | | [address];[place] | | | | | [address] | | | + + + + + + + + + + | Performing | Address | City/State/Zipcode | Phone Number | | Organization | | | | + + + + + | [facility] | [address] | [place] [address] | | + + + + + POCT glucose (01/18/2019 4:13 PM) + + + + + | Component | Value | Ref Range | Performed At | + + + + + | GLUCOSE,POC SCREEN | 126 (H)Comment: Testing | 65 - 99 mg/dL | [facility] | | | performed at [facility];[address] | | | | | [address];[place] | | | | | [address] | | | + + + + + + + + + + | Performing | Address | City/State/Zipcode | Phone Number | | Organization | | | | + + + + + | [facility] | [address] | [place] [address] | | + + + + + [...] the gallbladder. | | Signed by: Ezekiel Isirdo Chet | | Sign Date/Time: 01/18/2019 4:35 PM | + + + + + + + | Performing | Address | City/State/Zipcode | Phone Number | | Organization | | | | + + + + + | [facility] | [address] | [place] [address] | | + + + + + POCT glucose (01/18/2019 11:05 AM) + + + + + | Component | Value | Ref Range | Performed At | + + + + + | GLUCOSE,POC SCREEN | 133 (H)Comment: Testing | 65 - 99 mg/dL | [facility] | | | performed at [facility];[address] | | | | | [address];[place] | | | | | [address] | | | + + + + + + + + + + | Performing | Address | City/State/Zipcode | Phone Number | | Organization | | | | + + + + + | [facility] | [address] | [place] [address] | | + + + + + HGB and HCT (01/18/2019 10:46 AM) + + + + + | Component | Value | Ref Range | Performed At | + + + + + | HGB | 8.4 (L) | 11.3 - 15.5 g/dL | [facility] | + + + + + | HCT | 25.4 (L)Comment: Testing | 34.0 - 46.0 % | [facility] | | | performed at [facility];[address] | | | | | [address];[place] | | | | | [address] | | | + + + + + + + + + + | Performing | Address | City/State/Zipcode | Phone Number | | Organization | | | | + + + + + | [facility] | [address] | [place] [address] | | + + + + + Ferritin (01/18/2019 10:46 AM) + + + + + | Component | Value | Ref Range | Performed At | + + + + + | FERRITIN | 87Comment: Testing | 6 - 170 ng/mL | [facility] | | | performed at [facility], [address] | | LABORATORY | | | [address], | | | | | [place] [address] | | | + + + + + + + | Specimen | + + | Blood | + + + + + + + | Performing | Address | City/State/Zipcode | Phone Number | | Organization | | | | + + + + + | [facility] | [address] | [place] [address] | [phone] | | LABORATORY | [address]vd[address] | | [...] | [facility] | | | performed at [facility], [address] | | LABORATORY | | | [facility], | | | | | [place] [address] | | | + + + + + + + | Specimen | + + | Blood | + + + + + + + | Performing | Address | City/State/Zipcode | Phone Number | | Organization | | | | + + + + + | [facility] | [address] [place] [address] | [place] [address] | [phone] | | LABORATORY | Blvd. | | | + + + + + Reticulocyte count (01/18/2019 10:46 AM) + + + + + | Component | Value | Ref Range | Performed At | + + + + + | RETICULOCYTES | 2.9 (H)Comment: Testing | 0.4 - 2.7 % | [facility] | | | performed at [facility];[address] | | | | | [address];[place], [place] | | | | | [address] | | | + + + + + + + | Specimen | + + | Blood | + + + + + + + | Performing | Address | City/State/Zipcode | Phone Number | | Organization | | | | + + + + + | [facility] | [address] | [place] [address] | | + + + + + Hemoglobin and hematocrit (01/18/2019 8:12 AM) + + + + + | Component | Value | Ref Range | Performed At | + + + + + | HGB | 8.3 (L) | 11.3 - 15.5 g/dL | [facility] | + + + + + | HCT | 25.3 (L)Comment: Testing | 34.0 - 46.0 % | [facility] | | | performed at [facility];[address] | | | | | [address];[place] | | | | | [address] | | | + + + + + + + + + + | Performing | Address | City/State/Zipcode | Phone Number | | Organization | | | | + + + + + | [facility] | [address] | [place] [address] | | + + + + + POCT glucose (01/18/2019 5:41 AM) + + + + + | Component | Value | Ref Range | Performed At | + + + + + | GLUCOSE,POC SCREEN | 140 (H)Comment: Testing | 65 - 99 mg/dL | [facility] | | | performed at [facility];[address] | | | | | [address];[place] | | | | | [address] | | | + + + + + + + + + + | Performing | Address | City/State/Zipcode | Phone Number | | Organization | | | | + + + + + | [facility] | [address] | [place] [address] | | + + + + + [...] the | | | | | MDRD IDID traceable | | | | | equation.Testing | | | | | performed at [facility], [facility] [address] | | | | | [facility], | | | | | [place] [address] | | | + + + + + + + | Specimen | + + | Blood | + + + + + + + | Performing | Address | City/State/Zipcode | Phone Number | | Organization | | | | + + + + + | [facility] | [address] [facility] | [place] [address] | [phone] | | LABORATORY | Blvd. | | [...] | | | | | performed at [facility], [address] | | | | | [facility], | | | | | [place] [address] | | | + + + + + + + | Specimen | + + | Blood | + + + + + + + | Performing | Address | City/State/Zipcode | Phone Number | | Organization | | | | + + + + + | [facility] | [address] [facility] | [place] [address] | [phone] | | LABORATORY | [address]. | | | + + + + + Protime-INR (01/18/2019 5:06 AM) + + + + + | Component | Value | Ref Range | Performed At | + + + + + | INR | 1.1Comment: REFERENCE | | [facility] | | | RANGE:0.9 - | [...] | | | | | performed at [facility];[address] | | | | | [address];[place], [place] | | | | | [address] | | | + + + + + + + | Specimen | + + | Blood | + + + + + + + | Performing | Address | City/State/Zipcode | Phone Number | | Organization | | | | + + + + + | [facility] | [address] | [place] [address] | | + + + + + aPTT (01/18/2019 5:06 AM) + + + + + | Component | Value | Ref Range | Performed At | + + + + + | APTT | 25Comment: Testing | 23 - 32 seconds | [facility] | | | performed at [facility];[address] | | | | | [address];[place] | | | | | [address] | | | + + + + + + + | Specimen | + + | Blood | + + + + + + + | Performing | Address | City/State/Zipcode | Phone Number | | Organization | | | | + + + + + | [facility] | [address] | [place] [address] | | + + + + + Phosphorus (01/18/2019 5:06 AM) + + + + + | Component | Value | Ref Range | Performed At | + + + + + | PHOSPHORUS | 3.8Comment: Testing | 2.3 - 4.8 mg/dL | [facility] | | | performed at [facility], [address] | | LABORATORY | | | [address], | | | | | [place] [address] | | | + + + + + + + | Specimen | + + | Blood | + + + + + + + | Performing | Address | City/State/Zipcode | Phone Number | | Organization | | | | + + + + + | [facility] | [address] [facility] | [place] [address] | [phone] | | LABORATORY | [address] | | | + + + + + Magnesium (01/18/2019 5:06 AM) + + + + + | Component | Value | Ref Range | Performed At | + + + + + | MAGNESIUM | 1.9Comment: Testing | 1.7 - 2.4 mg/dL | [facility] | | | performed at [facility], [address] | | LABORATORY | | | [address], | | | | | [place] [address] | | | + + + + + + + | Specimen | + + | Blood | + + + + + + + | Performing | Address | City/State/Zipcode | Phone Number | | Organization | | | | + + + + + | [facility] | [address] | [place] [address] | [phone] | | LABORATORY | Blvd. | | | + + + + + CBC w/auto diff (reflex to manual) (01/18/2019 5:06 AM) + + + + + | Component | Value | Ref Range | Performed At | + + + + + | WBC | 16.46 (H) | 3.80 - 11.00 K/uL | [facility] | + + + + + | RBC | 2.39 (L) | 3.70 - 5.10 M/uL | [facility] | + + + + + [...] 49.4 | 37 - 53 fl | [facility] | + + + + + | PLT | 180 | 150 - 400 K/uL | [facility] | + + + + + | MPV | 8.9 | fl | [facility] | + + + + + | DIFF TYPE | AUTOMATED | | [facility] | + + + + + | NEUTROPHILS | 56.76 | % | [facility] | + + + + + [...] Testing | 0.00 - 0.10 K/uL | [facility] | | | performed at [facility];[address] | | | | | [address];[place] | | | | | [address] | | | + + + + + + + | Specimen | + + | Blood | + + + + + + + | Performing | Address | City/State/Zipcode | Phone Number | | Organization | | | | + + + + + | [facility] | [address] | [place] [address] | | + + + + + Hemoglobin and hematocrit (01/17/2019 11:52 PM) + + + + + | Component | Value | Ref Range | Performed At | + + + + + | HGB | 8.2 (L) | 11.3 - 15.5 g/dL | [facility] | + + + + + | HCT | 25.0 (L)Comment: Testing | 34.0 - 46.0 % | [facility] | | | performed at [facility];[address] | | | | | [address];[place] | | | | | [address] | | | + + + + + + + + + + | Performing | Address | City/State/Zipcode | Phone Number | | Organization | | | | + + + + + | [facility] | [address] | [place] [address] | | + + + + + POCT glucose (01/17/2019 10:15 PM) + + + + + | Component | Value | Ref Range | Performed At | + + + + + | GLUCOSE,POC SCREEN | 135 (H)Comment: Testing | 65 - 99 mg/dL | [facility] | | | performed at [facility];[address] | | | | | [address];[place], [place] | | | | | [address] | | | + + + + + + + + + + | Performing | Address | City/State/Zipcode | Phone Number | | Organization | | | | + + + + + | [facility] | [address] | [place] [address] | | + + + + + POCT glucose (01/17/2019 7:47 PM) + + + + + | Component | Value | Ref Range | Performed At | + + + + + | GLUCOSE,POC SCREEN | 158 (H)Comment: Testing | 65 - 99 mg/dL | [facility] | | | performed at [facility];[address] | | | | | [facility];[place] | | | | | [address] | | | + + + + + + + + + + | Performing | Address | City/State/Zipcode | Phone Number | | Organization | | | | + + + + + | [facility] | [address] | [place] [address] | | + + + + + JOSSED (01/17/2019 6:29 PM) + + + | Narrative | Performed At | + + + | [facility] | [facility] | | | [employer]OVATION | | Patient Name: Chris Donaldson Procedure | | | Date: 01/17/2019 6:29 PM MRN: | | | [id number] Account | | | Number: [id number] Date of : | | | 1960 [...] (L) | 11.3 - 15.5 g/dL | [facility] | + + + + + | HCT | 25.4 (L)Comment: Testing | 34.0 - 46.0 % | [facility] | | | performed at [facility];[address] | | | | | [employer];[place] | | | | | [address] | | | + + + + + + + + + + | Performing | Address | City/State/Zipcode | Phone Number | | Organization | | | | + + + + + | [facility] | [address] | [place] [address] | | + + + + + Potassium (01/17/2019 5:33 PM) + + + + + | Component | Value | Ref Range | Performed At | + + + + + | POTASSIUM | 4.3Comment: Testing | 3.5 - 4.9 mmol/L | [facility] | | | performed at [facility];[address] | | | | | [address];[place] | | | | | [address] | | | + + + + + + + | Specimen | + + | Blood | + + + + + + + | Performing | Address | City/State/Zipcode | Phone Number | | Organization | | | | + + + + + | [facility] | [address] | [place] [address] | | + + + + + [...] + + + + | Calculated P [place] | 56 | degrees | [facility] | + + + + + | Calculated R [place] | -35 | degrees | [facility] | + + + + + | Calculated T [place] | 46 | degrees | [facility] | + + + + + | Diagnosis | Normal sinus rhythmLeft | | [facility] | | | axis deviationCannot | [...] | | | | | ONLY, -COMPUTER (151), | | | | | technical editor Guillermo Eldridge | | | | | (132) on 01/18/2019 | | | | | 4:28:07 PM | | | + + + + + + + + + + | Performing | Address | City/State/Zipcode | Phone Number | | Organization | | | | + + + + + | [facility] | [address] | [place] [address] | | + + + + + POCT glucose (01/17/2019 5:11 PM) + + + + + | Component | Value | Ref Range | Performed At | + + + + + | GLUCOSE,POC SCREEN | 186 (H)Comment: Testing | 65 - 99 mg/dL | [facility] | | | performed at [facility];[address] | | | | | [address];[place] | | | | | [address] | | | + + + + + + + + + + | Performing | Address | City/State/Zipcode | Phone Number | | Organization | | | | + + + + + | [facility] | [address] | [place] [address] | | + + + + + ED INFORMATION EXCHANGE (01/17/2019 3:32 PM) + + + | Narrative | Performed At | + + + | [id number] Criteria Met 2 in 2 | ED [...] Count (12 mo.) Facility Visits Low Acuity [facility] | | | [facility] 1 0 [facility] 2 0 Total 3 0 | | | Note: Visits indicate total known visits. Medicaid Low Acuity Dx | | | are the number of primary diagnoses on the Medicaid's Low Acuity dx | | | list. Recent Emergency Department Visit Summary Date Facility | | | [facility] State Type Diagnoses or Chief Complaint January 17, 2019 [facility] | | | [facility] Emergency GI Bleeding Referral | | | Gastrointestinal hemorrhage, unspecified Personal | | | history of other diseases of the digestive system January 17, 2019 | | | [facility] [place] Emergency Chief Complaint: VOMITING | | | BLOOD January 24, 2018 [facility] 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 Any care recommendations and [...] | | completeness of information provided. 2019 [employer] | | | [employer] - [email or web address] | | + + + + + | Procedure Note | + + | Interface, Lab - 01/17/2019 3:34 PM PDT Formatting of this note may be different | | from the original.[id number] Met 2 in 2Security and | | SafetyNo recent Security Events currently on fileED Care GuidelinesThere are currently | | no ED Care Guidelines for this patient. Please check your facility's medical records | | system.Prescription Drug Report (12 Mo.)PDMP query found no report.E.D. Visit Count (12 | | mo.)Facility Visits Low Acuity [facility] 1 0 [facility] [place] | | Hospital 2 0 Total 3 0 Note: Visits indicate total known visits. Medicaid Low Acuity Dx | | are the number of primary diagnoses on the Medicaid's Low Acuity dx list. Recent | | Emergency Department Visit SummaryDate Facility City State Type Diagnoses or Chief | | [facility] [place] [facility]eding | | Referral Gastrointestinal hemorrhage, unspecified Personal history of other | | diseases of the digestive system January 17, 2019 [facility] [place] Emergency | | Chief Complaint: VOMITING BLOOD January 24, [address] [facility] 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 Care ProvidersProvider [facility] Type Phone Fax Service Dates | | DESIREE PATRICIO MD Family Medicine Current Collective PortalThis patient has | | registered at the [facility] Emergency Department For more | | information visit: | | [id number] PLEASE | | NOTE: 1. Any care [...] or completeness of information | | provided.2019 [employer] | | Referral | | Gastrointestinal hemorrhage, unspecified | | Personal history of other diseases of the digestive system | | | |January 17, 2019 [facility] [place] Emergency Chief Complaint: VOMITING BLOOD | |January 24, 2018 [facility] 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 Any [...] of information provided. | | | |2018 [employer] | + + + +---------+ + + [...] | ABO/RH(D) | O POSITIVE | | [facility] | + + + + + | ANTIBODY SCREEN | NEGATIVE | | [email or web address] | + + + + + | ARM BAND NUMBER | [id number] | | [facility] | + + + + + | UNIT NUMBER | [id number] | | [facility] | + + + + + | BLOOD COMPONENT TYPE | LEUKODEPLETED PC | | [facility] | + + + + + | UNIT DIVISION | 00 | | [facility] | + + + + + | STATUS OF UNIT | REL FROM ALLOC | | [facility] | + + + + + | TRANSFUSION STATUS | OK TO TRANSFUSE | | [facility] | + + + + + | CROSSMATCH RESULT | COMPATIBLE | | [facility] | + + + + + | UNIT NUMBER | [id number] | | [facility] | + + + + + | BLOOD COMPONENT TYPE | LEUKODEPLETED PC | | [facility] | + + + + + | UNIT DIVISION | 00 | | [facility] | + + + + + | STATUS OF UNIT | REL FROM ALLOC | | [facility] | + + + + + | TRANSFUSION STATUS | OK TO TRANSFUSE | | [facility] | + + + + + | CROSSMATCH RESULT | COMPATIBLE | | [facility] | + + + + + | UNIT NUMBER | [id number] | | [facility] | + + + + + | BLOOD COMPONENT TYPE | LEUKODEPLETED PC | | [facility] | + + + + + | UNIT DIVISION | 00 | | [facility] | + + + + + | STATUS OF UNIT | REL FROM ALLOC | | [facility] | + + + + + | TRANSFUSION STATUS | OK TO TRANSFUSE | | [facility] | + + + + + | CROSSMATCH RESULT | COMPATIBLETesting | | [facility] | | | performed at [facility];[address] | | | | | [address];[place], [place] | | | | | [address] | | | + + + + + | UNIT NUMBER | [id number] | | [facility] | + + + + + | BLOOD COMPONENT TYPE | LEUKODEPLETED PC | | [facility] | + + + + + | UNIT DIVISION | 00 | | [facility] | + + + + + | STATUS OF UNIT | REL FROM ALLOC | | [facility] | + + + + + | TRANSFUSION STATUS | OK TO TRANSFUSE | | [facility] | + + + + + | CROSSMATCH RESULT | COMPATIBLE | | [facility] | + + + + + | UNIT NUMBER | [id number] | | [facility] | + + + + + | BLOOD COMPONENT TYPE | LEUKODEPLETED PC,B | | [facility] | + + + + + | UNIT DIVISION | 00 | | [facility] | + + + + + | STATUS OF UNIT | REL FROM ALLOC | | [facility] | + + + + + | TRANSFUSION STATUS | OK TO TRANSFUSE | | [facility] | + + + + + | CROSSMATCH RESULT | COMPATIBLE | | [facility] | + + + + + + + | Specimen | + + | Blood | + + + + + + + | Performing | Address | City/State/Zipcode | Phone Number | | Organization | | | | + + + + + | [facility] | [address] | [place] [address] | | + + + + + Cardiac Panel (01/17/2019 2:05 PM) + + + + + | Component | Value | Ref Range | Performed At | + + + + + | WBC | 18.40 (H) | 3.80 - 11.00 K/uL | [facility] | + + + + + | RBC | 2.89 (L) | 3.70 - 5.10 M/uL | [facility] | + + + + + [...] 33.7 | 27.0 - 34.0 pg | [facility] | + + + + + [...] | MPV | 9.3 | fl | [facility] | + + + + + | DIFF TYPE | AUTOMATED | | [facility] | + + + + + | NEUTROPHILS | 77.78 | % | [facility] | + + + + + [...] 2.59 | 1.00 - 3.90 K/uL | [facility] | + + + + + | MONOCYTES ABS | 1.44 (H) | 0.00 - 0.80 K/uL | [facility] | + + + + + | EOSINOPHILS ABS | 0.02 | 0.00 - 0.50 K/uL | [facility] | + + + + + | BASOPHILS ABS | 0.03 | 0.00 - 0.10 K/uL | [facility] | + + + + + [...] | 1.6 | 1.0 - 2.4 | [facility] | + + + + + | TBIL | 1.0 | 0.1 - 1.5 mg/dL | [facility] | + + + + + | ALK PHOS | 63 | 35 - 115 U/L | [facility] | + + + + + | AST | 41 | 10 - 45 U/L | [facility] | + + + + + | ALT | 28 | 10 - 65 U/L | [facility] | + + + + + | EGFR | 44 (L)Comment: GFR <60: | >60 mL/min/1.73m2 | [facility] | | | CHRONIC KIDNEY DISEASE, [...] 76 | 30 - 240 U/L | [facility] | + + + + + | INR | 1.1Comment: REFERENCE | | [facility] | | | RANGE:0.9 - | [...] 24 | 23 - 32 seconds | [facility] | + + + + + | MMB | 2.2 | 0.5 - 3.6 ng/mL | [facility] | + + + + + | CK-MB Index | 2.9Comment: CK INDEX | | [facility] | | | INTERPRETATION: | | [...] | | | | | performed at [facility];[address] | | | | | [address];[place] | | | | | [address] | | | + + + + + + + + + + | Performing | Address | City/State/Zipcode | Phone Number | | Organization | | | | + + + + + | [facility] | [address] | [place] [address] | | + + + + + [...]
--- OUTSIDE RECORDS SUMMARY | ~2019-01-24 | XMS | Encounter Summary ---
Demographics + + + | Address | [address] | | | [place] [address] | + + + | Home Phone | | + + + | Preferred Language | Unknown | + + + | Marital Status | Legally | + + + | Mormon Affiliation | Unknown | + + + | Race | Unknown | + + + | Ethnic Group | Unknown | + + + Author + + + | Author | [facility] | + + + | Organization | [facility] | + + + | Address [...] Team Providers + +------+ + | [employer] Sales Consultant Name | Role | Phone | + [...] | | Internal | Diagnoses | | [facility] | | | | Medicine | | | [place] | | | | | Hyperkalemia | | [address] | | | | | Acute | | [address] | | | | | post-hemorrh | | [place] | | | | | agic anemia | | [id number] Phone: | | | | | Upper GI | | [phone] | | | | | bleeding | [...] + + | 01/17/ | Anesthesia | [facility] | Kristian Larsen, | | | 2019 | Event | [facility] | [address] | | | | | Endoscopy [address] | [place] [address] | | | | | Blvd [place], [place] | | | | | | [id number] | | | +--------+ + + + [...]
--- OUTSIDE RECORDS SUMMARY | ~2019-01-24 | XMS | Encounter Summary ---
Demographics + + + | Address | [address] | | | [place] [address] | + + + | Home Phone | | + + + | Preferred Language | Unknown | + + + | Marital Status | Legally | + + + | Jainism Affiliation | Unknown | + + + | Race | Unknown | + + + | Ethnic Group | Unknown | + + + Author + + + | Author | [facility] | | | and [place] | + + + | Organization | [facility] | | | and [...] Team Providers + +------+ + | Care Compressor Assembler Name | Role | Phone | + [...] | | 2019 | | [facility] | [address] | | | | | [address] | [place] | | | | | [place], [place] | [address] | | | | | [id number] | | | | | | [phone] | | | +--------+ + + + [...]
--- OUTSIDE RECORDS SUMMARY | ~2019-01-24 | XMS | Encounter Summary ---
Demographics + + + | Address | [address] | | | [place] [address] | + + + | Home Phone | | + + + | Preferred Language | Unknown | + + + | Marital Status | Legally | + + + | Islam Affiliation | Unknown | + + + | Race | Unknown | + + + | Ethnic Group | Unknown | + + + Author + + + | Author | [facility] [employer] | + + + | Organization | [facility] 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 | Phone [...] | | | | post-hemorrh | | [place] | | | | | agic anemia | | [address] Phone: | | | | | Upper GI | | [phone] | | | | | bleeding | [...] + + | 01/17/ | Hospital | [facility] | Karthik Wilder | Upper GI bleeding | | 2019 - | Encounter | [facility] 7th | D, DO [address] | (Primary Dx); | | | | Floor [facility] | Blvd [place], [place] | History of cirrhosis | | 01/21/ | | [address] | [address] | of liver; | | 2019 | | [place] [address] | Maritza Pop, | Leukocytosis, | | | | [phone] | [address] | unspecified type; | | | | | [place] [address] | Acute renal injury | | | | | [phone] | (HCC); Anemia, | | | | | | unspecified type; | | | | | Ej Mcnulty MD | Hyperkalemia; | | | | | [address] | Gastrointestinal | | | | | [place] [address] | hemorrhage with | | | | | [phone] | hematemesis; | | | | | | Hematemesis with | | | | | Diogenes Dean MD | nausea; Acute | | | | | [address] | post-hemorrhagic | | | | | [place] [address] | anemia; Alcoholic | | | | | [phone] | cirrhosis of liver | | | | | | with ascites (HCC); | | | | | | Alcoholic cirrhosis | | | | | | of liver without | | | | | | ascites (HCC); | | | | | | Portal hypertension | | | | | | (HCC) | +--------+ + + + + Social [...] note may be different from the original. [facility]: Hospitalist Discharge Summary Date of Admission: [...] 24 cc Sig maria d by: Mart Luna, Jb Sign Date/Time: 01/19/2019 6:01 PM BRIEF HISTORY OF PRESENTATION: Chris Donaldson is a 58 y.o. female who HOSPITAL COURSE: A 58-year-old female, history of alcoholic liver cirrhosis, stopped drinking in 2014; type 2 diabetes; transferred from [facility] on 01/17/2019. She reports prior history of ascites, has had paracentesis in the remote past. She present ed initially to [place] with epigastric discomfort and hematemesis. She was [...] continue spironolactone at 100 mg for ascites. Zita hawthorne completed a 5-day course of IV antibiotics for SBP prophylaxis and will be discharged on a dditional 3 days oral ciprofloxacin. She is instructed to follow up with Dr. He in approximately 3-4 weeks for repeat EGD. She does have underlying chronic kidney disease stage 2 with some mild metabolic acidosis. She reports a followup appointment with didactic instructor in [place] in the upcoming week. Lasix was decreased [...] ESOPHAGOGASTRODUODENOSCOPY; Surgeon: Joo Wallace IV, MD; Location: [facility]; Service: Gastroenterology; Laterality: N/A; ESOPHAGOGASTRODUODENOSCOPY N/A 01/19/2019 Procedure: ESOPHAGOGASTRODUODENOSCOPY; Surgeon: Joo Wallace IV, MD; Location: [facility]; Service: Gastroenterology; Laterality: N/A; HYSTERECTOMY PELVIC FRACTURE [...] Follow up: Joo Wallace IV, MD [address] [facility] [address] [facility] [address] In 3 weeks Desiree Patricio MD [address] [facility] [address] In 2 weeks Medication List START [...] to ols on Smokefree.gov or by calling [phone] ([phone]). Date Last Reviewed: 06/02/201719991570-7629 [employer]. [address] [place] [address], [place] [address]. All righ ts reserved. This information is not intended as a substitute for professional medical care. Always follow your healthcare professional's instructions. 1. Please make a follow-up appointment with Dr. Wallace in approximately 3 weeks, you will r equire a repeat EGD 2. Please have blood work drawn at [facility] (CBC, CMP) in approximately 2 weeks prior to follo wing up with your primary care physician and Dr. Wallace 3. If you develop weakness, swelling, blood loss, return back to the emergency department 4. Follow-up with your didactic instructor at [place] Cirrhosis The liver is found on the [...] for people with liver disease, braulio ct: [employer],www.liverfoundation.org,420.377.3223 [employer],www.hepfi.org,925.278.4472 When to seek medical advice Call your healthcare provider right away if you haveany of the following: Rapid weight gain with increased size of your belly (abdomen) or leg swelling Yellow color of your skin or eyes (jaundice) gets worse Excess bleeding from cuts or injuries Date Last Reviewed: 01/31/201719996061-9722 [employer]. [address] [place] [address], [place] [address]. All righ ts reserved. This information is not intended as a substitute for professional medical care. Always follow your healthcare professional's instructions. The following attachments cannot be sent through Care Everywhere.Smoking,Tips for Quittin g (Cardiovascular) (Taiwanese)Ciprofloxacin tablets (Taiwanese)Iron tablets, capsules, extended- release tablets (Taiwanese)Furosemide tablets (Taiwanese)Nadolol tablets (Taiwanese)Pantoprazole t ablets (Taiwanese)in this encounter Medications at Time of Discharge [...] may be different fr om the original. [facility]: Gastroenterology Consult Progress Note Hospital Day: LOS: 4 days SUBJECTIVE Patient Summary: Chris summers 58 y.o.female Patient with known history of [...] and presented for evaluation. [facility] [...] of alcohol associated cirrhosis in 2014 in [place]. She was hosp italized there but does [...] [place]. She is planning on following in [place]. 4. Complete 7 days of antibiotics for SBP prophylaxis. 5. Continue diuretics and lactulose. 6. Ok for discharge from GI standpoint. Mayda Smart PA-C [facility] Gastroenterology 01/21/2019 Associated attestation - Joo Wallace IV, MD - 01/21/2019 11:08 PM PDT GASTROENTEROLOGY ATTENDING ATTESTATION The advanced practice provider made rounds on this patient. I did not formally evaluate pat ient in person today. We discussed the case and I agree with the assessment and plan as wri ttharper. Mayda Smart PA - 01/20/2019 8:56 AM PDTFormatting of this note may be different fr om the original. [facility]: Gastroenterology Consult Progress Note Hospital Day: [...] and presented for evaluation. She presented [facility] where she was started [...] of alcohol associated cirrhosis in 2014 in [place]. She was hosp italized there but does [...] to medications. Plans to follow up in [place]. Scheduled Medications cefTRIAXone 1 g Intravenous Q24H [...] Date INR 1.1 01/18/2019 INR 1.1 01/17/2019 [facility] Patient Name: Chris Donaldson Procedure Date: [...] 01/19/2019 2:41 PM Number of Addenda: 0 [facility] Endoscopy Services PROBLEM LIST Principal Problem: [...] from GI standpoint tomorrow. Mayda Smart PA-C [facility] Gastroenterology 01/20/2019 Associated attestation - Joo Wallace IV, MD - 01/20/2019 9:40 PM [facility] GASTROENTEROLOGY ATTENDING ATTESTATION The advanced practice provider made rounds on this patient. I did not formally evaluate pat ient in person today. We discussed the case and I agree with the assessment and plan as lilly mishra. Diogenes Dean MD - 01/20/2019 8:12 AM [facility] Service: Hospitalist Progress Note Hospital Day: LOS: 3 days Post-Op Day: 1 Day Post-Op Procedure: Procedure(s) (LRB): ESOPHAGOGASTRODUODENOSCOPY (N/A) Briefly, 58-year-old female with an extensive past medical history of compensated alcoholic cirrhosis (diagnosed 2014), type 2 diabetes mellitus and other chronic comorbidities who presented to [facility] ER on 01/17 for hematemesis and [...] Ej Mcnulty MD - 01/19/2019 7:30 AM [facility] Service: Hospitalist Progress Note Hospital Day: LOS: 2 days Post-Op Day: 1 Day Post-Op Procedure: Procedure(s) (LRB): ESOPHAGOGASTRODUODENOSCOPY (N/A) Briefly, 58-year-old female with an extensive past medical history of compensated alcoholic cirrhosis (diagnosed 2014), type 2 diabetes mellitus and other chronic comorbidities who presented to [facility] ER on 01/17 for hematemesis and [...] Mckeon RN - 01/19/2019 12:32 AM PDTDr. Cyrus was notified that pt had an episo de of dark black stool, h&h ordered. At bedside with SN for all assessment, medication admin istration and charting. Report given to oncoming RN for transition of care. Joo Lowe IV, MD - 01/18/2019 3:13 PM PDTFormatting of this note may be different f rom the original. [facility] Gastroenterology Service Inpatient Consult Follow Up Note [...] and presented for evaluation. She presented to [facility] emergency department where she was started [...] a diagnosis of alcohol associated cirrhosis in 2015 in [place]. She was hosp italized there but does [...] dextrose octreotide (sandoSTATIN) infusion 50 mcg/hr (01/18/19 0514) pantoprazole 8 mg/hr (01/18/19 1454) sodium chloride [...] followed by GI which can be in [place] once current acute episode settles. Needs hepatoma screening and other issues discussed. Ultrasound here in the hospital fortunately shows no mass lesions in the liver. Ascites Apparently on diuretics but does not have her list currently. Needs SBP (spontaneous bacterial peritonitis) prophylaxis due to the acute bleed and alread y given dose of ceftriaxone when in [facility]. No evidence of ascites on current ultrasound. [...] procedure under sedation/anesthesia. Pily Wallace IV, M.D. [facility] Gastroenterology 01/18/2019 This note was dictated using Sponduu voice recognition software. Document was reviewed at ti me of dictation but [id number] errors may be present. Please call with any questions or c larifications. Ej Mcnulty MD - 01/18/2019 10:05 AM [facility] Service: Hospitalist Progress Note Hospital Day: LOS: 1 day Post-Op Day: 1 Day Post-Op Procedure: Procedure(s) (LRB): ESOPHAGOGASTRODUODENOSCOPY (N/A) Briefly, 58-year-old female with an extensive past medical history of compensated alcoholic cirrhosis (diagnosed 2014), type 2 diabetes mellitus and other chronic comorbidities who presented to [facility] ER on 01/17 for hematemesis and [...] Prior Ej Mcnulty MD 01/18/2019 Brenton Morales, [facility] - 01/17/2019 8:44 PM PDTRenal Dosing Monitoring: S: Renal dose monitoring per protocol. O: Estimated Creatinine Clearance: 42.7 mL/min (A) (by C-G formula based on SCr of 1.24 mg/ dL (H)). I/O (mL): -/- Dialysis?: no A: No adjustments needed at this time. P: Pharmacy will continue monitoring patient for appropriate dosing based on renal functio n. Pharmacist: Brenton Morales, PharmD in this encounter Plan of Treatment [...] | + +--------+ + + + | Sapheneia CARD PANEL W/O | STAT | 01/17/2019 [...] Testing | 65 - 99 mg/dL | [facility] | | | performed at [facility];[address] | | | | | [address];[place] | | | | | [address] | | | + + + + + + + + + + | Performing | Address | City/State/Zipcode | Phone Number | | Organization | | | | + + + + + | [facility] | [address] | [place] [address] | | + + + + + [...] | | | | | performed at [facility], [address] | | | | | [facility], | | | | | [place] [address] | | | + + + + + + + | Specimen | + + | Blood | + + + + + + + | Performing | Address | City/State/Zipcode | Phone Number | | Organization | | | | + + + + + | [facility] | [address] | [place] [address] | [phone] | | LABORATORY | [address] | | | + + + + + CBC do/jitendra Martines (01/21/2019 4:47 AM) + + + + + | Component | Value | Ref Range | Performed At | + + + + + | WBC | 14.95 (H) | 3.80 - 11.00 K/uL | [facility] | + + + + + | RBC | 2.16 (L) | 3.70 - 5.10 M/uL | [facility] | + + + + + | HGB | 7.3 (L) | 11.3 - 15.5 g/dL | [facility] | + + + + + | HCT | 22.5 (L) | 34.0 - 46.0 % | [facility] | + + + + + | MCV | 103.9 (H) | 80.0 - 100.0 fl | [facility] | + + + + + | MCH | 33.9 | 27.0 - 34.0 pg | [facility] | + + + + + | MCHC | 32.6 | 32.0 - 35.5 g/dL | [facility] | + + + + + | RDW SD | 51.6 | 37 - 53 fl | [facility] | + + + + + | PLT | 190 | 150 - 400 K/uL | [facility] | + + + + + | MPV | 10.3Comment: Testing | fl | [facility] | | | performed at [facility];[address] | | | | | [address];[place] | | | | | [address] | | | + + + + + + + + + + | Performing | Address | City/State/Zipcode | Phone Number | | Organization | | | | + + + + + | [facility] | [address] | [facility] [place] [address] | | + + + + + POCT glucose (01/20/2019 9:38 PM) + + + + + | Component | Value | Ref Range | Performed At | + + + + + | GLUCOSE,POC SCREEN | 162 (H)Comment: Testing | 65 - 99 mg/dL | [facility] | | | performed at [facility];[address] | | | | | [address];[place] | | | | | [address] | | | + + + + + + + + + + | Performing | Address | City/State/Zipcode | Phone Number | | Organization | | | | + + + + + | [facility] | [address] | [place] [address] | | + + + + + POCT glucose (01/20/2019 4:22 PM) + + + + + | Component | Value | Ref Range | Performed At | + + + + + | GLUCOSE,POC SCREEN | 188 (H)Comment: Testing | 65 - 99 mg/dL | [facility] | | | performed at [facility];[address] | | | | | [address];[place] | | | | | [address] | | | + + + + + + + + + + | Performing | Address | City/State/Zipcode | Phone Number | | Organization | | | | + + + + + | [facility] | [address] | [place] [address] | | + + + + + POCT glucose (01/20/2019 11:23 AM) + + + + + | Component | Value | Ref Range | Performed At | + + + + + | GLUCOSE,POC SCREEN | 131 (H)Comment: Testing | 65 - 99 mg/dL | [facility] | | | performed at [facility];[address] | | | | | [address];[place] | | | | | [address] | | | + + + + + + + + + + | Performing | Address | City/State/Zipcode | Phone Number | | Organization | | | | + + + + + | [facility] | [address] | [place] [address] | | + + + + + POCT glucose (01/20/2019 5:59 AM) + + + + + | Component | Value | Ref Range | Performed At | + + + + + | GLUCOSE,POC SCREEN | 210 (H)Comment: Testing | 65 - 99 mg/dL | [facility] | | | performed at [facility];[address] | | | | | [address];[place] | | | | | [address] | | | + + + + + + + + + + | Performing | Address | City/State/Zipcode | Phone Number | | Organization | | | | + + + + + | [facility] | [address] | [place] [address] | | + + + + + [...] (L)Comment: GFR <60: | >60 mL/min/1.73m2 | [facility] | | | CHRONIC KIDNEY DISEASE, | [...] | | | | | performed at [facility], [address] | | | | | [facility], | | | | | [place] [address] | | | + + + + + + + + + + | Performing | Address | City/State/Zipcode | Phone Number | | Organization | | | | + + + + + | [facility] | [address] | [place] [address] | [phone] | | LABORATORY | [address] | | | + + + + + HGB and HCT (01/20/2019 4:23 AM) + + + + + | Component | Value | Ref Range | Performed At | + + + + + | HGB | 7.3 (L) | 11.3 - 15.5 g/dL | [facility] | + + + + + | HCT | 22.2 (L)Comment: Testing | 34.0 - 46.0 % | [facility] | | | performed at [facility];[address] | | | | | [address];[place] | | | | | [address] | | | + + + + + + + + + + | Performing | Address | City/State/Zipcode | Phone Number | | Organization | | | | + + + + + | [facility] | [address] | [place] [address] | | + + + + + POCT glucose (01/19/2019 9:54 PM) + + + + + | Component | Value | Ref Range | Performed At | + + + + + | GLUCOSE,POC SCREEN | 193 (H)Comment: Testing | 65 - 99 mg/dL | [facility] | | | performed at [facility];[address] | | | | | [address];[place], [place] | | | | | [address] | | | + + + + + + + + + + | Performing | Address | City/State/Zipcode | Phone Number | | Organization | | | | + + + + + | [facility] | [address] | [place] [address] | | + + + + + HGB and HCT (01/19/2019 9:34 PM) + + + + + | Component | Value | Ref Range | Performed At | + + + + + | HGB | 7.0 (L) | 11.3 - 15.5 g/dL | [facility] | + + + + + | HCT | 21.7 (L)Comment: Testing | 34.0 - 46.0 % | [facility] | | | performed at [facility];[address] | | | | [address];[place] | | | | | [address] | | | + + + + + + + + + + | Performing | Address | City/State/Zipcode | Phone Number | | Organization | | | | + + + + + | [facility] | [address] | [place] [address] | | + + + + + US kidneys and bladder (01/19/2019 6:01 PM) + + + | Impressions | Performed At | + + + | 1. No evidence of renal stone, mass, hydronephrosis. 2. Postvoid | [facility] | | bladder volume = 24 cc Signed by: Mart Luna Dwane Sign | RADIOLOGY | | Date/Time: 01/19/2019 [...] + + + | [facility] | [address] | [place] [address] | | + + + + + UR urea nitro, random (01/19/2019 4:30 PM) + + + + + | Component | Value | Ref Range | Performed At | + + + + + | UR UREA NITRO,RANDOM | 369.0Comment: NO NORMAL | mg/dL | [facility] | | | RANGE ESTABLISHEDTesting | | LABORATORY | | | performed at [facility], [address] | | | | [address] [facility], | | | | | [place] [address] | | | + + + + + + + + + + | Performing | Address | City/State/Zipcode | Phone Number | | Organization | | | | + + + + + | [facility] | [address] | [place] [address] | [phone] | | LABORATORY | [address] | | [...] | | | | | [place] [address] | | | + + + + + + + | Specimen | + + | Urine - Urine, Clean | | Catch | + + + + + + + | Performing | Address | City/State/Zipcode | Phone Number | | Organization | | | | + + + + + | [facility] | [address] [place] [address] | [place] [address] | [phone] | | LABORATORY | [address] | | [...] | LABORATORY | | | performed at [facility], [address] | | | [address], | | | | | [place] [address] | | | + + + + + + + | Specimen | + + | Urine - Urine, Clean | | Catch | + + + + + + + | Performing | Address | City/State/Zipcode | Phone Number | | Organization | | | | + + + + + | [facility] | [address] | [place] [address] | [phone] | | LABORATORY | [place]. | | | + + + + + Urine eosinophils (01/19/2019 4:30 PM) + + + + + | Component | Value | Ref Range | Performed At | + + + + + | URINE EOSINOPHILS | NO EOSINOPHILS | <1 % | [facility] | | | SEENComment: Testing | | LABORATORY | | | performed at [facility], [address] | | | | | [address], | | | | | [place] [address] | | | + + + + + + + | Specimen | + + | Urine, Clean Catch | + + + + + + + | Performing | Address | City/State/Zipcode | Phone Number | | Organization | | | | + + + + + | [facility] | [address] | [place] [address] | [phone] | | LABORATORY | [address] | | | + + + + + HGB and HCT (01/19/2019 3:59 PM) + + + + + | Component | Value | Ref Range | Performed At | + + + + + | HGB | 7.9 (L) | 11.3 - 15.5 g/dL | [facility] | + + + + + | HCT | 24.4 (L)Comment: Testing | 34.0 - 46.0 % | [facility] | | | performed at [facility] | | | | | [address];[place] | | | | | [address] | | | + + + + + + + + + + | Performing | Address | City/State/Zipcode | Phone Number | | Organization | | | | + + + + + | [facility] | [address] | [facility] [place] [address] | | + + + + + PROCALCITONIN (01/19/2019 3:59 PM) + + + + + | Component | Value | Ref Range | Performed At | + + + + + | PROCALCITONIN | 0.08Comment: | <0.5 ng/mL | [facility] | | | INTERPRETIVE | [...] performed | | | | | at [facility];[address] | | | | | [place] [address] | | | + + + + + + + + + + | Performing | Address | City/State/Zipcode | Phone Number | | Organization | | | | + + + + + | [facility] | [address] | [facility] [place] [address] | | + + + + + POCT glucose (01/19/2019 3:36 PM) + + + + + | Component | Value | Ref Range | Performed At | + + + + + | GLUCOSE,POC SCREEN | 110 (H)Comment: Testing | 65 - 99 mg/dL | [facility] | | | performed at [facility];[address] | | | | | [address];[place] | | | | | [address] | | | + + + + + + + + + + | Performing | Address | City/State/Zipcode | Phone Number | | Organization | | | | + + + + + | [facility] | [address] | [place] [address] | | + + + + + EGD (01/19/2019 2:41 PM) + + + | Narrative | Performed At | + + + | [facility] | [facility] | | | PROVATION | | Patient Name: Chris Donaldson Procedure | | | Date: 01/19/2019 2:41 PM MRN: | | | [id number] Account | | | Number: [id number] Date of : | | | 1960 [...] | | | | | | Joo Astorga Wallace IV, | | | 01/19/2019 3:18:00 PM This report has been signed electronically. | | | Note Initiated On: 01/19/2019 2:41 PM Number of Addenda: 0 | | | [facility] Endoscopy Services | | + + [...] Testing | 65 - 99 mg/dL | [facility] | | | performed at [facility];[address] | | | | | [address];[place] | | | | | [address] | | | + + + + + + + + + + | Performing | Address | City/State/Zipcode | Phone Number | | Organization | | | | + + + + + | [facility] | [address] | [place] [address] | | + + + + + HGB and HCT (01/19/2019 10:34 AM) + + + + + | Component | Value | Ref Range | Performed At | + + + + + | HGB | 7.3 (L) | 11.3 - 15.5 g/dL | [facility] | + + + + + | HCT | 22.6 (L)Comment: Testing | 34.0 - 46.0 % | [facility] | | | performed at [facility];[address] | | | | | [address];[place], [place] | | | | | [address] | | | + + + + + + + + + + | Performing | Address | City/State/Zipcode | Phone Number | | Organization | | | | + + + + + | [facility] | [address] | [place] [address] | | + + + + + Pathologist consult (01/19/2019 6:28 AM) + + + + + | Component | Value | Ref Range | Performed At | + + + + + | Pathologist Consult | Comment: Review of CBC | | [facility] | | | collected 01/19/2019. [...] | | | | | performed at [facility];[address] | | | | | [address];[place] | | | | | [address] | | | + + + + + + + + + + | Performing | Address | City/State/Zipcode | Phone Number | | Organization | | | | + + + + + | [facility] | [address] [address] | [place] [address] | | + + + + + CBC w/auto diff (reflex to manual) (01/19/2019 6:28 AM) + + + + + | Component | Value | Ref Range | Performed At | + + + + + | WBC | 15.44 (H) | 3.80 - 11.00 K/uL | [facility] | + + + + + | RBC | 2.22 (L) | 3.70 - 5.10 M/uL | [facility] | + + + + + | HGB | 7.6 (L) | 11.3 - 15.5 g/dL | [facility] | + + + + + | HCT | 23.0 (L) | 34.0 - 46.0 % | [facility] | + + + + + [...] 50.8 | 37 - 53 fl | [facility] | + + [...] | BASOPHILS | 1.17 | % | [facility] | + [...] 0.26 | 0.00 - 0.50 K/uL | [facility] | + + + + + | BASOPHILS ABS | 0.18 (H)Comment: Testing | 0.00 - 0.10 K/uL | [facility] | | | performed at [facility] | | | | | [address];[place], [place] | | | | | [address] | | | + + + + + + + | Specimen | + + | Blood | + + + + + + + | Performing | Address | City/State/Zipcode | Phone Number | | Organization | | | | + + + + + | [facility] | [address] | [place] [address] | | + + + + + POCT glucose (01/19/2019 5:32 AM) + + + + + | Component | Value | Ref Range | Performed At | + + + + + | GLUCOSE,POC SCREEN | 123 (H)Comment: Testing | 65 - 99 mg/dL | [facility] | | | performed at [facility];[address] | | | | | [facility] [facility];[place] | | | | | [address] | | | + + + + + + + + + + | Performing | Address | City/State/Zipcode | Phone Number | | Organization | | | | + + + + + | [facility] | [address] | [place] [address] | | + + + + + [...] (L)Comment: GFR <60: | >60 mL/min/1.73m2 | [facility] | | | CHRONIC KIDNEY DISEASE, | [...] | | | | | performed at [facility], [address] | | | | | [facility], | | | | | [place] [address] | | | + + + + + + + | Specimen | + + | Blood | + + + + + + + | Performing | Address | City/State/Zipcode | Phone Number | | Organization | | | | + + + + + | [facility] | [address] | [place] [address] | [phone] | | LABORATORY | [address] | | | + + + + + HGB and HCT (01/18/2019 10:22 PM) + + + + + | Component | Value | Ref Range | Performed At | + + + + + | HGB | 7.4 (L) | 11.3 - 15.5 g/dL | [facility] | + + + + + | HCT | 22.7 (L)Comment: Testing | 34.0 - 46.0 % | [facility] | | | performed at [facility];[address] | | | | | [address];[place] | | | | | [address] | | | + + + + + + + + + + | Performing | Address | City/State/Zipcode | Phone Number | | Organization | | | | + + + + + | [facility] | [address] | [place] [address] | | + + + + + POCT glucose (01/18/2019 9:31 PM) + + + + + | Component | Value | Ref Range | Performed At | + + + + + | GLUCOSE,POC SCREEN | 288 (H)Comment: Testing | 65 - 99 mg/dL | [facility] | | | performed at [facility];[address] | | | | | [address];[place] | | | | | [address] | | | + + + + + + + + + + | Performing | Address | City/State/Zipcode | Phone Number | | Organization | | | | + + + + + | [facility] | [address] | [place] [address] | | + + + + + HGB and HCT (01/18/2019 4:17 PM) + + + + + | Component | Value | Ref Range | Performed At | + + + + + | HGB | 8.2 (L) | 11.3 - 15.5 g/dL | [facility] | + + + + + | HCT | 25.1 (L)Comment: Testing | 34.0 - 46.0 % | [facility] | | | performed at [facility];[address] | | | | | [address];[place] | | | | | [address] | | | + + + + + + + + + + | Performing | Address | City/State/Zipcode | Phone Number | | Organization | | | | + + + + + | [facility] | [address] | [place] [address] | | + + + + + POCT glucose (01/18/2019 4:13 PM) + + + + + | Component | Value | Ref Range | Performed At | + + + + + | GLUCOSE,POC SCREEN | 126 (H)Comment: Testing | 65 - 99 mg/dL | [facility] | | | performed at [facility];[address] | | | | | [address];[place] | | | | | [address] | | | + + + + + + + + + + | Performing | Address | City/State/Zipcode | Phone Number | | Organization | | | | + + + + + | [facility] | [address] | [place] [address] | | + + + + + [...] | + + + + + | [facility] | [address] | [place] [address] | | + + + + + POCT glucose (01/18/2019 11:05 AM) + + + + + | Component | Value | Ref Range | Performed At | + + + + + | GLUCOSE,POC SCREEN | 133 (H)Comment: Testing | 65 - 99 mg/dL | [facility] | | | performed at [facility];[address] | | | | | [address];[place] | | | | | [address] | | | + + + + + + + + + + | Performing | Address | City/State/Zipcode | Phone Number | | Organization | | | | + + + + + | [facility] | [address] | [place] [address] | | + + + + + HGB and HCT (01/18/2019 10:46 AM) + + + + + | Component | Value | Ref Range | Performed At | + + + + + | HGB | 8.4 (L) | 11.3 - 15.5 g/dL | [facility] | + + + + + | HCT | 25.4 (L)Comment: Testing | 34.0 - 46.0 % | [facility] | | | performed at [facility];[address] | | | | | [address];[place] | | | | | [address] | | | + + + + + + + + + + | Performing | Address | City/State/Zipcode | Phone Number | | Organization | | | | + + + + + | [facility] | [address] | [place] [address] | | + + + + + Ferritin (01/18/2019 10:46 AM) + + + + + | Component | Value | Ref Range | Performed At | + + + + + | FERRITIN | 87Comment: Testing | 6 - 170 ng/mL | [facility] | | | performed at [facility], [address] | | LABORATORY | | | [facility], | | | | | [place] [address] | | | + + + + + + + | Specimen | + + | Blood | + + + + + + + | Performing | Address | City/State/Zipcode | Phone Number | | Organization | | | | + + + + + | [facility] | [address] | [place] [address] | [phone] | | LABORATORY | [address] | | [...] | | | | | [place] [address] | | | + + + + + + + | Specimen | + + | Blood | + + + + + + + | Performing | Address | City/State/Zipcode | Phone Number | | Organization | | | | + + + + + | [facility] | [address] | [place] [address] | [phone] | | LABORATORY | [address] | | | + + + + + Reticulocyte count (01/18/2019 10:46 AM) + + + + + | Component | Value | Ref Range | Performed At | + + + + + | RETICULOCYTES | 2.9 (H)Comment: Testing | 0.4 - 2.7 % | [facility] | | | performed at [facility];[address] | | | | | [address] [facility];[place] | | | | | [address] | | | + + + + + + + | Specimen | + + | Blood | + + + + + + + | Performing | Address | City/State/Zipcode | Phone Number | | Organization | | | | + + + + + | [facility] | [address] | [place] [address] | | + + + + + Hemoglobin and hematocrit (01/18/2019 8:12 AM) + + + + + | Component | Value | Ref Range | Performed At | + + + + + | HGB | 8.3 (L) | 11.3 - 15.5 g/dL | [facility] | + + + + + | HCT | 25.3 (L)Comment: Testing | 34.0 - 46.0 % | [facility] | | | performed at [facility] | | | | | [address];[place], [place] | | | | | [address] | | | + + + + + + + + + + | Performing | Address | City/State/Zipcode | Phone Number | | Organization | | | | + + + + + | [facility] | [address] | [place] [address] | | + + + + + POCT glucose (01/18/2019 5:41 AM) + + + + + | Component | Value | Ref Range | Performed At | + + + + + | GLUCOSE,POC SCREEN | 140 (H)Comment: Testing | 65 - 99 mg/dL | [facility] | | | performed at [facility];[address] | | | | | [address];[place] | | | | | [address] | | | + + + + + + + + + + | Performing | Address | City/State/Zipcode | Phone Number | | Organization | | | | + + + + + | [facility] | [address] | [place] [address] | | + + + + + [...] | | | | | performed at [facility], [address] | | | | | [facility], | | | | | [place] [address] | | | + + + + + + + | Specimen | + + | Blood | + + + + + + + | Performing | Address | City/State/Zipcode | Phone Number | | Organization | | | | + + + + + | [facility] | [address] | [place] [address] | [phone] | | LABORATORY | [address] | | | + + + + + Hemoglobin A1c (01/18/2019 5:06 AM) + + + + + | Component | Value | Ref Range | Performed At | + + + + + | HEMOGLOBIN A1C | 6.0Comment: HbA1c method | 4.0 - 6.0 % | [facility] | | | is certified by [facility] | | LABORATORY | | | and [...] | | | | | performed at [facility], [address] | | | | | [facility], | | | | | [place] [address] | | | + + + + + + + | Specimen | + + | Blood | + + + + + + + | Performing | Address | City/State/Zipcode | Phone Number | | Organization | | | | + + + + + | [facility] | [address] | [place] [address] | [phone] | | LABORATORY | [place] | | | + + + + + Protime-INR (01/18/2019 5:06 AM) + + + + + | Component | Value | Ref Range | Performed At | + + + + + | INR | 1.1Comment: REFERENCE | | [facility] | | | RANGE:0.9 - [...] | | | | | performed at [facility] | | | | | [address];[place], [place] | | | | | [address] | | | + + + + + + + | Specimen | + + | Blood | + + + + + + + | Performing | Address | City/State/Zipcode | Phone Number | | Organization | | | | + + + + + | [facility] | [address] | [place] [address] | | + + + + + aPTT (01/18/2019 5:06 AM) + + + + + | Component | Value | Ref Range | Performed At | + + + + + | APTT | 25Comment: Testing | 23 - 32 seconds | [facility] | | | performed at [facility];[address] | | | | | [address];[place] | | | | | [address] | | | + + + + + + + | Specimen | + + | Blood | + + + + + + + | Performing | Address | City/State/Zipcode | Phone Number | | Organization | | | | + + + + + | [facility] | [address] | [place] [address] | | + + + + + Phosphorus (01/18/2019 5:06 AM) + + + + + | Component | Value | Ref Range | Performed At | + + + + + | PHOSPHORUS | 3.8Comment: Testing | 2.3 - 4.8 mg/dL | [facility] | | | performed at [facility], [address] | | LABORATORY | | | [address], | | | | | [place] [address] | | | + + + + + + + | Specimen | + + | Blood | + + + + + + + | Performing | Address | City/State/Zipcode | Phone Number | | Organization | | | | + + + + + | [facility] | [address] | [place] [address] | [phone] | | LABORATORY | [address] | | | + + + + + Magnesium (01/18/2019 5:06 AM) + + + + + | Component | Value | Ref Range | Performed At | + + + + + | MAGNESIUM | 1.9Comment: Testing | 1.7 - 2.4 mg/dL | [facility] | | | performed at [facility], [address] | | LABORATORY | | | [facility] [address], | | | | | [place] [address] | | | + + + + + + + | Specimen | + + | Blood | + + + + + + + | Performing | Address | City/State/Zipcode | Phone Number | | Organization | | | | + + + + + | [facility] | [address] | [place] [address] | [phone] | | LABORATORY | [address] | | | + + + + + CBC w/auto diff (reflex to manual) (01/18/2019 5:06 AM) + + + + + | Component | Value | Ref Range | Performed At | + + + + + | WBC | 16.46 (H) | 3.80 - 11.00 K/uL | [facility] | + + + + + | RBC | 2.39 (L) | 3.70 - 5.10 M/uL | [facility] | + + + + + | HGB | 7.9 (L) | 11.3 - 15.5 g/dL | [facility] | + + + + + | HCT | 24.0 (L) | 34.0 - 46.0 % | [facility] | + + + + + | MCV | 100.3 (H) | 80.0 - 100.0 fl | [facility] | + + + + + | MCH | 33.1 | 27.0 - 34.0 pg | [facility] | + + + + + | MCHC | 33.0 | 32.0 - 35.5 g/dL | [facility] | + + + + + | RDW SD | 49.4 | 37 - 53 fl | [facility] | + + + + + | PLT | 180 | 150 - 400 K/uL | [facility] | + + + + + | MPV | 8.9 | fl | [facility] | + + + + + | DIFF TYPE | AUTOMATED | | [facility] | + + + + + | NEUTROPHILS | 56.76 | % | [facility] | + + + + + | LYMPHOCYTES | 29.82 | % | [facility] | + + + + + | MONOCYTES | 11.26 | % | [facility] | + + + + + | EOSINOPHILS | 1.21 | % | [facility] | + + + + + | BASOPHILS | 0.95 | % | [facility] | + + + + + | NEUTROPHILS ABS | 9.35 (H) | 1.90 - 7.40 K/uL | [facility] | + + + + + | LYMPHOCYTES ABS | 4.91 (H) | 1.00 - 3.90 K/uL | [facility] | + + + + + | MONOCYTES ABS | 1.85 (H) | 0.00 - 0.80 K/uL | [facility] | + + + + + | EOSINOPHILS ABS | 0.20 | 0.00 - 0.50 K/uL | [facility] | + + + + + | BASOPHILS ABS | 0.16 (H)Comment: Testing | 0.00 - 0.10 K/uL | [facility] | | | performed at [facility] | | | | | [address] [facility];[place], [place] | | | | | [address] | | | + + + + + + + | Specimen | + + | Blood | + + + + + + + | Performing | Address | City/State/Zipcode | Phone Number | | Organization | | | | + + + + + | [facility] | [address] | [place] [address] | | + + + + + Hemoglobin and hematocrit (01/17/2019 11:52 PM) + + + + + | Component | Value | Ref Range | Performed At | + + + + + | HGB | 8.2 (L) | 11.3 - 15.5 g/dL | [facility] | + + + + + | HCT | 25.0 (L)Comment: Testing | 34.0 - 46.0 % | [facility] | | | performed at [facility];[address] | | | | | [address];[place] | | | | | [address] | | | + + + + + + + + + + | Performing | Address | City/State/Zipcode | Phone Number | | Organization | | | | + + + + + | [facility] | [address] | [place] [address] | | + + + + + POCT glucose (01/17/2019 10:15 PM) + + + + + | Component | Value | Ref Range | Performed At | + + + + + | GLUCOSE,POC SCREEN | 135 (H)Comment: Testing | 65 - 99 mg/dL | [facility] | | | performed at [facility];[address] | | | | | [address];[place] | | | | | [address] | | | + + + + + + + + + + | Performing | Address | City/State/Zipcode | Phone Number | | Organization | | | | + + + + + | [facility] | [address] | [place] [address] | | + + + + + POCT glucose (01/17/2019 7:47 PM) + + + + + | Component | Value | Ref Range | Performed At | + + + + + | GLUCOSE,POC SCREEN | 158 (H)Comment: Testing | 65 - 99 mg/dL | [facility] | | | performed at [facility];[address] | | | | | [address];[place], [place] | | | | | [address] | | | + + + + + + + + + + | Performing | Address | City/State/Zipcode | Phone Number | | Organization | | | | + + + + + | [facility] | [address] | [place] [address] | | + + + + + IMELDA (01/17/2019 6:29 PM) + + + | Narrative | Performed At | + + + | [facility] | [facility] | | | PROVATION | | Patient Name: Chris Donaldson Procedure | | | Date: 01/17/2019 6:29 PM MRN: | | | [id number] Account | | | Number: [id number] Date of : | | | 1960 [...] Number of Addenda: 0 | | | [facility] | | + + [...] (L) | 11.3 - 15.5 g/dL | [facility] | + + + + + | HCT | 25.4 (L)Comment: Testing | 34.0 - 46.0 % | [facility] | | | performed at [facility];[address] | | | | | [address];[place] | | | | | [address] | | | + + + + + + + + + + | Performing | Address | City/State/Zipcode | Phone Number | | Organization | | | | + + + + + | [facility] | [address] | [place] [address] | | + + + + + Potassium (01/17/2019 5:33 PM) + + + + + | Component | Value | Ref Range | Performed At | + + + + + | POTASSIUM | 4.3Comment: Testing | 3.5 - 4.9 mmol/L | [facility] | | | performed at [facility] | | | | | [facility];[place], [place] | | | | | [address] | | | + + + + + + + | Specimen | + + | Blood | + + + + + + + | Performing | Address | City/State/Zipcode | Phone Number | | Organization | | | | + + + + + | [facility] | [address] | [place] [address] | | + + + + + EKG 12 LEAD UNIT PERFORMED (01/17/2019 5:18 PM) + + + + + | Component | Value | Ref Range | Performed At | + + + + + | Ventricular Rate | 88 | BPM | [facility] | + + + + + | Atrial Rate | 88 | BPM | [facility] | + + + + [...] + + + + | Calculated P [place] | 56 | degrees | [facility] | + + + + + | Calculated R [place] | -35 | degrees | [facility] | + + + + + | Calculated T [place] | 46 | degrees | [facility] | + + + + + | Diagnosis | Normal sinus rhythmLeft | | [facility] | | | axis deviationCannot [...] | | | | | ONLY, -COMPUTER (386), | | | | | graphic editor Guillermo Eldridge | | | | | (132) on 01/18/2019 | | | | | 4:28:07 PM | | | + + + + + + + + + + | Performing | Address | City/State/Zipcode | Phone Number | | Organization | | | | + + + + + | [facility] | [address] | [place] [address] | | + + + + + POCT glucose (01/17/2019 5:11 PM) + + + + + | Component | Value | Ref Range | Performed At | + + + + + | GLUCOSE,POC SCREEN | 186 (H)Comment: Testing | 65 - 99 mg/dL | [facility] | | | performed at [facility];[address] | | | | | [facility];[place] | | | | | [address] | | | + + + + + + + + + + | Performing | Address | City/State/Zipcode | Phone Number | | Organization | | | | + + + + + | [facility] | [address] | [place] [address] | | + + + + + ED INFORMATION EXCHANGE (01/17/2019 3:32 PM) + + + | Narrative | Performed At | + + + | [id number] Criteria Met 2 in 2 | ED [...] Count (12 mo.) Facility Visits Low Acuity [facility] | | | [facility] 1 0 [facility] 2 0 Total 3 0 | | | Note: Visits indicate total known visits. Medicaid Low Acuity Dx | | | are the number of primary diagnoses on the Medicaid's Low Acuity dx | | | list. Recent Emergency Department Visit Summary Date Facility | | | [facility] State Type Diagnoses or Chief Complaint January 17, 2019 [facility] | | | [facility] Emergency GI Bleeding Referral | | | Gastrointestinal hemorrhage, unspecified Personal | | | history of other diseases of the digestive system January 17, 2019 | | | [facility] [place] Emergency Chief Complaint: VOMITING | | | BLOOD January 24, 2018 [facility] 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 Care Providers | | | Provider PRC Type Phone Fax Service Dates DESIREE PATRICIO MD | | | Family Medicine Current [employer] Portal This patient | | | has registered at the [facility] | | | Department For more information visit: | | | [email or web address] | | | [email or web address] PLEASE NOTE: 1. Any care recommendations and [...] | | | completeness of information provided. 2018 Dheere Bolo | | | [email or web address] - [email or web address] | | + + + + + | Procedure Note | + + | Interface, Lab - 01/17/2019 3:34 PM PDT Formatting of this note may be different | | from the original.[id number] Met 2 in 2Security and | | SafetyNo recent Security Events currently on fileED Care GuidelinesThere are currently | | no ED Care Guidelines for this patient. Please check your facility's medical records | | system.Prescription Drug Report (12 Mo.)PDMP query found no report.E.D. Visit Count (12 | | mo.)Facility Visits Low Acuity [facility] [address] [facility] | | Hospital 2 0 Total 3 0 Note: Visits indicate total known visits. Medicaid Low Acuity Dx | | are the number of primary diagnoses on the Medicaid's Low Acuity dx list. Recent | | Emergency Department Visit SummaryDate Facility City State Type Diagnoses or Chief | | [facility] [place] [facility] | | Referral Gastrointestinal hemorrhage, unspecified Personal history of other | | diseases of the digestive system January 17, 2019 [facility] [place] Emergency | | Chief Complaint: VOMITING BLOOD January 24, 2018 [facility] 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 Care ProvidersProvider [facility] Type Phone Fax Service Dates | | DESIREE PATRICIO MD Family Medicine Current Collective PortalThis patient has | | registered at the [facility] Emergency Department For more | | information visit: | | [email or web address] PLEASE | | NOTE: 1. Any care [...] accuracy or completeness of information | | provided.2018 [email or web address] | | Referral | | Gastrointestinal hemorrhage, unspecified | | Personal history of other diseases of the digestive system | | | |January 17, 2019 [facility] [place] Emergency Chief Complaint: VOMITING BLOOD | |January 24, 2018 [facility] [place] Emergency | | Unspecified abdominal pain | | Other detention (current) drug therapy | | Unspecified cirrhosis [...] MD Family Medicine Current | | | |[employer] Portal | |This patient has registered at the [facility] Emergency Department | |For more information visit: [email or web address] | |PLEASE NOTE: | | 1. Any [...] of information provided. | | | |2019 [facility] | + + + +---------+ + + [...] | ABO/RH(D) | O POSITIVE | | [facility] | + + + + + | ANTIBODY SCREEN | NEGATIVE | | [facility] | + + + + + | ARM BAND NUMBER | [id number] | | [facility] | + + + + + | UNIT NUMBER | [id number] | | [facility] | + + + + + | BLOOD COMPONENT TYPE | LEUKODEPLETED PC | | [facility] | + + + + + | UNIT DIVISION | 00 | | [facility] | + + + + + | STATUS OF UNIT | REL FROM ALLOC | | [facility] | + + + + + | TRANSFUSION STATUS | OK TO TRANSFUSE | | [facility] | + + + + + | CROSSMATCH RESULT | COMPATIBLE | | [facility] | + + + + + | UNIT NUMBER | [id number] | | [facility] | + + + + + | BLOOD COMPONENT TYPE | LEUKODEPLETED PC | | [facility] | + + + + + | UNIT DIVISION | 00 | | [facility] | + + + + + | STATUS OF UNIT | REL FROM ALLOC | | [facility] | + + + + + | TRANSFUSION STATUS | OK TO TRANSFUSE | | [facility] | + + + + + | CROSSMATCH RESULT | COMPATIBLE | | [facility] | + + + + + | UNIT NUMBER | [id number] | | [facility] | + + + + + | BLOOD COMPONENT TYPE | LEUKODEPLETED PC | | [facility] | + + + + + | UNIT DIVISION | 00 | | [facility] | + + + + + | STATUS OF UNIT | REL FROM ALLOC | | [facility] | + + + + + | TRANSFUSION STATUS | OK TO TRANSFUSE | | [facility] | + + + + + | CROSSMATCH RESULT | COMPATIBLETesting | | [facility] | | | performed at [facility];[address] | | | | | [address];[place] | | | | | [address] | | | + + + + + | UNIT NUMBER | [id number] | | [facility] | + + + + + | BLOOD COMPONENT TYPE | LEUKODEPLETED PC | | [facility] | + + + + + | UNIT DIVISION | 00 | | [facility] | + + + + + | STATUS OF UNIT | REL FROM ALLOC | | [facility] | + + + + + | TRANSFUSION STATUS | OK TO TRANSFUSE | | [facility] | + + + + + | CROSSMATCH RESULT | COMPATIBLE | | [facility] | + + + + + | UNIT NUMBER | [id number] | | [facility] | + + + + + | BLOOD COMPONENT TYPE | LEUKODEPLETED PC,B | | [facility] | + + + + + | UNIT DIVISION | 00 | | [facility] | + + + + + | STATUS OF UNIT | REL FROM ALLOC | | [facility] | + + + + + | TRANSFUSION STATUS | OK TO TRANSFUSE | | [facility] | + + + + + | CROSSMATCH RESULT | COMPATIBLE | | [facility] | + + + + + + + | Specimen | + + | Blood | + + + + + + + | Performing | Address | City/State/Zipcode | Phone Number | | Organization | | | | + + + + + | [facility] | [address] | [place] [address] | | + + + + + Cardiac Panel (01/17/2019 2:05 PM) + + + + + | Component | Value | Ref Range | Performed At | + + + + + | WBC | 18.40 (H) | 3.80 - 11.00 K/uL | [facility] | + + + + + | RBC | 2.89 (L) | 3.70 - 5.10 M/uL | [facility] | + + + + + | HGB | 9.7 (L) | 11.3 - 15.5 g/dL | [facility] | + + + + + [...] 47.7 | 37 - 53 fl | [facility] | + + + + + | PLT | 219 | 150 - 400 K/uL | [facility] [...] 0.03 | 0.00 - 0.10 K/uL | [facility] | + + + + + | SODIUM | 139 | 135 - 145 mmol/L | [facility] | + + [...] (H) | 8 - 25 mg/dL | [facility] | + + + + + | CREATININE | 1.24 (H) | 0.50 - 1.00 mg/dL | [facility] | + + + + + | BUN/CREAT | 33 | | [facility] | + + + + + | CALCIUM | 7.7 (L) | 8.5 - 10.5 mg/dL | [facility] | + + + + + | TOTAL PROTEIN | 5.8 (L) | 6.3 - 8.2 g/dL | [facility] | + + + + + | Albumin | 3.6 | 3.6 - 5.0 g/dL | [facility] | + + + + + | GLOBULIN | 2.2 | 1.3 - 4.9 g/dL | [facility] | + + + + + | A/G | 1.6 | 1.0 - 2.4 | [facility] | + + + + + | TBIL | 1.0 | 0.1 - 1.5 mg/dL | [facility] | + + + + + | ALK PHOS | 63 | 35 - 115 U/L | [facility] | + + + + + | AST | 41 | 10 - 45 U/L | [facility] | + + + + + | ALT | 28 | 10 - 65 U/L | [facility] | + + + + + | EGFR | 44 (L)Comment: GFR <60: | >60 mL/min/1.73m2 | [facility] | | | CHRONIC KIDNEY [...] the | | | | | MDRD [facility] traceable | | | | | equation. | | | + + + + + | CPK | 76 | 30 - 240 U/L | [facility] | + + + + + | INR | 1.1Comment: REFERENCE | | [facility] | | | RANGE:0.9 - [...] 24 | 23 - 32 seconds | [facility] | + + + + + | MMB | 2.2 | 0.5 - 3.6 ng/mL | [facility] | + + + + + | CK-MB Index | 2.9Comment: CK INDEX | | [facility] | | | INTERPRETATION: | [...] | | | | | performed at [facility];[address] | | | | | [address];[place] | | | | | [address] | | | + + + + + + + + + + | Performing | Address | City/State/Zipcode | Phone Number | | Organization | | | | + + + + + | [facility] | [address] | [facility] [place] [address] | | + + + + + in this encounter Visit Diagnoses + + | Diagnosis | + + | Hematemesis - Primary | + + | Upper GI bleeding | + + | Hemorrhage of gastrointestinal tract, unspecified | + + | History of cirrhosis of liver | + + | Personal history of other diseases of digestive system | + + | Leukocytosis, unspecified type | + + | Acute renal injury (HCC) | + + | Acute kidney failure, unspecified | + + | Anemia, unspecified type | + + | Hyperkalemia | + + | Hyperpotassemia | + + | Gastrointestinal hemorrhage with hematemesis | + + | Hematemesis with nausea | + + | Acute post-hemorrhagic anemia | + + | Acute posthemorrhagic anemia | + + | Alcoholic cirrhosis of liver with ascites (HCC) | + + | Alcoholic cirrhosis of liver | + + | Alcoholic cirrhosis of liver without ascites (HCC) | + + | Alcoholic cirrhosis of liver | + + | Portal hypertension (HCC) | + + | Portal hypertension | + + | Type 2 diabetes mellitus (HCC) | + + | Type II or unspecified type diabetes mellitus without mention of complication, not | | stated as uncontrolled | + + | Bandemia | + + | Fever, unspecified | + + | Smoker | + + | Tobacco use disorder | + + | Stage 2 chronic kidney disease | + + Admitting Diagnoses + + | Diagnosis | [...] +---+---+ | | | +---+---+ + +-------+ + +---+---+ | calcium gluconate 10 % | Given | | 1,000 mg | | | | injection 1,000 mg 1,000 mg (1 | | 9 17:12 | | | | | g), Intravenous, Once, Sat | | PDT | | | | | 01/17/19 at 1700, For 1 dose | | | | | | + +-------+ + +---+---+ +---+---+ | | | +---+---+ + +-------+ [...] +---+---+ | | | +---+---+ + +-------+ +------+---+---+ | dextrose 50 % solution 25 g 25 | Given | | 25 g | | | | g, Intravenous, Once, Sat | | 9 17:12 | | | | | 01/17/19 at 1700, For 1 dose | | PDT | | | | + +-------+ +------+---+---+ +---+---+ | | | +---+---+ + +-------+ [...] +---+---+ | | | +---+---+ + +-------+ +---------+---+---+ | insulin regular (HUMULIN R) | Given | | 5 Units | | | | injection 5 Units 5 Units, | | 9 17:12 | | | | | Intravenous, Once, 01/17/19 at | | PDT | | | | | 1700, For 1 dose | | | | | | + +-------+ +---------+---+---+ +---+---+ | | | +---+---+ + +-------+ +--------+-------+---+ | iron sucrose (VENOFER) 200 mg | Given | | 200 mg | 100 | | | in sodium chloride (IV) 0.9 % 100 | | 9 18:24 | | mL/hr | | | mL IVPB 200 mg, Intravenous, | | PDT | | | | | Administer over 60 Minutes, Once, | | | | | | | Sat01/19/19 at 1800, For 1 dose, | | | | | | | Each 100mg should infuse over 30 | | | | | | | minutes | | | | | | + +-------+ +--------+-------+---+ +---+---+ | | | +---+---+ + +-------+ [...] + +---------+ +---------+---+ + | nicotine (NICODERM ABA) 14 | Patch | | 1 patch [...] +---+ | | | + +---+ + + + +--------+-------+---+ | octreotide (sandoSTATIN) [...] PDT | | | | +---------+ +--------+-------+---+ + +---+ | | | + +---+ [...] +---+ | | | + +---+ + +---------+ +---------+ +---+ | pantoprazole (PROTONIX) [...] | | +---+---+ + +-------+ +-------+---+---+ | pantoprazole (PROTONIX) EC [...] +---+---+ | | | +---+---+ + +---------+ +---------+---+---+ | sodium chloride (bolus) 0.9 % | New Bag | | 500 mLs | | | | 500 mL 500 mL, Intravenous, | | 9 17:31 | | | | | Administer over 5 Minutes, Once, | | PDT | | | | | 01/17/19 at 1700, For 1 dose | | | | | | + +---------+ +---------+---+---+ +---+---+ | | | +---+---+ + + [...] +---+ +---+ +---+---+ | | | +---+---+ + [...]
--- OUTSIDE RECORDS SUMMARY | ~2019-01-24 | XMS | Clinical Summary ---
Demographics + + + | Address | [address] | | | [place] [address] | + + + | Home Phone | | + + + | Preferred Language | Unknown | + + + | Marital Status | Legally | + + + | Adventism Affiliation | Unknown | + + + | Race | Unknown | + + + | Ethnic Group | Unknown | + + + Author + + + | Author | [facility] | | | and [place] | + + + | Organization | [facility] | | | and [place] [...] Team Providers + +------+ + | Care Accounting Consultant Name | Role | Phone | [...] | 3 times daily. | | | 05/22 | | e | | | | | | 19 | | | + + + +---------+------+------+-------+ | ciprofloxacin | Take 250 mg by mouth | | 0 | 05/2 | /2 | Activ | | (CIPRO) 250 mg | 2 times daily. | | | 10/22 | 01/19 | e | | tablet | | | | 19 | 19 | | + + + +---------+------+------+-------+ | nadolol (CORGARD) | Take 20 mg by mouth | | 0 | 05/2 | 05/2 | Activ | | 20 MG tablet | Daily. | | | 10/22 | 09/21 | e | | | | | | 19 | 20 | | + + + +---------+------+------+-------+ | pantoprazole | Take 40 mg by mouth | | 0 | 05/2 | /2 | Activ | | (PROTONIX) 40 mg | 2 times daily. For | | | 2/20 | 20 | e | | tablet | 60 days | | | 19 | 19 | | + + + +---------+------+------+-------+ | ALPRAZolam (XANAX) | Take 0.5 mg by mouth | | 0 | | | Activ | | 0.5 mg tablet | 2 times daily. As | | | | | e | | | needed sleep | | | | | | + + + +---------+------+------+-------+ | oxyCODONE | Take 0.5 tablets by | 60 | 0 | 06/ | | Activ | | (ROXICODONE) 5 mg | mouth every 6 hours | tablet | | 6/20 | | e | | tablet | as needed for Pain. | | | 19 | | | + + + +---------+------+------+-------+ | erythromycin | Place into both | 3.5 g | 0 | 01/0 | 05/2 | Disco | | ophthalmic ointment | eyes 3 times daily. | | | 05/22 | 4 | ntinu | | | | | | 19 | 19 | ed | + + + +---------+------+------+-------+ | oxyCODONE | Take 0.5 tablets by | 60 | 0 | 03/1 | 05/1 | Disco | | (ROXICODONE) 5 mg | mouth every 6 hours | tablet | | 2/20 | 6/20 | ntinu | | tablet | as needed for Pain. | | | 19 | 19 | ed | + + + +---------+------+------+-------+ | oxyCODONE | Take 0.5 tablets by | 60 | 0 | 05/1 | 05/2 | Disco | | (ROXICODONE) 5 mg | mouth every 6 hours | tablet | | 6/20 | 4/20 | ntinu | | tablet | as needed for Pain. | | | 19 | 19 | ed | + + + +---------+------+------+-------+ | ferrous sulfate | Take 1 tablet by | | 0 | 05/2 | 05/2 | Disco | | 324 (65 Fe) MG EC | mouth 2 times daily. | | | 2/20 | 4/20 | ntinu | | tablet | | | | 19 | 19 [...] + + | Overview: 07/05/[address] [facility] | | There is no evidence [...] | +--------+ + + + + | 01/23/ | Office | | Donal Chaidez, | Type 2 diabetes | | 2019 | Visit | | MD | mellitus without | | | | | | complication, with | | | | | | long-term current | | | | | | use of insulin (HCC) | | | | | | (Primary Dx); | | | | | | Anemia, unspecified | | | | | | type; Pain; | | | | | | Hematemesis without | | | | | | nausea | +--------+ + + + + | [...] | Yasmin Buck | Nephrology | | 2018 | | | DO [place] | Appointment | +--------+ + + + + | 12/05/ | Telephone | | Donal Chaidez, | Vaccines; Stye | | 2018 | | | MD | | +--------+ + + + + | 11/11/ | Office | | Donal Chaidez, | Upper respiratory | | 2019 | Visit | | MD | tract [...] | 54.6 kg (120 lb 5.9 | 01/23/2019 0920 PDT | | | oz) | | + + + + | Height | 162.6 cm (5' 4.02") | 11/11/20181105 PDT | + + + + | Body Mass Index | 20.65 | 11/11/20181105 PDT | + + + + Plan of Treatment +--------+---------+ + + + | Date | Type | Specialty | Care Team | Description | +--------+---------+ + + + | 02/13/ | Office | | Donal Chaidez, | | | 2018 | Visit | | MD [address] | | | | | | [place] | | | | | | [address] | | | | | | | | +--------+---------+ + + + + + + + + | Health [...] + + | Hemoglobin A1c | | 01/23/2019, 08/07/2018, | | | Screening | 9 | 06/03/2018 | | + + + + + [...] | | + + + + + Procedures + +--------+ + + + | Procedure Name | Priori | Date/Time | Associated Diagnosis | Comments | | | ty | | | | + +--------+ + + + | LIPID PANEL | Routin | 01/23/2019 | Stage 3 chronic | Results for this | | | e | 10:40 PDT | kidney disease (HCC) | procedure are in the | | | | | | results section. | + +--------+ + + + | PARATHYROID HORMONE, | Routin | 01/23/2019 | Stage 3 chronic | Results for this | | INTACT | e | 10:40 PDT | kidney disease (HCC) | procedure are in the | | | | | | results section. | + +--------+ + + + | PHOSPHORUS | Routin | 01/23/2019 | Stage 3 chronic | Results for this | | | e | 10:40 PDT | kidney disease (HCC) | procedure are in the | | | | | | results section. | + +--------+ + + + | COMPREHENSIVE | Routin | 01/23/2019 | Stage 3 chronic | Results for this | | METABOLIC PANEL | e | 10:40 PDT | kidney disease (HCC) | procedure are in the | | | | | | results section. | + +--------+ + + + | HEMOGLOBIN A1C | Routin | 01/23/2019 | Type 2 diabetes | Results for this | | | e | 10:40 PDT | mellitus with | procedure are in the | | | | | hyperglycemia, | results section. | | | | | without long-term | | | | | | current use of | | | | | | insulin (HCC) | | + +--------+ + + + | RENAL FUNCTION PANEL | Routin | 01/23/2019 | Type 2 diabetes | Results for this | | | e | 10:39 PDT | mellitus with | procedure are in the | | | | | hyperglycemia, | results section. | | | | | without long-term | | | | | | current use of | | | | | | insulin (HCC) CKD | | | | | | (chronic kidney | | | | | | disease), stage III | | | | | | (HCC) | | + +--------+ + + + | CBC WITH | Routin | 01/23/2019 | Stage 3 chronic | Results for this | | DIFFERENTIAL | e | 10:39 PDT | kidney disease (HCC) | procedure are in the | | | | | | results section. | + +--------+ + + + from Last 3 Months Results Lipid Panel (01/23/2019 10:40 PDT) + [...] [facility] | [address] | [place] | [phone] | | [facility] | | [address] | | | [facility] | | [...] + + + | [facility] | [address] | [place] | [phone] | | [facility] | | [address] | | | [facility] | | | | + + + + + Parathyroid Hormone, Intact (01/23/2019 10:40 PDT) + +---------+ + + + | Component | Value | Ref Range | Performed | Pathologist | | | | | At | Signature | + +---------+ + + + | PTH Intact | 178 (H) | 19 - 88 pg/mL | [facility] | | | | | | [facility] | | | | | | [facility]ICAL [...] + + + + + | [facility] | [address] | [place] | [phone] | | [facility] | | [address] | | | - LABORATORY | | | | + + + + + Hemoglobin A1C (01/23/2019 10:40 PDT) + +-------+ + + + | Component | Value | Ref Range | Performed | Pathologist | | | | | At | Signature | + +-------+ + + + | Hemoglobin | 6.0 | 4.3 - 6.0 % | [facility] | | | A1c | | | [facility] | | | | | | [facility] | | | | | | [facility]ENTER - | | | | | | LABORATORY | | + +-------+ + + + | Estimated | 126 | mg/dL | [facility] | | | Average | | | [facility] | | | Glucose | | | MEDICAL | | | [...] + | [facility] | [address] | [place] | [phone] | | [facility] | | [address] | | | - LABORATORY | | [...] | | GLOMERULAR FILTRATION | mL/min/1.73m2 | [facility] | | | [place] | RATE,ESTIMATED mL/min | | MEDICAL | | | | /1.95f8Uzhd than 60 | | PARK | | [...] [facility] | [address] | [place] | [phone] | | [facility] | | [address] | | | [facility] | | [...] [facility] | | | Immature | | K/uL | [facility] | | | Granulocyte | | | [...] + + + | [facility] | [address] | [place] | [phone] | | [facility] | | [address] | | | [facility] | | | | + + + + + Renal Function Panel (01/23/2019 10:39 PDT) + + + + [...] + + + + | Glucose | 96 | 74 - 106 mg/dL | [facility] | | | | | | [facility] | | | | | | [facility] | | | | | | [facility] | | | | | | [facility] | | + + + + + + | BUN | 16 | 7 - 18 mg/dL | [facility] | | | | | | [facility] | | | | | | [facility] | | | | | | [facility] | | | | | | [facility]ATORY | | + + + + + + | Creatinine | 1.16 (H) | 0.55 - 1.02 | [facility] | | | | | mg/dL | [facility] | | | | | | [facility] | | | | | | [facility] | | | | | | LABORATORY | | + + + + + + | eGFR if not | 48 (L)Comment: Estimated | >=60 | [facility] | | | | GFR reported in | mL/min/1.73m2 | [facility] | | | [place] | mL/min/1.73m2.For | | MEDICAL | | | | [place] | | [facility]ARK | | | | multiply the Estimated | | LABORATORY | | | | GFR by 1.21. The | | | | | | Estimated GFR is not | | | | | | valid for patients under | | | | | | 18 years of | | | | | | age.Estimated Glomerular | | | | | | Filtration Rate (eGFR) | | | | | | results are likelyto be | | | | | | unreliable in patients | | | | | | with rapidly changing | | | | | | renal functionor with | | | | | | malnutrition. Some | | | | | | medications may lead to | | | | | | erroneousEstimated GFR | | | | | | results. | | | | + + + + + + | Ca | 8.5 | 8.5 - 10.1 | [facility] | [...] + + + + + + | Phosphorus | 3.0 | 2.6 - 4.7 mg/dL | [facility] | | | | | | [facility] | | | | | | [facility] | | | | | | [facility] | | | | | | [facility] | | + + + + + + | BUN/Creatin | 13.8 | | [facility] | | | ine [...] + + + | [facility] | [address] | [place], [place] | [phone] | | [facility] | | [address] | | | [facility] | | | | + + + + + from Last 3 Months Insurance + +--------+ +--------+ [...] | [employer] | [employer] | [id number] | | [phone] | | [employer] | [...] | | al/Fam | | 1960 | [phone] | [place] [address] | | | ashley | | | 8 (Home) | | + +--------+ +--------+ + + Advance Directives Patient has advance care planning documents on file. For more information, please contact:[facility] [place] [address]
--- OUTSIDE RECORDS SUMMARY | ~2019-01-24 | XMS | Encounter Summary ---
Demographics + + + | Address | [address] | | | [place] [address] | + + + | Home Phone | | + + + | Preferred Language | Unknown | + + + | Marital Status | Legally | + + + | Roman Catholic Affiliation | Unknown | + + + | Race | Unknown | + + + | Ethnic Group | Unknown | + + + Author + + + | Author | [facility] | | | and [place] | + + + | Organization | [facility] | | | and [place] [...] Team Providers + +------+ + | Care Timber Faller Name | Role | Phone | + [...] + + | 01/23/ | Office | [facility] | Donal Chaidez, | Type 2 diabetes | | 2019 | Visit | [facility] [place] | [address] | mellitus without | | | | [address] | [place] | complication, with | | | | [place], [place] | [address] | long-term current | | | | [address] | | use of insulin (HCC) | | | | [phone] | | (Primary Dx); | | | [...] per emesis and rectum and admitted to [facility]. esoph varicies seen as wella s arecently [...] [place] | | | | | | [address] | | | | | | | [...]
--- OUTSIDE RECORDS SUMMARY | ~2019-01-24 | XMS | Encounter Summary ---
Demographics + + + | Address | [address] | | | [place] [address] | + + + | Home Phone | | + + + | Preferred Language | Unknown | + + + | Marital Status | Legally | + + + | Orthodox Affiliation | Unknown | + + + | Race | Unknown | + + + | Ethnic Group | Unknown | + + + Author + + + | Author | [facility] | | | and [place] | + + + | Organization | [facility] | | | and [...] Team Providers + +------+ + | Care Retail Delivery Driver Name | Role | Phone | + [...] + + | 11/11/ | Office | [facility] | Donal Chaidez, | Upper respiratory | | 2019 | Visit | [facility] | [address] | tract infection, | | | | [address] | [place] | unspecified type | | | | [place], [place] | [address] | (Primary Dx); Pain | | | | [address] | | in both lower | | | | [phone] | | extremities | +--------+---------+ + + [...] Medicine | Donal Chaidez, | | | 2018 | Visit | | MD [address]akir [address] | | | | | | [place] | | | | | | [address] | | | | | | | | +--------+---------+ + + + documented as of this encounter Visit Diagnoses + + | Diagnosis | + + | Upper respiratory tract infection, unspecified type - Primary | + + | Pain in both lower extremities | + + documented in this encounter
--- OUTSIDE RECORDS SUMMARY | ~2019-01-24 | XMS | Encounter Summary ---
Demographics + + + | Address | [address] | | | [place] [address] | + + + | Home Phone | | + + + | Preferred Language | Unknown | + + + | Marital Status | Legally | + + + | Scientology Affiliation | Unknown | + + + | Race | Unknown | + + + | Ethnic Group | Unknown | + + + Author + + + | Author | [facility] [employer] | + + + | Organization | [facility] [employer] | + + + | Address [...] Team Providers + +------+ + | Care Post Partum Nurse Name | Role | Phone | + [...] | | | post-hemorrh | | [place] | | | | | agic anemia | | [address] Phone: | | | | | Upper GI | | [phone] | | | | | bleeding | [...] + + | 01/17/ | Hospital | [facility] | Karthik Wilder | Upper GI bleeding | | 2019 - | Encounter | [facility] | D, DO [address] | (Primary Dx); | | | | Floor [facility] | Blvd [place], [place] | History of cirrhosis | | 01/21/ | | [address] | [address] | of liver; | | 2019 | | [place] [address] | Maritza Pop, | Leukocytosis, | | | | [phone] | [address] | unspecified type; | | | | | [place] [address] | Acute renal injury | | | | | [phone] | (HCC); Anemia, | | | | | | unspecified type; | | | | | Ej Mcnulty MD | Hyperkalemia; | | | | | [address] | Gastrointestinal | | | | | [place] [address] | hemorrhage with | | | | | [phone] | hematemesis; | | | | | | Hematemesis with | | | | | Diogenes Dean MD | nausea; Acute | | | | | [address] | post-hemorrhagic | | | | | [place] [address] | anemia; Alcoholic | | | | | [phone] | cirrhosis of liver | | | [...] note may be different from the original. [facility] Service: Hospitalist Discharge Summary Date of Admission: [...] in 2014; type 2 diabetes; transferred from [facility] on 01/17/2019. She reports prior history of ascites, has had paracentesis in the remote past. She present ed initially to [place] with epigastric discomfort and hematemesis. She was [...] acidosis. She reports a followup appointment with weigher and crusher in [place] in the upcoming week. Lasix was decreased [...] ESOPHAGOGASTRODUODENOSCOPY; Surgeon: Joo Wallace IV, MD; Location: [facility]; Service: Gastroenterology; Laterality: N/A; ESOPHAGOGASTRODUODENOSCOPY N/A 01/19/2019 Procedure: ESOPHAGOGASTRODUODENOSCOPY; Surgeon: Joo Wallace IV, MD; Location: [facility]; Service: Gastroenterology; Laterality: N/A; HYSTERECTOMY PELVIC [...] up: Joo Wallace IV, MD [address] [facility] 101 [facility] [address] In 3 weeks Desiree Patricio MD [address] [facility] [address] In 2 weeks Medication List START [...] to ols on Smokefree.gov or by calling [phone] ([phone]). Date Last Reviewed: 06/02/201719994270-9893 [employer]. [address] [place] [address], [place] [address]. All righ ts reserved. This information is not intended as a substitute for professional medical care. Always follow your healthcare professional's instructions. 1. Please make a follow-up appointment with Dr. Wallace in approximately 3 weeks, you will r equire a repeat EGD 2. Please have blood work drawn at [facility] (CBC, CMP) in approximately 2 weeks prior to follo wing up with your primary care physician and Dr. Wallace 3. If you develop weakness, swelling, blood loss, return back to the emergency department 4. Follow-up with your weigher and crusher at [place] Cirrhosis The liver is found on the [...] for people with liver disease, braulio ct: [facility],www.liverfoundation.org,441.777.9435 [employer],www.hepfi.org,963.175.4878 When to seek medical advice Call your healthcare provider right away if you haveany of the following: Rapid weight gain with increased size of your belly (abdomen) or leg swelling Yellow color of your skin or eyes (jaundice) gets worse Excess bleeding from cuts or injuries Date Last Reviewed: 01/31/201719993880-3345 [employer]. [address] [place] [address], [place] [address]. All righ ts reserved. This information is not intended as a substitute for professional medical care. Always follow your healthcare professional's instructions. The following attachments cannot be sent through Care Everywhere.Smoking,Tips for Quittin g (Cardiovascular) (Ku[place]i)Ciprofloxacin tablets (Kuwaiti)Iron tablets, capsules, extended- release tablets ([place]i)Furosemide tablets ([place]i)Nadolol tablets ([place]i)Pantoprazole t ablets ([place]i)in this encounter Medications at Time of Discharge [...] may be different fr om the original. [facility] Service: Gastroenterology Consult Progress Note Hospital Day: [...] for evaluation. [facility] and [...] of alcohol associated cirrhosis in 2014 in [place]. She was hosp italized there but does [...] [place]. She is planning on following in [place]. 4. Complete 7 days of antibiotics for SBP prophylaxis. 5. Continue diuretics and lactulose. 6. Ok for discharge from GI standpoint. Mayda Smart PA-C [facility] Gastroenterology 01/21/2019 Associated attestation - Joo [...] may be different fr om the original. [facility] Service: Gastroenterology Consult Progress Note Hospital Day: [...] and presented for evaluation. [facility] where she was started [...] of alcohol associated cirrhosis in 2014 in [place]. She was hosp italized there but does not recall undergoing EGD. She has been followed by her PCP who is dave Humphreys. Claims that she has not followed with GI regularly at all. Though I do not aroryo ve her medication list she does admit [...] Date INR 1.1 01/18/2019 INR 1.1 01/17/2019 [facility] GI Patient Name: Chris Donaldson Procedure Date: [...] 01/19/2019 2:41 PM Number of Addenda: 0 [facility] - Endoscopy Services PROBLEM LIST Principal Problem: [...] from GI standpoint tomorrow. Mayda Smart PA-C [facility] Gastroenterology 01/20/2019 Associated attestation - Joo Wallace IV, MD - 01/20/2019 9:40 PM [facility] GASTROENTEROLOGY ATTENDING ATTESTATION The advanced practice provider made rounds on this patient. I did not formally evaluate pat ient in person today. We discussed the case and I agree with the assessment and plan as lilly mishra. Diogenes Dean MD - 01/20/2019 8:12 AM [facility] Service: Hospitalist Progress Note Hospital Day: LOS: 3 days Post-Op Day: 1 Day Post-Op Procedure: Procedure(s) (LRB): ESOPHAGOGASTRODUODENOSCOPY (N/A) Briefly, 58-year-old female with an extensive past medical history of compensated alcoholic cirrhosis (diagnosed 2014), type 2 diabetes mellitus and other chronic comorbidities who presented to [facility] ER on 01/17 for hematemesis [...] Ej Mcnulty MD - 01/19/2019 7:30 AM [facility] Service: Hospitalist Progress Note Hospital Day: LOS: 2 days Post-Op Day: 1 Day Post-Op Procedure: Procedure(s) (LRB): ESOPHAGOGASTRODUODENOSCOPY (N/A) Briefly, 58-year-old female with an extensive past medical history of compensated alcoholic cirrhosis (diagnosed 2014), type 2 diabetes mellitus and other chronic comorbidities who presented to [facility] ER on 01/17 for hematemesis [...] may be different f rom the original. [facility] Gastroenterology Service Inpatient Consult Follow Up Note [...] and presented for evaluation. She presented to [facility] emergency department where she was started on [...] of alcohol associated cirrhosis in 2015 in [place]. She was hosp italized there but does [...] dextrose octreotide (sandoSTATIN) infusion 50 mcg/hr (01/18/19 2124) pantoprazole 8 mg/hr (01/18/19 1454) sodium chloride [...] followed by GI which can be in [place] once current acute episode settles. Needs hepatoma screening and other issues discussed. Ultrasound here in the hospital fortunately shows no mass lesions in the liver. Ascites Apparently on diuretics but does not have her list currently. Needs SBP (spontaneous bacterial peritonitis) prophylaxis due to the acute bleed and alread y given dose of ceftriaxone when in [facility]. No evidence of ascites on [...] procedure under sedation/anesthesia. Pily Wallace IV, M.D. [facility] Gastroenterology 01/18/2019 This note was dictated using [employer] voice recognition software. Document was reviewed at ti me of dictation but [id number] errors may be present. Please call with any questions or c larifications. Ej Mcnulty MD - 01/18/2019 10:05 AM [facility] Service: Hospitalist Progress Note Hospital Day: LOS: 1 day Post-Op Day: 1 Day Post-Op Procedure: Procedure(s) (LRB): ESOPHAGOGASTRODUODENOSCOPY (N/A) Briefly, 58-year-old female with an extensive past medical history of compensated alcoholic cirrhosis (diagnosed 2014), type 2 diabetes mellitus and other chronic comorbidities who presented to [facility] ER on 01/17 for hematemesis [...] Ej Mcnulty MD 01/18/2019 Brenton Morales, [facility] - 01/17/2019 8:44 PM PDTRenal [...] | + +--------+ + + + | [employer] CARD PANEL W/O | STAT | 01/17/2019 [...] Testing | 65 - 99 mg/dL | [facility] | | | performed at [facility];[address] | | | | | [address];[place] | | | | | [address] | | | + + + + + + + + + + | Performing | Address | City/State/Zipcode | Phone Number | | Organization | | | | + + + + + | [facility] | [address] | [place] [address] | | + + + + + [...] | | | | | performed at [facility], [address] | | | | | [facility], | | | | | [place] [address] | | | + + + + + + + | Specimen | + + | Blood | + + + + + + + | Performing | Address | City/State/Zipcode | Phone Number | | Organization | | | | + + + + + | [facility] | [address] | [place] [address] | [phone] | | LABORATORY | [address]vd[address] | | | + + + + + CBC do/jitendra Martines (01/21/2019 4:47 AM) + + + + + | Component | Value | Ref Range | Performed At | + + + + + | WBC | 14.95 (H) | 3.80 - 11.00 K/uL | [facility] | + + + + + | RBC | 2.16 (L) | 3.70 - 5.10 M/uL | [facility] | + + + + + | HGB | 7.3 (L) | 11.3 - 15.5 g/dL | [facility] | + + + + + | HCT | 22.5 (L) | 34.0 - 46.0 % | [facility] | + + + + + | MCV | 103.9 (H) | 80.0 - 100.0 fl | [facility] | + + + + + | MCH | 33.9 | 27.0 - 34.0 pg | [facility] | + + + + + | MCHC | 32.6 | 32.0 - 35.5 g/dL | [facility] | + + + + + | RDW SD | 51.6 | 37 - 53 fl | [facility] | + + + + + | PLT | 190 | 150 - 400 K/uL | [facility] | + + + + + | MPV | 10.3Comment: Testing | fl | [facility] | | | performed at [facility];[address] | | | | | [address];[place] | | | | | [address] | | | + + + + + + + + + + | Performing | Address | City/State/Zipcode | Phone Number | | Organization | | | | + + + + + | [facility] | [address] | [facility] [address] | | + + + + + POCT glucose (01/20/2019 9:38 PM) + + + + + | Component | Value | Ref Range | Performed At | + + + + + | GLUCOSE,POC SCREEN | 162 (H)Comment: Testing | 65 - 99 mg/dL | [facility] | | | performed at [facility];[address] | | | | | [address];[place] | | | | | [address] | | | + + + + + + + + + + | Performing | Address | City/State/Zipcode | Phone Number | | Organization | | | | + + + + + | [facility] | [address] | [place] [address] | | + + + + + POCT glucose (01/20/2019 4:22 PM) + + + + + | Component | Value | Ref Range | Performed At | + + + + + | GLUCOSE,POC SCREEN | 188 (H)Comment: Testing | 65 - 99 mg/dL | [facility] | | | performed at [facility];[address] | | | | | [address];[place] | | | | | [address] | | | + + + + + + + + + + | Performing | Address | City/State/Zipcode | Phone Number | | Organization | | | | + + + + + | [facility] | [address] | [place] [address] | | + + + + + POCT glucose (01/20/2019 11:23 AM) + + + + + | Component | Value | Ref Range | Performed At | + + + + + | GLUCOSE,POC SCREEN | 131 (H)Comment: Testing | 65 - 99 mg/dL | [facility] | | | performed at [facility];[address] | | | | | [address];[place] | | | | | [address] | | | + + + + + + + + + + | Performing | Address | City/State/Zipcode | Phone Number | | Organization | | | | + + + + + | [facility] | [address] | [place] [address] | | + + + + + POCT glucose (01/20/2019 5:59 AM) + + + + + | Component | Value | Ref Range | Performed At | + + + + + | GLUCOSE,POC SCREEN | 210 (H)Comment: Testing | 65 - 99 mg/dL | [facility] | | | performed at [facility];[address] | | | | | [address];[place] | | | | | [address] | | | + + + + + + + + + + | Performing | Address | City/State/Zipcode | Phone Number | | Organization | | | | + + + + + | [facility] | [address] | [place] [address] | | + + + + + [...] (L)Comment: GFR <60: | >60 mL/min/1.73m2 | [facility] | | | CHRONIC KIDNEY DISEASE, [...] | | | | | performed at [facility], [address] | | | | | [facility], | | | | | [place] [address] | | | + + + + + + + + + + | Performing | Address | City/State/Zipcode | Phone Number | | Organization | | | | + + + + + | [facility] | [address] | [place] [address] | [phone] | | LABORATORY | [address]vd[address] | | | + + + + + HGB and HCT (01/20/2019 4:23 AM) + + + + + | Component | Value | Ref Range | Performed At | + + + + + | HGB | 7.3 (L) | 11.3 - 15.5 g/dL | [facility] | + + + + + | HCT | 22.2 (L)Comment: Testing | 34.0 - 46.0 % | [facility] | | | performed at [facility];[address] | | | | | [employer];[place] | | | | | [address] | | | + + + + + + + + + + | Performing | Address | City/State/Zipcode | Phone Number | | Organization | | | | + + + + + | [facility] | [address] | [place] [address] | | + + + + + POCT glucose (01/19/2019 9:54 PM) + + + + + | Component | Value | Ref Range | Performed At | + + + + + | GLUCOSE,POC SCREEN | 193 (H)Comment: Testing | 65 - 99 mg/dL | [facility] | | | performed at [facility];[address] | | | | | [address];[place], [place] | | | | | [address] | | | + + + + + + + + + + | Performing | Address | City/State/Zipcode | Phone Number | | Organization | | | | + + + + + | [facility] | [address] | [place] [address] | | + + + + + HGB and HCT (01/19/2019 9:34 PM) + + + + + | Component | Value | Ref Range | Performed At | + + + + + | HGB | 7.0 (L) | 11.3 - 15.5 g/dL | [facility] | + + + + + | HCT | 21.7 (L)Comment: Testing | 34.0 - 46.0 % | [facility] | | | performed at [facility];[address] | | | | [address];[place] | | | | | [address] | | | + + + + + + + + + + | Performing | Address | City/State/Zipcode | Phone Number | | Organization | | | | + + + + + | [facility] | [address] | [place] [address] | | + + + + + [...] | + + + + + | [facility] | [address] | [place] [address] | | + + + + + UR urea nitro, random (01/19/2019 4:30 PM) + + + + + | Component | Value | Ref Range | Performed At | + + + + + | UR UREA NITRO,RANDOM | 369.0Comment: NO NORMAL | mg/dL | [facility] | | | RANGE ESTABLISHEDTesting | | LABORATORY | | | performed at [facility], [address] | [address] | [address] [facility], | | | | | [place] [address] | | | + + + + + + + + + + | Performing | Address | City/State/Zipcode | Phone Number | | Organization | | | | + + + + + | [facility] | [address] | [place] [address] | [phone] | | LABORATORY | [address]. | | [...] | | | | | [place] [address] | | | + + + + + + + | Specimen | + + | Urine - Urine, Clean | | Catch | + + + + + + + | Performing | Address | City/State/Zipcode | Phone Number | | Organization | | | | + + + + + | [facility] | [address] [place] [address] | [place] [address] | [phone] | | LABORATORY | [address] | | [...] | LABORATORY | | | performed at [facility], [address] | | | | [address], | | | | | [place] [address] | | | + + + + + + + | Specimen | + + | Urine - Urine, Clean | | Catch | + + + + + + + | Performing | Address | City/State/Zipcode | Phone Number | | Organization | | | | + + + + + | [facility] | [address] | [place] [address] | [phone] | | LABORATORY | [address] | | | + + + + + Urine eosinophils (01/19/2019 4:30 PM) + + + + + | Component | Value | Ref Range | Performed At | + + + + + | URINE EOSINOPHILS | NO EOSINOPHILS | <1 % | [facility] | | | SEENComment: Testing | | LABORATORY | | | performed at [facility], [address] | | | | | [address], | | | | | [place] [address] | | | + + + + + + + | Specimen | + + | Urine, Clean Catch | + + + + + + + | Performing | Address | City/State/Zipcode | Phone Number | | Organization | | | | + + + + + | [facility] | [address] | [place] [address] | [phone] | | LABORATORY | [address]vd[address] | | | + + + + + HGB and HCT (01/19/2019 3:59 PM) + + + + + | Component | Value | Ref Range | Performed At | + + + + + | HGB | 7.9 (L) | 11.3 - 15.5 g/dL | [facility] | + + + + + | HCT | 24.4 (L)Comment: Testing | 34.0 - 46.0 % | [facility] | | | performed at [facility] | | | | | [address];[place] | | | | | [address] | | | + + + + + + + + + + | Performing | Address | City/State/Zipcode | Phone Number | | Organization | | | | + + + + + | [facility] | [address] | [place] [address] | | + + + + + PROCALCITONIN (01/19/2019 3:59 PM) + + + + + | Component | Value | Ref Range | Performed At | + + + + + | PROCALCITONIN | 0.08Comment: | <0.5 ng/mL | [facility] | | | INTERPRETIVE [...] performed | | | | | at [facility];[address] | | | | | [place] [address] | | | + + + + + + + + + + | Performing | Address | City/State/Zipcode | Phone Number | | Organization | | | | + + + + + | [facility] | [address] | [place] [address] | | + + + + + POCT glucose (01/19/2019 3:36 PM) + + + + + | Component | Value | Ref Range | Performed At | + + + + + | GLUCOSE,POC SCREEN | 110 (H)Comment: Testing | 65 - 99 mg/dL | [facility] | | | performed at [facility];[address] | | | | | [address];[place] | | | | | [address] | | | + + + + + + + + + + | Performing | Address | City/State/Zipcode | Phone Number | | Organization | | | | + + + + + | [facility] | [address] | [place] [address] | | + + + + + EGD (01/19/2019 2:41 PM) + + + | Narrative | Performed At | + + + | [facility] GI | [facility] | | | PROVATION | | Patient Name: Chris Donaldson Procedure | | | Date: 01/19/2019 2:41 PM MRN: | | | [id number] Account | | | Number: [id number] Date of : | | | 1960 [...] Number of Addenda: 0 | | | [facility] - Endoscopy Services | | + [...] Testing | 65 - 99 mg/dL | [facility] | | | performed at [facility];[address] | | | | | [address];[place] | | | | | [address] | | | + + + + + + + + + + | Performing | Address | City/State/Zipcode | Phone Number | | Organization | | | | + + + + + | [facility] | [address] | [place] [address] | | + + + + + HGB and HCT (01/19/2019 10:34 AM) + + + + + | Component | Value | Ref Range | Performed At | + + + + + | HGB | 7.3 (L) | 11.3 - 15.5 g/dL | [facility] | + + + + + | HCT | 22.6 (L)Comment: Testing | 34.0 - 46.0 % | [facility] | | | performed at [facility];[address] | | | | | [address];[place], [place] | | | | | [address] | | | + + + + + + + + + + | Performing | Address | City/State/Zipcode | Phone Number | | Organization | | | | + + + + + | [facility] | [address] | [place] [address] | | + + + + + Pathologist consult (01/19/2019 6:28 AM) + + + + + | Component | Value | Ref Range | Performed At | + + + + + | Pathologist Consult | Comment: Review of CBC | | [facility] | | | collected [...] | | | | | performed at [facility];[address] | | | | | [address];[place] | | | | | [address] | | | + + + + + + + + + + | Performing | Address | City/State/Zipcode | Phone Number | | Organization | | | | + + + + + | [facility] | [address] | [place] [address] | | + + + + + CBC w/auto diff (reflex to manual) (01/19/2019 6:28 AM) + + + + + | Component | Value | Ref Range | Performed At | + + + + + | WBC | 15.44 (H) | 3.80 - 11.00 K/uL | [facility] | + + + + + | RBC | 2.22 (L) | 3.70 - 5.10 M/uL | [facility] | + + + + + | HGB | 7.6 (L) | 11.3 - 15.5 g/dL | [facility] | + + + + + | HCT | 23.0 (L) | 34.0 - 46.0 % | [facility] | + + + + + [...] 0.26 | 0.00 - 0.50 K/uL | [facility] | + + + + + | BASOPHILS ABS | 0.18 (H)Comment: Testing | 0.00 - 0.10 K/uL | [facility] | | | performed at [facility] | | | | | [address];[place], [place] | | | | | [address] | | | + + + + + + + | Specimen | + + | Blood | + + + + + + + | Performing | Address | City/State/Zipcode | Phone Number | | Organization | | | | + + + + + | [facility] | [address] | [place] [address] | | + + + + + POCT glucose (01/19/2019 5:32 AM) + + + + + | Component | Value | Ref Range | Performed At | + + + + + | GLUCOSE,POC SCREEN | 123 (H)Comment: Testing | 65 - 99 mg/dL | [facility] | | | performed at [facility];[address] | | | | | [facility] | | | | | [address] | | | + + + + + + + + + + | Performing | Address | City/State/Zipcode | Phone Number | | Organization | | | | + + + + + | [facility] | [address] | [place] [address] | | + + + + + [...] (L)Comment: GFR <60: | >60 mL/min/1.73m2 | [facility] | | | CHRONIC KIDNEY DISEASE, [...] | | | | | performed at [facility], [address] | | | | | [facility], | | | | | [place] [address] | | | + + + + + + + | Specimen | + + | Blood | + + + + + + + | Performing | Address | City/State/Zipcode | Phone Number | | Organization | | | | + + + + + | [facility] | [address] | [place] [address] | [phone] | | LABORATORY | [place]. | | | + + + + + HGB and HCT (01/18/2019 10:22 PM) + + + + + | Component | Value | Ref Range | Performed At | + + + + + | HGB | 7.4 (L) | 11.3 - 15.5 g/dL | [facility] | + + + + + | HCT | 22.7 (L)Comment: Testing | 34.0 - 46.0 % | [facility] | | | performed at [facility];[address] | | | | | [address];[place] | | | | | [address] | | | + + + + + + + + + + | Performing | Address | City/State/Zipcode | Phone Number | | Organization | | | | + + + + + | [facility] | [address] | [place] [address] | | + + + + + POCT glucose (01/18/2019 9:31 PM) + + + + + | Component | Value | Ref Range | Performed At | + + + + + | GLUCOSE,POC SCREEN | 288 (H)Comment: Testing | 65 - 99 mg/dL | [facility] | | | performed at [facility];[address] | | | | | [address];[place] | | | | | [address] | | | + + + + + + + + + + | Performing | Address | City/State/Zipcode | Phone Number | | Organization | | | | + + + + + | [facility] | [address] | [place] [address] | | + + + + + HGB and HCT (01/18/2019 4:17 PM) + + + + + | Component | Value | Ref Range | Performed At | + + + + + | HGB | 8.2 (L) | 11.3 - 15.5 g/dL | [facility] | + + + + + | HCT | 25.1 (L)Comment: Testing | 34.0 - 46.0 % | [facility] | | | performed at [facility];[address] | | | | | [address];[place] | | | | | [address] | | | + + + + + + + + + + | Performing | Address | City/State/Zipcode | Phone Number | | Organization | | | | + + + + + | [facility] | [address] | [place] [address] | | + + + + + POCT glucose (01/18/2019 4:13 PM) + + + + + | Component | Value | Ref Range | Performed At | + + + + + | GLUCOSE,POC SCREEN | 126 (H)Comment: Testing | 65 - 99 mg/dL | [facility] | | | performed at [facility];[address] | | | | | [address];[place] | | | | | [address] | | | + + + + + + + + + + | Performing | Address | City/State/Zipcode | Phone Number | | Organization | | | | + + + + + | [facility] | [address] | [place] [address] | | + + + + + [...] | + + + + + | [facility] | [address] | [place] [address] | | + + + + + POCT glucose (01/18/2019 11:05 AM) + + + + + | Component | Value | Ref Range | Performed At | + + + + + | GLUCOSE,POC SCREEN | 133 (H)Comment: Testing | 65 - 99 mg/dL | [facility] | | | performed at [facility];[address] | | | | | [address];[place] | | | | | [address] | | | + + + + + + + + + + | Performing | Address | City/State/Zipcode | Phone Number | | Organization | | | | + + + + + | [facility] | [address] | [place] [address] | | + + + + + HGB and HCT (01/18/2019 10:46 AM) + + + + + | Component | Value | Ref Range | Performed At | + + + + + | HGB | 8.4 (L) | 11.3 - 15.5 g/dL | [facility] | + + + + + | HCT | 25.4 (L)Comment: Testing | 34.0 - 46.0 % | [facility] | | | performed at [facility];[address] | | | | | [address];[place] | | | | | [address] | | | + + + + + + + + + + | Performing | Address | City/State/Zipcode | Phone Number | | Organization | | | | + + + + + | [facility] | [address] | [place] [address] | | + + + + + Ferritin (01/18/2019 10:46 AM) + + + + + | Component | Value | Ref Range | Performed At | + + + + + | FERRITIN | 87Comment: Testing | 6 - 170 ng/mL | [facility] | | | performed at [facility], [address] | | LABORATORY | | | [facility], | | | | | [place] [address] | | | + + + + + + + | Specimen | + + | Blood | + + + + + + + | Performing | Address | City/State/Zipcode | Phone Number | | Organization | | | | + + + + + | [facility] | [address] | [place] [address] | [phone] | | LABORATORY | [address] | | [...] | | | | | [place] [address] | | | + + + + + + + | Specimen | + + | Blood | + + + + + + + | Performing | Address | City/State/Zipcode | Phone Number | | Organization | | | | + + + + + | [facility] | [address] | [place] [address] | [phone] | | LABORATORY | [address] | | | + + + + + Reticulocyte count (01/18/2019 10:46 AM) + + + + + | Component | Value | Ref Range | Performed At | + + + + + | RETICULOCYTES | 2.9 (H)Comment: Testing | 0.4 - 2.7 % | [facility] | | | performed at [facility];[address] | | | | | [address] [facility];[place] | | | | | [address] | | | + + + + + + + | Specimen | + + | Blood | + + + + + + + | Performing | Address | City/State/Zipcode | Phone Number | | Organization | | | | + + + + + | [facility] | [address] | [place] [address] | | + + + + + Hemoglobin and hematocrit (01/18/2019 8:12 AM) + + + + + | Component | Value | Ref Range | Performed At | + + + + + | HGB | 8.3 (L) | 11.3 - 15.5 g/dL | [facility] | + + + + + | HCT | 25.3 (L)Comment: Testing | 34.0 - 46.0 % | [facility] | | | performed at [facility] | | | | | [address];[place], [place] | | | | | [address] | | | + + + + + + + + + + | Performing | Address | City/State/Zipcode | Phone Number | | Organization | | | | + + + + + | [facility] | [address] | [place] [address] | | + + + + + POCT glucose (01/18/2019 5:41 AM) + + + + + | Component | Value | Ref Range | Performed At | + + + + + | GLUCOSE,POC SCREEN | 140 (H)Comment: Testing | 65 - 99 mg/dL | [facility] | | | performed at [facility];[address] | | | | | [address];[place] | | | | | [address] | | | + + + + + + + + + + | Performing | Address | City/State/Zipcode | Phone Number | | Organization | | | | + + + + + | [facility] | [address] | [place] [address] | | + + + + + [...] | | | | | performed at [facility], [address] | | | | | [facility], | | | | | [place] [address] | | | + + + + + + + | Specimen | + + | Blood | + + + + + + + | Performing | Address | City/State/Zipcode | Phone Number | | Organization | | | | + + + + + | [facility] | [address] | [place] [address] | [phone] | | LABORATORY | [address] | | | + + + + + Hemoglobin A1c (01/18/2019 5:06 AM) + + + + + | Component | Value | Ref Range | Performed At | + + + + + | HEMOGLOBIN A1C | 6.0Comment: HbA1c method | 4.0 - 6.0 % | [facility] | | | is certified by [facility] | | LABORATORY | | | [...] | | | | | performed at [facility], [address] | | | | | [facility], | | | | | [place] [address] | | | + + + + + + + | Specimen | + + | Blood | + + + + + + + | Performing | Address | City/State/Zipcode | Phone Number | | Organization | | | | + + + + + | [facility] | [address] | [place] [address] | [phone] | | LABORATORY | [place] | | | + + + + + Protime-INR (01/18/2019 5:06 AM) + + + + + | Component | Value | Ref Range | Performed At | + + + + + | INR | 1.1Comment: REFERENCE | | [facility] | | | RANGE:0.9 [...] | | | | | performed at [facility] | | | | | [address];[place], [place] | | | | | [address] | | | + + + + + + + | Specimen | + + | Blood | + + + + + + + | Performing | Address | City/State/Zipcode | Phone Number | | Organization | | | | + + + + + | [facility] | [address] | [place] [address] | | + + + + + aPTT (01/18/2019 5:06 AM) + + + + + | Component | Value | Ref Range | Performed At | + + + + + | APTT | 25Comment: Testing | 23 - 32 seconds | [facility] | | | performed at [facility];[address] | | | | | [address];[place] | | | | | [address] | | | + + + + + + + | Specimen | + + | Blood | + + + + + + + | Performing | Address | City/State/Zipcode | Phone Number | | Organization | | | | + + + + + | [facility] | [address] | [place] [address] | | + + + + + Phosphorus (01/18/2019 5:06 AM) + + + + + | Component | Value | Ref Range | Performed At | + + + + + | PHOSPHORUS | 3.8Comment: Testing | 2.3 - 4.8 mg/dL | [facility] | | | performed at [facility], [address] | | LABORATORY | | | [address], | | | | | [place] [address] | | | + + + + + + + | Specimen | + + | Blood | + + + + + + + | Performing | Address | City/State/Zipcode | Phone Number | | Organization | | | | + + + + + | [facility] | [address] | [place] [address] | [phone] | | LABORATORY | [address] | | | + + + + + Magnesium (01/18/2019 5:06 AM) + + + + + | Component | Value | Ref Range | Performed At | + + + + + | MAGNESIUM | 1.9Comment: Testing | 1.7 - 2.4 mg/dL | [facility] | | | performed at [facility], [address] | | LABORATORY | | | [facility] [address], | | | | | [place] [address] | | | + + + + + + + | Specimen | + + | Blood | + + + + + + + | Performing | Address | City/State/Zipcode | Phone Number | | Organization | | | | + + + + + | [facility] | [address] | [place] [address] | [phone] | | LABORATORY | [address]vd[address] | | | + + + + + CBC w/auto diff (reflex to manual) (01/18/2019 5:06 AM) + + + + + | Component | Value | Ref Range | Performed At | + + + + + | WBC | 16.46 (H) | 3.80 - 11.00 K/uL | [facility] | + + + + + | RBC | 2.39 (L) | 3.70 - 5.10 M/uL | [facility] | + + + + + | HGB | 7.9 (L) | 11.3 - 15.5 g/dL | [facility] | + + + + + | HCT | 24.0 (L) | 34.0 - 46.0 % | [facility] | + + + + + | MCV | 100.3 (H) | 80.0 - 100.0 fl | [facility] | + + + + + | MCH | 33.1 | 27.0 - 34.0 pg | [facility] | + + + + + | MCHC | 33.0 | 32.0 - 35.5 g/dL | [facility] | + + + + + | RDW SD | 49.4 | 37 - 53 fl | [facility] | + + + + + | PLT | 180 | 150 - 400 K/uL | [facility] | + + + + + | MPV | 8.9 | fl | [facility] | + + + + + | DIFF TYPE | AUTOMATED | | [facility] | + + + + + | NEUTROPHILS | 56.76 | % | [facility] | + + + + + [...] (H) | 1.00 - 3.90 K/uL | [facility] | + + + + + | MONOCYTES ABS | 1.85 (H) | 0.00 - 0.80 K/uL | [facility] | + + + + + | EOSINOPHILS ABS | 0.20 | 0.00 - 0.50 K/uL | [facility] | + + + + + | BASOPHILS ABS | 0.16 (H)Comment: Testing | 0.00 - 0.10 K/uL | [facility] | | | performed at [facility] | | | | | [facility];[place], [place] | | | | | [address] | | | + + + + + + + | Specimen | + + | Blood | + + + + + + + | Performing | Address | City/State/Zipcode | Phone Number | | Organization | | | | + + + + + | [facility] | [address] | [place] [address] | | + + + + + Hemoglobin and hematocrit (01/17/2019 11:52 PM) + + + + + | Component | Value | Ref Range | Performed At | + + + + + | HGB | 8.2 (L) | 11.3 - 15.5 g/dL | [facility] | + + + + + | HCT | 25.0 (L)Comment: Testing | 34.0 - 46.0 % | [facility] | | | performed at [facility];[address] | | | | | [address];[place] | | | | | [address] | | | + + + + + + + + + + | Performing | Address | City/State/Zipcode | Phone Number | | Organization | | | | + + + + + | [facility] | [address] | [place] [address] | | + + + + + POCT glucose (01/17/2019 10:15 PM) + + + + + | Component | Value | Ref Range | Performed At | + + + + + | GLUCOSE,POC SCREEN | 135 (H)Comment: Testing | 65 - 99 mg/dL | [facility] | | | performed at [facility];[address] | | | | | [address];[place] | | | | | [address] | | | + + + + + + + + + + | Performing | Address | City/State/Zipcode | Phone Number | | Organization | | | | + + + + + | [facility] | [address] | [place] [address] | | + + + + + POCT glucose (01/17/2019 7:47 PM) + + + + + | Component | Value | Ref Range | Performed At | + + + + + | GLUCOSE,POC SCREEN | 158 (H)Comment: Testing | 65 - 99 mg/dL | [facility] | | | performed at [facility];[address] | | | | | [address];[place], [place] | | | | | [address] | | | + + + + + + + + + + | Performing | Address | City/State/Zipcode | Phone Number | | Organization | | | | + + + + + | [facility] | [address] | [place] [address] | | + + + + + IMELDA (01/17/2019 6:29 PM) + + + | Narrative | Performed At | + + + | [facility] GI | [facility] | | | PROVATION | | Patient Name: Chris Donaldson Procedure | | | Date: 01/17/2019 6:29 PM MRN: | | | [id number] Account | | | Number: [id number] Date of : | | | 1960 [...] Number of Addenda: 0 | | | [facility] - Endoscopy Services | | + [...] (L) | 11.3 - 15.5 g/dL | [facility] | + + + + + | HCT | 25.4 (L)Comment: Testing | 34.0 - 46.0 % | [facility] | | | performed at [facility];[address] | | | | | [address];[place] | | | | | [address] | | | + + + + + + + + + + | Performing | Address | City/State/Zipcode | Phone Number | | Organization | | | | + + + + + | [facility] | [address] | [place] [address] | | + + + + + Potassium (01/17/2019 5:33 PM) + + + + + | Component | Value | Ref Range | Performed At | + + + + + | POTASSIUM | 4.3Comment: Testing | 3.5 - 4.9 mmol/L | [facility] | | | performed at [facility] | | | | | [facility];[place], [place] | | | | | [address] | | | + + + + + + + | Specimen | + + | Blood | + + + + + + + | Performing | Address | City/State/Zipcode | Phone Number | | Organization | | | | + + + + + | [facility] | [address] | [place] [address] | | + + + + + EKG 12 LEAD UNIT PERFORMED (01/17/2019 5:18 PM) + + + + + | Component | Value | Ref Range | Performed At | + + + + + | Ventricular Rate | 88 | BPM | [facility] | + + + + + | Atrial Rate | 88 | BPM | [facility] | + + + [...] + + + + | Calculated P [place] | 56 | degrees | [facility] | + + + + + | Calculated R [place] | -35 | degrees | [facility]KG | + + + + + | Calculated T [place] | 46 | degrees | [facility] | + + + + + | Diagnosis | Normal sinus rhythmLeft | | [facility] E[facility] | | | axis [...] | | | | | ONLY, -COMPUTER (261), | | | | | social media editor Guillermo Eldridge | | | | | (132) on 01/18/2019 | | | | | 4:28:07 PM | | | + + + + + + + + + + | Performing | Address | City/State/Zipcode | Phone Number | | Organization | | | | + + + + + | [facility] | [address] | [place] [address] | | + + + + + POCT glucose (01/17/2019 5:11 PM) + + + + + | Component | Value | Ref Range | Performed At | + + + + + | GLUCOSE,POC SCREEN | 186 (H)Comment: Testing | 65 - 99 mg/dL | [facility] | | | performed at [facility];[address] | | | | | [facility];[place] | | | | | [address] | | | + + + + + + + + + + | Performing | Address | City/State/Zipcode | Phone Number | | Organization | | | | + + + + + | [facility] | [address] | [place] [address] | | + + + + + ED INFORMATION EXCHANGE (01/17/2019 3:32 PM) + + + | Narrative | Performed At | + + + | [id number] Criteria Met 2 in 2 | ED [...] Count (12 mo.) Facility Visits Low Acuity [facility] | | | [facility] 1 0 [facility] 2 0 Total 3 0 | | | Note: Visits indicate total known visits. Medicaid Low Acuity Dx | | | are the number of primary diagnoses on the Medicaid's Low Acuity dx | | | list. Recent Emergency Department Visit Summary Date Facility | | | [facility] State Type Diagnoses or Chief Complaint January 17, 2019 [facility] | | | [facility] Emergency GI Bleeding Referral | | | Gastrointestinal hemorrhage, unspecified Personal | | | history of other diseases of the digestive system January 17, 2019 | | | [facility] [place] Emergency Chief Complaint: VOMITING | | | BLOOD January 24, 2018 [facility] 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 Care Providers | | | Provider PRC Type Phone Fax Service Dates DESIREE PATRICIO MD | | | Family Medicine Current [employer] This patient | | | has registered at the [facility] Emergency | | | Department For more information visit: | | | [email or web address] | | | [phone] PLEASE NOTE: 1. Any care recommendations and [...] | | completeness of information provided. 2018 [employer] | | | [employer]. - [email or web address] | | + + + + + | Procedure Note | + + | Interface, Lab - 01/17/2019 3:34 PM PDT Formatting of this note may be different | | from the original.[id number] Met 2 in 2Security and | | SafetyNo recent Security Events currently on fileED Care GuidelinesThere are currently | | no ED Care Guidelines for this patient. Please check your facility's medical records | | system.Prescription Drug Report (12 Mo.)PDMP query found no report.E.D. Visit Count (12 | | mo.)Facility Visits Low Acuity [facility] 1 0 [facility] | | Hospital 2 0 Total 3 0 Note: Visits indicate total known visits. Medicaid Low Acuity Dx | | are the number of primary diagnoses on the Medicaid's Low Acuity dx list. Recent | | Emergency Department Visit SummaryDate Facility City State Type Diagnoses or Chief | | [facility] [place] [facility] | | Referral Gastrointestinal hemorrhage, unspecified Personal history of other | | diseases of the digestive system January 17, 2019 [facility] [place] Emergency | | Chief Complaint: VOMITING BLOOD January 24, 2018 [facility] 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 Care ProvidersProvider [facility] Type Phone Fax Service Dates | | DESIREE PATRICIO MD Family Medicine Current Collective PortalThis patient has | | registered at the [facility] Emergency Department For more | | information visit: | | [email or web address] PLEASE | | NOTE: 1. Any care [...] or completeness of information | | provided.2018 [employer] - [email or web address] | | Referral | | Gastrointestinal hemorrhage, unspecified | | Personal history of other diseases of the digestive system | | | |January 17, 2019 [facility] [place] Emergency Chief Complaint: VOMITING BLOOD | |January 24, 2018 [facility] [place] Emergency | | Unspecified abdominal pain | | Other longterm (current) drug therapy | | Unspecified cirrhosis [...] MD Family Medicine Current | | | |[employer] | |This patient has registered at the [facility] Emergency Department | |For more information visit: [email or web address] | |PLEASE NOTE: | | 1. Any [...] of information provided. | | | |2019 [employer] | + + + +---------+ + + [...] | ABO/RH(D) | O POSITIVE | | [facility] | + + + + + | ANTIBODY SCREEN | NEGATIVE | | [facility] | + + + + + | ARM BAND NUMBER | [id number] | | [facility] | + + + + + | UNIT NUMBER | [id number] | | [facility] | + + + + + | BLOOD COMPONENT TYPE | LEUKODEPLETED PC | | [facility] | + + + + + | UNIT DIVISION | 00 | | [facility] | + + + + + | STATUS OF UNIT | REL FROM ALLOC | | [facility] | + + + + + | TRANSFUSION STATUS | OK TO TRANSFUSE | | [facility] | + + + + + | CROSSMATCH RESULT | COMPATIBLE | | [facility] | + + + + + | UNIT NUMBER | [id number] | | [facility] | + + + + + | BLOOD COMPONENT TYPE | LEUKODEPLETED PC | | [facility] | + + + + + | UNIT DIVISION | 00 | | [facility] | + + + + + | STATUS OF UNIT | REL FROM ALLOC | | [facility] | + + + + + | TRANSFUSION STATUS | OK TO TRANSFUSE | | [facility] | + + + + + | CROSSMATCH RESULT | COMPATIBLE | | [facility] | + + + + + | UNIT NUMBER | [id number] | | [facility] | + + + + + | BLOOD COMPONENT TYPE | LEUKODEPLETED PC | | [facility] | + + + + + | UNIT DIVISION | 00 | | [facility] | + + + + + | STATUS OF UNIT | REL FROM ALLOC | | [facility] | + + + + + | TRANSFUSION STATUS | OK TO TRANSFUSE | | [facility] | + + + + + | CROSSMATCH RESULT | COMPATIBLETesting | | [facility] | | | performed at [facility];[address] | | | | | [address];[place] | | | | | [address] | | | + + + + + | UNIT NUMBER | [id number] | | [facility] | + + + + + | BLOOD COMPONENT TYPE | LEUKODEPLETED PC | | [facility] | + + + + + | UNIT DIVISION | 00 | | [facility] | + + + + + | STATUS OF UNIT | REL FROM ALLOC | | [facility] | + + + + + | TRANSFUSION STATUS | OK TO TRANSFUSE | | [facility] | + + + + + | CROSSMATCH RESULT | COMPATIBLE | | [facility] | + + + + + | UNIT NUMBER | [id number] | | [facility] | + + + + + | BLOOD COMPONENT TYPE | LEUKODEPLETED PC,B | | [facility] | + + + + + | UNIT DIVISION | 00 | | [facility] | + + + + + | STATUS OF UNIT | REL FROM ALLOC | | [facility] | + + + + + | TRANSFUSION STATUS | OK TO TRANSFUSE | | [facility] | + + + + + | CROSSMATCH RESULT | COMPATIBLE | | [facility] | + + + + + + + | Specimen | + + | Blood | + + + + + + + | Performing | Address | City/State/Zipcode | Phone Number | | Organization | | | | + + + + + | [facility] | [phone] | [place] [id number] | | + + + + + Cardiac Panel (01/17/2019 2:05 PM) + + + + + | Component | Value | Ref Range | Performed At | + + + + + | WBC | 18.40 (H) | 3.80 - 11.00 K/uL | [facility] | + + + + + | RBC | 2.89 (L) | 3.70 - 5.10 M/uL | [facility] | + + + + + | HGB | 9.7 (L) | 11.3 - 15.5 g/dL | [facility] | + + + + + [...] (H) | 8 - 25 mg/dL | [facility] | + + + + + | CREATININE | 1.24 (H) | 0.50 - 1.00 mg/dL | [facility] | + + + + + | BUN/CREAT | 33 | | [facility] | + + + + + | CALCIUM | 7.7 (L) | 8.5 - 10.5 mg/dL | [facility] | + + + + + | TOTAL PROTEIN | 5.8 (L) | 6.3 - 8.2 g/dL | [facility] | + + + [...] 41 | 10 - 45 U/L | [facility] | + + + + + | ALT | 28 | 10 - 65 U/L | [facility] | + + + + + | EGFR | 44 (L)Comment: GFR <60: | >60 mL/min/1.73m2 | [facility] | | | CHRONIC [...] the | | | | | [facility]D [facility] traceable | | | | | equation. | | | + + + + + | CPK | 76 | 30 - 240 U/L | [facility] | + + + + + | INR | 1.1Comment: REFERENCE | | [facility] | | | RANGE:0.9 [...] 24 | 23 - 32 seconds | [facility] | + + + + + | MMB | 2.2 | 0.5 - 3.6 ng/mL | [facility] | + + + + + | CK-MB Index | 2.9Comment: CK INDEX | | [facility] | | | INTERPRETATION: [...] | | | | | performed at [facility];[address] | | | | | [address];[place] | | | | | [id number] | | | + + + + + + + + + + | Performing | Address | City/State/Zipcode | Phone Number | | Organization | | | | + + + + + | [facility] | [address] | [place] [place] [place] [address] | | + + + + + [...]
--- OUTSIDE RECORDS SUMMARY | ~2019-01-24 | XMS | Encounter Summary ---
Demographics + + + | Address | [address] | | | [place] [address] | + + + | Home Phone [...] + + + | Author | [facility] | | | and [place] | + + + | Organization | [facility] | | | and [...] Team Providers + +------+ + | Care Manager Performance Improvement Name | Role | Phone | + +------+ + | Donal Chaidez MD | PCP | Unavailable | + +------+ + Reason for Visit + + + | Reason | Comments | + + + | Nephrology | | | Appointment | | + + + Encounter Details +--------+ + + + + | Date | Type | Department | Care Team | Description | +--------+ + + + + | 12/23/ | Telephone | [facility] | Yasmin Buck | Nephrology | | 2019 | | NEPHROLOGY [address] | M, DO [address] | Appointment | | | | [address] | [place] | | | | | [place], [place] | [place], [place] | | | | | [address] | [address] | | | | | [phone] | | | +--------+ + + + [...] [place] | | | | | | [address] | | | | | | | | +--------+---------+ + + + documented as of this encounter Visit Diagnoses Not on filedocumented in this encounter"
--- OUTSIDE RECORDS SUMMARY | ~2019-01-24 | XMS | Encounter Summary ---
Demographics + + + | Address | [address] | | | [place] [address] | + + + | Home Phone | | + + + | Preferred Language | Unknown | + + + | Marital Status | Legally | + + + | Presybeterian Affiliation | Unknown | + + + | Race | Unknown | + + + | Ethnic Group | Unknown | + + + Author + + + | Author | [facility] | | | and [place] | + + + | Organization | [facility] | | | and [place] [...] Team Providers + +------+ + | Care Trolley Cleaner Name | Role | Phone | + [...] | | [address] | [place] | | | | | [place], [place] | [place], [place] | | | | | [address] | [address] | | | | | [phone] | | | +--------+ + + + [...] [place] | | | | | | [address] | | | | | | | | +--------+---------+ + + + documented as of this encounter Visit Diagnoses Not on filedocumented in this encounter"
--- OUTSIDE RECORDS SUMMARY | ~2019-01-24 | XMS | Encounter Summary ---
Demographics + + + | Address | [address] | | | [place] [address] | + + + | Home Phone | | + + + | Preferred Language | Unknown | + + + | Marital Status | Legally | + + + | Mormon Affiliation | Unknown | + + + | Race | Unknown | + + + | Ethnic Group | Unknown | + + + Author + + + | Author | [facility] | | | and [place] | + + + | Organization | [facility] | | | and [...] Team Providers + +------+ + | Care Outreach Analyst Name | Role | Phone | + [...] [place] | | 2019 | | [facility] | [address] | | | | | [address] | [place] | | | | | [place], [place] | [address] | | | | | [address] | | | | | | [phone] | | | +--------+ + + + [...]
--- OUTSIDE RECORDS SUMMARY | ~2019-01-24 | XMS | Encounter Summary ---
Demographics + + + | Address | [address] | | | [place] [address] | + + + | Home Phone | | + + + | Preferred Language | Unknown | + + + | Marital Status | Legally | + + + | Worship Affiliation | Unknown | + + + | Race | Unknown | + + + | Ethnic Group | Unknown | + + + Author + + + | Author | [facility] [employer] | + + + | Organization | [facility] [employer] | + + + | Address | Unknown | + + + | Phone | Unavailable | + + + Support + + +---------+ + | Name | Relationship | Address | Phone | + + +---------+ + | Kofi Donaldson | ECON | Unknown | | + + +---------+ + | Yusuf Fuast | ECON | Unknown | | + + +---------+ + | Lissa Faust | ECON | Unknown | | + + +---------+ + Care Team Providers + +------+ + | Care Neuroscientist Name | Role | Phone | + [...] | | | post-hemorrh | | [place] | | | | | agic anemia | | [address] Phone: | | | | | Upper GI | | [phone] | | | | | bleeding | [...] + + | 01/19/ | Surgery | [facility] | Joo Wallace IV, | ESOPHAGOGASTRODUODEN | | 2019 | | [facility] | [address] | [facility] | | | | Endoscopy [address] | [address] [place], | | | | | [place], [place] | [place] [address] | | | | | [address] | [phone] | | | | | | | [...] note may be different from the original. [facility] Service: Hospitalist Discharge Summary Date [...] in 2014; type 2 diabetes; transferred from [facility] on 01/17/2019. She reports prior history of ascites, has had paracentesis in the remote past. She present ed initially to [place] with epigastric discomfort and hematemesis. She was [...] acidosis. She reports a followup appointment with ground support equipment mechanic in [place] in the upcoming week. Lasix was decreased [...] ESOPHAGOGASTRODUODENOSCOPY; Surgeon: Joo Wallace IV, MD; Location: [facility]; Service: Gastroenterology; Laterality: N/A; ESOPHAGOGASTRODUODENOSCOPY N/A 01/19/2019 Procedure: ESOPHAGOGASTRODUODENOSCOPY; Surgeon: Joo Wallace IV, MD; Location: [facility]; Service: Gastroenterology; Laterality: N/A; HYSTERECTOMY PELVIC FRACTURE [...] IV, MD [address] [facility] [address] In 3 weeks Desiree Patricio MD [address] [facility] [address] In 2 weeks Medication [...] to ols on Smokefree.gov or by calling [phone] ([phone]). Date Last Reviewed: 06/02/201719996414-1489 [employer]. [address] [place] [address], [place] [address]. All righ ts reserved. This information is not intended as a substitute for professional medical care. Always follow your healthcare professional's instructions. 1. Please make a follow-up appointment with Dr. Wallace in approximately 3 weeks, you will r equire a repeat EGD 2. Please have blood work drawn at [facility] (CBC, CMP) in approximately 2 weeks prior to follo wing up with your primary care physician and Dr. Wallace 3. If you develop weakness, swelling, blood loss, return back to the emergency department 4. Follow-up with your ground support equipment mechanic at [place] Cirrhosis The liver is found on the [...] for people with liver disease, braulio ct: [employer],www.liverfoundation.org,531.703.6961 [employer],www.hepfi.org,504.179.1148 When to seek medical advice Call your healthcare provider right away if you haveany of the following: Rapid weight gain with increased size of your belly (abdomen) or leg swelling Yellow color of your skin or eyes (jaundice) gets worse Excess bleeding from cuts or injuries Date Last Reviewed: 01/31/201719999771-0370 [employer]. [address] [place] [address]. All righ ts reserved. This information is not intended as a substitute for professional medical care. Always follow your healthcare professional's instructions. The following attachments cannot be sent through Care Everywhere.Smoking,Tips for Quittin g (Cardiovascular) ([place]ri [place]ankan)Ciprofloxacin tablets ([place]ankan)Iron tablets, capsules, extended- release tablets ([place])Furosemide tablets ([place])Nadolol tablets ([place])Pantoprazole t ablets ([place])in this encounter Medications at Time of Discharge [...] may be different fr om the original. [facility] Service: Gastroenterology Consult Progress Note [...] presented for evaluation. [facility] on pantoprazole [...] [place]. She is planning on following in [place]. 4. Complete 7 days of antibiotics for SBP prophylaxis. 5. Continue diuretics and lactulose. 6. Ok for discharge from GI standpoint. Mayda Smart PA-C [facility] Gastroenterology 01/21/2019 Associated attestation - Joo Wallace IV, MD - 01/21/2019 11:08 PM [facility] GASTROENTEROLOGY ATTENDING ATTESTATION The advanced practice provider made rounds on this patient. I did not formally evaluate pat ient in person today. We discussed the case and I agree with the assessment and plan as lilly mishra. Mayda Smart PA - 01/20/2019 8:56 AM PDTFormatting of this note may be different fr om the original. [facility] Service: Gastroenterology Consult Progress Note [...] presented for evaluation. She presented to [facility] emergency d epartment where she was [...] to medications. Plans to follow up in [place]. Scheduled Medications cefTRIAXone 1 g Intravenous Q24H [...] Date INR 1.1 01/18/2019 INR 1.1 01/17/2019 [facility] GI Patient Name: Chris Donaldson [...] 01/19/2019 2:41 PM Number of Addenda: 0 [facility] - Endoscopy Services PROBLEM LIST [...] from GI standpoint tomorrow. Mayda Smart PA-C [facility] Gastroenterology 01/20/2019 Associated attestation - Joo Wallace IV, MD - 01/20/2019 9:40 PM [facility] GASTROENTEROLOGY ATTENDING ATTESTATION The advanced practice provider made rounds on this patient. I did not formally evaluate pat ient in person today. We discussed the case and I agree with the assessment and plan as lilly mishra. Diogenes Dean MD - 01/20/2019 8:12 AM [facility] Service: Hospitalist Progress Note Hospital Day: LOS: 3 days Post-Op Day: 1 Day Post-Op Procedure: Procedure(s) (LRB): ESOPHAGOGASTRODUODENOSCOPY (N/A) Briefly, 58-year-old female with an extensive past medical history of compensated alcoholic cirrhosis (diagnosed 2014), type 2 diabetes mellitus and other chronic comorbidities who presented to [facility] ER on 01/17 for hematemesis and melanotic [...] Ej Mcnulty MD - 01/19/2019 7:30 AM [facility] Service: Hospitalist Progress Note Hospital Day: LOS: 2 days Post-Op Day: 1 Day Post-Op Procedure: Procedure(s) (LRB): ESOPHAGOGASTRODUODENOSCOPY (N/A) Briefly, 58-year-old female with an extensive past medical history of compensated alcoholic cirrhosis (diagnosed 2014), type 2 diabetes mellitus and other chronic comorbidities who presented to [facility] ER on 01/17 for hematemesis and melanotic [...] may be different f rom the original. [facility] Gastroenterology Service Inpatient Consult Follow [...] and presented for evaluation. She presented to [facility] emergency department where she was started [...] followed by GI which can be in [place] once current acute episode settles. Needs hepatoma [...] procedure under sedation/anesthesia. Pily Wallace IV, M.D. [facility] Gastroenterology 01/18/2019 This note was dictated using [employer] voice recognition software. Document was reviewed at ti me of dictation but [id number] errors may be present. Please call with any questions or c larifications. Ej Mcnulty MD - 01/18/2019 10:05 AM [facility] Service: Hospitalist Progress Note Hospital Day: LOS: 1 day Post-Op Day: 1 Day Post-Op Procedure: Procedure(s) (LRB): ESOPHAGOGASTRODUODENOSCOPY (N/A) Briefly, 58-year-old female with an extensive past medical history of compensated alcoholic cirrhosis (diagnosed 2014), type 2 diabetes mellitus and other chronic comorbidities who presented to [facility] ER on 01/17 for hematemesis and melanotic [...] Ej Mcnulty MD 01/18/2019 Brenton Morales, [facility] - 01/17/2019 8:44 PM PDTRenal Dosing Monitoring: [...] | + +--------+ + + + | [facility] CARD PANEL W/O | STAT | 01/17/2019 [...] Testing | 65 - 99 mg/dL | [facility] | | | performed at [facility];[address] | | | | | [address] [place] [facility];[place], [place] | | | | | [address] | | | + + + + + + + + + + | Performing | Address | City/State/Zipcode | Phone Number | | Organization | | | | + + + + + | [facility] | [address] | [place] [address] | | + + + + + [...] | | | | | performed at [facility], [address] | | | | | [facility], | | | | | [place] [address] | | | + + + + + + + | Specimen | + + | Blood | + + + + + + + | Performing | Address | City/State/Zipcode | Phone Number | | Organization | | | | + + + + + | [facility] | [address] | [place] [address] | [phone] | | LABORATORY | [address]vd[address] | | [...] 51.6 | 37 - 53 fl | [facility] | + + + + + | PLT | 190 | 150 - 400 K/uL | [facility] | + + + + + | MPV | 10.3Comment: Testing | fl | [facility] | | | performed at [facility] | | | | | [address];[place] | | | | | [address] | | | + + + + + + + + + + | Performing | Address | City/State/Zipcode | Phone Number | | Organization | | | | + + + + + | [facility] | [address] | [place] [address] | | + + + + + POCT glucose (01/20/2019 9:38 PM) + + + + + | Component | Value | Ref Range | Performed At | + + + + + | GLUCOSE,POC SCREEN | 162 (H)Comment: Testing | 65 - 99 mg/dL | [facility] | | | performed at [facility];[address] | | | | | [address];[place] | | | | | [address] | | | + + + + + + + + + + | Performing | Address | City/State/Zipcode | Phone Number | | Organization | | | | + + + + + | [facility] | [address] | [place] [address] | | + + + + + POCT glucose (01/20/2019 4:22 PM) + + + + + | Component | Value | Ref Range | Performed At | + + + + + | GLUCOSE,POC SCREEN | 188 (H)Comment: Testing | 65 - 99 mg/dL | [facility] | | | performed at [facility];[address] | | | | | [address];[place] | | | | | [address] | | | + + + + + + + + + + | Performing | Address | City/State/Zipcode | Phone Number | | Organization | | | | + + + + + | [facility] | [address] | [place] [address] | | + + + + + POCT glucose (01/20/2019 11:23 AM) + + + + + | Component | Value | Ref Range | Performed At | + + + + + | GLUCOSE,POC SCREEN | 131 (H)Comment: Testing | 65 - 99 mg/dL | [facility] | | | performed at [facility];[address] | | | | | [address];[place], [place] | | | | | [address] | | | + + + + + + + + + + | Performing | Address | City/State/Zipcode | Phone Number | | Organization | | | | + + + + + | [facility] | [address] | [place] [address] | | + + + + + POCT glucose (01/20/2019 5:59 AM) + + + + + | Component | Value | Ref Range | Performed At | + + + + + | GLUCOSE,POC SCREEN | 210 (H)Comment: Testing | 65 - 99 mg/dL | [facility] | | | performed at [facility];[address] | | | | | [address];[place] | | | | | [address] | | | + + + + + + + + + + | Performing | Address | City/State/Zipcode | Phone Number | | Organization | | | | + + + + + | [facility] | [address] | [place] [address] | | + + + + + [...] | | | | | performed at [facility], [address] | | | | | [facility], | | | | | [place] [address] | | | + + + + + + + + + + | Performing | Address | City/State/Zipcode | Phone Number | | Organization | | | | + + + + + | [facility] | [address] [place] [address] | [place] [address] | [phone] | | LABORATORY | [place]. | | | + + + + + HGB and HCT (01/20/2019 4:23 AM) + + + + + | Component | Value | Ref Range | Performed At | + + + + + | HGB | 7.3 (L) | 11.3 - 15.5 g/dL | [facility] | + + + + + | HCT | 22.2 (L)Comment: Testing | 34.0 - 46.0 % | [facility] | | | performed at [facility];[address] | | | | | [address];[place] | | | | | [address] | | | + + + + + + + + + + | Performing | Address | City/State/Zipcode | Phone Number | | Organization | | | | + + + + + | [facility] | [address] [place] | [place] [address] | | + + + + + POCT glucose (01/19/2019 9:54 PM) + + + + + | Component | Value | Ref Range | Performed At | + + + + + | GLUCOSE,POC SCREEN | 193 (H)Comment: Testing | 65 - 99 mg/dL | [facility] | | | performed at [facility];[address] | | | | | [address];[place] | | | | | [address] | | | + + + + + + + + + + | Performing | Address | City/State/Zipcode | Phone Number | | Organization | | | | + + + + + | [facility] | [address] | [place] [address] | | + + + + + HGB and HCT (01/19/2019 9:34 PM) + + + + + | Component | Value | Ref Range | Performed At | + + + + + | HGB | 7.0 (L) | 11.3 - 15.5 g/dL | [facility] | + + + + + | HCT | 21.7 (L)Comment: Testing | 34.0 - 46.0 % | [facility] | | | performed at [facility];[address] | | | | | [address] [place] | | | | | [address] | | | + + + + + + + + + + | Performing | Address | City/State/Zipcode | Phone Number | | Organization | | | | + + + + + | [facility] | [address] | [place] [address] | | + + + + + [...] | + + + + + | [facility] | [address] | [place] [address] | | + + + + + UR urea nitro, random (01/19/2019 4:30 PM) + + + + + | Component | Value | Ref Range | Performed At | + + + + + | UR UREA NITRO,RANDOM | 369.0Comment: NO NORMAL | mg/dL | [facility] | | | RANGE ESTABLISHEDTesting | | LABORATORY | | | performed at [facility], [facility] | | | | | [address], | | | | | [place] [address] | | | + + + + + + + + + + | Performing | Address | City/State/Zipcode | Phone Number | | Organization | | | | + + + + + | [facility] | [address] | [place] [address] | [phone] | | LABORATORY | [address] | | [...] | | | | | [place] [address] | | | + + + + + + + | Specimen | + + | Urine - Urine, Clean | | Catch | + + + + + + + | Performing | Address | City/State/Zipcode | Phone Number | | Organization | | | | + + + + + | [facility] | [address] | [place] [address] | [phone] | | LABORATORY | [address] | | [...] | LABORATORY | | | performed at [facility], [address] | | | | [address], | | | | | [place] [address] | | | + + + + + + + | Specimen | + + | Urine - Urine, Clean | | Catch | + + + + + + + | Performing | Address | City/State/Zipcode | Phone Number | | Organization | | | | + + + + + | [facility] | [address] | [place] [address] | [phone] | | LABORATORY | [place]. | | | + + + + + Urine eosinophils (01/19/2019 4:30 PM) + + + + + | Component | Value | Ref Range | Performed At | + + + + + | URINE EOSINOPHILS | NO EOSINOPHILS | <1 % | [facility] | | | SEENComment: Testing | | LABORATORY | | | performed at [facility], [address] | | | | | [facility], | | | | | [place] [address] | | | + + + + + + + | Specimen | + + | Urine, Clean Catch | + + + + + + + | Performing | Address | City/State/Zipcode | Phone Number | | Organization | | | | + + + + + | [facility] | [address] | [place] [address] | [phone] | | LABORATORY | [address] | | | + + + + + HGB and HCT (01/19/2019 3:59 PM) + + + + + | Component | Value | Ref Range | Performed At | + + + + + | HGB | 7.9 (L) | 11.3 - 15.5 g/dL | [facility] | + + + + + | HCT | 24.4 (L)Comment: Testing | 34.0 - 46.0 % | [facility] | | | performed at [facility];[address] | | | | [address];[place] | | | | | [address] | | | + + + + + + + + + + | Performing | Address | City/State/Zipcode | Phone Number | | Organization | | | | + + + + + | [facility] | [address] | [place] [address] | | + + + + + PROCALCITONIN (01/19/2019 3:59 PM) + + + + + | Component | Value | Ref Range | Performed At | + + + + + | PROCALCITONIN | 0.08Comment: | <0.5 ng/mL | [facility] | | | INTERPRETIVE | | [...] performed | | | | | at [facility];[address] [facility] | | | | | [place] [address] | | | + + + + + + + + + + | Performing | Address | City/State/Zipcode | Phone Number | | Organization | | | | + + + + + | [facility] | [address] | [place] [address] | | + + + + + POCT glucose (01/19/2019 3:36 PM) + + + + + | Component | Value | Ref Range | Performed At | + + + + + | GLUCOSE,POC SCREEN | 110 (H)Comment: Testing | 65 - 99 mg/dL | [facility] | | | performed at [facility];[address] | | | | | [address];[place] | | | | | [address] | | | + + + + + + + + + + | Performing | Address | City/State/Zipcode | Phone Number | | Organization | | | | + + + + + | [facility] | [address] | [place] [address] | | + + + + + EGD (01/19/2019 2:41 PM) + + + | Narrative | Performed At | + + + | [facility] GI | [facility] | | | [facility] | | Patient Name: Chris Donaldson Procedure | | | Date: 01/19/2019 2:41 PM MRN: | | | [id number] Account | | | Number: [id number] Date of : | | | 1960 [...] Number of Addenda: 0 | | | [facility] - Endoscopy Services | | + + + + +---------+ + + | Performing | Address | City/State/Zipcode | Phone Number | | Organization | | | | + +---------+ + + | [facility] | | | | + +---------+ + + POCT glucose (01/19/2019 11:17 AM) + + + + + | Component | Value | Ref Range | Performed At | + + + + + | GLUCOSE,POC SCREEN | 162 (H)Comment: Testing | 65 - 99 mg/dL | [facility] | | | performed at [facility];[address] | | | | | [address];[place] | | | | | [address] | | | + + + + + + + + + + | Performing | Address | City/State/Zipcode | Phone Number | | Organization | | | | + + + + + | [facility] | [address] | [place] [address] | | + + + + + HGB and HCT (01/19/2019 10:34 AM) + + + + + | Component | Value | Ref Range | Performed At | + + + + + | HGB | 7.3 (L) | 11.3 - 15.5 g/dL | [facility] | + + + + + | HCT | 22.6 (L)Comment: Testing | 34.0 - 46.0 % | [facility] | | | performed at [facility];[address] | | | | | [address] [facility];[place], [place] | | | | | [address] | | | + + + + + + + + + + | Performing | Address | City/State/Zipcode | Phone Number | | Organization | | | | + + + + + | [facility] | [address] | [place] [address] | | + + + + + Pathologist consult (01/19/2019 6:28 AM) + + + + + | Component | Value | Ref Range | Performed At | + + + + + | Pathologist Consult | Comment: Review of CBC | | [facility] | | | collected 01/19/2019. I [...] | | | | | performed at [facility];[address] | | | | | [facility];[place] | | | | | [address] | | | + + + + + + + + + + | Performing | Address | City/State/Zipcode | Phone Number | | Organization | | | | + + + + + | [facility] | [address] | [place] [address] | | + + + + + CBC w/auto diff (reflex to manual) (01/19/2019 6:28 AM) + + + + + | Component | Value | Ref Range | Performed At | + + + + + | WBC | 15.44 (H) | 3.80 - 11.00 K/uL | [facility] | + + + + + | RBC | 2.22 (L) | 3.70 - 5.10 M/uL | [facility] | + + + + + | HGB | 7.6 (L) | 11.3 - 15.5 g/dL | [facility] | + + + + + | HCT | 23.0 (L) | 34.0 - 46.0 % | [facility] | + + + + + | MCV | 103.3 (H) | 80.0 - 100.0 fl | [facility] | + + + + + | MCH | 34.0 | 27.0 - 34.0 pg | [facility] | + + + + + | MCHC | 33.0 | 32.0 - 35.5 g/dL | [facility] | + + + + + | RDW SD | 50.8 | 37 - 53 fl | [facility] | + + + + + [...] 0.26 | 0.00 - 0.50 K/uL | [facility] | + + + + + | BASOPHILS ABS | 0.18 (H)Comment: Testing | 0.00 - 0.10 K/uL | [facility] | | | performed at [facility] | | | | | [address];[place] | | | | | [address] | | | + + + + + + + | Specimen | + + | Blood | + + + + + + + | Performing | Address | City/State/Zipcode | Phone Number | | Organization | | | | + + + + + | [facility] | [address] | [place] [address] | | + + + + + POCT glucose (01/19/2019 5:32 AM) + + + + + | Component | Value | Ref Range | Performed At | + + + + + | GLUCOSE,POC SCREEN | 123 (H)Comment: Testing | 65 - 99 mg/dL | [facility] | | | performed at [facility];[address] | | | | | [address];[place] | | | | | [address] | | | + + + + + + + + + + | Performing | Address | City/State/Zipcode | Phone Number | | Organization | | | | + + + + + | [facility] | [address] | [place] [place] [address] | | + + + + + [...] <60: | >60 mL/min/1.73m2 | [facility] | | | CHRONIC KIDNEY DISEASE, | [...] | | | | | performed at [facility], [address] | | | | | [facility] [place], | | | | | [place] [address] | | | + + + + + + + | Specimen | + + | Blood | + + + + + + + | Performing | Address | City/State/Zipcode | Phone Number | | Organization | | | | + + + + + | [facility] | [address] | [place] [address] | [phone] | | LABORATORY | [place]. | | | + + + + + HGB and HCT (01/18/2019 10:22 PM) + + + + + | Component | Value | Ref Range | Performed At | + + + + + | HGB | 7.4 (L) | 11.3 - 15.5 g/dL | [facility] | + + + + + | HCT | 22.7 (L)Comment: Testing | 34.0 - 46.0 % | [facility] | | | performed at [facility];[address] | | | | | [address];[place], [place] | | | | | [address] | | | + + + + + + + + + + | Performing | Address | City/State/Zipcode | Phone Number | | Organization | | | | + + + + + | [facility] | [address] | [place] [address] | | + + + + + POCT glucose (01/18/2019 9:31 PM) + + + + + | Component | Value | Ref Range | Performed At | + + + + + | GLUCOSE,POC SCREEN | 288 (H)Comment: Testing | 65 - 99 mg/dL | [facility] | | | performed at [facility];[address] | | | | | [address];[place] | | | | | [address] | | | + + + + + + + + + + | Performing | Address | City/State/Zipcode | Phone Number | | Organization | | | | + + + + + | [facility] | [address] | [place] [address] | | + + + + + HGB and HCT (01/18/2019 4:17 PM) + + + + + | Component | Value | Ref Range | Performed At | + + + + + | HGB | 8.2 (L) | 11.3 - 15.5 g/dL | [facility] | + + + + + | HCT | 25.1 (L)Comment: Testing | 34.0 - 46.0 % | [facility] | | | performed at [facility];[address] | | | | | [address];[place] | | | | | [address] | | | + + + + + + + + + + | Performing | Address | City/State/Zipcode | Phone Number | | Organization | | | | + + + + + | [facility] | [address] [address] | [place] [address] | | + + + + + POCT glucose (01/18/2019 4:13 PM) + + + + + | Component | Value | Ref Range | Performed At | + + + + + | GLUCOSE,POC SCREEN | 126 (H)Comment: Testing | 65 - 99 mg/dL | [facility] | | | performed at [facility];[address] | | | | | [address];[place] | | | | | [address] | | | + + + + + + + + + + | Performing | Address | City/State/Zipcode | Phone Number | | Organization | | | | + + + + + | [facility] | [address] | [place] [address] | | + + + + + [...] + + + + + | [facility] | [address] | [place] [address] | | + + + + + POCT glucose (01/18/2019 11:05 AM) + + + + + | Component | Value | Ref Range | Performed At | + + + + + | GLUCOSE,POC SCREEN | 133 (H)Comment: Testing | 65 - 99 mg/dL | [facility] | | | performed at [facility];[address] | | | | | [address];[place] | | | | | [address] | | | + + + + + + + + + + | Performing | Address | City/State/Zipcode | Phone Number | | Organization | | | | + + + + + | [facility] | [address] | [place] [address] | | + + + + + HGB and HCT (01/18/2019 10:46 AM) + + + + + | Component | Value | Ref Range | Performed At | + + + + + | HGB | 8.4 (L) | 11.3 - 15.5 g/dL | [facility] | + + + + + | HCT | 25.4 (L)Comment: Testing | 34.0 - 46.0 % | [facility] | | | performed at [facility];[address] | | | | | [address];[place] | | | | | [address] | | | + + + + + + + + + + | Performing | Address | City/State/Zipcode | Phone Number | | Organization | | | | + + + + + | [facility] | [address] | [place] [address] | | + + + + + Ferritin (01/18/2019 10:46 AM) + + + + + | Component | Value | Ref Range | Performed At | + + + + + | FERRITIN | 87Comment: Testing | 6 - 170 ng/mL | [facility] | | | performed at [facility], [address] | | LABORATORY | | | [address], | | | | | [place] [address] | | | + + + + + + + | Specimen | + + | Blood | + + + + + + + | Performing | Address | City/State/Zipcode | Phone Number | | Organization | | | | + + + + + | [facility] | [address] | [place] [address] | [phone] | | LABORATORY | [address] | | [...] [address] | | LABORATORY | | | [facility], | | | | | [place] [address] | | | + + + + + + + | Specimen | + + | Blood | + + + + + + + | Performing | Address | City/State/Zipcode | Phone Number | | Organization | | | | + + + + + | [facility] | [address] | [place] [address] | [phone] | | LABORATORY | [facility]. | | | + + + + + Reticulocyte count (01/18/2019 10:46 AM) + + + + + | Component | Value | Ref Range | Performed At | + + + + + | RETICULOCYTES | 2.9 (H)Comment: Testing | 0.4 - 2.7 % | [facility] | | | performed at [facility];[address] | | | | | [address];[place] | | | | | [address] | | | + + + + + + + | Specimen | + + | Blood | + + + + + + + | Performing | Address | City/State/Zipcode | Phone Number | | Organization | | | | + + + + + | [facility] | [address] | [place] [address] | | + + + + + Hemoglobin and hematocrit (01/18/2019 8:12 AM) + + + + + | Component | Value | Ref Range | Performed At | + + + + + | HGB | 8.3 (L) | 11.3 - 15.5 g/dL | [facility] | + + + + + | HCT | 25.3 (L)Comment: Testing | 34.0 - 46.0 % | [facility] | | | performed at [facility];[address] | | | | | [address];[place] | | | | | [address] | | | + + + + + + + + + + | Performing | Address | City/State/Zipcode | Phone Number | | Organization | | | | + + + + + | [facility] | [address] | [place] [address] | | + + + + + POCT glucose (01/18/2019 5:41 AM) + + + + + | Component | Value | Ref Range | Performed At | + + + + + | GLUCOSE,POC SCREEN | 140 (H)Comment: Testing | 65 - 99 mg/dL | [facility] | | | performed at [facility];[address] | | | | | [facility];[place] | | | | | [address] | | | + + + + + + + + + + | Performing | Address | City/State/Zipcode | Phone Number | | Organization | | | | + + + + + | [facility] | [address] | [place] [address] | | + + + + + [...] | | | | | performed at [facility], [facility] [address] | | | | | [facility], | | | | | [place] [address] | | | + + + + + + + | Specimen | + + | Blood | + + + + + + + | Performing | Address | City/State/Zipcode | Phone Number | | Organization | | | | + + + + + | [facility] | [address] | [place] [address] | [phone] | | LABORATORY | [address] | | | + + + + + Hemoglobin A1c (01/18/2019 5:06 AM) + + + + + | Component | Value | Ref Range | Performed At | + + + + + | HEMOGLOBIN A1C | 6.0Comment: HbA1c method | 4.0 - 6.0 % | [facility] | | | is certified by NGSP [...] | | | | | performed at [facility], [address] | | | | | [facility], | | | | | [place] [address] | | | + + + + + + + | Specimen | + + | Blood | + + + + + + + | Performing | Address | City/State/Zipcode | Phone Number | | Organization | | | | + + + + + | [facility] | [address] | [place] [address] | [phone] | | LABORATORY | [address] | | | + + + + + Protime-INR (01/18/2019 5:06 AM) + + + + + | Component | Value | Ref Range | Performed At | + + + + + | INR | 1.1Comment: REFERENCE | | [facility] | | | RANGE:0.9 - | [...] | | | | | performed at [facility];[address] | | | | | [address];[place], [place] | | | | | [address] | | | + + + + + + + | Specimen | + + | Blood | + + + + + + + | Performing | Address | City/State/Zipcode | Phone Number | | Organization | | | | + + + + + | [facility] | [address] | [place] [address] | | + + + + + aPTT (01/18/2019 5:06 AM) + + + + + | Component | Value | Ref Range | Performed At | + + + + + | APTT | 25Comment: Testing | 23 - 32 seconds | [facility] | | | performed at [facility];[address] | | | | | [address];[place] | | | | | [address] | | | + + + + + + + | Specimen | + + | Blood | + + + + + + + | Performing | Address | City/State/Zipcode | Phone Number | | Organization | | | | + + + + + | [facility] | [address] | [place] [address] | | + + + + + Phosphorus (01/18/2019 5:06 AM) + + + + + | Component | Value | Ref Range | Performed At | + + + + + | PHOSPHORUS | 3.8Comment: Testing | 2.3 - 4.8 mg/dL | [facility] | | | performed at [facility], [address] | | LABORATORY | | | [address], | | | | | [place] [address] | | | + + + + + + + | Specimen | + + | Blood | + + + + + + + | Performing | Address | City/State/Zipcode | Phone Number | | Organization | | | | + + + + + | [facility] | [address] | [place] [address] | [phone] | | LABORATORY | [address] | | | + + + + + Magnesium (01/18/2019 5:06 AM) + + + + + | Component | Value | Ref Range | Performed At | + + + + + | MAGNESIUM | 1.9Comment: Testing | 1.7 - 2.4 mg/dL | [facility] | | | performed at [facility], [address] | | LABORATORY | | | [address], | | | | | [place] [address] | | | + + + + + + + | Specimen | + + | Blood | + + + + + + + | Performing | Address | City/State/Zipcode | Phone Number | | Organization | | | | + + + + + | [facility] | [address] | [place] [address] | [phone] | | LABORATORY | [address] | | | + + + + + CBC w/auto diff (reflex to manual) (01/18/2019 5:06 AM) + + + + + | Component | Value | Ref Range | Performed At | + + + + + | WBC | 16.46 (H) | 3.80 - 11.00 K/uL | [facility] | + + + + + | RBC | 2.39 (L) | 3.70 - 5.10 M/uL | [facility] | + + + + + [...] 49.4 | 37 - 53 fl | [facility] | + + + + + | PLT | 180 | 150 - 400 K/uL | [facility] | + + + + + | MPV | 8.9 | fl | [facility] | + + + + + | DIFF TYPE | AUTOMATED | | [facility] | + + + + + | NEUTROPHILS | 56.76 | % | [facility] | + + + + + [...] 0.20 | 0.00 - 0.50 K/uL | [facility] | + + + + + | BASOPHILS ABS | 0.16 (H)Comment: Testing | 0.00 - 0.10 K/uL | [facility] | | | performed at [facility];[address] | | | | | [address];[place] | | | | | [address] | | | + + + + + + + | Specimen | + + | Blood | + + + + + + + | Performing | Address | City/State/Zipcode | Phone Number | | Organization | | | | + + + + + | [facility] | [address] | [place] [address] | | + + + + + Hemoglobin and hematocrit (01/17/2019 11:52 PM) + + + + + | Component | Value | Ref Range | Performed At | + + + + + | HGB | 8.2 (L) | 11.3 - 15.5 g/dL | [facility] | + + + + + | HCT | 25.0 (L)Comment: Testing | 34.0 - 46.0 % | [facility] | | | performed at [facility];[address] | | | | | [address];[place] | | | | | [address] | | | + + + + + + + + + + | Performing | Address | City/State/Zipcode | Phone Number | | Organization | | | | + + + + + | [facility] | [address] | [place] [address] | | + + + + + POCT glucose (01/17/2019 10:15 PM) + + + + + | Component | Value | Ref Range | Performed At | + + + + + | GLUCOSE,POC SCREEN | 135 (H)Comment: Testing | 65 - 99 mg/dL | [facility] | | | performed at [facility];[address] | | | | [address];[place] | | | | | [address] | | | + + + + + + + + + + | Performing | Address | City/State/Zipcode | Phone Number | | Organization | | | | + + + + + | [facility] | [address] | [place] [address] | | + + + + + POCT glucose (01/17/2019 7:47 PM) + + + + + | Component | Value | Ref Range | Performed At | + + + + + | GLUCOSE,POC SCREEN | 158 (H)Comment: Testing | 65 - 99 mg/dL | [facility] | | | performed at [facility];[address] | | | | | [address];[place] | | | | | [address] | | | + + + + + + + + + + | Performing | Address | City/State/Zipcode | Phone Number | | Organization | | | | + + + + + | [facility] | [address] | [place] [address] | | + + + + + JOSSED (01/17/2019 6:29 PM) + + + | Narrative | Performed At | + + + | [facility] GI | [facility] | | | PROVATION | | Patient Name: Chris Donaldson Procedure | | | Date: 01/17/2019 6:29 PM MRN: | | | [id number] Account | | | Number: [id number] Date of : | | | 1960 [...] Number of Addenda: 0 | | | [facility] | | + [...] (L) | 11.3 - 15.5 g/dL | [facility] | + + + + + | HCT | 25.4 (L)Comment: Testing | 34.0 - 46.0 % | [facility] | | | performed at [facility];[address] | | | | | [address];[place] | | | | | [address] | | | + + + + + + + + + + | Performing | Address | City/State/Zipcode | Phone Number | | Organization | | | | + + + + + | [facility] | [address] | [place] [address] | | + + + + + Potassium (01/17/2019 5:33 PM) + + + + + | Component | Value | Ref Range | Performed At | + + + + + | POTASSIUM | 4.3Comment: Testing | 3.5 - 4.9 mmol/L | [facility] | | | performed at [facility];[address] | | | | | [address];[place], [place] | | | | | [address] | | | + + + + + + + | Specimen | + + | Blood | + + + + + + + | Performing | Address | City/State/Zipcode | Phone Number | | Organization | | | | + + + + + | [facility] | [address] | [place] [address] | | + + + + + [...] + + + + | Calculated [place] | 56 | degrees | [facility] | + + + + + | Calculated R [place] | -35 | degrees | [facility] | + + + + + | Calculated T [place] | 46 | degrees | [facility] | + + + + + | Diagnosis | Normal sinus rhythmLeft | | [facility] | | | axis deviationCannot | [...] | | | | | ONLY, -COMPUTER (184), | | | | | photograph editor Guillermo Eldridge | | | | | (132) on 01/18/2019 | | | | | 4:28:07 PM | | | + + + + + + + + + + | Performing | Address | City/State/Zipcode | Phone Number | | Organization | | | | + + + + + | [facility] | [address] | [place] [address] | | + + + + + POCT glucose (01/17/2019 5:11 PM) + + + + + | Component | Value | Ref Range | Performed At | + + + + + | GLUCOSE,POC SCREEN | 186 (H)Comment: Testing | 65 - 99 mg/dL | [facility] | | | performed at [facility];[address] | | | | | [address];[place] | | | | | [address] | | | + + + + + + + + + + | Performing | Address | City/State/Zipcode | Phone Number | | Organization | | | | + + + + + | [facility] | [address] | [facility] [address] | | + + + + + ED INFORMATION EXCHANGE (01/17/2019 3:32 PM) + + + | Narrative | Performed At | + + + | [id number] Criteria Met 2 in 2 | ED [...] Count (12 mo.) Facility Visits Low Acuity [facility] | | | [facility] 1 0 [facility] 2 0 Total 3 0 | | | Note: Visits indicate total known visits. Medicaid Low Acuity Dx | | | are the number of primary diagnoses on the Medicaid's Low Acuity dx | | | list. Recent Emergency Department Visit Summary Date Facility | | | [facility] State Type Diagnoses or Chief Complaint January 17, 2019 [facility] | | | [facility] GI Bleeding Referral | [...] | | | Unspecified abdominal pain Other joint terminal attack controller (current) drug | | | therapy Unspecified [...] | | | has registered at the [facility] Emergency | | | Department For more information visit: | | | [email or web address] | | | [id number] PLEASE NOTE: 1. Any care recommendations and [...] | | completeness of information provided. 2019 [employer] | | | Rebls. - [email or web address] | | + + + + + | Procedure Note | + + | Interface, Lab - 01/17/2019 3:34 PM PDT Formatting of this note may be different | | from the original.[id number] Met 2 in 2Security and | | SafetyNo recent Security Events currently on fileED Care GuidelinesThere are currently | | no ED Care Guidelines for this patient. Please check your facility's medical records | | system.Prescription Drug Report (12 Mo.)PDMP query found no report.E.D. Visit Count (12 | | mo.)Facility Visits Low Acuity [facility] 1 0 [facility] | | Hospital 2 0 Total 3 0 Note: Visits indicate total known visits. Medicaid Low Acuity Dx | | are the number of primary diagnoses on the Medicaid's Low Acuity dx list. Recent | | Emergency Department Visit SummaryDate Facility City State Type Diagnoses or Chief | | Complaint January 17, 2019 [facility] [place] Emergency GI Bleeding | | Referral Gastrointestinal hemorrhage, unspecified Personal history of other | | diseases of the digestive system [facility] [place] [place] [place] [facility] | | Chief Complaint: VOMITING BLOOD [facility] [place] [place] [facility] | | Unspecified abdominal pain Other joint terminal attack controller (current) drug therapy Unspecified | | cirrhosis of liver Nicotine dependence, unspecified, uncomplicated Malignant | | neoplasm of liver, primary, unspecified as to type Recent Inpatient Visit SummaryNo | | recorded inpatient visits. Care ProvidersProvider [facility] Type Phone Fax Service Dates | | DESIREE PATRICIO MD Family Medicine Current Collective PortalThis patient has | | registered at the [facility] Emergency Department For more | | information visit: | | [id number] PLEASE | | NOTE: 1. Any care [...] or completeness of information | | provided.2019 [employer] - [employer] | | Referral | | Gastrointestinal hemorrhage, unspecified | | Personal history of other diseases of the digestive system | | | |January 17, 2019 [facility] [place] Emergency Chief Complaint: VOMITING BLOOD | |January 24, 2018 [facility] [place] Emergency | | Unspecified abdominal pain | | Other joint terminal attack controller (current) drug therapy | | Unspecified cirrhosis [...] MD Family Medicine Current | | | |Smart [employer] Portal | |This patient has registered at the [facility] Emergency Department | |For more information visit: [id number] | |PLEASE NOTE: | | 1. Any [...] of information provided. | | | |2018 Instant Opinion - [employer] | + + + +---------+ + + [...] | ABO/RH(D) | O POSITIVE | | [facility] | + + + + + | ANTIBODY SCREEN | NEGATIVE | | [facility] | + + + + + | ARM BAND NUMBER | [id number] | | [facility] | + + + + + | UNIT NUMBER | [id number] | | [facility] | + + + + + | BLOOD COMPONENT TYPE | LEUKODEPLETED PC | | [facility] | + + + + + | UNIT DIVISION | 00 | | [facility] | + + + + + | STATUS OF UNIT | REL FROM ALLOC | | [facility] | + + + + + | TRANSFUSION STATUS | OK TO TRANSFUSE | | [facility] | + + + + + | CROSSMATCH RESULT | COMPATIBLE | | [facility] | + + + + + | UNIT NUMBER | [id number] | | [facility] | + + + + + | BLOOD COMPONENT TYPE | LEUKODEPLETED PC | | [facility] | + + + + + | UNIT DIVISION | 00 | | [facility] | + + + + + | STATUS OF UNIT | REL FROM ALLOC | | [facility] | + + + + + | TRANSFUSION STATUS | OK TO TRANSFUSE | | [facility] | + + + + + | CROSSMATCH RESULT | COMPATIBLE | | [facility] | + + + + + | UNIT NUMBER | [id number] | | [facility] | + + + + + | BLOOD COMPONENT TYPE | LEUKODEPLETED PC | | [facility] | + + + + + | UNIT DIVISION | 00 | | [facility] | + + + + + | STATUS OF UNIT | REL FROM ALLOC | | [facility] | + + + + + | TRANSFUSION STATUS | OK TO TRANSFUSE | | [facility] | + + + + + | CROSSMATCH RESULT | COMPATIBLETesting | | [facility] | | | performed at [facility];[address] | | | | | [address];[place], [place] | | | | | [address] | | | + + + + + | UNIT NUMBER | [id number] | | [facility] | + + + + + | BLOOD COMPONENT TYPE | LEUKODEPLETED PC | | [facility] | + + + + + | UNIT DIVISION | 00 | | [facility] | + + + + + | STATUS OF UNIT | REL FROM ALLOC | | [facility] | + + + + + | TRANSFUSION STATUS | OK TO TRANSFUSE | | [facility] | + + + + + | CROSSMATCH RESULT | COMPATIBLE | | [facility] | + + + + + | UNIT NUMBER | [id number] | | [facility] | + + + + + | BLOOD COMPONENT TYPE | LEUKODEPLETED PC,B | | [facility] | + + + + + | UNIT DIVISION | 00 | | [facility] | + + + + + | STATUS OF UNIT | REL FROM ALLOC | | [facility] | + + + + + | TRANSFUSION STATUS | OK TO TRANSFUSE | | [facility] | + + + + + | CROSSMATCH RESULT | COMPATIBLE | | [facility] | + + + + + + + | Specimen | + + | Blood | + + + + + + + | Performing | Address | City/State/Zipcode | Phone Number | | Organization | | | | + + + + + | [facility] | [address] | [place] [address] | | + + + + + Cardiac Panel (01/17/2019 2:05 PM) + + + + + | Component | Value | Ref Range | Performed At | + + + + + | WBC | 18.40 (H) | 3.80 - 11.00 K/uL | [facility] | + + + + + | RBC | 2.89 (L) | 3.70 - 5.10 M/uL | [facility] | + + + + + | HGB | 9.7 (L) | 11.3 - 15.5 g/dL | [facility] | + + + + + [...] 47.7 | 37 - 53 fl | [facility] | + + + + + | PLT | 219 | 150 - 400 K/uL | [facility] | + + + + + | MPV | 9.3 | fl | [facility] | + + + + + | DIFF TYPE | AUTOMATED | | [facility] | + + + + + | NEUTROPHILS | 77.78 | % | [facility] | + + + + + | LYMPHOCYTES | 14.10 | % | [facility] | + + + + + [...] 2.59 | 1.00 - 3.90 K/uL | [facility] | + + + + + [...] 2.2 | 1.3 - 4.9 g/dL | [facility] | + + + + + | A/G | 1.6 | 1.0 - 2.4 | [facility] | + + + + + | TBIL | 1.0 | 0.1 - 1.5 mg/dL | [facility] | + + + + + | ALK PHOS | 63 | 35 - 115 U/L | [facility] | + + + + + | AST | 41 | 10 - 45 U/L | [facility] | + + + + + | ALT | 28 | 10 - 65 U/L | [facility] | + + + + + | EGFR | 44 (L)Comment: GFR <60: | >60 mL/min/1.73m2 | [facility] | | | CHRONIC KIDNEY DISEASE, [...] 76 | 30 - 240 U/L | [facility] | + + + + + | INR | 1.1Comment: REFERENCE | | [facility] | | | RANGE:0.9 - | [...] 24 | 23 - 32 seconds | [facility] | + + + + + | MMB | 2.2 | 0.5 - 3.6 ng/mL | [facility] | + + + + + | CK-MB Index | 2.9Comment: CK INDEX | | [facility] | | | INTERPRETATION: | | [...] | | | | | performed at [facility];[address] | | | | | [address];[place] | | | | | [address] | | | + + + + + + + + + + | Performing | Address | City/State/Zipcode | Phone Number | | Organization | | | | + + + + + | [facility] | [address] | [place] [address] | | + + + + + [...]
--- OUTSIDE RECORDS SUMMARY | ~2019-01-24 | XMS | Clinical Summary ---
Demographics + + + | Address | [address] | | | [place] [address] | + + + | Home Phone | | + + + | Preferred Language | Unknown | + + + | Marital Status | Legally | + + + | Confucianism Affiliation | Unknown | + + + | Race | Unknown | + + + | Ethnic Group | Unknown | + + + Author + + + | Author | [facility] | | | and Tipana | + + + | Organization | [facility] | | [...] Team Providers + +------+ + | Care Shredded Filler Cigar Maker Machine Name | Role | Phone | + [...] + + | Overview: 07/05/16 done at [facility] | | There is no evidence [...] [place] | | | | | | [address] | | | | | | | [...] [address] | [place] | [phone] | | [facility] | | [address] | | | [facility] | | [...] + + + | [facility] | [address] | [place] | [phone] | | [facility] | | [address] | | | [facility] | | [...] | | | | | | [facility] | | | | | | MEDICAL [...] ST. | [address] | [place] | [phone] | | [facility] | | [address] | | | - LABORATORY | | [...] + | [facility] | [address] | [place] | [phone] | | [facility] | | [address] | | | - LABORATORY | | [...] | mL/min/1.73m2 | [facility] | | | [facility] | RATE,ESTIMATED mL/min | | MEDICAL | | | | /1.54k7Rous than 60 | | PARK | | [...] [address] | [place] | [phone] | | [facility] | | [address] | | | [facility] | | [...] + + + | [facility] | [address] | [place] | [phone] | | [facility] | | [address] | | | [facility] | | [...] [facility] | | | | | | [facility] | | | | | | [facility]ICAL | | | | | | [facility] | | | | | | LABORATORY | | + + + + + + | Creatinine | 1.16 (H) | 0.55 - 1.02 | [facility] | | | | | mg/dL | [facility] | | | | | | [facility] | | | | | | [facility] | | | | | | LABORATORY | | + + + + + + | eGFR if not | 48 (L)Comment: Estimated | >=60 | [facility] | | | | GFR reported in | mL/min/1.73m2 | [facility] | | | T[facility] | mL/min/1.73m2.For | | MEDICAL | | [...] + + + | [facility] | [address] | [place], [place] | [phone] | | [facility] | | [address] | | | [facility] | | [...] | [facility] | [facility] | [id number] | | [phone] | | Medica | [...] al/Fam | | 1960 | [phone] | [place] [address] | | | ashley | | | 8 (Home) | | + +--------+ +--------+ + + Advance Directives Patient has advance care planning documents on file. For more information, please contact:[facility] [address]
--- OUTSIDE RECORDS SUMMARY | ~2019-01-24 | XMS | Encounter Summary ---
Demographics + + + | Address | [address] | | | [place] [address] | + + + | Home Phone | | + + + | Preferred Language | Unknown | + + + | Marital Status | Legally | + + + | Anabaptism Affiliation | Unknown | + + + | Race | Unknown | + + + | Ethnic Group | Unknown | + + + Author + + + | Author | [facility] | | | and Tipana | + + + | Organization | [facility] | | | and [...] Team Providers + +------+ + | Care Auto Air Conditioning Mechanic Name | Role | Phone | [...] Refill | | 2019 | | [facility] | [address] | | | | | [address] | [place] | | | | | [place] | [address] | | | | | [address] | | | | | | [phone] | | | +--------+--------+ + + + [...]
--- OUTSIDE RECORDS SUMMARY | ~2019-01-24 | XMS | Encounter Summary ---
Demographics + + + | Address | [address] | | | [place] [address] | + + + | Home Phone | | + + + | Preferred Language | Unknown | + + + | Marital Status | Legally | + + + | Jew Affiliation | Unknown | + + + | Race | Unknown | + + + | Ethnic Group | Unknown | + + + Author + + + | Author | [facility] | + + + | Organization | [facility] | + + + | Address [...] Team Providers + +------+ + | Care Sheet Metal Pattern Cutter Name | Role | Phone | + [...] | | Internal | Diagnoses | | [facility] 7th | | | | Medicine | | | [place] | | | | | Hyperkalemia | | [address] | | | | | Acute | | [address] | | | | | post-hemorrh | | [place] | | | | | agic anemia | | [address] Phone: | | | | | Upper GI | | [phone] | | | | | bleeding | [...] + + | 01/19/ | Anesthesia | [facility] | Kurt Santos MD | | | 2019 | [facility] | [facility] | | | | | Endoscopy [address] | [address] [place] [address] | | | [address] [place], [place] | [facility] | | | | | [address] | [place] [address] | | | | | | [phone] | | +--------+ + + + + [...]
--- OUTSIDE RECORDS SUMMARY | ~2019-01-24 | XMS | Encounter Summary ---
Demographics + + + | Address | [address] | | | [place] [address] | + + + | Home Phone | | + + + | Preferred Language | Unknown | + + + | Marital Status | Legally | + + + | Baptist Affiliation | Unknown | + + + | Race | Unknown | + + + | Ethnic Group | Unknown | + + + Author + + + | Author | [facility] | | | and Tipana | + + + | Organization | [facility] | | | and Tipana [...] Team Providers + +------+ + | Care Cyber Policy And Strategy Planner Name | Role | Phone | + [...] + + | 11/11/ | Office | [facility] | Donal Chaidez, | Upper respiratory | | 2019 | Visit | [facility] | [address] | tract infection, | | | | [address] | [place] | unspecified type | | | | [place], [place] | [address] | (Primary Dx); Pain | | | | [address] | | in both lower | | | | [phone] | | extremities | +--------+---------+ + + [...] [place] | | | | | | [address] | | | | | | | | +--------+---------+ + + + documented as of this encounter Visit Diagnoses + + | Diagnosis | + + | Upper respiratory tract infection, unspecified type - Primary | + + | Pain in both lower extremities | + + documented in this encounter
--- OUTSIDE RECORDS SUMMARY | ~2019-01-24 | XMS | Encounter Summary ---
Demographics + + + | Address | [address] | | | [place] [address] | + + + | Home Phone | | + + + | Preferred Language | Unknown | + + + | Marital Status | Legally | + + + | Yazidism Affiliation | Unknown | + + + | Race | Unknown | + + + | Ethnic Group | Unknown | + + + Author + + + | Author | [facility] | | | and Tipana | + + + | Organization | [facility] | | | and [...] Team Providers + +------+ + | Care Log Tumbler Name | Role | Phone | + [...] Refill | | 2019 | | [facility] | [address] | | | | | [address] | [place] | | | | | [place] | [address] | | | | | [address] | | | | | | [phone] | | | +--------+--------+ + + + [...]
--- OUTSIDE RECORDS SUMMARY | ~2019-01-24 | XMS | Encounter Summary ---
Demographics + + + | Address | [address] | | | [place] [address] | + + + | Home Phone | | + + + | Preferred Language | Unknown | + + + | Marital Status | Legally | + + + | Church Affiliation | Unknown | + + + | Race | Unknown | + + + | Ethnic Group | Unknown | + + + Author + + + | Author | [facility] | + + + | Organization | [facility] [employer] [facility] | + + + | Address [...] Team Providers + +------+ + | Care Invoice Checker Name | Role | Phone | + +------+ + | Donal Chaidez MD | PCP | | + +------+ + Encounter Details +--------+ + + + + | Date | Type | Department | Care Team | Description | +--------+ + + + + | 01/17/ | Procedure | [facility] | | | | 2019 | [facility] | | | | | | Endoscopy [address] | | | | | | [place] | | | | | | [address] | | | +--------+ + + + [...]
--- OUTSIDE RECORDS SUMMARY | ~2019-01-24 | XMS | Encounter Summary ---
Demographics + + + | Address | [address] | | | [place] [address] | + + + | Home Phone | | + + + | Preferred Language | Unknown | + + + | Marital Status | Legally | + + + | Caodaism Affiliation | Unknown | + + + | Race | Unknown | + + + | Ethnic Group | Unknown | + + + Author + + + | Author | [facility] [employer] | + + + | Organization | [facility] | + + + | Address [...] Team Providers + +------+ + | Care Seed Packer Name | Role | Phone | + +------+ + | Donal Chaidez MD | PCP | | + +------+ + Encounter Details +--------+ + + + + | Date | Type | Department | Care Team | Description | +--------+ + + + + | 01/19/ | Procedure | [facility] | | | | 2019 | [facility] | | | | | | Endoscopy [address] | | | | | | [place] | | | | | | [address] | | | +--------+ + + + [...]
[~2019-01-24 19:20] MED LIST changes: +ALENDRONATE SOD70 MG PO; +LANTUS100 UNITS/ SUB-Q
--- OUTSIDE RECORDS SUMMARY | 2019-01-24 19:22 | XMS ---
PreManage Notification: CHRIS DUMONT Security Clam Treader Events No recent Security Events currently on file CRITERIA MET - [facility] - 2 Visits in 30 Days CARE PROVIDERS DESIREE PATRICIO [facility] Current PHONE: Unknown Dalia has no Care Guidelines for this patient. [place] VISIT COUNT (12 MO.) [address] TOTAL 4 NOTE: Visits indicate total known visits. ED/UCC VISIT TRACKING (12 MO.) 01/24/2019 19:21 [facility] [place] TYPE: Emergency COMPLAINT: - LEFT ARM PAIN NON INJURY 01/17/2019 13:53 [facility] TYPE: Emergency DIAGNOSES: - Acute kidney failure, unspecified - Elevated white blood cell count, unspecified - GI Bleeding - Alcoholic cirrhosis of liver with ascites - Hematemesis - Gastrointestinal hemorrhage, unspecified - Referral - Acute posthemorrhagic anemia - Anemia, unspecified - Personal history of other diseases of the digestive system - Hyperkalemia 01/17/2019 11:11 [facility] [place] TYPE: Emergency COMPLAINT: - VOMITING BLOOD DIAGNOSES: - Nicotine dependence, unspecified, uncomplicated - Acquired absence of other specified parts of digestive tract - Acquired absence of both cervix and uterus - Gastrointestinal hemorrhage, unspecified - Other retirement (current) drug therapy - Anemia, unspecified - Liver disease, unspecified - Hematemesis 01/24/2018 04:09 [facility] [place] TYPE: Emergency COMPLAINT: - ABD PAIN/BACK PAIN DIAGNOSES: - Unspecified abdominal pain - 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 - Unspecified cirrhosis of liver - Nicotine dependence, unspecified, uncomplicated - Malignant neoplasm of liver, primary, unspecified as to type INPATIENT VISIT TRACKING (12 MO.) [facility] TYPE: General Medicine DIAGNOSES: - Alcoholic cirrhosis of liver with ascites - Personal history of other diseases of the digestive system - Acute kidney failure, unspecified - Hyperkalemia - Elevated white blood cell count, unspecified - Portal hypertension - Anemia, unspecified - Hematemesis - Alcoholic cirrhosis of liver without ascites - Acute posthemorrhagic anemia - Gastrointestinal hemorrhage, unspecified [email or web address]
[2019-01-24] MEDS ORDERED: CEPHALEXIN500 MG PO (20:12)
== END 2019-01-24 20:24 | disposition home or self-care (01) ==
LOC: ED 19:20
DX: I80.8 Phlebitis and thrombophlebitis of other sites (principal); E11.9 Type 2 diabetes mellitus without complications; F17.200 Nicotine dependence, unspecified, uncomplicated; Z90.49 Acquired absence of other specified parts of digestive tract; Z90.710 Acquired absence of both cervix and uterus; Z79.4 Long term (current) use of insulin; Z79.899 Other long term (current) drug therapy
CPT/HCPCS: 99283

== ENCOUNTER 2020-02-17 13:55 | Emergency (ER) | payer MEDICARE, OTHER ==
[~2020-02-17] VITALS: Ht 162.6 cm; Wt 53.5 kg
[~2020-02-17 13:55] MED LIST changes: +CEPHALEXIN500 MG PO
--- OUTSIDE RECORDS SUMMARY | 2020-02-17 13:58 | XMS ---
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 EIrena VISIT COUNT (12 MO.) 1 NADJA Oscar TOTAL 1 NOTE: Visits indicate total known visits. ED/UCC VISIT TRACKING (12 MO.) 02/17/2020 13:56 NADJA Jones [place] TYPE: Emergency COMPLAINT: - R SIDE RIB PAIN INPATIENT VISIT TRACKING (12 MO.) No inpatient visits to display in this time frame [id number]
== END 2020-02-17 14:17 | disposition home or self-care (01) ==
LOC: ED 13:55
DX: R07.81 Pleurodynia (principal); Z00.8 Encounter for other general examination

== ENCOUNTER 2020-07-16 00:14 | Emergency (ER) | payer MEDICARE, OTHER ==
[~2020-07-16] VITALS: Ht 162.6 cm; Wt 53.5 kg
--- OUTSIDE RECORDS SUMMARY | 2020-07-16 00:18 | XMS ---
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 EIrena VISIT COUNT (12 MO.) 2 NADJA Oscar TOTAL 2 NOTE: Visits indicate total known visits. ED/UCC VISIT TRACKING (12 MO.) 07/16/2020 00:15 NADJA Jones [place] TYPE: Emergency COMPLAINT: - LEG CRAMPS 02/17/2020 13:56 NADJA Jones [place] TYPE: Emergency COMPLAINT: - R SIDE RIB PAIN DIAGNOSES: - Encounter for other general examination - Pleurodynia INPATIENT VISIT TRACKING (12 MO.) No inpatient visits to display in this time frame [id number]
[2020-07-16] MEDS ORDERED: LANTUS SOL100 UNIT/1 SUB-Q (00:29)
== END 2020-07-16 01:55 | disposition home or self-care (01) ==
LOC: ED 00:14
DX: R25.2 Cramp and spasm (principal); E11.9 Type 2 diabetes mellitus without complications; F17.200 Nicotine dependence, unspecified, uncomplicated; Z79.899 Other long term (current) drug therapy; Z79.4 Long term (current) use of insulin
CPT/HCPCS: 80053; 83735; 85025; 99283

== ENCOUNTER 2021-04-03 16:34 | Emergency (ER) | payer MEDICARE, OTHER ==
[~2021-04-03] VITALS: Ht 162.6 cm; Wt 46.3 kg
[~2021-04-03 16:34] MED LIST changes: +LANTUS SOL100 UNIT/1 SUB-Q
--- OUTSIDE RECORDS SUMMARY | 2021-04-03 16:36 | XMS ---
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 EIrena VISIT COUNT (12 MO.) 2 NADJA Oscar TOTAL 2 NOTE: Visits indicate total known visits. 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
[2021-04-03] MEDS ORDERED: LISINOPRIL5 MG PO (16:45)
== END 2021-04-03 19:27 | disposition home or self-care (01) ==
LOC: ED 16:34
DX: E11.65 Type 2 diabetes mellitus with hyperglycemia (principal); F17.200 Nicotine dependence, unspecified, uncomplicated; Z79.899 Other long term (current) drug therapy; Z79.4 Long term (current) use of insulin
CPT/HCPCS: 80053; 81001; 82010; 85025; 96374; 99285-25; J1815; J7030

== ENCOUNTER 2025-05-18 16:27 | Emergency (ER) | payer MEDICARE, OTHER ==
[~2025-05-18] VITALS: Ht 160 cm; Wt 45.0 kg
[~2025-05-18 16:27] MED LIST changes: +BUPROPION XL150 MG PO; +BUSPIRONE HCL5 MG PO; +GABAPENTIN300 MG PO; +LISINOPRIL5 MG PO
[2025-05-18 17:05] LABS: BASOPHILS 0.6 % (0.1-1.2); EOSINOPHILS 2.7 % (0.7-5.8); LYMPHOCYTES 20.0 % (19.3-51.7); MCH 29.2 PG (25.6-32.2); MCHC 31.3 g/dL (32.2-35.5); MCV 93.3 fL (79.4-94.8); MONOCYTES 11.9 % (4.7-12.5); NEUTROPHILS 64.5 % (34.0-71.1); RBC 4.04 M/uL (3.93-5.22)
[2025-05-18] MEDS ORDERED: SODIUM CHLORIDE 0.9% 1,000 ML IV PRN (17:15)
[2025-05-18] MEDS ORDERED: ATENOLOL25 MG PO (17:23)
[2025-05-18] MEDS ORDERED: ATORVASTATIN CA80 MG PO (17:24)
[2025-05-18] MEDS ORDERED: VITAMIN D350 MC3 PO (17:24)
[2025-05-18 17:27] LABS: ALT (SGPT) 10.0 U/L (14-59); AST (SGOT) 14.0 U/L (15-37); GLOMERULAR FILTRATION RATE,EST 6.0 mL/min (>60); PROTEIN, TOTAL 7.6 g/dL (6.4-8.2); UREA NITROGEN 100.0 mg/dL (7-18)
[2025-05-18] MEDS ORDERED: LACTATED RINGER'S 1,000 ML IV ONE (20:30)
[2025-05-18] MEDS ORDERED: MORPHINE SULFATE 4 MG/ML VIAL IV ONE (22:30)
[2025-05-18 22:32] LABS: BLOOD/HGB, URINE SMALL (Negative); KETONE, URINE NEGATIVE (Negative); LEUK ESTERASE, URINE LARGE (negative); NITRITE, URINE POSITIVE (negative)
[2025-05-18 22:35] LABS: INR 1.11 (0.80-1.30); PROTIME 13.9 Sec (11.2-14.2)
[2025-05-18 22:36] LABS: EPITHELIAL CELLS, URINE SQUAMOUS 1+ /lpf (0-1+)
[2025-05-18 22:37] LABS: BACTERIA, URINE 3+ /hpf (negative); CASTS, URINE NONE SEEN \\lpf; CRYSTALS, URINE NONE SEEN (0-1+); REFLEX CULTURE, URINE Yes (No)
[2025-05-18 23:07] LABS: GLOMERULAR FILTRATION RATE,EST 7.0 mL/min (>60); UREA NITROGEN 89.0 mg/dL (7-18)
[2025-05-18] MEDS ORDERED: SODIUM CHLORIDE 0.9% 1,000 ML IV SCH (23:45)
[2025-05-19 05:13] LABS: BASOPHILS 0.7 % (0.1-1.2); EOSINOPHILS 2.5 % (0.7-5.8); LYMPHOCYTES 33.6 % (19.3-51.7); MCH 30.1 PG (25.6-32.2); MCHC 32.6 g/dL (32.2-35.5); MCV 92.3 fL (79.4-94.8); MONOCYTES 11.4 % (4.7-12.5); NEUTROPHILS 51.6 % (34.0-71.1); RBC 3.26 M/uL (3.93-5.22)
[2025-05-19 05:27] LABS: ALT (SGPT) 8.0 U/L (14-59); AST (SGOT) 14.0 U/L (15-37); GLOMERULAR FILTRATION RATE,EST 7.0 mL/min (>60); PROTEIN, TOTAL 5.9 g/dL (6.4-8.2); UREA NITROGEN 86.0 mg/dL (7-18)
[2025-05-19 09:40] VITALS: BP 167/72
== END 2025-05-19 09:40 | disposition short-term general hospital (02) ==
LOC: ED 16:27
PROVIDERS: Emergency Medicine; Family Medicine
DX: N17.9 Acute kidney failure, unspecified (principal); K80.20 Calculus of gallbladder without cholecystitis without obstruction; E11.9 Type 2 diabetes mellitus without complications; F17.200 Nicotine dependence, unspecified, uncomplicated; Z79.899 Other long term (current) drug therapy; Z79.4 Long term (current) use of insulin; Z88.8 Allergy status to other drugs, medicaments and biological substances
CPT/HCPCS: 36415; 51798; 74176; 76705; 80048; 80053; 81001; 82140; 83735; 85025; 85610; 87088; 96361; 96374; 96375; 99285-25; J0696; J2270; J2405; J7030; J7121

== ENCOUNTER 2025-07-21 02:32 | Emergency (ER) | payer MEDICARE ==
[~2025-07-21] VITALS: Ht 152.4 cm; Wt 48.6 kg
[~2025-07-21 02:32] MED LIST changes: +ATENOLOL25 MG PO; +ATORVASTATIN CA80 MG PO; +VITAMIN D350 MC3 PO
[2025-07-21] MEDS ORDERED: KETOROLAC TROMETHAMINE 60 MG/2 ML VIAL IM ONE (04:00)
[2025-07-21] MEDS ORDERED: CYCLOBENZAPRINE HCL 10 MG HOME.PACK PO ONE (04:00)
[2025-07-21] MEDS ORDERED: CYCLOBENZAPRINE HCL 10 MG TAB PO ONE (04:00)
[2025-07-21 04:03] VITALS: BP 188/80
== END 2025-07-21 03:00 | disposition home or self-care (01) ==
LOC: ED 02:32
DX: M43.6 Torticollis (principal); Z91.041 Radiographic dye allergy status
CPT/HCPCS: J1885